=== PATIENT | male | born 1970 | race Caucasian/White ===

== ENCOUNTER → 2018-08-28 14:17 | Outpatient (CLI) | payer OTHER, SELFPAY ==
--- NOTE | 2018-08-28 14:19 | RAD_ITS ---
STUDY: X-RAY - RIGHT KNEE REASON FOR EXAM: Male, 48 years old. Knee pain. TECHNIQUE: 4 view(s) of the knee. COMPARISON: None. FINDINGS: Normal visualized distal femur. Normal visualized proximal tibia and fibula. Normal proximal tibiofibular articulation. There is mild medial compartmental arthrosis. Normal lateral femorotibial compartment. Normal patellofemoral articulation. The soft tissue structures are unremarkable. RAD/Knee 4 or More Views IMPRESSION: Mild medial compartmental arthrosis. Electronically Signed: Jefe Cotto MD at 17:21 EST , Service support ,
--- NOTE | 2018-08-28 14:19 | RAD_ITS ---
STUDY: X-RAY - LEFT KNEE REASON FOR EXAM: Male, 48 years old. Knee pain. TECHNIQUE: 4 view(s) of the knee. COMPARISON: None. FINDINGS: Normal visualized distal femur. Normal visualized proximal tibia and fibula. Normal proximal tibiofibular articulation. Normal medial femorotibial compartment. Normal lateral femorotibial compartment. Normal patellofemoral articulation. The soft tissue structures are unremarkable. RAD/Knee 4 or More Views IMPRESSION: Normal x-ray examination of the knee. Electronically Signed: Jefe Cotto MD at 17:20 EST , Service support ,
[2018-08-28 15:08] LABS: Lyme Ab Screen Interpretation REF LAB
[2018-08-28 17:56] LABS: Absolute Lymphocyte Count 1.46 X10^3/ul (0.83-4.51); Absolute Neutrophil Count 3.2 X10^3/uL (2.0-7.7); Basophil# 0.04 X10^3/uL; Basophil% 0.7 % (0-1); Eosinophil# 0.09 X10^3/uL; Eosinophils% 1.7 % (0-5); Hematocrit 44.9 % (40-54); Hemoglobin 15.7 g/dl (13.0-16.5); Lymphocyte # 1.46 X10^3/ul (4.0); Lymphocyte % 26.8 % (19-41); Mean Corpuscular Hgb 33.3 pg (27.0-32.0); Mean Corpuscular Volume 95.1 fL (80-94); Mean Platelet Vol. 9.8 fl (6.2-12.0); Monocyte# 0.61 X10^3/uL; Monocyte% 11.2 % (0-10); Neutrophil # 3.23 X10^3/uL (2.7-7.7); Neutrophil % 59.4 % (47-70); Platelet Count 167 K/mm3 (150-450); RBC Distribution Width CV 11.8 % (11.6-14.6); RBC Distribution Width SD 40.9 fl (35.1-43.9); Red Blood Count 4.72 M/mm3 (4.6-6.2); White Blood Count 5.4 K/mm3 (4.4-11.0)
[2018-08-28 18:02] LABS: CRP < 2.90 mg/L (0.0-3.0); POSITIVE COUNT NO; POSITIVE DIFFERENTIAL NO; POSITIVE MORPHOLOGY NO; Rheumatoid Factor < 10.0 IU/mL (<15)
[2018-08-28 20:35] LABS: Erythrocyte Sedimentation Rate < 1 mm/hr (0-20)
[2018-09-02 13:18] LABS: ANTINUCLEAR ANTIBODIES DIRECT Negative (Negative)
[2018-09-04 08:44] LABS: CCP IgG Antibodies 4 units (0-19); HLA B27 Negative (.); Lyme Scn Total Ab w/Rflx <0.91 ISR (0.00-0.90)
== END ==
PROVIDERS: Family Provider Family Medicine; PCP Family Medicine; Referring Provider Orthopaedic Surgery; Visit Provider Orthopaedic Surgery
DX: M17.11 Unilateral primary osteoarthritis, right knee (principal); M25.562 Pain in left knee
CPT/HCPCS: 36415; 73564; 81374; 85025; 85652; 86038; 86140; 86200; 86431; 86618

== ENCOUNTER → 2018-09-29 15:53 | Outpatient (CLI) | payer OTHER, SELFPAY ==
[2018-09-18 16:14] VITALS: BMI 25.4
--- NOTE | 2018-09-29 15:55 | ECHOD_ITS ---
Reason For Study: MVP Procedure This was a 2D Doppler, Color Flow transthoracic echocardiogram. Exam performed in department. Left Ventricle Normal LV size. Left ventricular systolic function is normal. The estimated ejection fraction is 60 %. No regional wall motion abnormalities noted. Right Ventricle Normal RV size. Normal systolic function. Atria Normal left atrium. Normal right atrium. Mitral Valve Chordal systolic anterior motion of the mitral valve. Mild mitral valve prolapse. Trivial eccentric mitral valve insufficiency. Tricuspid Valve Normal tricuspid valve. Mild tricuspid valve insufficiency. Pulmonary artery systolic pressure is 24 mmHg. Aortic Valve Normal aortic valve. Pulmonic Valve Normal pulmonic valve. Great Vessels Normal aortic root. The pulmonary artery is normal size. Normal inferior vena cava. Pericardium/Pleural No pericardial effusion. MMode/2D Measurements & Calculations LVIDd: 4.7 cm IVSd: 0.90 cm Ao root diam: 3.2 cm LVIDs: 3.2 cm LVPWd: 0.83 cm RVDd: 4.0 cm FS: 32.8 % LAV(MOD-bp): 59.2 ml LA A4 area: 17.0 cm2 LA dimension(2D): 3.5 cm LAV(MOD-bp) Indexed: 29.8 ml/m2 LAV(MOD-sp2): 82.6 ml LAV(MOD-sp4): 43.0 ml RA A4 area: 17.8 cm2 Time Measurements MV dec time: 0.22 sec Doppler Measurements & Calculations MV E max omari: 62.9 cm/sec Lat Peak E' Omari: 16.6 cm/sec Med Peak E' Omari: 11.0 cm/sec MV A max omari: 33.2 cm/sec E/E' lat: 3.8 E/E' med: 5.7 MV E/A: 1.9 Ao V2 max: 112.5 cm/sec LV V1 max: 102.9 cm/sec TR max omari: 217.4 cm/sec Ao max P.1 mmHg LV V1 max P.2 mmHg TR max P.9 mmHg Interpretation Summary Normal LV size. Left ventricular systolic function is normal. The estimated ejection fraction is 60 %. Mild mitral valve prolapse. Chordal systolic anterior motion of the mitral valve. Mild tricuspid valve insufficiency. Ordering Physician: Titus Crain Referring Physician: JOHANN BUNDY Performed By: Suzanna Cohn, SLIMECS, RVT
== END ==
PROVIDERS: Family Provider Family Medicine; PCP Family Medicine; Referring Provider Internal Medicine Cardiovascular Disease; Visit Provider Internal Medicine Cardiovascular Disease
DX: I05.9 Rheumatic mitral valve disease, unspecified (principal)
CPT/HCPCS: 93306

== ENCOUNTER → 2020-10-03 07:48 | Outpatient (CLI) | payer BC, OTHER, SELFPAY ==
[2020-09-22 08:53] VITALS: BMI 26.1
--- NOTE | 2020-10-03 07:50 | ECHOCS_ITS ---
Reason For Study: MVP Procedure This was a 2D Doppler, Color Flow transthoracic echocardiogram. The study was technically difficult. Contrast injection was performed. Exam performed in department. Left Ventricle Normal LV size. Left ventricular systolic function is normal. The estimated ejection fraction is 60 %. Normal diastology for age. No regional wall motion abnormalities noted. Right Ventricle Normal RV size. Normal systolic function. Atria Normal left atrium. Normal right atrium. Mitral Valve Normal mitral valve. Tricuspid Valve Myxomatous appearing tricuspid valve. Unable to estimate RV systolic pressure due to inadequate jet, pulmonary artery pressure probably normal. Pulmonic Valve Normal pulmonic valve. Great Vessels Normal aortic root. The pulmonary artery is normal size. Normal inferior vena cava. Pericardium/Pleural No pericardial effusion. Medication 22 gauge I.V. with prn adaptor inserted into right arm. Diluted definity 3ml given slow IV push to enhance endocardial definition. MMode/2D Measurements & Calculations LVIDd: 4.8 cm IVSd: 0.90 cm Ao root diam: 3.5 cm LVIDs: 3.0 cm LVPWd: 0.94 cm LA dimension: 3.5 cm RVDd: 3.7 cm FS: 37.5 % LAV(MOD-bp): 56.7 ml LA A4 area: 16.9 cm2 RA A4 area: 15.4 cm2 LAV(MOD-bp) Indexed: 28.9 ml/m2 LAV(MOD-sp2): 60.3 ml LAV(MOD-sp4): 45.5 ml Time Measurements MV dec time: 0.23 sec Doppler Measurements & Calculations MV E max omari: 93.2 cm/sec Lat Peak E' Omari: 17.8 cm/sec Med Peak E' Omari: 11.8 cm/sec MV A max omari: 44.2 cm/sec E/E' lat: 5.2 E/E' med: 7.9 MV E/A: 2.1 MV V2 max: 94.4 cm/sec MV P1/2t max omari: 95.1 cm/sec Ao V2 max: 132.1 cm/sec MV max P.6 mmHg MV P1/2t: 66.7 msec Ao max P.0 mmHg MV V2 mean: 39.1 cm/sec MV dec slope: 417.9 cm/sec2 MV mean P.77 mmHg MVA(P1/2t): 3.3 cm2 MV V2 VTI: 28.9 cm LV V1 max: 105.7 cm/sec PA V2 max: 93.4 cm/sec LV V1 max P.5 mmHg Interpretation Summary Normal LV size. Left ventricular systolic function is normal. The estimated ejection fraction is 60 %. Myxomatous appearing tricuspid valve. Unable to estimate RV systolic pressure due to inadequate jet, pulmonary artery pressure probably normal. Contrast injection was performed. Ordering Physician: Titus Crain Referring Physician: Tono Radford Performed By: Ventura Dickinson RCS
== END ==
PROVIDERS: PCP Family Medicine; Referring Provider Internal Medicine Cardiovascular Disease; Visit Provider Internal Medicine Cardiovascular Disease
DX: I34.1 Nonrheumatic mitral (valve) prolapse (principal)
CPT/HCPCS: 93306; Q9957; A4216; C8929

== ENCOUNTER → 2021-02-08 10:13 | Outpatient (CLI) | payer BC, OTHER, SELFPAY ==
[2021-02-08 11:38] LABS: EXAGEN MAILED SPECIMEN
[2021-02-08 12:13] LABS: Color, Urine Yellow (Yellow); Glucose, Dipstick Normal (Normal); Ketone-Dipstick Negative (Negative); Leukocyte Esterase-Dipstick Negative /ul (Negative); Nitrite-Dipstick Negative (Negative); Occult Blood-Urine Negative /ul (Negative); Protein-Dipstick Negative (Negative); Specific Gravity, Urine 1.015 (1.002-1.030); Urine Bilirubin Dipstick Negative (Negative); Urine Clarity Clear (Clear); Urine Urobilinogen Normal (Normal)
[2021-02-08 12:21] LABS: Absolute Lymphocyte Count 1.38 X10^3/uL (0.83-4.51); Absolute Neutrophil Count 5.1 X10^3/uL (2.0-7.7); Basophil# 0.06 X10^3/uL; Basophil% 0.8 % (0-1); Eosinophil# 0.08 X10^3/uL; Eosinophils% 1.1 % (0-5); Erythrocyte Sedimentation Rate 3 mm/hr (0-20); Hematocrit 43.5 % (40-54); Hemoglobin 15.1 g/dL (13.0-16.5); Lymphocyte # 1.38 X10^3/ul (0.83-4.51); Lymphocyte % 19.2 % (19-41); Mean Corp Hgb Conc 34.7 g/dL (32-36); Mean Corpuscular Hgb 32.8 pg (27.0-32.0); Mean Corpuscular Volume 94.6 fL (80-94); Mean Platelet Vol. 9.5 fl (6.2-12.0); Monocyte# 0.55 X10^3/uL; Monocyte% 7.6 % (0-10); NRBC Flagged by Analyzer 0 % (0-5); Neutrophil # 5.09 X10^3/uL (2.7-7.7); Neutrophil % 70.9 % (47-70); Platelet Count 191 K/mm3 (150-450); RBC Distribution Width CV 11.8 % (11.6-14.6); RBC Distribution Width SD 40.7 fl (35.1-43.9); White Blood Count 7.2 K/mm3 (4.4-11.0)
[2021-02-08 12:23] LABS: Prothrombin Time (Protime)PT. 12.5 SECONDS (11.7-14.9)
[2021-02-08 12:24] LABS: Partial Thromboplast Time 29.6 Seconds (24.1-36.2)
[2021-02-08 12:36] LABS: ALB/GLOB Ratio 1.3 RATIO (0.9-2.4); AST(SGOT) 32 U/L (15-37); Alanine Aminotransfer ALT/SGPT 35 U/L (16-61); Albumin, Serum 4.3 g/dL (3.2-5.0); Alkaline Phosphatase 86 U/L (45-117); Anion Gap 5 (5-15); BUN 12 mg/dL (7-18); BUN/Creat Ratio 11.9 RATIO (10-20); CRP < 2.90 mg/L (0.0-3.0); Calcium,Total 9.2 mg/dL (8.5-10.1); Chloride 105 mmol/L (98-107); Creatinine, Serum 1.01 mg/dL (0.70-1.30); EST Glomerular Filtration Rate 82 mL/min (>60); Est Glom Filt Rate - Afr Amer 100 mL/min (>60); Globulin 3.2 g/dL (2.2-4.2); Glucose 90 mg/dL (74-106); Potassium 3.9 mmol/L (3.5-5.1); Protein, Total 7.5 g/dL (6.4-8.2); Sodium Level 138 mmol/L (136-145)
[2021-02-08 12:47] LABS: Protein, Urine (Random) < 6.0 mg/dL (<11.9)
[2021-02-08 13:06] LABS: Hepatitis B Surface Antibody Non-Reactive; Hepatitis B Surface Antigen Non-Reactive (Nonreactive); Hepatitis C Antibody Non-Reactive (Nonreactive)
[2021-02-10 05:07] LABS: Dilute Prothrombin Time (dPT) 36.1 sec (0.0-55.0); Dilute Russell Viper Venom 35.4 sec (0.0-47.0); Hexagonal Phase Phospholipid 0 sec (0-11); PTT-LA 33.7 sec (0.0-51.9); Thrombin Time 20.6 sec (0.0-23.0); dPT Confirm Ratio 1.07 Ratio (0.00-1.40)
[2021-02-10 09:58] LABS: Interpretation Comment: (.)
== END ==
PROVIDERS: PCP Family Medicine; Referring Provider Internal Medicine Rheumatology; Visit Provider Internal Medicine Rheumatology
DX: M06.4 Inflammatory polyarthropathy (principal); R76.8 Other specified abnormal immunological findings in serum; R26.89 Other abnormalities of gait and mobility; I49.8 Other specified cardiac arrhythmias; I34.1 Nonrheumatic mitral (valve) prolapse; E78.5 Hyperlipidemia, unspecified; J45.909 Unspecified asthma, uncomplicated; G43.909 Migraine, unspecified, not intractable, without status migrainosus
CPT/HCPCS: 36415; 80053; 81002; 82570; 84156; 85025; 85598; 85610; 85652; 85670; 85730; 86140; 86706; 86803; 87340

== ENCOUNTER → 2021-03-07 12:25 | Outpatient (CLI) | payer BC, OTHER, SELFPAY | PROVIDERS: PCP Family Medicine; Referring Provider Internal Medicine Cardiovascular Disease; Visit Provider Internal Medicine Cardiovascular Disease | DX: R00.2 Palpitations (principal); R06.02 Shortness of breath; R94.31 Abnormal electrocardiogram [ECG] [EKG]; I49.3 Ventricular premature depolarization | CPT/HCPCS: 93225; 93226 ==

== ENCOUNTER → 2021-05-15 06:33 | Outpatient (CLI) | payer BC, OTHER, SELFPAY ==
--- NOTE | 2021-05-15 10:02 | STRESSREP ---
Stress Test Report Exercise myocardial perfusion stress test. 51-year-old man with a history of chest pain. Stress protocol: Resting EKG demonstrates normal sinus rhythm with a rate of 57 bpm normal intervals are noted resting blood pressure is 132/84 mmHg. The patient exercised according to regular Reed protocol for total duration of 12 minutes. Patient completed stage IV of the Reed protocol. The maximum heart rate attained was 153 bpm which was 91% of maximum predicted heart rate the maximum workload was 13.7 metabolic equivalents. At rest there were no ST or T wave changes noted to suggest ischemia and at peak exercise upsloping ST changes were noted with did not meet the criteria for ischemia. No clinical angina was noted suggestive of angina but mild chest discomfort was present. The peak blood pressure was 168/80 mmHg. Myocardial perfusion protocol. 11.7 mCi of technetium 99m sestamibi was injected at rest. The patient exercised according to regular Reed protocol to a high workload and at peak exercise 33.3 mCi of technetium 99m sestamibi was injected stress images were obtained stress and rest images were reconstructed and compared in the short axis vertical long and horizontal long axis. Gated images were also obtained. Perfusion SPECT analysis: Review of the stress images demonstrate normal uptake of tracer noted in all areas of the myocardium. The resting images similarly demonstrate normal uptake of tracer noted in all areas of the myocardium. No areas of reversibility are noted to suggest ischemia and no previous infarct is noted. Gated SPECT analysis: The gated ejection fraction is 59%. Conclusion: Normal exercise myocardial perfusion stress test at a high workload. Preserved ejection fraction.
== END ==
PROVIDERS: PCP Family Medicine; Referring Provider Physician Assistant Medical; Visit Provider Physician Assistant Medical
DX: R07.9 Chest pain, unspecified (principal)
CPT/HCPCS: 78452; 93017; A9500; A4216

== ENCOUNTER → 2021-06-23 07:11 | Outpatient (CLI) | payer BC, OTHER, SELFPAY ==
[2021-06-23 10:01] LABS: Absolute Neutrophil Count 2.6 X10^3/uL (2.0-7.7); Basophil# 0.07 X10^3/uL; Basophil% 1.5 % (0-1); Eosinophil# 0.12 X10^3/uL; Eosinophils% 2.7 % (0-5); Hematocrit 43.8 % (40-54); Hemoglobin 15.3 g/dL (13.0-16.5); Lymphocyte % 26.5 % (19-41); Mean Corp Hgb Conc 34.9 g/dL (32-36); Mean Corpuscular Hgb 33.4 pg (27.0-32.0); Mean Corpuscular Volume 95.6 fL (80-94); Mean Platelet Vol. 9.8 fl (6.2-12.0); Monocyte# 0.56 X10^3/uL; Monocyte% 12.4 % (0-10); NRBC Flagged by Analyzer 0 % (0-5); Neutrophil # 2.56 X10^3/uL (2.7-7.7); Neutrophil % 56.7 % (47-70); Platelet Count 195 K/mm3 (150-450); RBC Distribution Width CV 11.4 % (11.6-14.6); Red Blood Count 4.58 M/mm3 (4.6-6.2); White Blood Count 4.5 K/mm3 (4.4-11.0)
[2021-06-23 10:45] LABS: ALB/GLOB Ratio 1.2 RATIO (0.9-2.4); AST(SGOT) 24 U/L (15-37); Alanine Aminotransfer ALT/SGPT 33 U/L (16-61); Albumin, Serum 3.9 g/dL (3.2-5.0); Alkaline Phosphatase 70 U/L (45-117); Anion Gap 6 (5-15); BUN 19 mg/dL (7-18); BUN/Creat Ratio 20.1 RATIO (10-20); Calcium,Total 9.1 mg/dL (8.5-10.1); Chloride 107 mmol/L (98-107); Creatinine, Serum 0.94 mg/dL (0.70-1.30); EST Glomerular Filtration Rate 89 mL/min (>60); Est Glom Filt Rate - Afr Amer 107 mL/min (>60); Globulin 3.3 g/dL (2.2-4.2); Glucose 88 mg/dL (74-106); Protein, Total 7.2 g/dL (6.4-8.2); Sodium Level 139 mmol/L (136-145)
== END ==
PROVIDERS: PCP Family Medicine; Referring Provider Internal Medicine Rheumatology; Visit Provider Internal Medicine Rheumatology
DX: M06.4 Inflammatory polyarthropathy (principal); R76.8 Other specified abnormal immunological findings in serum; R26.89 Other abnormalities of gait and mobility; I49.8 Other specified cardiac arrhythmias; I34.1 Nonrheumatic mitral (valve) prolapse; E78.5 Hyperlipidemia, unspecified; J45.909 Unspecified asthma, uncomplicated; G43.909 Migraine, unspecified, not intractable, without status migrainosus
CPT/HCPCS: 36415; 80053; 85025

== ENCOUNTER 2021-09-08 07:09 | Outpatient (CLI) | payer BC, OTHER, SELFPAY ==
[2021-09-08 10:00] LABS: Absolute Lymphocyte Count 1.59 X10^3/uL (0.83-4.51); Absolute Neutrophil Count 2.8 X10^3/uL (2.0-7.7); Basophil# 0.06 X10^3/uL; Basophil% 1.2 % (0-1); Eosinophil# 0.11 X10^3/uL; Eosinophils% 2.1 % (0-5); Hematocrit 44.6 % (40-54); Hemoglobin 15.7 g/dL (13.0-16.5); Lymphocyte # 1.59 X10^3/ul (0.83-4.51); Lymphocyte % 30.9 % (19-41); Mean Corp Hgb Conc 35.2 g/dL (32-36); Mean Corpuscular Hgb 33.1 pg (27.0-32.0); Mean Corpuscular Volume 94.1 fL (80-94); Mean Platelet Vol. 9.3 fl (6.2-12.0); Monocyte# 0.59 X10^3/uL; Monocyte% 11.5 % (0-10); NRBC Flagged by Analyzer 0 % (0-5); Neutrophil # 2.79 X10^3/uL (2.7-7.7); Neutrophil % 54.1 % (47-70); Platelet Count 198 K/mm3 (150-450); RBC Distribution Width CV 11.3 % (11.6-14.6); RBC Distribution Width SD 39.1 fl (35.1-43.9); Red Blood Count 4.74 M/mm3 (4.6-6.2); White Blood Count 5.2 K/mm3 (4.4-11.0)
[2021-09-08 10:22] LABS: ALB/GLOB Ratio 1.2 RATIO (0.9-2.4); AST(SGOT) 27 U/L (15-37); Alanine Aminotransfer ALT/SGPT 33 U/L (16-61); Albumin, Serum 3.9 g/dL (3.2-5.0); Alkaline Phosphatase 79 U/L (45-117); Anion Gap 7 (5-15); BUN 16 mg/dL (7-18); BUN/Creat Ratio 17.4 RATIO (10-20); Calcium,Total 8.9 mg/dL (8.5-10.1); Chloride 104 mmol/L (98-107); Creatinine, Serum 0.92 mg/dL (0.70-1.30); EST Glomerular Filtration Rate 92 mL/min (>60); Est Glom Filt Rate - Afr Amer 111 mL/min (>60); Globulin 3.2 g/dL (2.2-4.2); Glucose 80 mg/dL (74-106); Potassium 4.4 mmol/L (3.5-5.1); Protein, Total 7.1 g/dL (6.4-8.2); Sodium Level 138 mmol/L (136-145)
== END 2021-09-08 23:59 | disposition short-term general hospital (02) ==
LOC: MTLAB 07:11
PROVIDERS: PCP Family Medicine; Referring Provider Internal Medicine Rheumatology; Visit Provider Internal Medicine Rheumatology
DX: M06.4 Inflammatory polyarthropathy (principal); Z79.899 Other long term (current) drug therapy; R76.8 Other specified abnormal immunological findings in serum; M77.11 Lateral epicondylitis, right elbow; R26.89 Other abnormalities of gait and mobility; I49.8 Other specified cardiac arrhythmias; I34.1 Nonrheumatic mitral (valve) prolapse; E78.5 Hyperlipidemia, unspecified; J45.909 Unspecified asthma, uncomplicated; G43.909 Migraine, unspecified, not intractable, without status migrainosus
CPT/HCPCS: 36415; 80053; 85025

== ENCOUNTER → 2022-03-03 | Outpatient (CLI) | payer BC, OTHER, SELFPAY ==
[2022-03-03 09:48] LABS: Absolute Lymphocyte Count 2.44 X10^3/uL (0.83-4.51); Absolute Neutrophil Count 3.8 X10^3/uL (2.0-7.7); Basophil# 0.09 X10^3/uL; Basophil% 1.2 % (0-1); Eosinophil# 0.19 X10^3/uL; Eosinophils% 2.5 % (0-5); Hemoglobin 16.1 g/dL (13.0-16.5); Lymphocyte # 2.44 X10^3/ul (0.83-4.51); Lymphocyte % 32.4 % (19-41); Mean Corp Hgb Conc 35.8 g/dL (32-36); Mean Corpuscular Volume 92.2 fL (80-94); Mean Platelet Vol. 8.7 fl (6.2-12.0); Monocyte# 0.85 X10^3/uL; Monocyte% 11.3 % (0-10); NRBC Flagged by Analyzer 0 % (0-5); Neutrophil # 3.84 X10^3/uL (2.7-7.7); Neutrophil % 51.1 % (47-70); Platelet Count 216 K/mm3 (150-450); RBC Distribution Width CV 11.1 % (11.6-14.6); RBC Distribution Width SD 37.8 fl (35.1-43.9); Red Blood Count 4.88 M/mm3 (4.6-6.2); White Blood Count 7.5 K/mm3 (4.4-11.0)
[2022-03-03 10:06] LABS: BUN 23 mg/dL (7-18); Creatinine, Serum 1.18 mg/dL (0.70-1.30); Glucose 97 mg/dL (74-106)
[2022-03-03 10:07] LABS: ALB/GLOB Ratio 1.2 RATIO (0.9-2.4); AST(SGOT) 24 U/L (15-37); Alanine Aminotransfer ALT/SGPT 29 U/L (16-61); Albumin, Serum 3.9 g/dL (3.2-5.0); Alkaline Phosphatase 89 U/L (45-117); Anion Gap 7 (5-15); BUN/Creat Ratio 19.5 RATIO (10-20); Chloride 108 mmol/L (98-107); EST Glomerular Filtration Rate 68 mL/min (>60); Est Glom Filt Rate - Afr Amer 83 mL/min (>60); Globulin 3.3 g/dL (2.2-4.2); Protein, Total 7.2 g/dL (6.4-8.2); Sodium Level 139 mmol/L (136-145)
== END | disposition home or self-care (01) ==
LOC: LAB 08:52
PROVIDERS: PCP Family Medicine; Referring Provider Internal Medicine Rheumatology; Visit Provider Internal Medicine Rheumatology
DX: M06.4 Inflammatory polyarthropathy (principal); R76.8 Other specified abnormal immunological findings in serum; M77.11 Lateral epicondylitis, right elbow; R26.89 Other abnormalities of gait and mobility; I49.8 Other specified cardiac arrhythmias; I34.1 Nonrheumatic mitral (valve) prolapse; E78.5 Hyperlipidemia, unspecified; J45.909 Unspecified asthma, uncomplicated; G43.909 Migraine, unspecified, not intractable, without status migrainosus; Z79.899 Other long term (current) drug therapy
CPT/HCPCS: 36415; 80053; 85025

== ENCOUNTER → 2022-08-31 | Outpatient (CLI) | payer BC, OTHER, SELFPAY ==
[2022-08-31 10:26] LABS: Absolute Neutrophil Count 3.5 X10^3/uL (2.0-7.7); Basophil# 0.07 X10^3/uL; Basophil% 1.2 % (0-1); Eosinophil# 0.16 X10^3/uL; Eosinophils% 2.7 % (0-5); Hematocrit 44.3 % (40-54); Hemoglobin 15.3 g/dL (13.0-16.5); Lymphocyte % 23.8 % (19-41); Mean Corp Hgb Conc 34.5 g/dL (32-36); Mean Corpuscular Hgb 32.5 pg (27.0-32.0); Mean Corpuscular Volume 94.1 fL (80-94); Mean Platelet Vol. 9.7 fl (6.2-12.0); Monocyte# 0.74 X10^3/uL; Monocyte% 12.6 % (0-10); NRBC Flagged by Analyzer 0 % (0-5); Neutrophil % 59.4 % (47-70); Platelet Count 197 K/mm3 (150-450); RBC Distribution Width CV 11.5 % (11.6-14.6); RBC Distribution Width SD 40.1 fl (35.1-43.9); Red Blood Count 4.71 M/mm3 (4.6-6.2); White Blood Count 5.9 K/mm3 (4.4-11.0)
[2022-08-31 11:04] LABS: ALB/GLOB Ratio 1.4 RATIO (0.9-2.4); AST(SGOT) 24 U/L (15-37); Alanine Aminotransfer ALT/SGPT 30 U/L (16-61); Albumin, Serum 4.1 g/dL (3.2-5.0); Alkaline Phosphatase 73 U/L (45-117); Anion Gap 5 (5-15); BUN 21 mg/dL (7-18); BUN/Creat Ratio 21.6 RATIO (10-20); Calcium,Total 8.9 mg/dL (8.5-10.1); Chloride 107 mmol/L (98-107); Creatinine, Serum 0.97 mg/dL (0.70-1.30); EST Glomerular Filtration Rate 85 mL/min (>60); Est Glom Filt Rate - Afr Amer 103 mL/min (>60); Glucose 81 mg/dL (74-106); Potassium 3.9 mmol/L (3.5-5.1); Protein, Total 7.1 g/dL (6.4-8.2); Sodium Level 140 mmol/L (136-145)
== END | disposition home or self-care (01) ==
LOC: MTLAB 08:48
PROVIDERS: PCP Family Medicine; Referring Provider Internal Medicine Rheumatology; Visit Provider Internal Medicine Rheumatology
DX: M06.4 Inflammatory polyarthropathy (principal); R76.8 Other specified abnormal immunological findings in serum; M77.11 Lateral epicondylitis, right elbow; R26.89 Other abnormalities of gait and mobility; I49.8 Other specified cardiac arrhythmias; I34.1 Nonrheumatic mitral (valve) prolapse; E78.5 Hyperlipidemia, unspecified; J45.909 Unspecified asthma, uncomplicated; G43.909 Migraine, unspecified, not intractable, without status migrainosus; Z79.899 Other long term (current) drug therapy
CPT/HCPCS: 36415; 80053; 85025

== ENCOUNTER → 2023-03-01 | Outpatient (CLI) | payer BC, OTHER, SELFPAY ==
[2023-03-01 07:34] LABS: Absolute Lymphocyte Count 1.61 X10^3/uL (0.83-4.51); Absolute Neutrophil Count 2.8 X10^3/uL (2.0-7.7); Basophil# 0.09 X10^3/uL; Basophil% 1.7 % (0-1); Eosinophil# 0.28 X10^3/uL; Eosinophils% 5.2 % (0-5); Hematocrit 46.1 % (40-54); Hemoglobin 16.1 g/dL (13.0-16.5); Lymphocyte # 1.61 X10^3/ul (0.83-4.51); Lymphocyte % 29.8 % (19-41); Mean Corp Hgb Conc 34.9 g/dL (32-36); Mean Corpuscular Volume 94.5 fL (80-94); Mean Platelet Vol. 9.1 fl (6.2-12.0); Monocyte# 0.62 X10^3/uL; Monocyte% 11.5 % (0-10); NRBC Flagged by Analyzer 0 % (0-5); Neutrophil % 51.6 % (47-70); Platelet Count 192 K/mm3 (150-450); RBC Distribution Width CV 11.4 % (11.6-14.6); Red Blood Count 4.88 M/mm3 (4.6-6.2); White Blood Count 5.4 K/mm3 (4.4-11.0)
[2023-03-01 08:07] LABS: ALB/GLOB Ratio 1.2 RATIO (0.9-2.4); AST(SGOT) 27 U/L (15-37); Alanine Aminotransfer ALT/SGPT 30 U/L (16-61); Albumin, Serum 4.1 g/dL (3.2-5.0); Alkaline Phosphatase 85 U/L (45-117); Anion Gap 3 (5-15); BUN 19 mg/dL (7-18); BUN/Creat Ratio 16.4 RATIO (10-20); Calcium,Total 9.6 mg/dL (8.5-10.1); Chloride 106 mmol/L (98-107); Creatinine, Serum 1.16 mg/dL (0.70-1.30); EST Glomerular Filtration Rate 70 mL/min (>60); Est Glom Filt Rate - Afr Amer 84 mL/min (>60); Globulin 3.3 g/dL (2.2-4.2); Glucose 83 mg/dL (74-106); Potassium 4.2 mmol/L (3.5-5.1); Protein, Total 7.4 g/dL (6.4-8.2); Sodium Level 139 mmol/L (136-145)
== END | disposition home or self-care (01) ==
PROVIDERS: Referring Provider Internal Medicine Rheumatology; Visit Provider Internal Medicine Rheumatology
DX: M06.4 Inflammatory polyarthropathy (principal); R76.8 Other specified abnormal immunological findings in serum; Z79.899 Other long term (current) drug therapy
CPT/HCPCS: 36415; 80053; 85025

== ENCOUNTER → 2023-08-28 | Outpatient (CLI) | payer BC, OTHER, SELFPAY ==
[2023-08-28 17:37] LABS: Absolute Lymphocyte Count 1.82 X10^3/uL (0.83-4.51); Absolute Neutrophil Count 3.1 X10^3/uL (2.0-7.7); Basophil# 0.07 X10^3/uL; Basophil% 1.2 % (0-1); Eosinophil# 0.14 X10^3/uL; Eosinophils% 2.4 % (0-5); Hematocrit 43.6 % (40-54); Hemoglobin 15.2 g/dL (13.0-16.5); Lymphocyte # 1.82 X10^3/ul (0.83-4.51); Lymphocyte % 31.8 % (19-41); Mean Corp Hgb Conc 34.9 g/dL (32-36); Mean Corpuscular Hgb 32.3 pg (27.0-32.0); Mean Corpuscular Volume 92.6 fL (80-94); Mean Platelet Vol. 9.2 fl (6.2-12.0); Monocyte# 0.61 X10^3/uL; Monocyte% 10.6 % (0-10); NRBC Flagged by Analyzer 0 % (0-5); Neutrophil # 3.08 X10^3/uL (2.7-7.7); Neutrophil % 53.8 % (47-70); Platelet Count 179 K/mm3 (150-450); RBC Distribution Width CV 11.2 % (11.6-14.6); RBC Distribution Width SD 38.2 fl (35.1-43.9); Red Blood Count 4.71 M/mm3 (4.6-6.2); White Blood Count 5.7 K/mm3 (4.4-11.0)
[2023-08-28 18:02] LABS: ALB/GLOB Ratio 1.4 RATIO (0.9-2.4); AST(SGOT) 33 U/L (15-37); Alanine Aminotransfer ALT/SGPT 33 U/L (16-61); Albumin, Serum 4.2 g/dL (3.2-5.0); Alkaline Phosphatase 76 U/L (45-117); Anion Gap 6 (5-15); BUN 19 mg/dL (7-18); BUN/Creat Ratio 19.4 RATIO (10-20); Calcium,Total 8.6 mg/dL (8.5-10.1); Chloride 105 mmol/L (98-107); Creatinine, Serum 0.98 mg/dL (0.70-1.30); EST Glomerular Filtration Rate 85 mL/min (>60); Est Glom Filt Rate - Afr Amer 102 mL/min (>60); Globulin 2.9 g/dL (2.2-4.2); Glucose 88 mg/dL (74-106); Potassium 3.9 mmol/L (3.5-5.1); Protein, Total 7.1 g/dL (6.4-8.2); Sodium Level 138 mmol/L (136-145)
== END | disposition home or self-care (01) ==
LOC: MTLAB 14:20
PROVIDERS: Referring Provider Internal Medicine Rheumatology; Visit Provider Internal Medicine Rheumatology
DX: M06.4 Inflammatory polyarthropathy (principal); R76.8 Other specified abnormal immunological findings in serum; I49.8 Other specified cardiac arrhythmias; Z79.899 Other long term (current) drug therapy
CPT/HCPCS: 36415; 80053; 85025

== ENCOUNTER → 2024-02-19 | Outpatient (CLI) | payer BC, OTHER, SELFPAY ==
[2024-02-19 10:26] LABS: Absolute Lymphocyte Count 2.29 X10^3/uL (0.83-4.51); Absolute Neutrophil Count 3.5 X10^3/uL (2.0-7.7); Basophil% 1.4 % (0-1); Eosinophil# 0.22 X10^3/uL; Eosinophils% 3.2 % (0-5); Hematocrit 44.3 % (40-54); Hemoglobin 15.4 g/dL (13.0-16.5); Lymphocyte # 2.29 X10^3/ul (0.83-4.51); Lymphocyte % 32.9 % (19-41); Mean Corp Hgb Conc 34.8 g/dL (32-36); Mean Corpuscular Hgb 32.6 pg (27.0-32.0); Mean Corpuscular Volume 93.7 fL (80-94); Mean Platelet Vol. 9.5 fl (6.2-12.0); Monocyte# 0.77 X10^3/uL; Monocyte% 11.1 % (0-10); NRBC Flagged by Analyzer 0 % (0-5); Neutrophil # 3.53 X10^3/uL (2.7-7.7); Neutrophil % 50.8 % (47-70); Platelet Count 203 K/mm3 (150-450); RBC Distribution Width CV 11.3 % (11.6-14.6); RBC Distribution Width SD 38.9 fl (35.1-43.9); Red Blood Count 4.73 M/mm3 (4.6-6.2)
[2024-02-19 11:08] LABS: ALB/GLOB Ratio 1.3 RATIO (0.9-2.4); AST(SGOT) 26 U/L (15-37); Alanine Aminotransfer ALT/SGPT 34 U/L (16-61); Albumin, Serum 4.1 g/dL (3.2-5.0); Alkaline Phosphatase 69 U/L (45-117); Anion Gap 8 (5-15); BUN 25 mg/dL (7-18); Calcium,Total 9.5 mg/dL (8.5-10.1); Chloride 105 mmol/L (98-107); Creatinine, Serum 1.04 mg/dL (0.70-1.30); EST Glomerular Filtration Rate 79 mL/min (>60); Est Glom Filt Rate - Afr Amer 95 mL/min (>60); Globulin 3.1 g/dL (2.2-4.2); Glucose 88 mg/dL (74-106); Potassium 3.8 mmol/L (3.5-5.1); Protein, Total 7.2 g/dL (6.4-8.2); Sodium Level 141 mmol/L (136-145)
== END | disposition home or self-care (01) ==
PROVIDERS: Referring Provider Internal Medicine Rheumatology; Visit Provider Internal Medicine Rheumatology
DX: M06.4 Inflammatory polyarthropathy (principal); R76.8 Other specified abnormal immunological findings in serum; Z79.899 Other long term (current) drug therapy
CPT/HCPCS: 36415; 80053; 85025

== ENCOUNTER → 2024-08-12 | Outpatient (CLI) | payer BC, OTHER, SELFPAY ==
[2024-08-12 07:56] LABS: Absolute Lymphocyte Count 1.56 X10^3/uL (0.83-4.51); Absolute Neutrophil Count 2.9 X10^3/uL (2.0-7.7); Basophil# 0.08 X10^3/uL; Basophil% 1.5 % (0-1); Eosinophils% 3.8 % (0-5); Hemoglobin 15.1 g/dL (13.0-16.5); Lymphocyte # 1.56 X10^3/ul (0.83-4.51); Lymphocyte % 29.3 % (19-41); Mean Corp Hgb Conc 35.1 g/dL (32-36); Mean Corpuscular Hgb 32.1 pg (27.0-32.0); Mean Corpuscular Volume 91.5 fL (80-94); Mean Platelet Vol. 9.2 fl (6.2-12.0); Monocyte% 11.3 % (0-10); NRBC Flagged by Analyzer 0 % (0-5); Neutrophil # 2.87 X10^3/uL (2.7-7.7); Neutrophil % 53.9 % (47-70); Platelet Count 214 K/mm3 (150-450); RBC Distribution Width CV 11.9 % (11.6-14.6); White Blood Count 5.3 K/mm3 (4.4-11.0)
[2024-08-12 09:07] LABS: ALB/GLOB Ratio 1.3 RATIO (0.9-2.4); AST(SGOT) 20 U/L (15-37); Alanine Aminotransfer ALT/SGPT 26 U/L (16-61); Albumin, Serum 3.9 g/dL (3.2-5.0); Alkaline Phosphatase 91 U/L (45-117); Anion Gap 6 (5-15); BUN 22 mg/dL (7-18); BUN/Creat Ratio 19.5 RATIO (10-20); Calcium,Total 9.6 mg/dL (8.5-10.1); Chloride 107 mmol/L (98-107); Creatinine, Serum 1.13 mg/dL (0.70-1.30); EST Glomerular Filtration Rate 71 mL/min (>60); Est Glom Filt Rate - Afr Amer 86 mL/min (>60); Glucose 99 mg/dL (74-106); Potassium 3.9 mmol/L (3.5-5.1); Protein, Total 6.9 g/dL (6.4-8.2); Sodium Level 139 mmol/L (136-145)
== END | disposition home or self-care (01) ==
PROVIDERS: Referring Provider Internal Medicine Rheumatology; Visit Provider Internal Medicine Rheumatology
DX: M06.4 Inflammatory polyarthropathy (principal); R76.8 Other specified abnormal immunological findings in serum; Z79.899 Other long term (current) drug therapy
CPT/HCPCS: 36415; 80053; 85025

== ENCOUNTER → 2024-10-02 | Outpatient (CLI) | payer BC, OTHER, SELFPAY ==
--- NOTE | 2024-10-02 12:57 | ECHOD_ITS ---
Reason For Study: ARRHTYHMIA Procedure This was a 2D Doppler, Color Flow transthoracic echocardiogram. Exam performed in department. Left Ventricle Normal LV size. Left ventricular systolic function is normal. The left ventricular ejection fraction is 60 %. No regional wall motion abnormalities noted. Right Ventricle Normal RV size. Normal systolic function. Atria Normal left atrium. Normal right atrium. Mitral Valve Bileaflet diffuse mitral valve thickening. Tricuspid Valve Myxomatous appearing tricuspid valve. Mild tricuspid valve insufficiency. Aortic Valve Trisinus/trileaflet aortic valve. Pulmonic Valve Normal pulmonic valve. Great Vessels Normal aortic root. The pulmonary artery is normal size. Normal inferior vena cava. Pericardium/Pleural No pericardial effusion. MMode/2D Measurements & Calculations LVIDd: 4.2 cm IVSd: 0.97 cm LVOT diam: 2.2 cm LVIDs: 3.0 cm LVPWd: 1.1 cm LVOT area: 3.8 cm2 RVDd: 4.0 cm FS: 28.6 % _ Ao root diam: 3.4 cm LAV(MOD-bp): 36.4 ml LVAd ap4: 30.5 cm2 LAV(MOD-bp) Indexed: 18.9 ml/m2 LVLd ap4: 9.8 cm LAV(MOD-sp2): 55.3 ml EDV(MOD- sp4): 85.0 ml LAV(MOD-sp4): 22.9 ml EDV(sp4- el): 80.5 ml LVAs ap4: 17.6 cm2 LVLs ap4: 8.5 cm ESV(MOD- sp4): 35.5 ml ESV(sp4- el): 31.0 ml EF(MOD- sp4): 58.2 % EF(sp4- el): 61.5 % _ SV(MOD-sp4): 49.5 ml SV(sp4-el): 49.6 ml LA A4 area: 11.2 cm2 SI(MOD-sp4): 25.7 ml/m2 _ LA dimension(2D): 2.9 cm RA A4 area: 14.0 cm2 Time Measurements MV dec time: 0.23 sec Doppler Measurements & Calculations MV E max omari: 60.2 cm/sec Lat Peak E' Omari: 18.5 cm/sec Med Peak E' Omari: 10.2 cm/sec MV A max omari: 40.5 cm/sec E/E' lat: 3.3 E/E' med: 5.9 MV E/A: 1.5 _ MV V2 max: 71.9 cm/sec Ao V2 max: 106.9 cm/sec MV max P.1 mmHg MV dec slope: 268.6 cm/sec2 Ao max P.6 mmHg MV V2 mean: 31.5 cm/sec Ao V2 mean: 75.8 cm/sec MV mean P.50 mmHg Ao mean P.6 mmHg MV V2 VTI: 22.3 cm Ao V2 VTI: 24.2 cm AV (velocity ratio): 0.77 MVA(VTI): 3.2 cm2 MURRAY(I,D): 3.0 cm2 MURRAY(V,D): 3.1 cm2 _ LV V1 max: 85.4 cm/sec SV(LVOT): 72.0 ml PA V2 max: 90.6 cm/sec LV V1 max P.9 mmHg PA V2 mean: 63.0 cm/sec LV V1 mean P.6 mmHg LV V1 mean: 58.7 cm/sec LV V1 VTI: 18.7 cm _ PI end-d omari: 82.4 cm/sec ECHO/Echo Complete Interpretation Summary Normal LV size. Left ventricular systolic function is normal. The left ventricular ejection fraction is 60 %. Myxomatous appearing tricuspid valve. Ordering Physician: Titus Crain Referring Physician: Titus Crain Performed By: Joseline Mustafa RCS
== END | disposition home or self-care (01) ==
LOC: CVS 12:57
PROVIDERS: Referring Provider Internal Medicine Cardiovascular Disease; Visit Provider Internal Medicine Cardiovascular Disease
DX: I34.9 Nonrheumatic mitral valve disorder, unspecified (principal)
CPT/HCPCS: 93306

== ENCOUNTER → 2025-02-05 | Outpatient (CLI) | payer BC, OTHER, SELFPAY ==
--- OUTSIDE RECORDS SUMMARY | 2025-02-05 07:12 | XMS RPT_ITS | CCD ---
Author Organization [facility] Care Team Providers Care Specialist Wound Care Name Role Phone Janay ATKINSON, Dilma Newman Unavailable Unavailable Deysi Brito Unavailable Deysi Brito Unavailable Johann Bundy Primary Care Provider 1([phone]) Christie Ugarte DO Unavailable Johann Bundy Primary Care Provider 1(11 [phone]) Christie Ugarte DO Unavailable DALE ALBERT DO Primary Care Physician Johann Bundy Primary Care Provider 1([phone] 29) Christie Ugarte DO Unavailable Dr. Johann Bundy Primary Care Provider Dr. Johann Bundy Referring Provider [phone] HUMAIRA Downs Attending Provider Johann Bundy Primary Care Provider 1([phone] 29) JOHANA FRIAS Referring Unavailable JOHANN BUNDY Primary Care Unavailab Johann Valentin Primary Care Provider 1(11 29) DALE ALBERT DO Attending Unavailable DALE ALBERT DO Primary Care Unavailable REGINA VALIENTE PA-C Attending Unavailab DALE Lynn DO Primary Care Unavailable DALE ALBERT DO Primary Care Unavailable CACHORRO LAU DO Attending Unavailable Titus Crain Attending Unavailable Spike Crainril Referring Unavailable Dale Albert Primary Care Unavailable Mariza Rios Attending Unavailable Vellanki, Mariza Referring Unavailable Dale Albert Primary Care Unavailable Gabriel, Mariza Attending Unavailable Gabriel, Mariza Referring Unavailable Dale Albert Primary Care Unavailable Dale Albert Referring Unavailable Paras, Titus Attending Unavailable Dale Albert Primary Care Unavailable Paras, Madison Attending Unavailable Dale Albert Primary Care Unavailable [facility] Primary Care Unavailab le FROIMSON, JOHANA Referring Unavailable FROIMSON, JOHANA Attending Unavailable FROIMSON, JOHANA Referring Unavailable FROIMSON, JOHANA Attending Unavailable [facility] Primary Care Unavailab le SARA LEVINE Attending Unavailable [facility], [facility] Primary Care Unavailab le FROIMSON, JOHANA Referring Unavailable FROIMSON, JOHANA Attending Unavailable [facility], [facility] Primary Care Unavailab le FROIMSON, JOHANA Referring Unavailable MELISA FLOREZ Attending Unavailable [facility] Primary Care Unavailab le Allergies Allergy Classification Reported Allergen(s) Allergy Type Date of Onset Reaction(s) Facility Tetracyclines (antibiotic) (1 source) Demeclocycline Drug Allergy 0 Other: See Comments [facility] (3 sources) demeclocycline Drug Allergy 2 [facility] Work Phone: (20 sources) Demeclocycline; Translations: [DEMECLOCYCLINE] Drug Allergy 0 Other: See Comments, Unknown [facility] (20 sources) Seasonal allergy; Translations: [SEASONAL ALLERGIES] Allergy to substance 0 Cough [facility] (1 source) Allergic rhinitis due to pollen Allergy to substance 2 Other [facility] Work Phone: (3 sources) Environmental Allergies: Uncoded; Translations: [Environmental Allergies: Uncoded] Allergy to substance 3 Other [facility] (1 source) Demeclocycline Drug Allergy 5 [facility] Repository Medications Current Medications Medication Drug Class(es) Dates Sig (Normalized) Sig (Original) [id number] 200 actuat albuterol 0.09 mg/actuat metered dose inhaler (20 sources) beta2-Adrenergic Agonist Start: 05-13-2024 take 2 puff(s) by inhalation every four hours as needed for wheezing and cough, then take 2 puff(s) by inhalation every four hours as needed for wheezing and cough ProAir HFA MDI (90 mcg/inh) inhalation aerosol 2 puff(s), Inhalation, q4h, PRN as needed for wheezing, Take 2 puffs every 4 hours as needed for cough or shortness of breath, # 8.5 gram(s), 5 Refill(s), Pharmacy: [facility]/pharmacy #[id number], 175, cm, 05/13/24 13:19:00 EDT, Height, kg, 05/13/24 13:19:00 EDT, Dosing Weight Start Date: 05/13/24 Status: Ordered Start: 05-27-2023 take 2 puff(s) by in halation every four hours as needed for wheezing and cough, then take 2 puff(s) by inhalation every four hours as needed for wheezing and cough ProAir HFA MDI (90 mcg/inh) inhalation aerosol 2 puff(s), Inhalation, q4h, PRN as needed for wheezing, Take 2 puffs every 4 hours as needed for cough or shortness of breath, # 8.5 gram(s), 5 Refill(s), Pharmacy: [facility] #[id number], 175, cm, 05/10/23 15:39:00 EDT, Height, kg, 05/10/23 15:39:00 EDT, Dosing Weight Start Date: 05/27/23 Status: Ordered Start: 07-02-2022 take 2 puff(s) by mo uth every four hours for cough albuterol HFA (PROVENTIL HFA, VENTOLIN HFA) 90 mcg/actuation inhaler inhale 2 puffs by mouth every 4 hours if needed for wheezing cough or shortness of breath 07/02/2022 Active Start: 07-02-2022 take 2 puff(s) by in halation every four hours as needed for wheezing and cough, then take 2 puff(s) by inhalation every four hours as needed for wheezing and cough ProAir HFA MDI (90 mcg/inh) inhalation aerosol 2 puff(s), Inhalation, q4h, PRN as needed for wheezing, Take 2 puffs every 4 hours as needed for cough or shortness of breath, # 8.5 gram(s), 5 Refill(s), Pharmacy: [facility] #[id number], 175, cm, 05/08/22 8:26:00 EDT, Height, kg, 05/08/22 8:26:00 EDT, Dosing Weight Start Date: 07/02/22 Status: Ordered Start: 11-08-2020 take 2 puff(s) by in halation every four hours as needed for wheezing and cough, then take 2 puff(s) by inhalation every four hours as needed for wheezing and cough ProAir HFA MDI (90 mcg/inh) inhalation aerosol 2 puff(s), Inhalation, q4h, PRN as needed for wheezing, Take 2 puffs every 4 hours as needed for cough or shortness of breath, # 8.5 gram(s), 5 Refill(s), Pharmacy: [facility] 175, cm, 11/07/20 9:58:00 EST, Height, kg, 11/07/20 9:58:00 E... Start Date: 11/08/20 Status: Ordered Comment on above: inhale 2 puffs by mo ut every 4 hours if needed for wheezing cough or shortness of breath Nancy 24 Hour Allergy (4 sources) Start: 0 take 1 mg by mouth once daily [facility] 24 Hour Allergy mg =, Oral, qDay, 0 Refill(s) Start Date: 10/22/19 Status: Ordered amoxicillin 500 mg oral capsule (4 sources) Penicillin-class Antibacterial Start: 3 End: 3 take 1 capsule by mouth twice daily amoxicillin (AMOXIL) 500 mg capsule Take 1 capsule by mouth twice daily for 10 days. 20 capsule 0 01/03/2023 01/13/2023 Active Start: 02-24-2022 End: 03-01-2022 take 1 tablet by mouth twice daily amoxicillin (AMOXIL) 875 mg tablet Indications: Acute non-recurrent sinusitis, unspecified location Take 1 tablet by mouth twice daily for 5 days. 10 tablet 0 02/24/2022 03/01/2022 Discontinued (Course of therapy completed) Comment on above: Take 1 tablet by celia twice daily for 5 days. Take 1 capsule by mo [facility] twice daily for 10 days. benzonatate 100 mg oral capsule (13 sources) Non-narcotic Antitussive Start: 05-19-2024 End: 07-01-2024 benzonatate (TESSALON PERLE) 100 mg capsule 05/19/2024 07/01/2024 Discontinued Start: 05-13-2024 End: 05-29-2024 take 1 capsule by mouth once Tessalon Perles 100 mg or al capsule Dose : 100 mg = 1 cap(s), Oral, TID, may take up to 200mg per dose if needed, X 10 day(s), # 30 cap(s), 0 Refill(s), 05/29/24 2:00:00 PM EDT, Pharmacy: [facility]/pharmacy #[id number], Pneumonia due to COVID-19 virus AVA on CPAP, 175, cm, 05/13/24 13:19:00 EDT, Height, kg, 05/13/24 13:19:00 EDT, Dosing Weight Start Date: 05/19/24 Stop Date: 05/29/24 Status: Ordered Start: 07-05-2022 End: 03-27-2023 take 200 mg by mouth three times daily Benzonatate Discontinued 200 MG PO THREE TIMES A DAY July 04, 2022 11:00pm March 27, 2023 10:24am Start: 02-21-2022 End: 03-01-2022 take 2 capsules by mouth three times daily as needed benzonatate (TESSALON PERLE) 100 mg capsule Indications: URI, acute Take 2 capsules by mouth three times daily as needed. 30 capsule 0 02/21/2022 03/01/2022 Discontinued (Course of therapy completed) Comment on above: Take 2 capsules by m [facility] three times daily as needed. take 1 capsule by mo [facility] three times a day if needed for cough Breo Ellipta 100 mcg-25 mcg/inh inhalation powder (1 source) Start: take 1 dose by inhalation once daily Breo Ellipta 100 mcg-25 mcg/inh inhalation powder Dose = 1 puff(s), Inhalation, Daily, # 1 EA, 0 Refill(s), Pharmacy: [facility]/pharmacy #[id number], COVID-19 Diet-controlled hyperlipidemia, 175, cm, 05/13/24 13:19:00 EDT, Height, kg, 05/13/24 13:19:00 EDT, Dosing Weight Start Date: 05/13/24 Status: Ordered cefdinir 300 mg oral capsule (3 sources) Cephalosporin Antibacterial Start: End: cefdinir (OMNICEF) 300 mg capsule 05/19/2024 07/01/2024 Discontinued cholecalciferol 0.025 mg oral capsule (17 sources) Vitamin D Start: take 1 capsule by mouth once daily Cholecalciferol, Vitamin D3, (VITAMIN D) 25 mcg (1,000 unit) cap Take 1 capsule by mouth once daily. 01/21/2023 Active Comment on above: Take 1 capsule by [facility] once daily. CPAP/BIPAP/OTHER (20 sources) Start: End: CPAP/BIPAP/OTHER Type .CPAPSettings into a note to see current settings/supplies/D ME information. 1 Each 07/01/2024 11/16/2051 Active Start: 06-13-2023 End: 10-28-2050 CPAP/BIPAP/OTHER Type .CPAPS ettings into a note to see current settings/supplies/DME information. 1 Each 06/13/2023 10/28/2050 Active Start: 06-13-2023 End: 10-28-2050 CPAP/BIPAP/OTHER Type .CPAPS ettings into a note to see current settings/supplies/DME information. 1 Each 0 06/13/2023 10/28/2050 Active Start: 04-29-2022 End: 09-13-2049 CPAP/BIPAP/OTHER Type .CPAPS ettings into a note to see current settings/supplies/DME information. 1 Each 04/29/2022 09/13/2049 Active Start: 04-29-2022 End: 09-13-2049 CPAP/BIPAP/OTHER Type .CPAPS ettings into a note to see current settings/supplies/DME information. 1 Each 0 04/29/2022 09/13/2049 Active Comment on above: Type .CPAPSettings i nto a note to see current settings/supplies/DME information. DME MISCellaneous (2 sources) Start: 05-20-2024 DME MISCellaneous See Instructions, dx J18.9. dispense one incentive spirometer, use every hour while awake, # 1 EA, 0 Refill(s), Pneumonia, 175, cm, 05/13/24 13:19:00 EDT, Height, 77.3, kg, 05/13/24 13:19:00 EDT, Dosing Weight Start Date: 05/20/24 Status: Ordered Start: 05-20-2024 DME MISCellane ous See Instructions, dx J18.9. dispense one flutter valve, use every hour while awake, # 1 EA, 0 Refill(s), Pneumonia, 175, cm, 05/13/24 13:19:00 EDT, Height, 77.3, kg, 05/13/24 13:19:00 EDT, Dosing Weight Start Date: 05/20/24 Status: Ordered fexofenadine hydrochloride 180 mg oral tablet (20 sources) Histamine-1 Receptor Antagonist Start: 10-16-2021 take 1 tablet by mouth once daily Fexofenadine (Allergy Relief (Fexofenadine)) 180 mg tablet Active 180 MG PO DAILY October 16, 2021 12:00am Start: 07-06-2021 End: 10-16-2021 take 1 tablet by mouth once daily Fexofenadine (Nancy Allergy) 60 mg tablet Discontinued 60 MG PO DAILY July 06, 2021 7:06am October 16, 2021 9:03am Start: 12-20-2020 End: 07-06-2021 take 1 tablet by mouth twice daily Fexofenadine (Nancy Allergy) 60 mg tablet Discontinued 60 MG PO TWICE A DAY December 19, 2020 11:00pm July 06, 2021 7:07am Start: 11-08-2011 End: 12-20-2020 take 1 tablet by mouth once daily Fexofenadine (Nancy Allergy) 180 mg tablet Discontinued 180 MG PO DAILY September 18, 2018 12:00am December 20, 2020 7:25am Comment on above: Take 180 mg by mouth once daily. 12 hr guaiFENesin 600 mg extended release oral tablet (2 sources) Start: 2023 End: 2023 take 1 tablet by mouth every twelve hours MUCUS RELIEF ER 600 mg 12 hr tablet Take 1 tablet by mouth every 12 hours. 05/13/2024 07/01/2024 Discontinued hydroxychloroquine sulfate 200 mg oral tablet (20 sources) Antimalarial, Antirheumatic Agent Start: 2022 hydroxychloroquine 200 mg oral tablet Dose : 400 mg = 2 tab(s), Oral, qDay, # 180 tab(s), 0 Refill(s) Start Date: 05/10/23 Status: Ordered Start: 07-06-2021 End: 03-27-2023 take 300 mg by mouth once daily Hydroxychloroquine Discontinued 300 MG PO DAILY July 05, 2021 11:00pm March 27, 2023 10:24am Start: 05-24-2021 take 1 dose by mouth once daily Plaquenil Dose : 300 mg =, Oral, qDay, 0 Refill(s) Start Date: 05/24/21 Status: Ordered hydroxychloroqui ne sulfate (PLAQUENIL ORAL) Take by mouth. 0 Active Comment on above: Take by mouth. Take 200 mg by mouth twice daily. ibuprofen 200 mg oral capsule (12 sources) Nonsteroidal Anti-inflammatory Drug Start: 10-22-2019 take 1 mg by mouth every six hours ibuprofen 200 mg oral capsule mg = cap(s), Oral, q6hr, 0 Refill(s) Start Date: 10/22/19 Status: Ordered Start: 09-17-2019 take 200 mg by mouth twice daily Ibuprofen Active 200 MG PO TWICE A DAY September 17, 2019 8:46am Start: 09-18-2018 End: 09-17-2019 take 400 mg by mouth twice daily Ibuprofen Discontinued 400 MG PO TWICE A DAY September 18, 2018 12:00am September 17, 2019 8:46am iv contrast (will be provided with radiology test) (1 source) Start: 11-01-2023 End: 11-02-2023 inject 1 dose intravenously once iv contrast (will be provided with radiology test) MRI Brain Inject, intravenously, once for 1 dose.No IV access, insert saline lock prior to beginning of sedation, infusion, injection of imaging exam.Discontinue saline lock post exam. If Pt. has a central line or IVAD, may access for administration according to line specific nursing protocol.Once exam is complete flush line and de-access according to line specific nursing protocol in the contrast administration guidelines link 1 Each 0 11/01/2023 11/02/2023 Active Comment on above: MRI Brain Inject, in travenously, once for 1 dose.No IV access, insert saline lock prior to beginning of sedation, infusion, injection of imaging exam.Discontinue saline lock post exam. If Pt. has a central line or IVAD, may access for administration according to line specific nursing protocol.Once exam is complete flush line and de-access according to line specific nursing protocol in the MR contrast administration guidelines link ketorolac tromethamine 10 mg oral tablet (1 source) Nonsteroidal Anti-inflammatory Drug, Cyclooxygenase Inhibitor Start: 09-04-2024 End: 09-09-2024 take 1 tablet by mouth three times daily keTORolac (TORADOL) 10 mg tablet Take 1 tablet by mouth three times a day for 5 days. 15 tablet 09/04/2024 09/09/2024 Active magnesium oxide 400 mg oral tablet (17 sources) Start: 01-21-2023 take 1 tablet by mouth once daily magnesium oxide (MAG-OX) 400 mg (241.3 mg magnesium) tablet Take 1 tablet by mouth once daily. 01/21/2023 Active Comment on above: Take 1 tablet by celia th once daily. methocarbamol 500 mg oral tablet (19 sources) Muscle Relaxant Start: 11-27-2024 take 1 tablet by mouth three times daily as needed for pain methocarbamol (ROBAXIN) 500 mg tablet Indications: Neck pain Take 1 tablet by mouth three times a day as needed (neck pain, headache, back pain). 30 tablet 2 11/27/2024 Active Start: 11-01-2021 End: 01-21-2023 take 1 tablet by mouth every eight hours as needed methocarbamol (ROBAXIN) 500 mg tablet Take 1 tablet by mouth three times daily as needed (neck pain, headache, back pain). 30 tablet 2 11/01/2021 01/21/2023 Discontinued Comment on above: Take 1 tablet by celia th three times daily as needed (neck pain, headache, back pain). montelukast 10 mg oral tablet (20 sources) Leukotriene Receptor Antagonist Start: 05-01-2024 Singulair 10 mg oral tablet Dose : 10 mg = 1 tab(s), Oral, qDay, # 90 tab(s), 3 Refill(s), Pharmacy: [facility]/pharmacy #[id number], 175, cm, 05/01/24 8:06:00 EDT, Height, kg, 05/01/24 8:06:00 EDT, Dosing Weight Start Date: 05/01/24 Status: Ordered Start: 12-20-2020 take 1 tablet by celia th once daily Montelukast (Singulair) 10 mg tablet Active 10 MG PO DAILY December 19, 2020 11:00pm montelukast sodi um (SINGULAIR ORAL) Take by mouth once daily. Active montelukast sodi um (SINGULAIR ORAL) Take by mouth once daily. 0 Active montelukast sodi um (SINGULAIR ORAL) Take by mouth. 0 Active Comment on above: Take by mouth. Take by mouth once d aily. polymyxin b [id number] unt/ml / trimethoprim 1 mg/ml ophthalmic solution (2 sources) Dihydrofolate Reductase Inhibitor Antibacterial, Polymyxin-class Antibacterial Start: 02-22-20 End: 02-29-20 take 1 drop(s) into the eye(s) four times daily trimethoprim-polymyxin (POLYTRIM) 10,000 unit- 1 mg/mL ophthalmic solution Indications: Bacterial conjunctivitis Use 1 Drop in the right eye four times daily for 7 days. 10 mL 0 02/21/2022 02/28/2022 Active Comment on above: Use 1 Drop in the ri ght eye four times daily for 7 days. predniSONE 10 mg oral tablet (13 sources) Start: 08-19-20 take 1 tablet by mouth once daily as needed predniSONE (DELTASONE) 10 mg tablet TAKE 1 TABLET BY MOUTH EVERY DAY NEEDED FOR 3-5 DAYS WITH A FLARE 08/19/2024 Active Start: 05-19-2024 End: 05-24-2024 predniSONE 20 mg oral tablet Dose : 40 mg = 2 tab(s), Oral, qDay, X 5 day(s), # 10 tab(s), 0 Refill(s), 05/24/24 2:00:00 PM EDT, Pharmacy: [facility]/pharmacy #[id number], Pneumonia due to COVID-19 virus AVA on CPAP, 175, cm, 05/13/24 13:19:00 EDT, Height, kg, 05/13/24 13:19:00 EDT, Dosing Weight Start Date: 05/19/24 Stop Date: 05/24/24 Status: Ordered Start: 02-21-2022 End: 02-26-2022 take 2 tablets by mouth once daily predniSONE (DELTASONE) 20 mg tablet Take 2 tablets by mouth once daily for 5 days. 10 tablet 0 02/21/2022 02/26/2022 Active Start: 07-06-2021 End: 03-27-2023 Prednisone Discontinued 10 M G PO .COMPLEX October 16, 2021 9:04am March 27, 2023 10:24am as directed for arthritis flare ups 10 mg PO; Comment on above: Take 2 tablets by mo [facility] once daily for 5 days. vitamin b12 1 mg oral tablet (17 sources) Vitamin B12 Start: 01-21-2023 take 1 tablet by mouth once daily cyanocobalamin (VITAMIN B-12) 1,000 mcg tab Take 1 tablet by mouth once daily. 01/21/2023 Active Comment on above: Take 1 tablet by [facility] once daily. Completed/Discontinued Medications Medication Drug Class(es) Dates Sig (Normalized) Sig (Original) acetylcholine 10% solution - [facility] (8 sources) Start: 08-01-2020 End: 04-27-2022 acetylcholine 10% solution - [facility] Start: 08-01-2020 acetylcholine 10% solution - [facility] ALPRAZolam 1 mg oral tablet (4 sources) Benzodiazepine Start: 11-20-2023 End: 11-19-2024 ALPRAZolam (XANAX) 1 mg tablet Indications: Other headache syndrome Take 1 dose 1 hour before MRI. If needed, take additional dose right before MRI. 2 tablet 0 11/20/2023 02/13/2024 Discontinued Comment on above: Take 1 dose 1 hour b efore MRI. If needed, take additional dose right before MRI. betamethasone 3 mg/ml / betamethasone acetate 3 mg/ml injectable suspension (2 sources) Corticosteroid Start: 02-14-2024 End: 02-14-2024 betamethasone acetate-betamethasone sodium phosphate 12 mg injection (CELESTONE) gabapentin 300 mg oral capsule (20 sources) Anti-epileptic Agent Start: 05-01-2024 End: 08-16-2025 gabapentin (NEURONTIN) 300 mg capsule Take 1 capsule PO midday and 2 capsules PO at bedtime 90 capsule 5 05/21/2024 12/06/2024 Discontinued Start: 11-01-2023 End: 05-21-2024 take 3 capsules by mouth once daily at bedtime gabapentin (NEURONTIN) 300 mg capsule Take 3 capsules by mouth daily at bedtime for 180 days. 90 capsule 5 11/01/2023 05/21/2024 Discontinued Start: 05-10-2023 gabapentin 300 mg oral capsule Dose : 300 mg = 1 cap(s), Oral, BID, # 60 cap(s), 0 Refill(s), 79.1 Start Date: 05/10/23 Status: Ordered Start: 03-27-2023 take 600 mg by mouth once minh y Gabapentin Active 600 MG PO DAILY March 27, 2023 10:23am Start: 01-21-2023 End: 11-01-2023 take 2 capsules by mouth once daily at bedtime gabapentin (NEURONTIN) 300 mg capsule Take 2 capsules by mouth daily at bedtime for 90 days. 60 capsule 2 09/06/2023 11/01/2023 Discontinued Start: 10-03-2022 End: 01-01-2023 take 2 capsules by mouth once daily at bedtime gabapentin (NEURONTIN) 300 mg capsule Take 2 capsules by mouth daily at bedtime for 90 days. 60 capsule 2 10/03/2022 Active Start: 07-05-2022 End: 03-27-2023 take 100 mg by mouth once daily Gabapentin Discontinue d 100 MG PO DAILY July 04, 2022 11:00pm March 27, 2023 10:24am Start: 05-15-2022 End: 11-04-2022 take 1 capsule by mouth once daily at bedtime gabapentin (NEURONTIN) 300 mg capsule Take 1 capsule by mouth daily at bedtime for 90 days. 30 capsule 2 08/06/2022 10/03/2022 Discontinued Comment on above: Take 1 capsule by mo uth daily at bedtime for 90 days. Take 2 capsules by m outh daily at bedtime for 90 days. Take 3 capsules by m outh daily at bedtime for 180 days. methylPREDNISolone (8 sources) Corticosteroid Start: 09-06-2023 End: 11-01-2023 methylPREDNISolone (MEDROL, CONSUELO,) 4 mg Dose-Pack As Instructed per package 21 tablet 0 09/06/2023 11/01/2023 Discontinued Start: 07-05-2022 End: 10-03-2022 methylPREDNISolone (MEDROL) 4 mg Take by mouth. 0 07/05/2022 10/03/2022 Discontinued Start: 07-05-2022 End: 03-27-2023 take 1 tablet by mouth once Methylprednisolone (Medrol (Consuelo)) 4 mg tablets,dose pack Discontinued 0 PO per package directions July 04, 2022 11:00pm March 27, 2023 10:23am PO PER PKG DIR Start: 11-01-2021 End: 02-06-2022 methylPREDNISolone (MEDROL, CONSUELO,) 4 mg Dose-Pack As Instructed per package 21 tablet 0 11/01/2021 02/06/2022 Discontinued (Course of therapy completed) Comment on above: As Instructed per humaira cklisandro Take by mouth. metoprolol tartrate 25 mg oral tablet (20 sources) beta-Adrenergic Malka Start: 09-17-2019 End: 07-06-2021 take 25 mg by mouth twice daily Metoprolol Tartrate Discontinued 25 MG PO TWICE A DAY September 19, 2019 1:35pm July 06, 2021 7:07am Start: 09-11-2017 End: 09-18-2018 take 25 mg by mouth once daily Metoprolol Succinate Di scontinued 25 MG PO daily September 11, 2017 12:00am September 18, 2018 4:15pm Start: 11-08-2011 take 1 tablet by celia th once daily as needed TOPROL XL 25 MG [id number] One tablet by mouth daily as needed METOPROLOL SUCCINATE [id number] Titus Crain MD naproxen sodium 220 mg oral tablet (3 sources) Nonsteroidal Anti-inflammatory Drug Start: 07-19-2016 ALEVE 220 MG TABS PRN NAPROXEN SODIUM [id number] Titus Crain MD 20 ml ropivacaine hydrochloride 5 mg/ml injection (2 sources) Amide Local Anesthetic Start: 02-14-2024 End: 02-14-2024 ROPivacaine (PF) 5 mg/mL (0.5 %) 100 mg injection (NAROPIN) Problems Active Problems Problem Classification Problem Date Documented Date Episodic/Chronic Anxiety disorders (1 source) Anxiety; Translations: [Anxiety disorder, unspecified] Chronic Cardiac dysrhythmias (20 sources) Ventricular premature beats; Translations: [Ventricular premature depolarization] Onset: 07-26-1998 11-08-2011 Chronic Conditions associated with dizziness or vertigo (15 sources) Vertigo of central origin; Translations: [Vertigo of central origin] Episodic Disorders of lipid metabolism (20 sources) Hyperlipidemia; Translations: [Hyperlipidemia, unspecified] Onset: 11-08-2011 11-08-2011 Chronic Genitourinary symptoms and ill-defined conditions (6 sources) Nocturia; Translations: [Nocturia] Episodic Headache; including migraine (3 sources) Migraine 05-10-2023 Chronic Heart valve disorders (20 sources) Mitral valve prolapse; Translations: [Aortic valve disorder] Onset: 07-26-1998 11-08-2011 Chronic Immunizations and screening for infectious disease (4 sources) Contact with and (suspected) exposure to other viral communicable diseases; Translations: [Contact with or suspected exposure to other viral communicable disease] Episodic Inflammation; infection of eye (except that caused by tuberculosis or sexually transmitteddisease) (1 source) Bacterial conjunctivitis; Translations: [Unspecified conjunctivitis] Episodic Joint disorders and dislocations; trauma-related (20 sources) Derangement of meniscus; Translations: [Other meniscus derangements, unspecified meniscus, unspecified knee] Onset: 04-10-2016 04-10-2016 Chronic Nonspecific chest pain (10 sources) Sternoclavicular joint pain; Translations: [Other chest pain] Onset: 11-08-2011 07-19-2016 Episodic Osteoarthritis (3 sources) Osteoarthritis of knee; Translations: [Osteoarthritis of knee, unspecified] Onset: 04-10-2016 04-10-2016 Chronic Other aftercare (1 source) Long-term current use of drug therapy; 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] 11-27-2024 Episodic Other circulatory disease (20 sources) Raynaud's disease; Translations: [Raynaud's syndrome without gangrene] Onset: 07-20-2022 05-20-2020 Chronic Other connective tissue disease (2 sources) Recurrent falls ; Translations: [Repeated falls] Episodic Other connective tissue disease (4 sources) Lateral epicondylitis of right humerus; Translations: [Lateral epicondylitis, right elbow] 07-31-2021 Episodic Other disorders of stomach and duodenum (4 sources) Indigestion 05-08-2022 Episodic Other ear and sense organ disorders (1 source) Hearing loss; Translations: [Unspecified hearing loss, unspecified ear] 12-05-2023 Chronic Other ear and sense organ disorders (3 sources) Bilateral tinnitus; Translations: [Tinnitus, bilateral] Episodic Other ear and sense organ disorders (1 source) Disorder of head; Translations: [Unspecified disorder of middle ear and mastoid, unspecified ear] 12-05-2023 Episodic Other hereditary and degenerative nervous system conditions (1 source) Impaired cognition; Translations: [Mild cognitive impairment, so stated] Chronic Other lower respiratory disease (7 sources) Dyspnea; Translations: [Shortness of breath] Onset: 11-08-2011 11-08-2011 Episodic Other lower respiratory disease (2 sources) Rib pain; Translations: [Pleurodynia] Episodic Other lower respiratory disease (1 source) Respiratory auscultation finding; Translations: [Unspecified abnormalities of breathing] Episodic Other lower respiratory disease (1 source) Gasping for breath; Translations: [Other abnormalities of breathing] Episodic Other lower respiratory disease (1 source) Apnea; Translations: [Apnea, not elsewhere classified] Episodic Other nervous system disorders (4 sources) Inherited autonomic nervous system disorder; Translations: [Other disorders of autonomic nervous system] 07-31-2021 Chronic Other nervous system disorders (1 source) Unable to concentrate ; Translations: [Attention and concentration deficit] Chronic Other nervous system disorders (10 sources) Impairment of balance; Translations: [Other abnormalities of gait and mobility] Episodic Other nervous system disorders (1 source) Other symptoms and signs involving cognitive functions and awareness; Translations: [Memory loss] Episodic Other nervous system disorders (3 sources) Difficulty balancing 05-10-2023 Episodic Other nervous system disorders (2 sources) Other abnormalities of gait and mobility; Translations: [Imbalance] Onset: 11-23-2023 Episodic Other upper respiratory infections (4 sources) Sore throat symptom; Translations: [Acute pharyngitis, unspecified] Episodic Peripheral and visceral atherosclerosis (4 sources) Intermittent claudication; Translations: [Peripheral vascular disease, unspecified] 09-21-2020 Chronic Residual codes; unclassified (20 sources) Sleep apnea; Translations: [Sleep apnea, unspecified] Onset: 07-20-2022 Chronic Residual codes; unclassified (11 sources) Obstructive sleep apnea syndrome; Translations: [Obstructive sleep apnea (adult) (pediatric)] Chronic Residual codes; unclassified (1 source) Confusional arousal disorder; Translations: [Confusional arousals] Chronic Residual codes; unclassified (1 source) Unrefreshed by sleep; Translations: [Other sleep disorders] Chronic Residual codes; unclassified (1 source) Daytime somnolence; Translations: [Other hypersomnia] Chronic Residual codes; unclassified (1 source) Obstructive sleep apnea (adult) (pediatric); Translations: [AVA (obstructive sleep apnea)] Onset: 07-01-2024 Chronic Residual codes; unclassified (1 source) Frequent night waking; Translations: [Insomnia, unspecified] Episodic Residual codes; unclassified (1 source) Middle insomnia; Translations: [Insomnia, unspecified] Episodic Residual codes; unclassified (1 source) Poor short-term memory ; Translations: [Other amnesia] Episodic Rheumatoid arthritis and related disease (20 sources) Inflammatory polyarthropathy; Translations: [Inflammatory polyarthropathy] Onset: 03-01-2021 07-20-2022 Chronic Unclassified (2 sources) Vertigo of central origin; Translations: [Vertigo of central origin] Onset: 11-23-2023 Unclassified (2 sources) Face pain; Translations: [Face pain] Onset: 11-23-2023 Unclassified (1 source) Long-term current use of drug therapy 11-27-2024 Past or Other Problems Problem Classification Problem Date Documented Date Episodic/Chronic Cardiac dysrhythmias (20 sources) Palpitations; Translations: [Intermittent palpitations] Onset: 11-08-2011 11-08-2011 Episodic Headache; including migraine (20 sources) Chronic daily headache; Translations: [Chronic daily headache] Onset: 07-20-2022 07-20-2022 Episodic Other circulatory disease (20 sources) Orthostatic hypotension; Translations: [Orthostatic hypotension] Onset: 07-20-2022 07-20-2022 Episodic Other lower respiratory disease (20 sources) H/O: respiratory disease; Translations: [Personal history of other diseases of the respiratory system] Onset: 07-20-2022 Episodic Other nervous system disorders (20 sources) Paresthesia; Translations: [Paresthesia of skin] Onset: 07-20-2022 07-20-2022 Episodic Other non-traumatic joint disorders (6 sources) Knee pain; Translations: [Clavicle pain] Onset: 04-10-2016 04-10-2016 Episodic Spondylosis; intervertebral disc disorders; other back problems (20 sources) Chronic thoracic back pain; Translations: [Pain in thoracic spine] Onset: 07-20-2022 Episodic Unclassified (3 sources) Abnormal result of cardiovascular function study, unspecified; Translations: [Abnormal result of cardiovascular function study, unspecified] Onset: 11-08-2011 11-08-2011 Episodic Unclassified (9 sources) Body mass index (BMI) 26.0-26.9, adult; Translations: [FH: Hypertension] Onset: 11-08-2011 08-11-2015 Episodic Unclassified (3 sources) turbuinate reduction 04-01-2022 Viral infection (4 sources) COVID-19; Translations: [Severe acute respiratory syndrome coronavirus 2 (SARS-CoV-2) detected] Onset: 08-09-2020 07-31-2021 Episodic Results Test Name Value Interpretation Reference Range Facility Echo Complete 10-02-2024 Echo [facility] [address] [place] [id number] Echo Complete 10/02/24 1311 MR#: [id number] Acct: [id number] Name: CHRISTIE CHANCE Rep #: [id number] : 1970 54 From: Titus Crain MD Attending Dr: Dr. Titus Crain MD Status: [facility] Ordering Dr: Titus Crain MD Date: 10/02/24 Location: [facility] Sex: M C Admitted: [facility] Procedure This was a 2D Doppler, Color Flow transthoracic echocardiogram. Exam performed in department. Left Ventricle Normal LV size. Left ventricular systolic function is normal. The left ventricular ejection fraction is 60 %. No regional wall motion abnormalities noted. Right Ventricle Normal RV size. Normal systolic function. Atria Normal left atrium. Normal right atrium. Mitral Valve Bileaflet diffuse mitral valve thickening. Tricuspid Valve Myxomatous appearing tricuspid valve. Mild tricuspid valve insufficiency. Aortic Valve Trisinus/trileaflet aortic valve. Pulmonic Valve Normal pulmonic valve. Great Vessels Normal aortic root. The pulmonary artery is normal size. Normal inferior vena cava. Pericardium/Pleural No pericardial effusion. MMode/2D Measurements Calculations LVIDd: 4.2 cm IVSd: 0.97 cm LVOT diam: 2.2 cm LVIDs: 3.0 cm LVPWd: 1.1 cm LVOT area: 3.8 cm2 RVDd: 4.0 cm FS: 28.6 % Ao root diam: 3.4 cm LAV(MOD-bp): 36.4 ml LVAd ap4: 30.5 cm2 LAV(MOD-bp) Indexed: 18.9 ml/m2 LVLd ap4: 9.8 cm LAV(MOD-sp2): 55.3 ml EDV(MOD-sp4): 85.0 ml LAV(MOD-sp4): 22.9 ml EDV(sp4-el): 80.5 ml LVAs ap4: 17.6 cm2 LVLs ap4: 8.5 cm ESV(MOD-sp4): 35.5 ml ESV(sp4-el): 31.0 ml EF(MOD-sp4): 58.2 % EF(sp4-el): 61.5 % SV(MOD-sp4): 49.5 ml SV(sp4-el): 49.6 ml LA A4 area: 11.2 cm2 SI(MOD-sp4): 25.7 ml/m2 LA dimension(2D): 2.9 cm RA A4 area: 14.0 cm2 Time Measurements MV dec time: 0.23 sec Doppler Measurements Calculations MV E max ivania: 60.2 cm/sec Lat Peak E' Ivania: 18.5 cm/sec Med Peak E' Ivania: 10.2 cm/sec MV A max ivania: 40.5 cm/sec E/E' lat: 3.3 E/E' med: 5.9 MV E/A: 1.5 MV V2 max: 71.9 cm/sec Ao V2 max: 106.9 cm/sec MV max P.1 mmHg MV dec slope: 268.6 cm/sec2 Ao max P.6 mmHg MV V2 mean: 31.5 cm/sec Ao V2 mean: 75.8 cm/sec MV mean P.50 mmHg Ao mean P.6 mmHg MV V2 VTI: 22.3 cm Ao V2 VTI: 24.2 cm AV (velocity ratio): 0.77 MVA(VTI): 3.2 cm2 MURRAY(I,D): 3.0 cm2 MURRAY(V,D): 3.1 cm2 LV V1 max: 85.4 cm/sec SV(LVOT): 72.0 ml PA V2 max: 90.6 cm/sec LV V1 max P.9 mmHg PA V2 mean: 63.0 cm/sec LV V1 mean P.6 mmHg LV V1 mean: 58.7 cm/sec LV V1 VTI: 18.7 cm PI end-d ivania: 82.4 cm/sec ECHO/Echo Complete Interpretation Summary Normal LV size. Left ventricular systolic function is normal. The left ventricular ejection fraction is 60 %. Myxomatous appearing tricuspid valve. __ Ordering Physician: Titus Crain Referring Physician: Titus Crain Performed By: Joseline Mustafa RCS 10/02/24 1541 Date Titus rCain MD CC: Dr. Titus Crain MD; Dr. Dale Albert DO Date Dictated: 10/02/24 1311 Date Transcribed: 10/02/24 1541 Cost And Risk Analysis Manager: Signed Normal [facility] Cardiology Visit Reporton Cardiology Visit Report [facility] [address] [place] [address] OFFICE VISIT Date of Service: 09/10/24 MR#: [id number] Acct: [id number] Name: CHRISTIE CHANCE Rep #: [id number] : 1970 Provider: Dr. Titus Crain MD Age/Sex: 54/M Location: [facility] [place] Status: Signed HPI HPI History of Present Illness Details: CHRISTIE CHANCE, is a 54 M who presents to the office today for a follow-up visit. He is a gentleman with a history of palpitations and redundant mitral valve chords who returns for follow-up visit. He was seen at the [facility] and was tested for dysautonomia disorder he had what appears to be a tilt table which was positive for postural orthostatic tachycardia syndrome. He had undergone an echocardiogram in 2019 which demonstrated evidence of redundant mitral valve chords without overt mitral valve prolapse. He denies chest, arm, jaw, or neck discomfort. He states palpitations that are unchanged from previous. This occurs daily, but once a month he notes it to be more sustained and more strong. This is associated with shortness of breath and chest discomfort. This improves with short rest. He notes this to be worse when sick and not sleeping well. He denies bilateral lower extremity edema. He denies claudication. He denies shortness of breath with activity, shortness of breath at rest, orthopnea, or PND. He denies chronic cough. He denies significant, sudden weight gain. He denies lightheadedness, dizziness, near-syncope, or syncope. He denies blood in urine, blood in stool, or epistaxis. He denies fever with chills. He denies myalgia. He denies fatigue. His exercise level has remained stable. He states his home blood pressure is typically 130s/80s. Intake Vital Signs 03/27/23 11:21 09/10/24 15:49 Height 5 ft 11 in 5 ft 11 in Weight: 172 lb BMI 24.0 BP 129/76 H Blood Pressure Location Lt brachial Position Sitting Respiration 16 Pulse 69 Pulse Source Monitor Intake Visit Reasons: 1 Y FU Child And Adolescent Psychiatrist Required: No Accompanied by: Self Is patient in pain?: No Allergies demeclocycline (From Declomycin) Allergy (Verified 09/10/24 15:51) Rash Environmental Allergies: Uncoded (hay fever) Allergy (Verified 09/10/24 15:51) Other Medications ???Medication ???Instructions ???Recorded ???Confirmed ???Type ibuprofen 100 mg tablet 200 mg PO BID PRN 09/17/19 09/10/24 History montelukast 10 mg tablet 10 mg PO DAILY 12/20/20 09/10/24 History (Singulair) fexofenadine 180 mg tablet 180 mg PO DAILY 10/16/21 09/10/24 History (Allergy Relief (fexofenadine)) hydroxychloroquine 200 mg tablet 200 mg PO BID 03/27/23 09/10/24 History gabapentin 100 mg capsule 900 mg PO DAILY 09/10/24 09/10/24 History Have you fallen in the past year?: Yes PFSH Medical History AVA (obstructive sleep apnea) Contact with and (suspected) exposure to other viral communicable diseases Lateral epicondylitis of right elbow Abnormal tilt table test (09/2020) COVID-19 virus detected (08/09/20) POTS (postural orthostatic tachycardia syndrome) Nonrheumatic mitral valve disorder Dysautonomia-like disorder turbuinate reduction Heart murmur Hives Migraine headache Hx of transfusion of whole blood Asthma Seasonal allergies Arthritis Claudication Lightheadedness Hyperlipidemia Osteoarthritis Intermittent palpitations Premature ventricular contractions Nonrheumatic mitral (valve) prolapse Surgical History History of tonsillectomy History of nasal septoplasty Family History Father CAD (coronary artery disease) CABG AVR Angina at rest Mother Heart disease MVP Arthritis Brother Hypertension Other Colon cancer Social History Smoking Status: Never smoker details: 8 drinks per year what type of physical activity do you participate in: running frequency: 5-6 times per week ROS Const Const: Positive for headache(s); Negative for fatigue, weakness, daytime sleepiness or difficulty sleeping (has CPAP) ENT ENT: Positive for headache(s) and dizziness (daily); Negative for Nosebleed/epistaxis Cardio Chest Pain: No Palpitations: Yes (daily) feels like its: fast Edema: None Resp Respiratory: Negative for SOB with activity, SOB at rest, SOB orthopnea SOB lying down or Cough GI GI: Negative nausea, vomiting or heartburn Neuro Neuro: Positive for dizziness (daily), headache(s) and vertigo; Negative for lightheadedness, near syncope or weakness Endo Endo: Negative for fatigue Cardiology Exam Const Appearance: cooperative, healthy appearing, comfortable and n (more content not included)... Normal [facility] CBC W/Diff, Automatedon 12- Absolute Lymph 1.56 X10 3/uL Normal 0.83-4.51 [facility] Comment on above: Performed By: #### L 100.0100, L500.4050 #### [facility] [address] [place], [address] Absolute Neut 2.9 X10 3/uL Normal 2.0-7.7 [facility] Comment on above: Performed By: #### L 100.0100, L500.4050 #### [facility] [address] [place], [address] Basophils/100 WBC (Bld) 1.5 % High 0-1 [facility] Comment on above: Performed By: #### L 100.0100, L500.4050 #### [facility] [address] [place], [address] Eosinophils/100 WBC (Bld) 3.8 % Normal 0-5 [facility] Comment on above: Performed By: #### L 100.0100, L500.4050 #### [facility] [address] [place], [address] Erythrocyte distribution width (RBC) [Ratio] 11.9 % Normal 11.6-14.6 [facility] Comment on above: Performed By: #### L 100.0100, L500.4050 #### [facility] [address] [place], [address] Hematocrit (Bld) [Volume fraction] 43.0 % Normal 40-54 [facility] Comment on above: Performed By: #### L 100.0100, L500.4050 #### [facility] [address] [place], [address] Hemoglobin (Bld) [Mass/Vol] 15.1 g/dL Normal 13.0-16.5 [facility] Comment on above: Performed By: #### L 100.0100, L500.4050 #### [facility] [address] [place], [address] IG% 0.200 Normal 0.0-0.9 [facility] Comment on above: Result Comment: IG% - Immature Granulocytes (promyelocytes, myelocytes and metamyelocytes) > 1% indicates that a LEFT SHIFT is Present. Performed By: #### L 100.0100, L500.4050 #### [facility] [address] [place], [address] Lymphocytes/100 WBC (Bld) 29.3 % Normal 19-41 [facility] Comment on above: Performed By: #### L 100.0100, L500.4050 #### [facility] [address] [place], [address] MCH (RBC) [Entitic mass] 32.1 pg High 27.0-32.0 [facility] Comment on above: Performed By: #### L 100.0100, L500.4050 #### [facility] [address] [place], [address] MCHC (RBC) [Mass/Vol] 35.1 g/dL Normal 32-36 [facility] Comment on above: Performed By: #### L 100.0100, L500.4050 #### [facility] [address] [place], [address] MCV (RBC) [Entitic vol] 91.5 fL Normal 80-94 [facility] Comment on above: Performed By: #### L 100.0100, L500.4050 #### [facility] [address] [place], [address] Monocytes/100 WBC (Bld) 11.3 % High 0-10 [facility] Comment on above: Performed By: #### L 100.0100, L500.4050 #### [facility] [address] [place], [address] Neutrophils/100 WBC (Bld) 53.9 % Normal 47-70 [facility] Comment on above: Performed By: #### L 100.0100, L500.4050 #### [facility] [address] [place], [address] Nucleated RBC (Bld) [#/Vol] 0 10*3/uL Normal 0-5 [facility] Comment on above: Performed By: #### L 100.0100, L500.4050 #### [facility] [address] [place], [address] Platelet mean volume (Bld) [Entitic vol] 9.2 fL Normal 6.2-12.0 [facility] Comment on above: Performed By: #### L 100.0100, L500.4050 #### [facility] [address] [place], [address] Platelets (Bld) [#/Vol] 214 10*3/uL Normal 150-450 [facility] Comment on above: Performed By: #### L 100.0100, L500.4050 #### [facility] [address] [place], [address] RBC (Bld) [#/Vol] 4.70 10*6/uL Normal 4.6-6.2 [facility] Comment on above: Performed By: #### L 100.0100, L500.4050 #### [facility] [address] [place], [address] RDW SD 40.0 fl Normal 35.1-43.9 [facility] Comment on above: Performed By: #### L 100.0100, L500.4050 #### [facility] [address] [place], [address] WBC (Bld) [#/Vol] 5.3 10*3/uL Normal 4.4-11.0 [facility] Comment on above: Performed By: #### L 100.0100, L500.4050 #### [facility] [address] [place], [address] Comprehensive Metabolic Prof ilon 08-12-2024 Albumin [Mass/Vol] 3.9 g/dL Normal 3.2-5.0 [facility] Comment on above: Performed By: #### L 100.0100, L500.4050 #### [facility] [address] [place], [address] Albumin/Globulin [Mass ratio] 1.3 {ratio} Normal 0.9-2.4 [facility] Comment on above: Performed By: #### L 100.0100, L500.4050 #### [facility] [address] [place], [address] ALK P 91 U/L Normal 45-117 [facility] Comment on above: Performed By: #### L 100.0100, L500.4050 #### [facility] [address] [place], [address] ALT [Catalytic activity/Vol] 26 U/L Normal 16-61 [facility] Comment on above: Performed By: #### L 100.0100, L500.4050 #### [facility] [address] [place], [address] AST [Catalytic activity/Vol] 20 U/L Normal 15-37 [facility] Comment on above: Performed By: #### L 100.0100, L500.4050 #### [facility] [address] [place], [address] Bilirubin [Mass/Vol] 0.80 mg/dL Normal 0.20-1.00 [facility] Comment on above: Result Comment: For patients on eltrombopag therapy, use of Dimension [place] TBIL is not recommended. Performed By: #### L 100.0100, L500.4050 #### [facility] [address] [place], [address] BUN/CRE 19.5 RATIO Normal 10-20 [facility] Comment on above: Performed By: #### L 100.0100, L500.4050 #### [facility] [address] [place], [address] CA,Total 9.6 mg/dL Normal 8.5-10.1 [facility] Comment on above: Performed By: #### L 100.0100, L500.4050 #### [facility] [address] [place], [address] Chloride [Moles/Vol] 107 mmol/L Normal 98-107 [facility] Comment on above: Performed By: #### L 100.0100, L500.4050 #### [facility] [address] [place], [address] CO2 [Moles/Vol] 26.0 mmol/L Normal 21.0-32.0 [facility] Comment on above: Performed By: #### L 100.0100, L500.4050 #### [facility] [address] [place], [address] Creatinine [Mass/Vol] 1.13 mg/dL Normal 0.70-1.30 [facility] Comment on above: Result Comment: The validity of the calculated GFR GFRAA in patients over 70 years has not been determined. Clinical correlation is essential. Performed By: #### L 100.0100, L500.4050 #### [facility] [address] [place], [address] EST GFR - AA 86 mL/min Normal >60 [facility] Comment on above: Result Comment: Afri can Serbian GFR Calc Performed By: #### L 100.0100, L500.4050 #### [facility] [address] [place], [address] GAP 6 Normal 5-15 [facility] Comment on above: Performed By: #### L 100.0100, L500.4050 #### [facility] [address] [place], [address] GFR/1.73 sq M.predicted among non-blacks MDRD (S/P/Bld) [Vol rate/Area] 71 mL/min/{1.73_m2} Normal >60 [facility] Comment on above: Result Comment: Non- GFR Calc Performed By: #### L 100.0100, L500.4050 #### [facility] [address] [place], [address] Globulin (S) [Mass/Vol] 3.0 g/dL Normal 2.2-4.2 [facility] Comment on above: Performed By: #### L 100.0100, L500.4050 #### [facility] [address] [place], [address] Glucose [Mass/Vol] 99 mg/dL Normal 74-106 [facility] Comment on above: Performed By: #### L 100.0100, L500.4050 #### [facility] [address] [place], [address] Potassium [Moles/Vol] 3.9 mmol/L Normal 3.5-5.1 [facility] Comment on above: Performed By: #### L 100.0100, L500.4050 #### [facility] [address] [place], [address] Sodium [Moles/Vol] 139 mmol/L Normal 136-145 [facility] Comment on above: Performed By: #### L 100.0100, L500.4050 #### [facility] [address] [place], [address] T PROT 6.9 g/dL Normal 6.4-8.2 [facility] Comment on above: Performed By: #### L 100.0100, L500.4050 #### [facility] [address] [place], [address] Urea nitrogen [Mass/Vol] 22 mg/dL High 7-18 [facility] Comment on above: Performed By: #### L 100.0100, L500.4050 #### [facility] [address] [place], [address] CNOVon 07-01-2024 CNOV Office Visit ([facility]) ---- CHRISTIE CHANCE ([id number]) 1970 M Date Time Provider Department 07/01/24 7:30 AM SARA LEVINE [facility] During your visit today, we recorded the following information about you: Pulse Respiration Blood pressure Weight 63/minute 21/minute 116/73 76.6 kg Height 1.753 m Sara Levine APRN.CNP 07/01/2024 7:54 AM Signed [facility] Follow Up/ Established Patient Visit PATIENT NAME: Christie Chance Date of last visit : 06/13/23 IMPRESSION/PLAN: Diagnosis: Ava (obstructive sleep apnea) (primary encounter diagnosis) Overview: Christie Chance is a 52 year old year old male with a PMH as noted who presents via Virtual Visit for AVA (continue APAP 5-15 cmH20) Sleeping really good especially with GBPN on on board. No issues. [employer] keeping him supplied with PAP equipment. - Doing very well with PAP therapy. - Denies mask or pressure intolerance. - Compliant and benefiting from treatment. - Face to face examination completed June 12, 2023 - Will get PAP download from [employer]. - Christie Chance has fulfilled his insurance requirement with an annual visit for PAP therapy, average usage is 6 hours and 10 minutes, and compliancy of >70 %. - Taking GBPN 300 mg two capsules qhs prescribed by another provider. Really likes the medication. Feels he is getting a good night sleep with this medication. However, reports he is having some movement issues, trouble with find motor coordination, and choppy speech. Would be interested in decreasing dose to see if this resolves. He will talk with provider filling this medication. Discussed size of capsules and maybe decreasing by 100 mg every 3-4 weeks. Plan: AVA: Continue Auto CPAP at current settings of 5-15 cmH2O. Remember to clean your mask and equipment regularly, as directed. Avoid use of ozone solar photovoltaic electrician, SoClean devices, or UV cleaning devices Avoid using alcohol or alcohol-containing products on your mask, as this may compromise the integrity of the mask materials and contribute to leak issues You should be eligible for new supplies approximately every 3-6 months, depending on your insurance coverage. Contact your Durable Medical Equipment (DME) company for new supplies as needed. Order will be sent to [employer] for supplies: [employer] Insurance: Send script to [facility]. Face to face examination completed June 13, 2023. Christie Chance has fulfilled his insurance requirement with an annual visit for PAP therapy, average usage is 6 hours, 10 minutes and compliancy of >70 %. Please send PAP download. Please send patient PAP supplies as covered by insurance. Follow up in 12 months in person or virtually with Sleep [facility] or Sleep Medicine Physician. Will send provider order. Supplier Specialist will reach out to you. If you have questions, feel free to send me a [employer] message. I spent a total of 29 minutes. This was a established patient to me on the date of the service which included preparing to see the patient, [id number] patient care, completing clinical documentation, counseling and educating the patient/family/caretaker and ordering medications, tests, or procedures. Sara Lveine APRN.[employer] CURRENT VISIT: 07/01/2024 Interval history: Doing good. Disabled the enabled off button. Did not use for 3 weeks when he was diagnosed with COVID in May 2024. FFM. Less claustrophobia now. Rough start. Still waking up some nights feeling smothered in the middle of the night. Waking up with bladder pain has lessened. Follow up visit for AVA (continue APAP) . Relevant study results reviewed as noted below, if applicable. SLEEP APNEA Sleep apnea type : AVA, Most Recent Apnea-Hypopnea Index (AHI): Total AHI of 9.6, Off-Supine AHI 5.4, Supine AHI 11.8 Treatment : PAP therapy DME: Kaitlynn Joy PAP History: Uses AutoPAP for 5 hours per night, 7 nights per week except when ill. Current PAP settin-15 cm H2O. No problems inhaling or exhaling. Difficulties with AutoPAP: None Reviewed objective PAP compliance data: Mask type: Full face mask Mask issues: Skin irritation or redness. Discussed CPAP strap covers and liners. Uses chin strap: No Uses ramp function: Yes, Protocol: Distilled water. Uses humidity: Yes, Protocol: Distilled water. There is a perceived benefit by the patient: Yes No longer having a tough time driving to work. Observers report abolition of snoring with AutoPAP use. ---- SLEEP HYGIENE QUESTIONS: Bedtime : [id number] Wake up Time : 0450 Time it takes to fall sleep : Quickly Taking GBPN 100 mg one capsule during the day and 300 mg two capsules one hour before bedtime. Prescribed for nerve pain, b (more content not included)... Normal [facility] .Auto Diffon 05-21-2024 Basophil, Absolute 0.1 10 3/mcL Normal 0.0-0.2 [facility] Comment on above: Performed By: #### C BC, GFR, CMP, CARLOS, ANEU #### [address] [address] Basophils/100 WBC (Bld) 0.5 % Normal 0.0-2.5 [facility] Comment on above: Performed By: #### C BC, GFR, CMP, ADIFF, ANEU #### [address] [address] Eosinophil, Absolute 0.1 10 3/mcL Normal 0.0-0.4 [facility] Comment on above: Performed By: #### C BC, GFR, CMP, ADIFF, ANEU #### [address] [address] Eosinophils/100 WBC (Bld) 1.0 % Normal 0.0-7.0 [facility] Comment on above: Performed By: #### C BC, GFR, CMP, ADIFF, ANEU #### [address] [address] Lymphocyte, Absolute 0.7 10 3/mcL Low 0.8-3.9 [facility] Comment on above: Performed By: #### C BC, GFR, CMP, ADIFF, ANEU #### [address] [address] Lymphocytes/100 WBC (Bld) 5.4 % Low 10.0-50.0 [facility] Comment on above: Performed By: #### C BC, GFR, CMP, ADIFF, ANEU #### [address] [address] Monocyte, Absolute 1.3 10 3/mcL High 0.2-1.0 [facility] Comment on above: Performed By: #### C BC, GFR, CMP, ADIFF, ANEU #### [address] [address] Monocytes/100 WBC (Bld) 9.5 % Normal 1.7-13.0 [facility] Comment on above: Performed By: #### C BC, GFR, CMP, ADIFF, ANEU #### [address] [address] Neutrophils/100 WBC (Bld) 83.6 % High 37.0-80.0 [facility] Comment on above: Performed By: #### C BC, GFR, CMP, ADIFF, ANEU #### [address] [address] .GFRon 05-21-2024 GFR 77 ml/min/1.73sqm Normal [facility] Comment on above: Result Comment: GFR Population mean for , Non- Americans Ages 20-29 = 116 mL/min/1.73 sq.m. Ages 30-39 = 107 mL/min/1.73 sq.m. Ages 40-49 = 99 mL/min/1.73 sq.m. Ages 50-59 = 93 mL/min/1.73 sq.m. Ages 60-69 = 85 mL/min/1.73 sq.m. Ages 70+ = 75 mL/min/1.73 sq.m. Chronic Kidney Disease: Less than 60 mL/min/1.73 square meters End Stage Renal Disease: Less than 15 mL/min/1.73 square meters Performed By: #### C BC, GFR, CMP, ADIFF, ANEU #### [address] [address] GFR Non- 63 ml/min/1.73sqm [facility] Comment on above: Result Comment: GFR Population mean for , Non- Americans Ages 20-29 = 116 mL/min/1.73 sq.m. Ages 30-39 = 107 mL/min/1.73 sq.m. Ages 40-49 = 99 mL/min/1.73 sq.m. Ages 50-59 = 93 mL/min/1.73 sq.m. Ages 60-69 = 85 mL/min/1.73 sq.m. Ages 70+ = 75 mL/min/1.73 sq.m. Chronic Kidney Disease: Less than 60 mL/min/1.73 square meters End Stage Renal Disease: Less than 15 mL/min/1.73 square meters Performed By: #### C BC, GFR, CMP, ADIFF, ANEU #### [address] [address] .NEUABSon 05-21-2024 Neutrophil, Absolute 11.5 10 3/mcL High 2.9-6.2 [facility] Comment on above: Performed By: #### C BC, GFR, CMP, ADIFF, ANEU #### [place] [id number] CBCon 05-21-2024 Erythrocyte distribution width (RBC) [Ratio] 12.1 % Normal 11.5-14.5 [facility] Comment on above: Performed By: #### C BC, GFR, CMP, ADIFF, ANEU #### [place] [address] Hematocrit (Bld) [Volume fraction] 44.5 % Normal 42.0-52.0 [facility] Comment on above: Performed By: #### C BC, GFR, CMP, ADIFF, ANEU #### [place] [address] Hgb 15.6 G/dL Normal 14.0-18.0 [facility] Comment on above: Performed By: #### C BC, GFR, CMP, ADIFF, ANEU #### [place] [address] MCH (RBC) [Entitic mass] 33.3 pg High 27.0-31.2 [facility] Comment on above: Performed By: #### C BC, GFR, CMP, ADIFF, ANEU #### [place] [address] MCHC 35.2 G/dL Normal 31.8-35.4 [facility] Comment on above: Performed By: #### C BC, GFR, CMP, ADIFF, ANEU #### [place] [address] MCV (RBC) [Entitic vol] 94.7 fL High 80.0-94.0 [facility] Comment on above: Performed By: #### C BC, GFR, CMP, ADIFF, ANEU #### [place] [address] Platelet 235 10 3/mcL Normal 130-400 [facility] Comment on above: Performed By: #### C BC, GFR, CMP, ADIFF, ANEU #### [address] [address] Platelet mean volume (Bld) [Entitic vol] 6.3 fL Low 7.4-10.4 [facility] Comment on above: Performed By: #### C BC, GFR, CMP, ADIFF, ANEU #### [address] [address] RBC 4.69 10 6/mcL Normal 4.04-6.13 [facility] Comment on above: Performed By: #### C BC, GFR, CMP, ADIFF, ANEU #### [address] [address] WBC 13.7 10 3/mcL High 4.6-10.8 [facility] Comment on above: Performed By: #### C BC, GFR, CMP, ADIFF, ANEU #### [address] [address] CMPon 05-21-2024 Albumin Level 3.7 G/dL Normal 3.5-5.0 [facility] Comment on above: Performed By: #### C BC, GFR, CMP, ADIFF, ANEU #### [address] [address] Albumin/Globulin [Mass ratio] 1.1 {ratio} Normal 1.1-2.5 [facility] Comment on above: Performed By: #### C BC, GFR, CMP, ADIFF, ANEU #### [address] [address] ALP [Catalytic activity/Vol] 79 U/L Normal 40-135 [facility] Comment on above: Performed By: #### C BC, GFR, CMP, ADIFF, ANEU #### [address] [address] ALT [Catalytic activity/Vol] 30 U/L Normal 16-63 [facility] Comment on above: Performed By: #### C BC, GFR, CMP, ADIFF, ANEU #### [address] [address] AST [Catalytic activity/Vol] 22 U/L Normal 10-40 [facility] Comment on above: Performed By: #### C BC, GFR, CMP, ADIFF, ANEU #### [address] [address] Bili Total 0.8 mg/dL Normal 0.2-1.0 [facility] Comment on above: Result Comment: Use of this assay is not recommended for patients undergoing treatment with eltrombopag due to the potential for falsely elevated results. Performed By: #### C BC, GFR, CMP, ADIFF, ANEU #### [address] [address] BUN/Creatinine Ratio 19 ratio Normal 7-27 [facility] Comment on above: Performed By: #### C BC, GFR, CMP, ADIFF, ANEU #### [address] [address] Calcium [Mass/Vol] 9.0 mg/dL Normal 8.4-10.2 [facility] Comment on above: Performed By: #### C BC, GFR, CMP, ADIFF, ANEU #### [address] [address] Chloride [Moles/Vol] 102 mmol/L Normal 98-107 [facility] Comment on above: Performed By: #### C BC, GFR, CMP, ADIFF, ANEU #### [address] [address] CO2 [Moles/Vol] 28 mmol/L Normal 22-29 [facility] Comment on above: Performed By: #### C BC, GFR, CMP, ADIFF, ANEU #### [address] [address] Creatinine [Mass/Vol] 1.19 mg/dL Normal 0.70-1.30 [facility] Comment on above: Result Comment: Test ing performed on [employer] Dimension EXL analyzer using a modified kinetic Lm technique. Performed By: #### C BC, GFR, CMP, ADIFF, ANEU #### [address] [address] Electrolyte Balance 9.0 mEq/L Normal 4.0-15.0 [facility] Comment on above: Performed By: #### C BC, GFR, CMP, ADIFF, ANEU #### [address] [address] Globulin 3.5 G/dL Normal [facility] Comment on above: Performed By: #### C BC, GFR, CMP, ADIFF, ANEU #### [address] [address] Glucose [Mass/Vol] 115 mg/dL High 70-105 [facility] Comment on above: Performed By: #### C BC, GFR, CMP, ADIFF, ANEU #### [address] [address] Potassium [Moles/Vol] 4.5 mmol/L Normal 3.5-5.1 [facility] Comment on above: Performed By: #### C BC, GFR, CMP, ADIFF, ANEU #### [place] [phone] Sodium [Moles/Vol] 139 mmol/L Normal 136-145 [facility] Comment on above: Performed By: #### C BC, GFR, CMP, ADIFF, ANEU #### [address] [address] Total Protein 7.2 G/dL Normal 6.4-8.2 [facility] Comment on above: Performed By: #### C BC, GFR, CMP, ADIFF, ANEU #### [address] [address] Urea nitrogen [Mass/Vol] 23 mg/dL High 7-18 [facility] Comment on above: Performed By: #### C BC, GFR, CMP, ADIFF, ANEU #### [address] [address] LABORATORYOrdered By: SYSTEM SYSTEM on 05-21-2024 Albumin BCP dye [Mass/Vol] 3.7 G/dL Normal 3.5 - 5.0 G/dL AO ADM SS Albumin/Globulin [Mass ratio] 1.1 {ratio} Normal 1.1 - 2.5 ratio AO ADM SS ALP [Catalytic activity/Vol] 79 U/L Normal 40 - 135 U/L AO ADM SS ALT With P-5'-P [Catalytic activity/Vol] 30 U/L Normal 16 - 63 U/L AO ADM SS AST With P-5'-P [Catalytic activity/Vol] 22 U/L Normal 10 - 40 U/L AO ADM SS Basophils (Bld) [#/Vol] 0.1 103/mcL Normal 0.0 - 0.2 10^3/mcL AO Workflow SS Basophils/100 WBC (Bld) 0.5 % Normal 0.0 - 2.5 % AO Workflow SS Bilirubin [Mass/Vol] 0.8 mg/dL Normal 0.2 - 1 .0 mg/dL AO ADM SS Comment on above: Interpretive Data: U se of this assay is not recommended for patients undergoing treatment with eltrombopag due to the potential for falsely elevated results. Calcium [Mass/Vol] 9.0 mg/dL Normal 8.4 - 10. 2 mg/dL AO ADM SS Chloride [Moles/Vol] 102 mmol/L Normal 98 - 10 7 mmol/L AO ADM SS CO2 [Moles/Vol] 28 mmol/L Normal 22 - 29 mmol/L AO ADM SS Creatinine [Mass/Vol] 1.19 mg/dL Normal 0.70 - 1.30 mg/dL AO ADM SS Comment on above: Interpretive Data: T esting performed on [employer] Dimension EXL analyzer using a modified kinetic Lm technique. Electrolyte Balance 9.0 mEq/L Normal 4.0 - 15 .0 mEq/L AO ADM SS Eosinophil, Absolute 0.1 103/mcL Normal 0.0 - 0 .4 10^3/mcL AO Workflow SS Eosinophils/100 WBC (Bld) 1.0 % Normal 0.0 - 7.0 % AO Workflow SS Erythrocyte distribution width (RBC) [Ratio] 12.1 % Normal 11.5 - 14.5 % AO Workflow SS GFR/1.73 sq M.predicted among blacks MDRD (S/P/Bld) [Vol rate/Area] 77 ml/min/1.73sqm Invalid Interpretation Code AO Chemistry S Comment on above: Interpretive Data: GFR Population mean for , Non- Americans Ages 20-29 = 116 mL/min/1.73 sq.m. Ages 30-39 = 107 mL/min/1.73 sq.m. Ages 40-49 = 99 mL/min/1.73 sq.m. Ages 50-59 = 93 mL/min/1.73 sq.m. Ages 60-69 = 85 mL/min/1.73 sq.m. Ages 70+ = 75 mL/min/1.73 sq.m. Chronic Kidney Disease: Less than 60 mL/min/1.73 square meters End Stage Renal Disease: Less than 15 mL/min/1.73 square meters GFR/1.73 sq M.predicted among non-blacks MDRD (S/P/Bld) [Vol rate/Area] 63 ml/min/1.73sqm Invalid Interpretation Code AO Chemistry S Comment on above: Interpretive Data: GFR Population mean for , Non- Americans Ages 20-29 = 116 mL/min/1.73 sq.m. Ages 30-39 = 107 mL/min/1.73 sq.m. Ages 40-49 = 99 mL/min/1.73 sq.m. Ages 50-59 = 93 mL/min/1.73 sq.m. Ages 60-69 = 85 mL/min/1.73 sq.m. Ages 70+ = 75 mL/min/1.73 sq.m. Chronic Kidney Disease: Less than 60 mL/min/1.73 square meters End Stage Renal Disease: Less than 15 mL/min/1.73 square meters Globulin 3.5 G/dL Invalid Interpretation Code AO ADM SS Glucose [Mass/Vol] 115 mg/dL High 70 - 105 mg/dL AO ADM SS Hematocrit (Bld) [Volume fraction] 44.5 % Normal 42.0 - 52.0 % AO Workflow SS Hemoglobin (Bld) [Mass/Vol] 15.6 G/dL Normal 14.0 - 18.0 G/dL AO Workflow SS Lymphocytes (Bld) [#/Vol] 0.7 103/mcL Low 0.8 - 3.9 10^3/mcL AO Workflow SS Lymphocytes/100 WBC (Bld) 5.4 % Low 10.0 - 50.0 % AO Workflow SS MCH (RBC) [Entitic mass] 33.3 pg High 27.0 - 31.2 pg AO Workflow SS MCHC 35.2 G/dL Normal 31.8 - 35.4 G/dL AO Workflow SS MCV (RBC) [Entitic vol] 94.7 fL High 80.0 - 94.0 fL AO Workflow SS Monocytes (Bld) [#/Vol] 1.3 103/mcL High 0.2 - 1.0 10^3/mcL AO Workflow SS Monocytes/100 WBC (Bld) 9.5 % Normal 1.7 - 13.0 % AO Workflow SS Neutrophils (Bld) [#/Vol] 11.5 103/mcL High 2.9 - 6.2 10^3/mcL AO Workflow SS Neutrophils/100 WBC (Bld) 83.6 % High 37.0 - 80.0 % AO Workflow SS Platelet mean volume (Bld) [Entitic vol] 6.3 fL Low 7.4 - 10.4 fL AO Workflow SS Platelets (Bld) [#/Vol] 235 103/mcL Normal 130 - 400 10^3/mcL AO Workflow SS Potassium [Moles/Vol] 4.5 mmol/L Normal 3.5 - 5.1 mmol/L AO ADM SS Protein [Mass/Vol] 7.2 G/dL Normal 6.4 - 8.2 G/dL AO ADM SS RBC (Bld) [#/Vol] 4.69 106/mcL Normal 4.04 - 6.1 3 10^6/mcL AO Workflow SS Sodium [Moles/Vol] 139 mmol/L Normal 136 - 145 mmol/L AO ADM SS Urea nitrogen [Mass/Vol] 23 mg/dL High 7 - 18 mg/dL AO ADM SS Urea nitrogen/Creatinine [Mass ratio] 19 ratio Normal 7 - 27 ratio AO ADM SS WBC (Bld) [#/Vol] 13.7 103/mcL High 4.6 - 10.8 10^3/mcL AO Workflow SS XR CHEST 2 VIEWSon 4 XR CHEST 2 VIEWS ORIGINAL EXAMINATION: TWO XRAY VIEWS OF THE CHEST05/21/2024 11:36 am COMPARISON: 07/11/2020. HISTORY: ORDERING SYSTEM PROVIDED HISTORY: Reason for Exam: Fever FINDINGS: Heart size and pulmonary vascularity are within the normal range. No acute infiltrates or pleural effusions are seen. Mediastinal and hilar contours are grossly unremarkable. There is no evidence of pneumothorax.Mild bandlike atelectasis is present at the left lung base. IMPRESSION: Left lung base strandy atelectasis, without definite infiltrate. Interpreted by: Robin De Los Santos Preliminary Report By: Robin De Los Santos Electronically signed By Robin De Los Santos Dictated Date: 05/21/2024 1:23:53 PM Prelim Date: 05/21/2024 1:25:02 PM Sign Date: 05/21/2024 1:25:02 PM Ordering Provider: CACHORRO LAU Normal [facility] LIPIDon 05-02-2024 Cholesterol [Mass/Vol] 180 mg/dL Normal 0-200 [facility] ([place]) Comment on above: Result Comment: Chol esterol Reference Interval: Less than 200 Desirable 200-239 Borderline high risk 240 and above High risk Performed By: #### P SA, LIPID #### [address] [address] Cholesterol in HDL [Mass/Vol] 53 mg/dL Normal 40-60 [facility] ([place]) Comment on above: Performed By: #### P SA, LIPID #### [address] [address] Cholesterol in LDL [Mass/Vol] 112 mg/dL Normal 0-130 [facility] ([place]) Comment on above: Performed By: #### P SA, LIPID #### [address] [address] Triglyceride [Mass/Vol] 75 mg/dL Normal 0-150 [facility] ([place]) Comment on above: Result Comment: Trig lyceride Reference Interval: Less than 150 Normal 150-199 Borderline high risk 200-499 High risk 500 or higher Very high risk Performed By: #### P SA, LIPID #### [address] [address] PSAon 05-02-2024 Prostate Specific Antigen 1.88 ng/mL Normal 0.00-4.00 [facility] ([place]) Comment on above: Performed By: #### P SA, LIPID #### [place] [id number] CBC W/Diff, Automatedon - Absolute Lymph 2.29 X10 3/uL Normal 0.83-4.51 [facility] Comment on above: Performed By: #### L 500.4050, L100.0100 #### [facility] [address] [place], [address] Absolute Neut 3.5 X10 3/uL Normal 2.0-7.7 [facility] Comment on above: Performed By: #### L 500.4050, L100.0100 #### [facility] [address] [place], [address] Basophils/100 WBC (Bld) 1.4 % High 0-1 [facility] Comment on above: Performed By: #### L 500.4050, L100.0100 #### [facility] [address] [place], [address] Eosinophils/100 WBC (Bld) 3.2 % Normal 0-5 [facility] Comment on above: Performed By: #### L 500.4050, L100.0100 #### [facility] [address] [place], [address] Erythrocyte distribution width (RBC) [Ratio] 11.3 % Low 11.6-14.6 [facility] Comment on above: Performed By: #### L 500.4050, L100.0100 #### [facility] [address] [place], [address] Hematocrit (Bld) [Volume fraction] 44.3 % Normal 40-54 [facility] Comment on above: Performed By: #### L 500.4050, L100.0100 #### [facility] [address] [place], [address] Hemoglobin (Bld) [Mass/Vol] 15.4 g/dL Normal 13.0-16.5 [facility] Comment on above: Performed By: #### L 500.4050, L100.0100 #### [facility] [address] [place], [address] IG% 0.600 Normal 0.0-0.9 [facility] Comment on above: Result Comment: IG% - Immature Granulocytes (promyelocytes, myelocytes and metamyelocytes) > 1% indicates that a LEFT SHIFT is Present. Performed By: #### L 500.4050, L100.0100 #### [facility] [address] [place], [address] Lymphocytes/100 WBC (Bld) 32.9 % Normal 19-41 [facility] Comment on above: Performed By: #### L 500.4050, L100.0100 #### [facility] [address] [place], [address] MCH (RBC) [Entitic mass] 32.6 pg High 27.0-32.0 [facility] Comment on above: Performed By: #### L [id number], L100.0100 #### [facility] [address] [place], [address] MCHC (RBC) [Mass/Vol] 34.8 g/dL Normal 32-36 [facility] Comment on above: Performed By: #### L 500.4050, L100.0100 #### [facility] [address] [place], [address] MCV (RBC) [Entitic vol] 93.7 fL Normal 80-94 [facility] Comment on above: Performed By: #### L 500.4050, L100.0100 #### [facility] [address] [place], [address] Monocytes/100 WBC (Bld) 11.1 % High 0-10 [facility] Comment on above: Performed By: #### L 500.4050, L100.0100 #### [facility] [address] [place], [address] Neutrophils/100 WBC (Bld) 50.8 % Normal 47-70 [facility] Comment on above: Performed By: #### L 500.4050, L100.0100 #### [facility] [address] [place], [address] Nucleated RBC (Bld) [#/Vol] 0 10*3/uL Normal 0-5 [facility] Comment on above: Performed By: #### L 500.4050, L100.0100 #### [facility] [address] [place], [address] Platelet mean volume (Bld) [Entitic vol] 9.5 fL Normal 6.2-12.0 [facility] Comment on above: Performed By: #### L 500.4050, L100.0100 #### [facility] [address] [place], [address] Platelets (Bld) [#/Vol] 203 10*3/uL Normal 150-450 [facility] Comment on above: Performed By: #### L 500.4050, L100.0100 #### [facility] [address] [place], [address] RBC (Bld) [#/Vol] 4.73 10*6/uL Normal 4.6-6.2 [facility] Comment on above: Performed By: #### L 500.4050, L100.0100 #### [facility] [address] [place], [address] RDW SD 38.9 fl Normal 35.1-43.9 [facility] Comment on above: Performed By: #### L 500.4050, L100.0100 #### [facility] [address] [place], [address] WBC (Bld) [#/Vol] 7.0 10*3/uL Normal 4.4-11.0 [facility] Comment on above: Performed By: #### L 500.4050, L100.0100 #### [facility] [address] [place], [address] Comprehensive Metabolic Prof ilon 02-19-2024 Albumin [Mass/Vol] 4.1 g/dL Normal 3.2-5.0 [facility] Comment on above: Performed By: #### L 500.4050, L100.0100 #### [facility] [address] [place], [address] Albumin/Globulin [Mass ratio] 1.3 {ratio} Normal 0.9-2.4 [facility] [place] Comment on above: Performed By: #### L 500.4050, L100.0100 #### [facility] [place] [facility] [address] [place], [address] ALK P 69 U/L Normal 45-117 [facility] [place] Comment on above: Performed By: #### L 500.4050, L100.0100 #### [facility] [place] [facility] [address] [place], [address] ALT [Catalytic activity/Vol] 34 U/L Normal 16-61 [facility] [place] Comment on above: Performed By: #### L 500.4050, L100.0100 #### [facility] [place] [facility] [address] [place], [address] AST [Catalytic activity/Vol] 26 U/L Normal 15-37 [facility] [place] Comment on above: Performed By: #### L 500.4050, L100.0100 #### [facility] [place] [facility] [address] [place], [address] Bilirubin [Mass/Vol] 0.80 mg/dL Normal 0.20-1.00 [facility] Comment on above: Result Comment: For patients on eltrombopag therapy, use of Dimension [place] TBIL is not recommended. Performed By: #### L 500.4050, L100.0100 #### [facility] [place] [facility] [address] [place], [address] BUN/CRE 24.0 RATIO High 10-20 [facility] [place] Comment on above: Performed By: #### L 500.4050, L100.0100 #### [facility] [place] [facility] [address] [place], [address] CA,Total 9.5 mg/dL Normal 8.5-10.1 [facility] [place] Comment on above: Performed By: #### L 500.4050, L100.0100 #### [facility] [place] [facility] [address] [place], [address] Chloride [Moles/Vol] 105 mmol/L Normal 98-107 [facility] Comment on above: Performed By: #### L 500.4050, L100.0100 #### [facility] [place] [facility] [address] [place], [address] CO2 [Moles/Vol] 28.0 mmol/L Normal 21.0-32.0 [facility] [place] Comment on above: Performed By: #### L 500.4050, L100.0100 #### [facility] [place] [facility] [address] [place], [address] Creatinine [Mass/Vol] 1.04 mg/dL Normal 0.70-1.30 [facility] Comment on above: Result Comment: The validity of the calculated GFR GFRAA in patients over 70 years has not been determined. Clinical correlation is essential. Performed By: #### L 500.4050, L100.0100 #### [facility] [place] [facility] [address] [place], [address] EST GFR - AA 95 mL/min Normal >60 [facility] [place] Comment on above: Result Comment: Afri can Serbian GFR Calc Performed By: #### L 500.4050, L100.0100 #### [facility] [place] [facility] [address] [place], [address] GAP 8 Normal 5-15 [facility] [place] Comment on above: Performed By: #### L 500.4050, L100.0100 #### [facility] [place] [facility] [address] [place], [address] GFR/1.73 sq M.predicted among non-blacks MDRD (S/P/Bld) [Vol rate/Area] 79 mL/min/{1.73_m2} Normal >60 [facility] [place] Comment on above: Result Comment: Non- GFR Calc Performed By: #### L 500.4050, L100.0100 #### [facility] [place] [facility] [address] [place], [address] Globulin (S) [Mass/Vol] 3.1 g/dL Normal 2.2-4.2 [facility] [place] Comment on above: Performed By: #### L 500.4050, L100.0100 #### [facility] [place] [facility] [address] [place], [address] Glucose [Mass/Vol] 88 mg/dL Normal 74-106 [facility] Comment on above: Performed By: #### L 500.4050, L100.0100 #### [facility] [place] [facility] [address] [place], [address] Potassium [Moles/Vol] 3.8 mmol/L Normal 3.5-5.1 [facility] Comment on above: Performed By: #### L 500.4050, L100.0100 #### [facility] [place] [facility] [address] [place], [address] Sodium [Moles/Vol] 141 mmol/L Normal 136-145 [facility] Comment on above: Performed By: #### L 500.4050, L100.0100 #### [facility] [place] [facility] [address] [place], [address] T PROT 7.2 g/dL Normal 6.4-8.2 [facility] [place] Comment on above: Performed By: #### L 500.4050, L100.0100 #### [facility] [place] [facility] [address] [place], [place], [address] Urea nitrogen [Mass/Vol] 25 mg/dL High 7-18 [facility] [place] Comment on above: Performed By: #### L 500.4050, L100.0100 #### [facility] [place] [facility] [address] [place], [place], [address] CNOVon 02-14-2024 CNOV Office Visit ([id number]) ---- CHRISTIE CHANCE ([id number]) 1970 M Date Time Provider Department 02/14/24 3:30 PM MELISA FLOREZ [facility] During your visit today, we recorded the following information about you: Pulse Blood pressure Weight Height 50/minute 140/84 75.8 kg 1.753 m Melisa Florez PA-C 02/14/2024 4:40 PM Signed [facility] - Procedure Note Accompanied by: Spouse Primary Problem List: ACTIVE PROBLEM LIST Cervicocranial Syndrome Chronic Daily Headache Chronic Thoracic Back Pain Derangement of Meniscus History of Respiratory System Disease Inflammatory Polyarthropathy (Hcc) Mitral Prolapse Mixed Hyperlipidemia Sleep Apnea Orthostatic Hypotension Palpitations Paresthesia Pvc's (Premature Ventricular Contractions) Raynaud's Disease Chief Complaint: Bilateral occipital neuralgia (primary encounter diagnosis) Interval Headache History: Christie Chance is a 53 year old year old male, with a history of bilateral occipital neuralgia and cervicocranial syndrome following up today for bilateral greater occipital nerve blocks. Denies steroid usage over the last 3 months. Will proceed with combination ropivacaine and betamethasone. Procedure Note: Greater Occipital Nerve Block The risks, benefits and anticipated outcomes of the procedure, the risks and benefits of the alternatives to the procedure, and the roles and tasks of the personnel to be involved, were discussed with the patient, and the patient consents to the procedure and agrees to proceed. Electronic Informed consent signed. UNIVERSAL PROTOCOL / SAFETY CHECKLIST Procedure to be Performed: Bilateral greater Occipital Nerve Block Sign In: A Moment of CARE was completed. Personnel directly involved with the procedure wore the appropriate PPE (Personal Protective Equipment). No special equipment needed. Patient/Surrogate Stated/Verified: PATIENT VERIFIED(optional for EMERGENT procedures): Patient name, Date of , Relevant allergies and The intended procedure Time Out Communication: Intended patient and procedure match the source documents. Consent documented and matches the intended procedure. No relevant labs, photos, and/or imaging studies were applicable for review. Correct side/site marked and visible. Medications required for procedure verified. No fire risk assessment and interventions applicable. No implant(s) inserted. Sign Out: SIGN OUT (optional for EMERGENT procedures): No specimen collected. All instruments, equipment, possible retained foreign bodies accounted for. Post-procedure follow-up management communicated and Plan of Care Visit completed when applicable. Melisa Florez PA-C 2 cc 0.5% Ropivacaine and 6 mg Celestone prepared in 2 3cc syringe . 3cc were injected into the right and left greater Occipital Nerve(s). 0cc were wasted. The occipital nerve(s) was injected 3cm caudal and 1.5 cm lateral to the inion where the main trunk of the occipital nerve penetrates the semispinalis muscle. The needle was placed perpendicular and the needle advanced 1.5 cm. After aspiration to ensure no obstruction or presence of blood, the area was injected. The needle was repositioned in a fan-like manner and the entire area was injected. The patient was told to use heat if there was discomfort later in the day. Pre injection pain 2/10 Post injection pain 1/10 Patient tolerated the procedure well. You received a greater occipital nerve block today. You may feel sore tomorrow at the site of the injection. You may use heat or ice for discomfort. This should resolve in 24-36 hours. Melisa Florez PA-C Follow-up: 3 months, call office ([phone]) with problems or concerns before appointment Melisa Florez PA-C Headache [facility] February 14, 2024 Melisa Florez PA-C 02/14/2024 4:39 PM Signed You received a greater occipital nerve block (GONB) today You may feel sore tomorrow at the site of the injection. You may use heat or ice for discomfort and gentle stretching. This should resolve in 24-36 hours. Greater Occipital Nerve Block (GONB) Article in [employer] Journal By: Lalito Escoto MD Many patients with chronic headache report that their pain typically arises from the neck or, more specifically, the base of the skull. Often that pain arises on one side or the other and extends forward to involve the top of the head, the congregational, the forehead, the eye or some combination thereof. These are termed cervicogenic (ie, ?born of the neck?) headaches. Residing in those areas of the skull base are the occipital nerves. Irritation/inflamma tion of those nerves may cause a specific type of ?neuralgiform? pain: occipital neuralgia. More commonly, however, those nerves serve as major ?on-ramps? to the ?superhighway? upon whic (more content not included)... Normal [facility] MRI BRAIN WO/W IVCONon 11-22 MRI BRAIN WO/W IVCON * * *Final Report* * * DATE OF EXAM: Nov 23 2023 9:45AM ANM 0295 - MRI BRAIN WO/W IVCON / PROCEDURE REASON: multiple diagnoses * * * * Physician Interpretation * * * * EXAMINATION: MRI BRAIN WO/W IVCON HISTORY: Cervicogenic headache Vertigo of central origin Imbalance Face pain TECHNIQUE: Axial Fast FLAIR and diffusion study of the entire head. High resolution axial T1, axial CISS, and gadolinium enhanced high resolution coronal and axial, fat-suppressed T1-weighted images of the IAC region. Contrast: 16 mL Dotarem IV COMPARISON: Outside hospital MRI brain on 06/22/2020. RESULT: Acute Change: There is no evidence of restricted diffusion to suggest an acute infarct. Mass Lesion/ Mass Effect: No evidence of a soft tissue mass in either IAC region. No abnormal enhancement is noted along the CN VII/VIII cranial nerve complexes or in the inner ear structures. No abnormal parenchymal or leptomeningeal enhancement is noted otherwise in the visualized parenchyma following contrast administration. No significant mass effect on the brainstem or cerebellum. Chronic Change: Scattered patchy areas of increased T2 and FLAIR signal are present in the supratentorial white matter which is a nonspecific finding but likely represents mild chronic microvascular ischemia. Skull Base: No evidence of a marrow replacement process in the skull base. The inner ear structures appear to be within normal limits on the high resolution axial CISS acquisition. Vasculature: No posterior fossa vascular malformation is seen. Major intracranial dural venous sinuses show typical flow void, suggesting patency by spin echo criteria. Other: Minimal nonspecific left mastoid fluid. IMPRESSION: No specific etiology for patient's reported symptoms identified. No evidence of acute infarct, or significant mass effect. No evidence of abnormal contrast enhancement. Mild amount of chronic small vessel ischemic white matter disease. Minimal nonspecific left mastoid fluid. Correlation with symptoms is recommended. Cost And Risk Analysis Manager: HECTOR Transcribe Date/Time: Nov 26 2023 9:20A Dictated by : VELVET DEAN MD This examination was interpreted and the report reviewed and electronically signed by: VELVET DEAN MD on Nov 26 2023 9:51AM EST [id number] [id number] Normal [facility] Absolute lymphocyte countOrd ered By: Mariza Rios on 08-28-2023 Lymphocytes Auto (Unsp spec) [#/Vol] 1.82 10*3/uL 0.83-4.51 [facility] [place] Basophil percentageOrdered B y: Mariza Rios on 08-28-2023 Basophils/100 WBC (Bld) 1.2 % 0-1 [facility] [place] Bilirubin [Mass/Vol] 0.90 mg/dL 0.20-1.00 [facility] Comment on above: For patients on eltr ombopag therapy, use of Dimension [place] TBIL is not recommended. Chloride [Moles/Vol] 105 mmol/L 98-107 [facility] Eosinophils/100 WBC (Bld) 2.4 % 0-5 [facility] [place] Glucose [Mass/Vol] 88 mg/dL 74-106 [facility] Neutrophils (Bld) [#/Vol] 3.1 10*3/uL 2.0-7.7 [facility] [place] Neutrophils/100 WBC (Bld) 53.8 % 47-70 [facility] [place] Potassium [Moles/Vol] 3.9 mmol/L 3.5-5.1 [facility] Protein [Mass/Vol] 7.1 g/dL 6.4-8.2 [facility] Sodium [Moles/Vol] 138 mmol/L 136-145 [facility] WBC (Bld) [#/Vol] 5.7 10*3/uL 4.4-11.0 [facility] Blood erythrocytes count (nu mber/volume)Ordered By: Mariza Rios on 08-28-2023 RBC (Bld) [#/Vol] 4.71 10*6/uL 4.6-6.2 [facility] Blood hemoglobin measurement (mass/volume)Ordered By: Mariza Rios on 08-28-2023 Hemoglobin (Bld) [Mass/Vol] 15.2 g/dL 13.0-16.5 [facility] [place] Blood lymphocytes/100 leukoc ytesOrdered By: Mariza Rios on 08-28-2023 Lymphocytes/100 WBC (Bld) 31.8 % 19-41 [facility] [place] Blood monocytes/100 leukocyt esOrdered By: Mariza Rios on 08-28-2023 Monocytes/100 WBC (Bld) 10.6 % 0-10 [facility] [place] Blood platelet mean volumeOr dered By: Mariza Rios on 08-28-2023 Platelet mean volume (Bld) [Entitic vol] 9.2 fL 6.2-12.0 [facility] [place] Determination of erythrocyte mean corpuscular volume (MCV)Ordered By: Mariza Rios on 08-28-2023 MCV (RBC) [Entitic vol] 92.6 fL 80-94 [facility] [place] Hematocrit Auto (Bld) [Volum e fraction]Ordered By: Mariza Rios on 08-28-2023 Hematocrit (Bld) [Volume fraction] 43.6 % 40-54 [facility] [place] Laboratory - Chemistry and C hemistry - challengeOrdered By: Mariza Rios on 08-28-2023 ALP [Catalytic activity/Vol] 76 U/L 45-117 [facility] [place] ALT [Catalytic activity/Vol] 33 U/L 16-61 [facility] [place] CO2 [Moles/Vol] 27.0 mmol/L 21.0-32.0 [facility] [place] Globulin (S) [Mass/Vol] 2.9 g/dL 2.2-4.2 [facility] [place] Urea nitrogen/Creatinine [Mass ratio] 19.4 mg/mg 10-20 [facility] [place] [facility] - Hematology and Cell countsOrdered By: Mariza Rios on 08-28-2023 Erythrocyte distribution width (RBC) [Entitic vol] 38.2 fL 35.1-43.9 [facility] [place] Erythrocyte distribution width (RBC) [Ratio] 11.2 % 11.6-14.6 [facility] [place] Immature granulocytes/100 WBC (Bld) 0.200 % 0.0-0.9 [facility] [place] Comment on above: IG% - Immature Granu locytes (promyelocytes, myelocytes and metamyelocytes) > 1% indicates that a LEFT SHIFT is Present. MCH (RBC) [Entitic mass] 32.3 pg 27.0-32.0 [facility] [place] Nucleated RBC/100 WBC (Bld) [Ratio] 0 % 0-5 [facility] [place] MCHC Auto (RBC) [Mass/Vol]Or dered By: Mariza Rios on 08-28-2023 MCHC (RBC) [Mass/Vol] 34.9 g/dL 32-36 [facility] No Panel InformationOrdered By: Mariza Rios on 08-28-2023 Estimated GFR (MDRD) Amer 102 mL/min >60 [facility] [place] Comment on above: GFR Calc Estimated GFR (MDRD) Non-Af Amer 85 mL/min >60 [facility] [place] Comment on above: Non- GFR Calc Platelets bldOrdered By: Rodolfo Rios on 08-28-2023 Platelets (Bld) [#/Vol] 179 10*3/uL 150-450 [facility] [place] Serum or plasma albumin lela urement (mass/volume)Ordered By: Mariza Rios on 08-28-2023 Albumin [Mass/Vol] 4.2 g/dL 3.2-5.0 [facility] Serum or plasma albumin/glob ulin mass ratioOrdered By: Mariza Rios on 08-28-2023 Albumin/Globulin [Mass ratio] 1.4 {ratio} 0.9-2.4 [facility] [place] Serum or plasma calcium lela urement (mass/volume)Ordered By: Mariza Rios on 08-28-2023 Calcium [Mass/Vol] 8.6 mg/dL 8.5-10.1 [facility] Serum or plasma creatinine m easurement (mass/volume)Ordered By: Mariza Rios on 08-28-2023 Creatinine [Mass/Vol] 0.98 mg/dL 0.70-1.30 [facility] Comment on above: The validity of the calculated GFR & GFRAA in patients over 70 years has not been determined. Clinical correlation is essential. Serum or plasma urea nitroge n measurement (mass/volume)Ordered By: Mariza Rios on 08-28-2023 Urea nitrogen [Mass/Vol] 19 mg/dL 7-18 [facility] [place] Thin prep Papanicolaou smear with manual screeningOrdered By: Mariza Rios on 08-28-2023 Thin prep Papanicolaou smear with manual screening 33 U/L 15-37 [facility] [place] Thin prep Papanicolaou smear with manual screening 6 5-15 [facility] [place] GLUon 05-14-2023 Glucose [Mass/Vol] 89 mg/dL Normal 70-105 [facility] ([place]) Comment on above: Performed By: #### G JOHN #### [place] [address] LABORATORYOrdered By: Denver Whatley on 05-11-2023 Cholesterol [Mass/Vol] 192 mg/dL Invalid Interpretation Code 0 - 200 mg/dL AO ADM SS Comment on above: Interpretive Data: C holesterol Reference Interval: Less than 200 Desirable 200-239 Borderline high risk 240 and above High risk Cholesterol in HDL [Mass/Vol] 49 mg/dL Invalid Interpretation Code 40 - 60 mg/dL AO ADM SS Cholesterol in LDL [Mass/Vol] 123 mg/dL Invalid Interpretation Code 0 - 130 mg/dL AO ADM SS Triglyceride [Mass/Vol] 99 mg/dL Invalid Interpretation Code 0 - 150 mg/dL AO ADM SS Comment on above: Interpretive Data: T riglyceride Reference Interval: Less than 150 Normal 150-199 Borderline high risk 200-499 High risk 500 or higher Very high risk LABORATORYOrdered By: SYSTEM SYSTEM on 05-11-2023 Prostate specific Ag [Mass/Vol] 1.96 ng/mL Invalid Interpretation Code 0.00 - 4.00 ng/mL AO ADM SS TSH Qn 1.44 m[IU]/L Invalid Interpretation Code 0.36 - 3.74 mcIU/mL AO ADM SS LIPIDon 05-11-2023 Cholesterol [Mass/Vol] 192 mg/dL Normal 0-200 [facility] ([place]) Comment on above: Result Comment: Chol esterol Reference Interval: Less than 200 Desirable 200-239 Borderline high risk 240 and above High risk Performed By: #### P SA, LIPID, TSH #### [address] [address] Cholesterol in HDL [Mass/Vol] 49 mg/dL Normal 40-60 [facility] ([place]) Comment on above: Performed By: #### P SA, LIPID, TSH #### [address] [address] Cholesterol in LDL [Mass/Vol] 123 mg/dL Normal 0-130 [facility] ([place] Comment on above: Performed By: #### P SA, LIPID, TSH #### [address] [address] Triglyceride [Mass/Vol] 99 mg/dL Normal 0-150 [facility] ([place] Comment on above: Result Comment: Trig lyceride Reference Interval: Less than 150 Normal 150-199 Borderline high risk 200-499 High risk 500 or higher Very high risk Performed By: #### P SA, LIPID, TSH #### [address] [address] PSAon 05-11-2023 Prostate Specific Antigen 1.96 ng/mL Normal 0.00-4.00 [facility] ([place] Comment on above: Performed By: #### P SA, LIPID, TSH #### [address] [address] TSHon 05-11-2023 TSH Qn 1.44 m[IU]/L Normal 0.36-3.74 [facility] ([place]) Comment on above: Order Comment: REFLE X FREE T4 IF ABNORMAL! (TSH < 0.36, or TSH > 3.64) Performed By: #### P SA, LIPID, TSH #### [address] [place] [id number] [place], [place] [address] Absolute lymphocyte countOrd ered By: Mariza Rios on 03-01-2023 Lymphocytes Auto (Unsp spec) [#/Vol] 1.61 10*3/uL 0.83-4.51 [facility] [place] Basophil percentageOrdered B y: Mariza Rios on 03-01-2023 Basophils/100 WBC (Bld) 1.7 % 0-1 [facility] [place] Bilirubin [Mass/Vol] 1.30 mg/dL 0.20-1.00 [facility] Comment on above: For patients on eltr ombopag therapy, use of Dimension [place] TBIL is not recommended. Chloride [Moles/Vol] 106 mmol/L 98-107 [facility] Eosinophils/100 WBC (Bld) 5.2 % 0-5 [facility] [place] Glucose [Mass/Vol] 83 mg/dL 74-106 [facility] Neutrophils (Bld) [#/Vol] 2.8 10*3/uL 2.0-7.7 [facility] [place] Neutrophils/100 WBC (Bld) 51.6 % 47-70 [facility] [place] Potassium [Moles/Vol] 4.2 mmol/L 3.5-5.1 [facility] Protein [Mass/Vol] 7.4 g/dL 6.4-8.2 [facility] Sodium [Moles/Vol] 139 mmol/L 136-145 [facility] WBC (Bld) [#/Vol] 5.4 10*3/uL 4.4-11.0 [facility] Blood erythrocytes count (nu mber/volume)Ordered By: Mariza Rios on 03-01-2023 RBC (Bld) [#/Vol] 4.88 10*6/uL 4.6-6.2 [facility] Blood hemoglobin measurement (mass/volume)Ordered By: Mariza Rios on 03-01-2023 Hemoglobin (Bld) [Mass/Vol] 16.1 g/dL 13.0-16.5 [facility] [place] Blood lymphocytes/100 leukoc ytesOrdered By: Mariza Rios on 03-01-2023 Lymphocytes/100 WBC (Bld) 29.8 % 19-41 [facility] [place] Blood monocytes/100 leukocyt esOrdered By: Mariza Rios on 03-01-2023 Monocytes/100 WBC (Bld) 11.5 % 0-10 [facility] Blood platelet mean volumeOr dered By: Mariza Rios on 03-01-2023 Platelet mean volume (Bld) [Entitic vol] 9.1 fL 6.2-12.0 [facility] Determination of erythrocyte mean corpuscular volume (MCV)Ordered By: Mariza Rios on 03-01-2023 MCV (RBC) [Entitic vol] 94.5 fL 80-94 [facility] [place] Hematocrit Auto (Bld) [Volum e fraction]Ordered By: [facility] Gabriel on 03-01-2023 Hematocrit (Bld) [Volume fraction] 46.1 % 40-54 [facility] [place] [facility] - Chemistry and C hemistry - challengeOrdered By: [facility] Gabriel on 03-01-2023 ALP [Catalytic activity/Vol] 85 U/L 45-117 [facility] ALT [Catalytic activity/Vol] 30 U/L 16-61 [facility] CO2 [Moles/Vol] 30.0 mmol/L 21.0-32.0 [facility] [place] Globulin (S) [Mass/Vol] 3.3 g/dL 2.2-4.2 [facility] [place] Urea nitrogen/Creatinine [Mass ratio] 16.4 mg/mg 10-20 [facility] [place] [facility] - Hematology and Cell countsOrdered By: Marizabar Rios on 03-01-2023 Erythrocyte distribution width (RBC) [Entitic vol] 39.0 fL 35.1-43.9 [facility] [place] Erythrocyte distribution width (RBC) [Ratio] 11.4 % 11.6-14.6 [facility] Immature granulocytes/100 WBC (Bld) 0.200 % 0.0-0.9 [facility] [place] Comment on above: IG% - Immature Granu locytes (promyelocytes, myelocytes and metamyelocytes) > 1% indicates that a LEFT SHIFT is Present. MCH (RBC) [Entitic mass] 33.0 pg 27.0-32.0 [facility] [place] Nucleated RBC/100 [facility] (Bld) [[facility]] 0 [facility] [Mass/Vol]Or dered By: Mariza Rios on 03-01-2023 MCHC (RBC) [Mass/Vol] 34.9 g/dL 32-36 [facility] No Panel InformationOrdered By: Mariza Rios on 03-01-2023 Estimated GFR (MDRD) Amer 84 mL/min >60 [facility] [place] Comment on above: GFR Calc Estimated GFR (MDRD) Non-Af Amer 70 mL/min >60 [facility] [place] Comment on above: Non- GFR Calc Platelets bldOrdered By: Rodolfo Rios on 03-01-2023 Platelets (Bld) [#/Vol] 192 10*3/uL 150-450 [facility] Serum or plasma albumin lela urement (mass/volume)Ordered By: Mariza Rios on 03-01-2023 Albumin [Mass/Vol] 4.1 g/dL 3.2-5.0 [facility] Serum or plasma albumin/glob ulin mass ratioOrdered By: Mariza Rios on 03-01-2023 Albumin/Globulin [Mass ratio] 1.2 {ratio} 0.9-2.4 [facility] Serum or plasma calcium lela urement (mass/volume)Ordered By: Mariza Rios on 03-01-2023 Calcium [Mass/Vol] 9.6 mg/dL 8.5-10.1 [facility] Serum or plasma creatinine m easurement (mass/volume)Ordered By: Mariza Rios on 03-01-2023 Creatinine [Mass/Vol] 1.16 mg/dL 0.70-1.30 [facility] Comment on above: The validity of the calculated GFR & GFRAA in patients over 70 years has not been determined. Clinical correlation is essential. Serum or plasma urea nitroge n measurement (mass/volume)Ordered By: Mariza Rios on 03-01-2023 Urea nitrogen [Mass/Vol] 19 mg/dL 7-18 [facility] Thin prep Papanicolaou smear with manual screeningOrdered By: Mariza Rios on 03-01-2023 Thin prep Papanicolaou smear with manual screening 27 U/L 15-37 [facility] Thin prep Papanicolaou smear with manual screening 3 5-15 [facility] STREP A MOLECULAR (POC)on Procedural Control Valid [facility] Strep A (POCT) Positive Abnormal Negative [facility] Absolute lymphocyte counton 08-31-2022 Lymphocytes Auto (Unsp spec) [#/Vol] 1.40 10*3/uL 0.83-4.51 [facility] Work Phone: Basophil percentageon 2021 Basophils/100 WBC (Bld) 1.2 % 0-1 [facility] Work Phone: Bilirubin [Mass/Vol] 1.00 mg/dL 0.20-1.00 [facility] Work Phone: Comment on above: For patients on eltr ombopag therapy, use of Dimension [place] TBIL is not recommended. Chloride [Moles/Vol] 107 mmol/L 98-107 [facility] Work Phone: Eosinophils/100 WBC (Bld) 2.7 % 0-5 [facility] Work Phone: Glucose [Mass/Vol] 81 mg/dL 74-106 [facility] Work Phone: Neutrophils (Bld) [#/Vol] 3.5 10*3/uL 2.0-7.7 [facility] Work Phone: Neutrophils/100 WBC (Bld) 59.4 % 47-70 [facility] Work Phone: Potassium [Moles/Vol] 3.9 mmol/L 3.5-5.1 [facility] Work Phone: Protein [Mass/Vol] 7.1 g/dL 6.4-8.2 [facility] Work Phone: Sodium [Moles/Vol] 140 mmol/L 136-145 [facility] Work Phone: WBC (Bld) [#/Vol] 5.9 10*3/uL 4.4-11.0 [facility] Work Phone: Blood erythrocytes count (nu mber/volume)on 08-31-2022 RBC (Bld) [#/Vol] 4.71 10*6/uL 4.6-6.2 [facility] Work Phone: Blood hemoglobin measurement (mass/volume)on 08-31-2022 Hemoglobin (Bld) [Mass/Vol] 15.3 g/dL 13.0-16.5 [facility] Work Phone: Blood lymphocytes/100 leukoc yteson 08-31-2022 Lymphocytes/100 WBC (Bld) 23.8 % 19-41 [facility] Work Phone: Blood monocytes/100 leukocyt eson 08-31-2022 Monocytes/100 WBC (Bld) 12.6 % 0-10 [facility] Work Phone: Blood platelet mean volumeon 08-31-2022 Platelet mean volume (Bld) [Entitic vol] 9.7 fL 6.2-12.0 [facility] Work Phone: Determination of erythrocyte mean corpuscular volume (MCV)on 08-31-2022 MCV (RBC) [Entitic vol] 94.1 fL 80-94 [facility] Work Phone: Hematocrit Auto (Bld) [Volum e fraction]on 08-31-2022 Hematocrit (Bld) [Volume fraction] 44.3 % 40-54 [facility] Work Phone: Laboratory - Chemistry and C hemistry - challengeon 08-31-2022 ALP [Catalytic activity/Vol] 73 U/L 45-117 [facility] Work Phone: ALT [Catalytic activity/Vol] 30 U/L 16-61 [facility] Work Phone: CO2 [Moles/Vol] 28.0 mmol/L 21.0-32.0 [facility] Work Phone: Globulin (S) [Mass/Vol] 3.0 g/dL 2.2-4.2 [facility] Work Phone: Urea nitrogen/Creatinine [Mass ratio] 21.6 mg/mg 10-20 [facility] Work Phone: Laboratory - Hematology and Cell countson 08-31-2022 Erythrocyte distribution width (RBC) [Entitic vol] 40.1 fL 35.1-43.9 [facility] Work Phone: Erythrocyte distribution width (RBC) [Ratio] 11.5 % 11.6-14.6 [facility] Work Phone: Immature granulocytes/100 WBC (Bld) 0.300 % 0.0-0.9 [facility] Work Phone: Comment on above: IG% - Immature Granu locytes (promyelocytes, myelocytes and metamyelocytes) > 1% indicates that a LEFT SHIFT is Present. MCH (RBC) [Entitic mass] 32.5 pg 27.0-32.0 [facility] Work Phone: Nucleated RBC/100 WBC (Bld) [Ratio] 0 % 0-5 [facility] Work Phone: MCHC Auto (RBC) [Mass/Vol]on 08-31-2022 MCHC (RBC) [Mass/Vol] 34.5 g/dL 32-36 [facility] Work Phone: No Panel Informationon 08-31 Estimated GFR (MDRD) Amer 103 mL/min >60 [facility] Work Phone: Comment on above: GFR Calc Estimated GFR (MDRD) Non-Af Amer 85 mL/min >60 [facility] Work Phone: Comment on above: Non- GFR Calc Platelets bldon 08-31-2022 Platelets (Bld) [#/Vol] 197 10*3/uL 150-450 [facility] Work Phone: Serum or plasma albumin lela urement (mass/volume)on 08-31-2022 Albumin [Mass/Vol] 4.1 g/dL 3.2-5.0 [facility] Work Phone: Serum or plasma albumin/glob ulin mass ratioon 08-31-2022 Albumin/Globulin [Mass ratio] 1.4 {ratio} 0.9-2.4 [facility] Work Phone: Serum or plasma calcium lela urement (mass/volume)on 08-31-2022 Calcium [Mass/Vol] 8.9 mg/dL 8.5-10.1 [facility] Work Phone: Serum or plasma creatinine m easurement (mass/volume)on 08-31-2022 Creatinine [Mass/Vol] 0.97 mg/dL 0.70-1.30 [facility] Work Phone: Comment on above: The validity of the calculated GFR & GFRAA in patients over 70 years has not been determined. Clinical correlation is essential. Serum or plasma urea nitroge n measurement (mass/volume)on 08-31-2022 Urea nitrogen [Mass/Vol] 21 mg/dL 7-18 [facility] Work Phone: Thin prep Papanicolaou smear with manual screeningon 08-31-2022 Thin prep Papanicolaou smear with manual screening 24 U/L 15-37 [facility] Work Phone: Thin prep Papanicolaou smear with manual screening 5 5-15 [facility] Work Phone: Laboratory - Microbiology an d Antimicrobial susceptibilityon 07-05-2022 SARS-CoV-2 (COVID-19) RNA MERCEDES+probe Ql (Unsp spec) Not detected [facility] Work Phone: No Panel Informationon 07-05 Influenza Types A,B Rapid (Clinic) Not detected [facility] Work Phone: LABORATORYOrdered By: Yelena Tim on 05-08-2022 Cholesterol [Mass/Vol] 198 mg/dL Invalid Interpretation Code 0 - 200 mg/dL AO ADM SS Cholesterol in HDL [Mass/Vol] 53 mg/dL Invalid Interpretation Code 40 - 60 mg/dL AO ADM SS Cholesterol in LDL [Mass/Vol] 127 mg/dL Invalid Interpretation Code 0 - 130 mg/dL AO ADM SS Prostate specific Ag [Mass/Vol] 1.96 ng/mL Invalid Interpretation Code 0.00 - 4.00 ng/mL AO ADM SS Triglyceride [Mass/Vol] 92 mg/dL Invalid Interpretation Code 0 - 150 mg/dL AO ADM SS Absolute lymphocyte counton 03-03-2022 Lymphocytes Auto (Unsp spec) [#/Vol] 2.44 10*3/uL 0.83-4.51 [facility] Work Phone: Basophil percentageon 2021 Basophils/100 WBC (Bld) 1.2 % 0-1 [facility] Work Phone: [phone] Bilirubin [Mass/Vol] 0.50 mg/dL 0.20-1.00 [facility] Work Phone: Comment on above: For patients on eltr ombopag therapy, use of [place] TBIL is not recommended. Chloride [Moles/Vol] 108 mmol/L 98-107 [facility] Work Phone: Eosinophils/100 WBC (Bld) 2.5 % 0-5 [facility] Work Phone: Glucose [Mass/Vol] 97 mg/dL 74-106 [facility] Work Phone: Neutrophils (Bld) [#/Vol] 3.8 10*3/uL 2.0-7.7 [facility] Work Phone: Neutrophils/100 WBC (Bld) 51.1 % 47-70 [facility] Work Phone: Potassium [Moles/Vol] 4.0 mmol/L 3.5-5.1 [facility] Work Phone: Protein [Mass/Vol] 7.2 g/dL 6.4-8.2 [facility] Work Phone: Sodium [Moles/Vol] 139 mmol/L 136-145 [facility] Work Phone: WBC (Bld) [#/Vol] 7.5 10*3/uL 4.4-11.0 [facility] Blood erythrocytes count (nu mber/volume)on 03-03-2022 RBC (Bld) [#/Vol] 4.88 10*6/uL 4.6-6.2 [facility]: Blood hemoglobin measurement (mass/volume)on 03-03-2022 Hemoglobin (Bld) [Mass/Vol] 16.1 g/dL 13.0-16.5 [facility] Work Phone: Blood lymphocytes/100 leukoc yteson 03-03-2022 Lymphocytes/100 WBC (Bld) 32.4 % 19-41 [facility] Work Phone: Blood monocytes/100 leukocyt eson 03-03-2022 Monocytes/100 WBC (Bld) 11.3 % 0-10 [facility] Work Phone: Blood platelet mean volumeon 03-03-2022 Platelet mean volume (Bld) [Entitic vol] 8.7 fL 6.2-12.0 [facility] Work Phone: Determination of erythrocyte mean corpuscular volume (MCV)on 03-03-2022 MCV (RBC) [Entitic vol] 92.2 fL 80-94 [facility] Work Phone: Hematocrit Auto (Bld) [Volum e fraction]on 03-03-2022 Hematocrit (Bld) [Volume fraction] 45.0 % 40-54 [facility] Work Phone: Laboratory - Chemistry and C hemistry - challengeon 03-03-2022 ALP [Catalytic activity/Vol] 89 U/L 45-117 [facility] Work Phone: ALT [Catalytic activity/Vol] 29 U/L 16-61 [facility] Work Phone: CO2 [Moles/Vol] 24.0 mmol/L 21.0-32.0 [facility] Work Phone: Globulin (S) [Mass/Vol] 3.3 g/dL 2.2-4.2 [facility] Work Phone: Urea nitrogen/Creatinine [Mass ratio] 19.5 mg/mg 10-20 [facility] Work Phone: Laboratory - Hematology and Cell countson 03-03-2022 Erythrocyte distribution width (RBC) [Entitic vol] 37.8 fL 35.1-43.9 [facility] Work Phone: Erythrocyte distribution width (RBC) [Ratio] 11.1 % 11.6-14.6 [facility] Work Phone: Immature granulocytes/100 WBC (Bld) 1.500 % 0.0-0.9 [facility] Work Phone: Comment on above: IG% - Immature Granu locytes (promyelocytes, myelocytes and metamyelocytes) > 1% indicates that a LEFT SHIFT is Present. MCH (RBC) [Entitic mass] 33.0 pg 27.0-32.0 [facility] Work Phone: Nucleated RBC/100 WBC (Bld) [Ratio] 0 % 0-5 [facility] Work Phone: MCHC Auto (RBC) [Mass/Vol]on 03-03-2022 MCHC (RBC) [Mass/Vol] 35.8 g/dL 32-36 [facility] Work Phone: No Panel Informationon 03-03 Estimated GFR (MDRD) Amer 83 mL/min >60 [facility] Work Phone: Comment on above: GFR Calc Estimated GFR (MDRD) Non-Af Amer 68 mL/min >60 [facility] Work Phone: Comment on above: Non- GFR Calc Platelets bldon 03-03-2022 Platelets (Bld) [#/Vol] 216 10*3/uL 150-450 [facility] Work Phone: Serum or plasma albumin lela urement (mass/volume)on 03-03-2022 Albumin [Mass/Vol] 3.9 g/dL 3.2-5.0 [facility] Work Phone: Serum or plasma albumin/glob ulin mass ratioon 03-03-2022 Albumin/Globulin [Mass ratio] 1.2 {ratio} 0.9-2.4 [facility] Work Phone: Serum or plasma calcium lela urement (mass/volume)on 03-03-2022 Calcium [Mass/Vol] 9.0 mg/dL 8.5-10.1 [facility] Work Phone: Serum or plasma creatinine m easurement (mass/volume)on 03-03-2022 Creatinine [Mass/Vol] 1.18 mg/dL 0.70-1.30 [facility] Work Phone: Comment on above: The validity of the calculated GFR & GFRAA in patients over 70 years has not been determined. Clinical correlation is essential. Serum or plasma urea nitroge n measurement (mass/volume)on 03-03-2022 Urea nitrogen [Mass/Vol] 23 mg/dL 7-18 [facility] Work Phone: Thin prep Papanicolaou smear with manual screeningon 03-03-2022 Thin prep Papanicolaou smear with manual screening 24 U/L 15-37 [facility] Work Phone: Thin prep Papanicolaou smear with manual screening 7 5-15 [facility] Work Phone: No Panel Informationon 03-01 IMPRESSION: Mild wedging deformity of mid thoracic spine vertebral bodies. Degenerative changes. Cost And Risk Analysis Manager: PSCB Transcribe Date/Time: Mar 01 2022 9:30A Dictated by : NIA MORRELL MD This examination was interpreted and the report reviewed and electronically signed by: NIA MORRELL MD on Mar 01 2022 9:35AM EST ZZZ_DO_NOT_US E_DIVISION OF RADIOLOGY Radiology Study observation (narrative) [facility] No Panel InformationOrdered By: Ccf Provider on 03-01-2022 [facility] XR Cervical spine AP and Lat eralon 03-01-2022 * * *Final Report* * * DATE OF EXAM: Mar 01 2022 9:16AM [facility] [id number] - XR CERVICAL 2V AP/LAT / PROCEDURE REASON: multiple diagnoses * * * * Physician Interpretation * * * * HISTORY: Chronic bilateral thoracic back pain Chronic bilateral thoracic back pain Rib pain on right side . TECHNIQUE: XR THORACIC 2V AP/LAT, XR CERVICAL 2V AP/LAT Laterality: NOT APPLICABLE Number of different views (projections): 2 COMPARISON: None available. RESULT: There is mild wedging deformity of mid thoracic spine vertebral bodies. Otherwise, there is no evidence of acute spinal fracture or dislocation. There is normal alignment of the cervical and thoracic spine. There are multilevel degenerative changes with disc space narrowing, marginal endplate osteophytes and facet joint hypertrophy. There is no evidence of acute process in the visualized chest. No other significant abnormality. ------- MAHESH_DO_NOT_US E_DIVISION OF RADIOLOGY Provider, [facility] [place] - 03/01/2022 * * *Final Report* * * DATE OF EXAM: Mar 01 2022 9:16AM [id number] - XR CERVICAL 2V AP/LAT / PROCEDURE REASON: multiple diagnoses * * * * Physician Interpretation * * * * HISTORY: Chronic bilateral thoracic back pain Chronic bilateral thoracic back pain Rib pain on right side . TECHNIQUE: XR THORACIC 2V AP/LAT, XR CERVICAL 2V AP/LAT Laterality: NOT APPLICABLE Number of different views (projections): 2 COMPARISON: None available. RESULT: There is mild wedging deformity of mid thoracic spine vertebral bodies. Otherwise, there is no evidence of acute spinal fracture or dislocation. There is normal alignment of the cervical and thoracic spine. There are multilevel degenerative changes with disc space narrowing, marginal endplate osteophytes and facet joint hypertrophy. There is no evidence of acute process in the visualized chest. No other significant abnormality. ------- IMPRESSION IMPRESSION: Mild wedging deformity of mid thoracic spine vertebral bodies. Degenerative changes. Cost And Risk Analysis Manager: [facility] Transcribe Date/Time: Mar 01 2022 9:30A Dictated by : NIA MORRELL MD This examination was interpreted and the report reviewed and electronically signed by: NIA MORRELL MD on Mar 01 2022 9:35AM EST [facility] XR Ribs - right 2 Viewson IMPRESSION: No rib fracture. Cost And Risk Analysis Manager: [facility] Transcribe Date/Time: Mar 01 2022 9:33A Dictated by : NIA MORRELL MD This examination was interpreted and the report reviewed and electronically signed by: NIA MORRELL MD on Mar 01 2022 9:34AM EST ZZZ_DO_NOT_US E_DIVISION OF RADIOLOGY * * *Final Report* * * DATE OF EXAM: Mar 01 2022 9:16AM [id number] - XR RIBS 2V AP/OBL RT / PROCEDURE REASON: multiple diagnoses * * * * Physician Interpretation * * * * HISTORY: Chronic bilateral thoracic back pain Chronic bilateral thoracic back pain Rib pain on right side Frequent falls. TECHNIQUE: XR RIBS 2V AP/OBL RT Laterality: RIGHT Number of different views (projections): 2 COMPARISON: None available. RESULT: There is no displaced rib fracture. There are degenerative changes at the spine and right shoulder. There is no evidence of acute process in the visualized chest. No other significant abnormality. ------- ZZZ_DO_NOT_US E_DIVISION OF RADIOLOGY Provider, [facility] [place] - 03/01/2022 * * *Final Report* * * DATE OF EXAM: Mar 01 2022 9:16AM [id number] - XR RIBS 2V AP/OBL RT / PROCEDURE REASON: multiple diagnoses * * * * Physician Interpretation * * * * HISTORY: Chronic bilateral thoracic back pain Chronic bilateral thoracic back pain Rib pain on right side Frequent falls. TECHNIQUE: XR RIBS 2V AP/OBL RT Laterality: RIGHT Number of different views (projections): 2 COMPARISON: None available. RESULT: There is no displaced rib fracture. There are degenerative changes at the spine and right shoulder. There is no evidence of acute process in the visualized chest. No other significant abnormality. ------- IMPRESSION IMPRESSION: No rib fracture. Cost And Risk Analysis Manager: PSCHeide Transcribe Date/Time: Mar 01 2022 9:33A Dictated by : NIA MORRELL MD This examination was interpreted and the report reviewed and electronically signed by: NIA MORRELL MD on Mar 01 2022 9:34AM [facility] XR Thoracic spine AP and Lat [facility] 03-01-2022 * * *Final Report* * * DATE OF EXAM: Mar 01 2022 9:16AM [id number] - XR THORACIC 2V AP/LAT / PROCEDURE REASON: multiple diagnoses * * * * Physician Interpretation * * * * HISTORY: Chronic bilateral thoracic back pain Chronic bilateral thoracic back pain Rib pain on right side . TECHNIQUE: XR THORACIC 2V AP/LAT, XR CERVICAL 2V AP/LAT Laterality: NOT APPLICABLE Number of different views (projections): 2 COMPARISON: None available. RESULT: There is mild wedging deformity of mid thoracic spine vertebral bodies. Otherwise, there is no evidence of acute spinal fracture or dislocation. There is normal alignment of the cervical and thoracic spine. There are multilevel degenerative changes with disc space narrowing, marginal endplate osteophytes and facet joint hypertrophy. There is no evidence of acute process in the visualized chest. No other significant abnormality. ------- MAHESH_DO_NOT_US E_DIVISION OF RADIOLOGY Provider, [facility] [place] - 03/01/2022 * * *Final Report* * * DATE OF EXAM: Mar 01 2022 9:16AM [facility]262 - XR THORACIC 2V AP/LAT / PROCEDURE REASON: multiple diagnoses * * * * Physician Interpretation * * * * HISTORY: Chronic bilateral thoracic back pain Chronic bilateral thoracic back pain Rib pain on right side . TECHNIQUE: XR THORACIC 2V AP/LAT, XR CERVICAL 2V AP/LAT Laterality: NOT APPLICABLE Number of different views (projections): 2 COMPARISON: None available. RESULT: There is mild wedging deformity of mid thoracic spine vertebral bodies. Otherwise, there is no evidence of acute spinal fracture or dislocation. There is normal alignment of the cervical and thoracic spine. There are multilevel degenerative changes with disc space narrowing, marginal endplate osteophytes and facet joint hypertrophy. There is no evidence of acute process in the visualized chest. No other significant abnormality. ------- IMPRESSION IMPRESSION: Mild wedging deformity of mid thoracic spine vertebral bodies. Degenerative changes. Cost And Risk Analysis Manager: [employer] Transcribe Date/Time: Mar 01 2022 9:30A Dictated by : NIA MORRELL MD This examination was interpreted and the report reviewed and electronically signed by: NIA MORRELL MD on Mar 01 2022 9:35AM EST [facility] STREP A MOLECULAR (POC)on Procedural Control Valid [facility] Strep A (POCT) Negative Negative [facility] Office Visiton 07-19-2017 Documentation of current medications (procedure) Done Invalid Interpretation Code [facility] Work Phone: Fall risk assessment No Invalid Interpretation Code [facility] Work Phone: Office Visiton 10-18-2016 Tobacco use CP Never smoker Invalid Interpretation Code [facility] Work Phone: Clinical Lists Update: 07-16-2016 Left ventricular Ejection fraction 65 % Invalid Interpretation Code [facility] Work Phone: Clinical Lists Update: 07-05-2016 Cholesterol 218 mg/dL High [facility] Work Phone: [phone] Glucose mass conc 96 mg/dL Invalid Interpretation Code [facility] Work Phone: HDL Cholesterol 45 mg/dL Invalid Interpretation Code [facility] Work Phone: LDL Cholesterol 139 mg/dL High [facility] Work Phone: [phone] Triglyceride 172 mg/dL High [facility] Work Phone: [phone] Replaced Document: Gricelda Cunha CG Observationson 08-11-2015 EKG QRS axis 50 deg Invalid Interpretation Code [facility] Work Phone: [phone] Interpretation Sinus Bradycardia -RSR(V1) -nondiagnostic. PROBABLY NORMAL Invalid Interpretation Code [facility] Work Phone: [phone] P [place] 30 deg Invalid Interpretation Code [facility] Work Phone: [phone] VA Interval 124 ms Invalid Interpretation Code [facility] Work Phone: [phone] Pulse (Heart Rate) 54 /min Invalid Interpretation Code [facility] Work Phone: [phone] QRS Duration 108 ms Invalid Interpretation Code [facility] Work Phone: [phone] QT Interval new path ms Invalid Interpretation Code [facility] Work Phone: [phone] QTc [place] 396 ms Invalid Interpretation Code [facility] Work Phone: [phone] T [place] 37 deg Invalid Interpretation Code [facility] Work Phone: [phone] Office Visiton 02-11-2015 cardiac risk group B Invalid Interpretation Code [facility] Work Phone: [phone] General cardiovascular disease 10Y risk [#] Annmarie'Malvin Not enough information Invalid Interpretation Code [facility] Work Phone: [phone] Vital Signs Date Time Vital Sign Value Performing Clinician Facility 07-01-2024 07:24-0400 Body height 175.3 cm Sara Levine APRN.[employer] Work Phone: [facility] 07-01-2024 07:24-0400 Body mass index (BMI) [Ratio] 24.94 kg/m2 Sara Levine APRN.CNP Work Phone: [facility] 07-01-2024 07:24-0400 Body weight 76.6 kg Sara Levine APRN.CNP Work Phone: [facility] 07-01-2024 07:24-0400 Diastolic blood pressure 73 mm[Hg] Sara Levine APRN.[employer] Work Phone: [facility] 07-01-2024 07:24-0400 Heart rate 63 /min Sara Levine MOTOR BLOCK MECHANIC.[employer] Work Phone: [facility] 07-01-2024 07:24-0400 Respiratory rate 21 /min Sara Levine MOTOR BLOCK MECHANIC.[employer] Work Phone: [facility] 07-01-2024 07:24-0400 SaO2% (BldA) [Mass fraction] 98 % Sara Levine [employer]OR BLOCK MECHANIC.[employer] Work Phone: [facility] 07-01-2024 07:24-0400 Systolic blood pressure 116 mm[Hg] Sara Levine MOTOR BLOCK MECHANIC.[employer] Work Phone: [facility] 02-14-2024 15:12-0400 Body height 175.3 cm Melisa GERARDO-C Work Phone: [facility] 02-14-2024 15:12-0400 Body mass index (BMI) [Ratio] 24.66 kg/m2 Melisa Florez PA-C Work Phone: [facility] 02-14-2024 15:12-0400 Body weight 75.75 kg Melisa Florez PA-C Work Phone: [facility] 02-14-2024 15:12-0400 Diastolic blood pressure 84 mm[Hg] Melisa Florez PA-C Work Phone: [facility] 02-14-2024 15:12-0400 Heart rate 50 /min Melisa Florez PA-C Work Phone: [facility] 02-14-2024 15:12-0400 Systolic blood pressure 140 mm[Hg] Melisa Florez PA-C Work Phone: [facility] 11-01-2023 13:30-0500 Diastolic blood pressure 82 mm[Hg] Johana Frias MOTOR BLOCK MECHANIC.[employer] MECH[employer] Work Phone: [facility] 11-01-2023 13:30-0500 Heart rate 65 /min Johana Froimson [employer]OR BLOCK MECHANIC.[employer]IAN BLIND MECHANIC Work Phone: [facility] 11-01-2023 13:30-0500 Systolic blood pressure 146 mm[Hg] Johana Froimson MOTOR BLOCK MECHANIC.VEN[employer]IAN BLIND MECHANIC Work Phone: [facility] 01-03-2023 18:25-0400 Body temperature 98.1 [degF] Natividad Reeder MOTOR BLOCK MECHANIC.VEN[employer]IAN BLIND MECHANIC Work Phone: [facility] 01-03-2023 18:25-0400 Body weight 77.11 kg Natividad Reeder [employer]OR BLOCK MECHANIC.[employer]IAN BLIND MECH[employer]IC Work Phone: [facility] 01-03-2023 18:25-0400 Diastolic blood pressure 80 mm[Hg] Natividad Reeder MOTOR BLOCK MECHANIC.VEN[employer]IAN BLIND MECHANIC Work Phone: [facility] 01-03-2023 18:25-0400 Heart rate 69 /min Natividad Reeder [employer]OR BLOCK MECHANIC.[employer] BLIND MECHANIC Work Phone: [facility] 01-03-2023 18:25-0400 Respiratory rate 21 /min Natividad Reeder [employer]OR BLOCK MECHANIC.[employer]IAN BLIND MECHANIC Work Phone: [facility] 01-03-2023 18:25-0400 SaO2% (BldA) [Mass fraction] 98 % Natividad Reeder [employer]OR BLOCK MECHANIC.VEN[employer]IAN BLIND MECHANIC Work Phone: [facility] 01-03-2023 18:25-0400 Systolic blood pressure 150 mm[Hg] Natividad Reeder MOTOR BLOCK MECHANIC.VEN[employer]IAN BLIND MECHANIC Work Phone: [facility] 07-20-2022 16:24-0500 Body height 175.3 cm Sara Levine MOTOR BLOCK MECHANIC.[employer]IAN BLIND MECHANIC Work Phone: [facility] 07-20-2022 16:24-0500 Body weight 78.93 kg Sara Levine [employer]OR BLOCK MECHANIC.[employer]IAN BLIND MECHANIC Work Phone: [facility] 07-20-2022 16:24-0500 Diastolic blood pressure 76 mm[Hg] Sara Levine MOTOR BLOCK MECHANIC.[employer]IAN BLIND MECHANIC Work Phone: [facility] 07-20-2022 16:24-0500 Heart rate 63 /min Sara Levine MOTOR BLOCK MECHANIC.VEN[employer]IAN BLIND MECHANIC Work Phone: [facility] 07-20-2022 16:24-0500 SaO2% (BldA) [Mass fraction] 99 % Sara Levine MOTOR BLOCK MECHANIC.VEN[employer]IAN BLIND MECHANIC Work Phone: [facility] 07-20-2022 16:24-0500 Systolic blood pressure 126 mm[Hg] Sara Levine MOTOR BLOCK MECHANIC.VEN[employer]IAN BLIND MECHANIC Work Phone: [facility] 07-05-2022 17:25-0400 Body height 180.[address] Johann Bundy Work Phone: [facility] Work Phone: 07-05-2022 17:25-0400 Body mass index (BMI) [Ratio] 25 kg/m2 Dr. Johann Bundy Work Phone: [facility] Work Phone: 07-05-2022 17:25-0400 Body temperature 99.9 [degF] Dr. Johann Bundy Work Phone: [facility] Work Phone: 07-05-2022 17:25-0400 Body weight 81.[address] Johann Bundy Work Phone: [facility] Work Phone: 07-05-2022 17:25-0400 Diastolic blood pressure 88 mm[Hg] Dr. Johann Bundy Work Phone: [facility] Work Phone: 07-05-2022 17:25-0400 Heart rate 85 /min Dr. Johann Bundy Work Phone: [facility] Work Phone: 07-05-2022 17:25-0400 Respiratory rate 18 /min Dr. Johann Bundy Work Phone: [facility] Work Phone: 07-05-2022 17:25-0400 SaO2% (BldA) [Mass fraction] 99 % Dr. Johann Bundy Work Phone: [facility] Work Phone: 07-05-2022 17:25-0400 Systolic blood pressure 160 mm[Hg] Dr. Johann Bundy Work Phone: [facility] Work Phone: 05-15-2022 15:43-0400 Body height 175.3 cm Johana Froimson MOTOR BLOCK MECHANIC.[employer]IAN BLIND MECHANIC Work Phone: [facility] 05-15-2022 15:43-0400 Body weight 78.47 kg Johana Froimson MOTOR BLOCK MECHANIC.[employer] BLIND MECHANIC Work Phone: [facility] 05-15-2022 15:43-0400 Diastolic blood pressure 80 mm[Hg] Johana Froimson MOTOR BLOCK MECHANIC.[employer] BLIND MECHANIC Work Phone: [facility] 05-15-2022 15:43-0400 Heart rate 77 /min Johana Froimson [employer]OR BLOCK MECHANIC.[employer] BLIND MECHANIC Work Phone: [facility] 05-15-2022 15:43-0400 Respiratory rate 22 /min Johana Froimson MOTOR BLOCK MECHANIC.[employer] BLIND MECHANIC Work Phone: [facility] 05-15-2022 15:43-0400 Systolic blood pressure 159 mm[Hg] Johana Froimson MOTOR BLOCK MECHANIC.VEN[employer]IAN BLIND MECHANIC Work Phone: [facility] 04-27-2022 16:04-0400 Body height 175.3 cm Sara Levine MOTOR BLOCK MECHANIC.[employer] BLIND MECHANIC Work Phone: [facility] 04-27-2022 16:04-0400 Body weight 78.7 kg Sara Levine [employer]OR BLOCK MECHANIC.[employer]IAN BLIND MECHANIC Work Phone: [facility] 04-27-2022 16:04-0400 Diastolic blood pressure 80 mm[Hg] Sara Levine MOTOR BLOCK MECHANIC.[employer]IAN BLIND MECHANIC Work Phone: [facility] 04-27-2022 16:04-0400 Heart rate 63 /min Sara Levine MOTOR BLOCK MECHANIC.VEN[employer]IAN BLIND MECHANIC Work Phone: [facility] 04-27-2022 16:04-0400 SaO2% (BldA) [Mass fraction] 98 % Sara Levine [employer]OR BLOCK MECHANIC.VEN[employer]IAN BLIND MECHANIC Work Phone: [facility] 04-27-2022 16:04-0400 Systolic blood pressure 136 mm[Hg] Sara Levine MOTOR BLOCK MECHANIC.VEN[employer]IAN BLIND MECHANIC Work Phone: [facility] 03-01-2022 08:02-0400 Body temperature 97.9 [degF] Angi Inman MD Work Phone: [facility] 03-01-2022 08:02-0400 Body weight 78.93 kg Angi Inman MD Work Phone: [facility] 03-01-2022 08:02-0400 Diastolic blood pressure 88 mm[Hg] Angi Inman MD Work Phone: [facility] 03-01-2022 08:02-0400 Heart rate 72 /min Angi Inman MD Work Phone: [facility] 03-01-2022 08:02-0400 Respiratory rate 16 /min Angi Inman MD Work Phone: [facility] 03-01-2022 08:02-0400 SaO2% (BldA) [Mass fraction] 99 % Angi Inman MD Work Phone: [facility] 03-01-2022 08:02-0400 Systolic blood pressure 135 mm[Hg] Angi Inman MD Work Phone: [facility] 02-24-2022 12:05-0400 Body temperature 97.11 [degF] Keon Briggs MD Work Phone: [facility] 02-24-2022 12:05-0400 Body weight 79.2 kg Keon Briggs MD Work Phone: [facility] 02-24-2022 12:05-0400 Diastolic blood pressure 86 mm[Hg] Keon Briggs MD Work Phone: [facility] 02-24-2022 12:05-0400 Heart rate 70 /min Keon Briggs MD Work Phone: [facility] 02-24-2022 12:05-0400 Respiratory rate 16 /min Keon Briggs MD Work Phone: [facility] 02-24-2022 12:05-0400 SaO2% (BldA) [Mass fraction] 98 % Keon Briggs MD Work Phone: [facility] 02-24-2022 12:05-0400 Systolic blood pressure 144 mm[Hg] Keon Briggs MD Work Phone: [facility] 02-21-2022 19:08-0400 Body temperature 97.81 [degF] Cam Evans MOTOR BLOCK MECHANIC.[employer]IAN BLIND MECHANIC Work Phone: [facility] 02-21-2022 19:08-0400 Body weight 79.83 kg Cam Evans [employer]OR BLOCK MECHANIC.[employer]IAN BLIND MECHANIC Work Phone: [facility] 02-21-2022 19:08-0400 Diastolic blood pressure 76 mm[Hg] Cam Evans [employer]OR BLOCK MECHANIC.VEN[employer]IAN BLIND MECHANIC Work Phone: [facility] 02-21-2022 19:08-0400 Heart rate 70 /min Cam Evans MOTOR BLOCK MECHANIC.[employer]IAN BLIND MECHANIC Work Phone: [facility] 02-21-2022 19:08-0400 Respiratory rate 16 /min Cam Evans [employer]OR BLOCK MECHANIC.VEN[employer]IAN BLIND MECHANIC Work Phone: [facility] 02-21-2022 19:08-0400 SaO2% (BldA) [Mass fraction] 97 % Cam Evans [employer]OR BLOCK MECHANIC.VENETIAN BLIND MECHANIC Work Phone: [facility] 02-21-2022 19:08-0400 Systolic blood pressure 122 mm[Hg] Cam Evans MOTOR BLOCK MECHANIC.VEN[employer]IAN BLIND MECHANIC Work Phone: [facility] 07-19-2017 14:46-0500 BMI (Body Mass Index) 25.11 kg/m2 [facility] Work Phone: 07-19-2017 14:46-0500 BP Diastolic 62 mm[Hg] [facility] Work Phone: 07-19-2017 14:46-0500 BP Diastolic 70 mm[Hg] [facility] Work Phone: 07-19-2017 14:46-0500 BP Systolic 132 mm[Hg] [facility] Work Phone: 07-19-2017 14:46-0500 BP Systolic 126 mm[Hg] [facility] Work Phone: 07-19-2017 14:46-0500 Height 177.8 cm [facility] Work Phone: 07-19-2017 14:46-0500 Pulse (Heart Rate) 54 /min [facility] Work Phone: 07-19-2017 14:46-0500 Pulse (Heart Rate) 66 /min [facility] Work Phone: 07-19-2017 14:46-0500 Respiratory Rate 16 /min [facility] Work Phone: 07-19-2017 14:46-0500 Weight 79.38 kg [facility] Work Phone: 07-19-2016 16:07-0500 BP Diastolic 70 mm[Hg] [facility] Work Phone: 07-19-2016 16:07-0500 BP Systolic 120 mm[Hg] [facility] Work Phone: 07-19-2016 16:07-0500 BSA (Body Surface Area) 1.95 m2 [facility] Work Phone: Encounters Encounter Date Encounter Type Care Provider Facility Start: 12-06-2024 End: 12-08-2024 Megan Frias MOTOR BLOCK MECHANIC.[employer]IAN BLIND MECHANIC Work Phone: Neurology Comment on above: Refill Request Start: 11-27-2024 End: 11-27-2024 ambulatory Johana Frias APRN.[employer] BL[employer] MECHANIC Work Phone: Neurology Comment on above: Cervicogenic headach e (Primary Dx); Imbalance; Vertigo of central origin; Neck pain; Bilateral occipital neuralgia; Encounter for long-term (current) use of medications Start: 11-27-2024 End: 11-27-2024 Telemedicine consultation with patient Johana Frias APRN.[employer]IAN BLIND MECHANIC Work Phone: Neurology Start: 10-02-2024 ambulatory [facility] Facility:[facility] Start: 10-02-2024 End: 10-02-2024 ambulatory [facility] Facility:[facility] Start: 09-10-2024 End: 09-10-2024 ambulatory Dale Albert Facility:[facility] Start: 09-03-2024 End: 09-04-2024 ambulatory Johana Cesarsarahdima MOSHE.VENETIAN BLIND MECHANIC Work Phone: Neurology Comment on above: Pain in the back of the head leading to hedache. Start: 08-12-2024 End: 08-12-2024 ambulatory Mariza Gabriel Facility:[facility] Start: 07-01-2024 End: 07-01-2024 ambulatory SARA LEVINE Facility:[facility] Start: 07-01-2024 End: 07-01-2024 Patient encounter procedure Sara Levine APRN.VEN[employer]IAN BLIND MECHANIC Work Phone: NEUROLOGY Comment on above: AAV (obstructive sle ep apnea) (Primary Dx) Start: 05-21-2024 End: 05-21-2024 ambulatory DALE ALBERT DO Facility:[facility] Start: 05-21-2024 End: 05-21-2024 Patient encounter procedure CACHORRO LAU DO [facility] Start: 05-21-2024 End: 05-21-2024 ambulatory Johana Frias MOSHE.[employer] BLIND MECHANIC Work Phone: Neurology Comment on above: Cervicogenic headach e; Imbalance; Vertigo of central origin; Neck pain; Bilateral occipital neuralgia Start: 05-21-2024 End: 05-21-2024 Telemedicine consultation with patient Johanaher Frias [employer]OR BLOCK MECHANIC.[employer] BLIND MECHANIC Work Phone: Neurology Start: 05-01-2024 End: 05-01-2024 ambulatory REGINA VALIENTE PA-C Facility:[facility] Start: 05-01-2024 End: 05-01-2024 Patient encounter procedure REGINA VALIENTE PA-C [facility] Start: 02-29-2024 ambulatory Johana Froims on MOTOR BLOCK MECHANIC.VEN[employer]IAN BLIND MECHANIC Work Phone: Neurology Comment on above: Med timing change. O ccipital nerve block. Start: 02-19-2024 End: 02-19-2024 ambulatory [facility] Facility:[facility] Start: 02-14-2024 End: 02-17-2024 [facility] Start: 02-14-2024 End: 02-14-2024 Patient encounter procedure Melisa Florez PA-C Work Phone: Neurology Comment on above: Bilateral occipital neuralgia (Primary Dx) Start: 02-13-2024 End: 02-13-2024 ambulatory Johana Froimson [employer]OR BLOCK MECHANIC.VEN[employer]IAN BLIND MECHANIC Work Phone: Neurology Comment on above: Cervicogenic headach e (Primary Dx); Face pain; Imbalance; Vertigo of central origin; Neck pain; Bilateral occipital neuralgia Start: 02-13-2024 End: 02-13-2024 Telemedicine consultation with patient Johana Froimson [employer]OR BLOCK MECHANIC.[employer]IAN BLIND MECHANIC Work Phone: Neurology Start: 12-03-2023 ambulatory Johana Froims on [employer] BLOCK MECHANIC.[employer]IAN BLIND MECHANIC Work Phone: Neurology Comment on above: MRI Result. Response from Lupe Beckford. Start: 11-23-2023 [facility] Start: 11-23-2023 End: 11-23-2023 Subsequent hospital visit by physician Mri Turner (1.5t) RADIO MRI [facility] Comment on above: Cervicogenic headach e [G44.86] Start: 11-14-2023 ambulatory Johana Froims on [employer]OR BLOCK MECHANIC.VEN[employer]IAN BLIND MECHANIC Work Phone: Neurology Comment on above: Medication for upcom ing brain MRI. Start: 11-01-2023 End: 11-01-2023 Patient encounter procedure Johana Froimson MOTOR BLOCK MECHANIC.VENETIAN BLIND MECHANIC Work Phone: Neurology Comment on above: Cervicogenic headach e (Primary Dx); Cervicocranial syndrome; Vertigo of central origin; Imbalance; Face pain; Other headache syndrome; Neck pain Start: 08-28-2023 End: 08-28-2023 ambulatory [facility] Work Phone: Start: 08-28-2023 End: 08-28-2023 Patient encounter procedure [facility] Work Phone: Start: 08-07-2023 ambulatory Johana Froims on [employer] BLOCK MECHANIC.[employer]IAN BLIND MECHANIC Work Phone: Neurology Comment on above: Headaches from neck movement. Start: 06-23-2023 Refill Johana Froims on [employer] BLOCK MECHANIC.VENETIAN BLIND MECHANIC Work Phone: Otolaryngology Comment on above: Refill Request Start: 06-13-2023 End: 06-13-2023 ambulatory Sara Levine [employer]OR BLOCK MECHANIC.VEN[employer]IAN BLIND MECHANIC Work Phone: Neurology Comment on above: AVA (obstructive sle ep apnea) (Primary Dx) Start: 06-13-2023 End: 06-13-2023 Telemedicine consultation with patient Sara Levine MOTOR BLOCK MECHANIC.VENETIAN BLIND MECHANIC Work Phone: [facility] Start: 05-11-2023 End: 05-11-2023 ambulatory DALE ALBERT DO Facility:[facility] Start: 05-11-2023 End: 05-11-2023 Patient encounter procedure DALE ALBERT DO [facility] Start: 04-23-2023 End: 04-23-2023 ambulatory Johana Frias APRN.[employer]IAN BLIND MECHANIC Work Phone: Neurology Comment on above: Imbalance (Primary D x); Cervicocranial syndrome; Cervicogenic headache Start: 04-23-2023 End: 04-23-2023 Telemedicine consultation with patient Johana Frias APRN.VEN[employer]IAN BLIND MECHANIC Work Phone: [facility] Start: 03-01-2023 End: 03-01-2023 ambulatory [facility] Work Phone: Start: 03-01-2023 End: 03-01-2023 Patient encounter procedure [facility] Work Phone: Start: 01-29-2023 ambulatory Jerel Cottrell MD Work Phone: [facility] Start: 01-29-2023 Patient encounter procedure Jerel Cottrell MD Work Phone: Neurology Comment on above: Referral for Cogniti ve Therapy from a Speech-Pathologist Start: 01-08-2023 End: 01-08-2023 Patient encounter procedure Martín Tamez PhD Work Phone: Neuropyschology Comment on above: Subjective memory co mplaints (Primary Dx); Obstructive sleep apnea; Anxiety Start: 01-03-2023 End: 01-03-2023 Patient encounter procedure Natividad Reeder APRN.VENETIAN BLIND MECHANIC Work Phone: [facility] Comment on above: Pharyngitis due to S treptococcus species (Primary Dx) Start: 10-03-2022 End: 10-03-2022 ambulatory Johana Frias APRN.VEN[employer]IAN BLIND MECHANIC Work Phone: Neurology Comment on above: Imbalance (Primary D x); Vertigo of central origin; Short-term memory loss; Cervicocranial syndrome; Cervicogenic headache; Tinnitus, bilateral Start: 10-03-2022 End: 10-03-2022 Telemedicine consultation with patient Johana Frias APRN.VEN[employer]IAN BLIND MECHANIC Work Phone: [facility] Start: 08-31-2022 End: 08-31-[address] Johann Bundy Work Phone: [facility] Work Phone: Start: 08-31-2022 End: 08-31-[address] Johann Bundy Work Phone: [facility] Start: 08-04-2022 Refill Johana ch APRN.[employer]IAN BLIND MECHANIC Work Phone: Neurology Comment on above: Refill Request Start: 07-20-2022 End: 07-20-2022 Patient encounter procedure Sara Levine APRN.VEN[employer]IAN BLIND MECHANIC Work Phone: NEUROLOGY Comment on above: AVA (obstructive sle ep apnea) (Primary Dx) Start: 07-05-2022 End: 07-05-[address] Johann Bundy Work Phone: [facility] Start: 05-15-2022 End: 05-15-2022 Patient encounter procedure Johana Frias APRN.VEN[employer]IAN BLIND MECHANIC Work Phone: Neurology Comment on above: Vertigo of central o rigin (Primary Dx); Imbalance; Tinnitus, bilateral; Cervicocranial syndrome Start: 05-08-2022 End: 05-08-2022 Patient encounter procedure DALE ALBERT DO [facility] Start: 04-30-2022 Telephone encounter Sara Levine APRN.VENETIAN BLIND MECHANIC Work Phone: Neurology Comment on above: PAP Therapy Fax Forms ([facility] ) Start: 04-27-2022 End: 04-27-2022 Patient encounter procedure Sara Levine APRN.VENETIAN BLIND MECHANIC Work Phone: NEUROLOGY Comment on above: AVA (obstructive sle ep apnea) (Primary Dx); Abnormal breathing sounds; Gasping for breath; Witnessed episode of apnea; Frequent nocturnal awakening; Middle insomnia; Nocturia; Bladder pain; Confusional arousals; Unrefreshed by sleep; Excessive daytime sleepiness; Lack of concentration Start: 03-26-2022 Telephone encounter Johana suárez APRN.[employer]IAN BLIND MECHANIC Work Phone: Neurology Comment on above: Results (HSAT ) Start: 03-07-2022 ambulatory Angi dupont MD Work Phone: [facility] Comment on above: Questions about thor acic spine x-rays. Start: 03-03-2022 End: 03-03-2022 Patient encounter procedure [facility] Start: 03-01-2022 End: 03-01-2022 Subsequent hospital visit by physician Xr Count Includes [facility] Work Phone: Radiology Comment on above: Chronic bilateral th oracic back pain [M54.6, G89.29] Start: 03-01-2022 End: 03-01-2022 Patient encounter procedure Angi Inman MD Work Phone: [facility] Comment on above: Chronic bilateral th oracic back pain (Primary Dx); Rib pain on right side; Frequent falls; Dizziness and giddiness Start: 02-24-2022 End: 02-24-2022 Patient encounter procedure Keon Briggs MD Work Phone: [facility] Comment on above: Acute non-recurrent sinusitis, unspecified location (Primary Dx) Start: 02-21-2022 End: 02-21-2022 Patient encounter procedure Cam Krueger APRN.VENETIAN BLIND MECHANIC Work Phone: [facility] Comment on above: URI, acute (Primary Dx); Sore throat; History of reactive airway disease; Bacterial conjunctivitis Start: 02-06-2022 End: 02-06-2022 ambulatory Johana Frias VENETIAN BLIND MECHANIC Work Phone: Neurology Comment on above: Vertigo of central o rigin (Primary Dx); Imbalance; Tinnitus, bilateral; Chronic bilateral thoracic back pain; Observed sleep apnea Start: 02-06-2022 End: 02-06-2022 Telemedicine consultation with patient Johana Frias MOSHE.VENETIAN BLIND MECHANIC Work Phone: [facility] Procedures Date Procedure Procedure Detail Performing Clinician Start: 01-03-2023 STREP A MOLECULAR (POC) Natividad Reeder [employer]OR BLOCK MECHANIC.[employer]IAN BLIND MECHANIC Work Phone: Start: 05-12-2022 Adult depression scr eening assessment Johana Frias MOTOR BLOCK MECHANIC.[employer] BLIND MECHANIC Work Phone: Start: 04-22-2022 Adult depression scr eening assessment Sara Levine MOTOR BLOCK MECHANIC.VEN[employer]IAN BLIND MECHANIC Work Phone: Start: 03-01-2022 Radex spine cervical 2 or 3 views Angi Inman MD Work Phone: Start: 02-21-2022 STREP Trent MOLECULAR (POC) [facility] Provider Start: 02-03-2022 Adult depression scr eening assessment Johana Frias MOTOR BLOCK MECHANIC.[employer]IAN BLIND MECHANIC Work Phone: Start: 07-19-2017 End: 07-31-2017 24 hour holter monitor Titus Crain MD Start: 07-19-2016 End: 07-19-2016 Follow Up Appt 1 year Titus Crain MD Start: 07-19-2016 End: 07-19-2016 MMM Titus Crain MD Start: 04-10-2016 End: 04-10-2016 Arthrocentesis aspir&/inj major jt/bursa w/o Tonia Tavares Work Phone: Start: 08-11-2015 End: 08-11-2015 F[employer]T 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 Shayna Alejandra PA-C Work Phone: Start: 08-11-2015 End: 08-11-2015 Ecg routine ecg w/least 12 lds w/i&r Shayna Alejandra PA-C Work Phone: Start: 08-11-2015 End: 08-11-2015 Follow Up Appt 1 year Shayna arevalo PA-C Work Phone: Start: 02-11-2015 End: 02-12-2015 Documentation of current medications Titus Crain MD Start: 02-11-2015 End: 02-24-2015 Echocardiography Titus Crain MD Start: 02-11-2015 End: 02-11-2015 Follow Up Appt 6 months Leo Nguyen Start: 02-11-2015 End: 02-11-2015 MMM Titus Crain MD Start: 01-22-2014 End: 01-22-2014 HOLLIS Crain MD Start: 01-22-2014 End: 01-22-2014 Ecg routine ecg w/least 12 lds w/i&r Titus Crain MD Start: 01-22-2014 End: 01-22-2014 Follow Up Appt 1 year Titus Crain MD Start: 11-19-2012 End: 11-19-2012 HOLLIS Crain MD Start: 11-19-2012 End: 11-19-2012 Follow Up Appt 1 year Titus Crain MD Start: 11-14-2011 End: 11-14-2011 Follow Up Appt 1 year Titus Crain MD Start: 08-18-2010 Submucous resection of nasal septum DALE ALBERT DO Comment on above: bilateral, Dr. Wendy cortes Start: 09-02-2001 Deviated nasal septu m (disorder) DALE ALBERT DO Comment on above: Dr. Antonio Start: 09-02-1972 Tonsillectomy DALE DUMAS DO Plan of Treatment Date Care Activity Detail Author Start: 05-20-2030 Urine microalbumin profile [facility] Start: 01-03-2026 DIABETES SCREEN DIABETES SCREEN [facility] Start: 01-03-2026 Diabetes Screening Diabetes Screenin g [facility] Start: 07-01-2025 End: 07-01-2025 Patient encounter procedure NEUROLOGY Comment on above: 1 year follow up Start: 06-24-2025 End: 06-24-2025 Patient encounter procedure 06/24/2025 4:00 PM EDT Office Visit NEUROLOGY [address] [facility] [address] [place] [address] Sara Levine, MOTOR BLOCK MECHANIC.[employer]IAN BLIND MECHANIC [address] [facility] [address] [place] [address] 1 year follow up NEUROLOGY Comment on above: 1 year follow up Start: 05-23-2025 Screening for malign ant neoplasm of colon [facility] Start: 03-15-2025 End: 03-15-2025 Follow-up encounter 03/15/2025 8:30 AM EDT [facility] [address] [place] [address] Johana Frias, MOTOR BLOCK MECHANIC.VENETIAN BLIND MECHANIC [address] [place] [address] Follow up visit for neck and head pain. Neurology Comment on above: Follow up visit for neck and head pain. Start: 11-24-2024 End: 11-24-2024 Patient encounter procedure 11/24/2024 8:30 AM EDT Office Visit Neurology [id number] [facility] [address] [place] [address] Johana Frias, MOTOR BLOCK MECHANIC.[employer]IAN BLIND MECHANIC [address] [place] [address] Pain in lower back of head. Neurology Comment on above: Pain in lower back o f head. Start: 07-01-2024 End: 07-01-2024 Patient encounter procedure 07/01/2024 7:30 AM EDT Office Visit NEUROLOGY [address] [facility] [address] [place] [address] Sara Levine, MOTOR BLOCK MECHANIC.VENETIAN BLIND MECHANIC [address] [facility] [address] [place] [address] [facility] Comment on above: [facility] Start: 05-21-2024 End: 05-21-2024 ambulatory 05/21/2024 9:45 AM EDT [facility] [address] [place] [address] Johana Frias APRN.[employer] BL[employer] MECHANIC [address] [place] [address] Pain in lower back of head and headaches from it. Neurology Comment on above: Pain in lower back o f head and headaches from it. Start: 05-03-2024 Covid-19 Vaccine () Covid-19 Vaccine () [facility] Start: 05-03-2024 Influenza vaccination [facility] Start: 02-14-2024 End: 02-14-2024 Patient encounter procedure 02/14/2024 3:30 PM EDT Office Visit Neurology [address] [place] [address] Melisa Florez PA-C [address] [place] [address] [facility] Comment on above: [facility] Start: 09-09-2023 DIABETES SCREEN DIABETES SCREEN [facility] Start: 09-02-2023 Depression Assessment Depression Ass neurodiagnostic institutement [facility] Start: 2023 Prostate Cancer Scre ening Discussion Prostate Cancer Screening Discussion [facility] Start: 2023 Prostate specific an tigen measurement Prostate Cancer Screening Discussion [facility] Start: 05-12-2023 Adult depression scr eening assessment DEPRESSION SCREENING [facility] Start: 05-03-2023 Covid-19 Vaccine () Covid-19 Vaccine () [facility] Start: 05-03-2023 Influenza vaccination C [facility] Start: 04-22-2023 Adult depression scr eening assessment DEPRESSION SCREENING [facility] Start: 02-03-2023 Adult depression scr eening assessment DEPRESSION SCREENING [facility] Start: 09-02-2022 DEPRESSION ASSESSMENT DEPRESSION ASS ESSMENT [facility] Start: 07-24-2022 COVID-19 VACCINE (5 - Booster for Pfizer series) COVID-19 VACCINE (5 - Booster for Pfizer series) [facility] Start: 05-18-2022 COVID-19 VACCINE (5 - Booster for Pfizer series) COVID-19 VACCINE (5 - Booster for Pfizer series) [facility] Start: 05-03-2022 Influenza vaccination C [facility] Start: 11-02-2021 COVID-19 VACCINE (4 - Booster for Pfizer series) COVID-19 VACCINE (4 - Booster for Pfizer series) [facility] Start: 09-02-2021 DEPRESSION ASSESSMENT DEPRESSION ASS ESSMENT [facility] Start: 07-17-2018 End: 07-17-2018 Appointment Appointment [facility] Work Phone: Start: 2018 Pneumococcal Vaccine : 50+ (1 of 1 - PCV) Pneumococcal Vaccine: 50+ (1 of 1 - PCV) [facility] Start: 07-19-2017 End: 07-19-2017 Appointment Appointment [facility] Work Phone: Start: 07-19-2017 End: 07-19-2017 24 hour holter monitor 24 hour holter monitor [facility] Work Phone: Start: 07-19-2017 End: 07-19-2017 FELT 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 TENDER FELT 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 TENDER [facility] Work Phone: Start: 07-19-2017 End: 07-19-2017 Follow Up Appt 1 year Follow Up Appt 1 year [facility] Work Phone: Start: 07-25-2016 End: 07-25-2016 Physical Therapy General Physical Therapy [facility], [address] [place] [address], [id number] [facility] Work Phone: Start: 07-19-2016 End: 07-19-2016 Follow Up Appt 1 year Follow Up Appt 1 year [facility] Work Phone: Start: 07-19-2016 End: 07-19-2016 MMM MMM [facility] Work Phone: Start: 07-19-2016 End: 07-19-2016 Radex clavicle complete X-Ray, Clavicle [facility] Work Phone: Start: 08-11-2015 End: 08-11-2015 FELT 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 TENDER FELT 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 TENDER [facility] Work Phone: Start: 08-11-2015 End: 08-11-2015 Ecg routine ecg w/least 12 lds w/i&r EKG (In office) [facility] Work Phone: Start: 08-11-2015 End: 08-11-2015 Follow Up Appt 1 year Follow Up Appt 1 year [facility] Work Phone: Start: 02-11-2015 End: 02-11-2015 Echocardiography Echocardiogram (complete) [facility] Work Phone: Start: 02-11-2015 End: 02-11-2015 Follow Up Appt 6 months Follow Up Appt 6 months [facility] Work Phone: Start: 02-11-2015 End: 02-11-2015 MMM MMM [facility] Work Phone: Start: 01-22-2014 End: 01-22-2014 FELT 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 TENDER FELT 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 TENDER [facility] Work Phone: Start: 01-22-2014 End: 01-22-2014 Ecg routine ecg w/least 12 lds w/i&r EKG (In office) [facility] Work Phone: Start: 01-22-2014 End: 01-22-2014 Follow Up Appt 1 year Follow Up Appt 1 year [facility] Work Phone: Start: 2013 COLOGUARD (FIT-DNA) COLOGUARD (FIT-D NA) [facility] Start: 2013 Colonoscopy COLONOSCOPY [facility] Start: 2013 COLORECTAL CANCER SCREENING COLORECTAL CANCER SCREENING [facility] Start: [address] COLONOGRAPHY [facility] Start: 2013 FECAL OCCULT BLOOD FECAL OCCULT BLOO D [facility] Start: 2013 Screening for malign ant neoplasm of colon [facility] Start: 2013 SIGMOIDOSCOPY SIGMOIDOSCOPY [facility] Start: 11-19-2012 End: 11-19-2012 FELT 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 TENDER FELT 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 TENDER [facility] Work Phone: Start: 11-19-2012 End: 11-19-2012 Follow Up Appt 1 year Follow Up Appt 1 year [facility] Work Phone: Start: 11-14-2011 End: 11-14-2011 Follow Up Appt 1 year Follow Up Appt 1 year [facility] Work Phone: Start: 2003 Lipid 1996 panel - S eloy or Plasma Lipid Screening [facility] Start: 2003 Lipid panel Lipid Screening [facility] Start: 2003 LIPID SCREEN LIPID SCREEN [facility] Start: 1987 Hepatitis B Vaccine (1 of 3 - 19+ 3-dose series) Hepatitis B Vaccine (1 of 3 - 19+ 3-dose series) [facility] Start: 1987 SHINGRIX VACCINE (1 of 2) KOROMA GRIX VACCINE (1 of 2) [facility] Start: 1987 Urine microalbumin profile DTAP,TDAP ,TD (1 - Tdap) [facility] Start: 1986 Anxiety Screening Anxiety Screening [facility] Start: 1986 Depression Screening Depression Scre ening [facility] Start: 1986 HEPATITIS C SCREENING HEPATITIS C [facility] Start: 1986 Hepatitis C screening Hepatitis C [facility] Start: 1986 HIV SCREENING HIV SCREENING [facility] Start: 1974 PNEUMOCOCCAL (1 - PCV) PNEUMOCOCCAL (1 - PCV) [facility] Start: 1968 HEPATITIS B (1 of 3 - 3-dose series) HEPATITIS B (1 of 3 - 3-dose series) [facility] Start: 1968 Hepatitis B Vaccine (1 of 3 - 3-dose series) Hepatitis B Vaccine (1 of 3 - 3-dose series) [facility] ALERE STREP A TEST (AG) ALERE ST REP A TEST (AG) Lab Routine Sore throat Ordered: 02/21/2022 [facility] Work Phone: Comment on above: Ordered: 02/21/2022 End: 02-06-2023 HOME SLEEP APNEA TEST (HSAT) HOME SLEEP APNEA TEST (HSAT) Procedures Routine Observed sleep apnea 1 Occurrences starting 02/06/2022 until 02/06/2023 [facility] Work Phone: Comment on above: 1 Occurrences starti ng 02/06/2022 until 02/06/2023 End: 11-30-2024 MR Brain WO and W contrast IV MRI BRAIN WO/W IVCON Radiology Routine Cervicogenic headache Vertigo of central origin Imbalance Face pain Other headache syndrome 1 Occurrences starting 11/01/2023 until 11/30/2024 [facility] Work Phone: Comment on above: 1 Occurrences starti ng 11/01/2023 until 11/30/2024 MR Brain WO and W co ntrast IV MRI BRAIN WO/W IVCON Radiology Routine Cervicogenic headache Vertigo of central origin Imbalance Face pain Other headache syndrome 11/23/2023 9:46 AM EDT [facility] Work Phone: SARS-CoV-2 (COVID-19 ) RNA [Presence] in Respiratory specimen by MERCEDES with probe detection 2019 CORONAVIRUS Microbiology Routine URI, acute Ordered: 02/21/2022 [facility] Work Phone: Comment on above: Ordered: 02/21/2022 [facility] Immunizations Immunization Date Immunization Notes Care Provider Fa [facility] 08-29-2023 SARS-CoV-2 (COVID-19 ) [id number] REGINA VALIENTE PA-C [facility] 03-23-2022 SARS-CoV-2 mRNA (dofhkuipcxf-fqmo-khiu ose) vaccine DALE ALBERT DO [facility] 10-06-2021 zoster vaccine recombinant Angi Inman MD Work Phone: [facility] 08-04-2021 SARS-CoV-2 mRNA (tozinameran) vaccine DALE ALBERT DO [facility] 05-27-2021 zoster vaccine recombinant Angi Inman MD Work Phone: [facility] 01-07-2021 COVID-19 vaccine, ag e 12+ yr (PFIZER-BIONTECH - [facility]) Johana Frias MOTOR BLOCK MECHANIC.VENETIAN BLIND MECHANIC Work Phone: [facility] Comment on above: Result Comment: 2021: [id number] 12-17-2020 COVID-19 vaccine, ag e 12+ yr (PFIZER-BIONTECH - [place] [employer]) Johana Frias MOTOR BLOCK MECHANIC.VENETIAN BLIND MECHANIC Work Phone: [facility] Comment on above: Result Comment: 2021: [id number] 07-21-2020 influenza nasal, unspecified formulation Sara Levine APRN.VENETIAN BLIND MECHANIC Work Phone: [facility] 07-21-2020 influenza virus vaccine, unspecified formulation Angi Inman MD Work Phone: [facility] 05-20-2020 tetanus toxoid, reduced diphtheria toxoid, and acellular pertussis vaccine, adsorbed; Translations: [Boostrix (Tdap)] Angi Inman MD Work Phone: [facility] 07-11-2018 influenza nasal, unspecified formulation Sara Levine APRN.VENETIAN BLIND MECHANIC Work Phone: [facility] 07-11-2018 influenza virus vaccine, unspecified formulation DALE ALBERT DO [facility] 07-11-2018 influenza, injectabl e, quadrivalent, preservative free Angi Inman MD Work Phone: [facility] 09-02-2016 influenza nasal, unspecified formulation Sara Levine APRN.VENETIAN BLIND MECHANIC Work Phone: [facility] 09-02-2016 influenza virus vaccine, unspecified formulation DALE ALBERT DO [facility] 09-02-2016 influenza, seasonal, injectable, preservative free Angi Inman MD Work Phone: [facility] 05-03-2016 influenza nasal, unspecified formulation Sara Levine MOTOR BLOCK MECHANIC.VENETIAN BLIND MECHANIC Work Phone: [facility] 05-03-2016 influenza virus vaccine, unspecified formulation DALE ALBERT DO [facility] 05-03-2016 influenza, injectabl e, quadrivalent, preservative free Angi Inman MD Work Phone: [facility] 07-03-2015 influenza nasal, unspecified formulation Sara Levine MOTOR BLOCK MECHANIC.VENETIAN BLIND MECHANIC Work Phone: [facility] 07-03-2015 influenza virus vaccine, unspecified formulation DALE ALBERT DO [facility] 07-03-2015 influenza, injectabl e, quadrivalent, preservative free Angi Inman MD Work Phone: [facility] Payers Date Payer Category Payer Self-pay [id number] 2021 Private Health Insurance MMO SUP ERMED PPO [id number] 2021 Unknown MMO MMO SUPERMED PLUS [id number] 2021-Present [phone] [address] [place] [address] PPO [id number] 2020 Blue Cross Blue Shield BLUE CARD PPO OOS [id number] 2020 Unknown [employer]M BLUE CARD PPO OOS [id number] 2020- [phone] [address] [place] [address] PPO [id number] 2020 Unknown [id number] 2020 Unknown [id number] 2015 Unknown [id number] 1968 Unknown [id number] 1968 Unknown [id number] 1968 Unknown [id number] Unknown [id number] Unknown [id number] Unknown [id number] Unknown [id number] Unknown [id number] Social History Date Type Detail Facility Start: 08-01-2020 End: 04-27-2022 Tobacco smoking status NHIS Never smoked tobacco [facility] Start: 08-01-2020 End: 04-27-2022 Tobacco use and exposure Smokeless tobacco non-user [facility] Start: 02-06-2022 End: 11-27-2024 Alcohol intake Current drinker of alcohol (finding) [facility] Start: 08-01-2020 History SDOH Alcohol Comment Rarely [facility] Start: 1970 Sex Assigned At Male C [facility] Start: 02-11-2022 End: 07-20-2022 Exposure to SARS-CoV-2 (event) Not sure [facility] Start: 10-16-2021 End: 03-27-2023 Tobacco smoking status NHIS Unknown if ever smoked [facility] Start: 01-03-2023 End: 04-23-2023 History of Social function [facility] Start: 01-03-2023 End: 04-23-2023 Tobacco use panel [facility] Adult Depression Screening Assessment 0 [facility] Start: 07-26-2020 Gender identity Identifies as male gender (finding) [facility] Start: 07-26-2020 Sexual orientation Heterosexual (john jean) [facility] Clinical Notes 02-06-2022 to 12-08-2024 Telephone Encounter - Johana Frias APRN.CNP - 12/08/2024 11:08 AM EDTTelephone Encounter - Johana Frias APRN.CNP - 12/08/2024 11:08 AM EDTPatient InstructionsPatient InstructionsLaboratory Note Date & Type Note Facility 12-08-2024 Telephone encounter Note PDMP website checked and validated. All prescriptions have been APPROPRIATELY filled. No suspicious activity was identified. 12/08/2024 by Johana Frias APRN.CNP The following approved medication requests have been transmitted electronically. Requested Prescriptions Signed Prescriptions Disp Refills gabapentin (NEURONTIN) 300 mg capsule 90 capsule 5 Sig: Take 1 capsule PO midday and 2 capsules PO at bedtime Authorizing Provider: JOHANA FRIAS APRN.CNP [facility] 12-08-2024 [facility]isc[facility] All prescriptions have been APPROPRIATELY filled. No suspicious activity was identified. 12/08/2024 by Johana Frias APRN.CNP The following approved medication requests have been transmitted electronically. Requested Prescriptions Signed Prescriptions Disp Refills gabapentin (NEURONTIN) 300 mg capsule 90 capsule 5 Sig: Take 1 capsule PO midday and 2 capsules PO at bedtime Authorizing Provider: JOHANA FRIAS APRN.CNP Physician: Kristian Call from patient requesting refill. Please E-Scribe Last OV: 11/27/2024 with Kristian Future OV: 03/15/2025 with Kristian Requested Prescriptions Pending Prescriptions Disp Refills gabapentin (NEURONTIN) 300 mg capsule 90 capsule 5 Sig: Take 1 capsule PO midday and 2 capsules PO at bedtime [facility] documented in this encounter [facility] 12-08-2024 Telephone encounter Note Physician: Kristian Call from patient requesting refill. Please E-Scribe Last OV: 11/27/2024 with Kristian Future OV: 03/15/2025 with Kristian Requested Prescriptions Pending Prescriptions Disp Refills gabapentin (NEURONTIN) 300 mg capsule 90 capsule 5 Sig: Take 1 capsule PO midday and 2 capsules PO at bedtime [facility] 11-27-2024 History of Present illness Narrative Images from the original note were not included. [facility] - Virtual Visit Last Visit: 05/21/2024, Johana Frias APRN.VENETIAN BLIND MECHANIC Accompanied by: Self This visit was conducted as a virtual visit, with patient's permission, via zoom. It required patient-provider interaction for the medical decision making as documented below. Patient stated name and Patient location: [place] I have communicated my name and active licensure. The patient's identity and physical location were verified at the time of this visit. Either the patient or their legal billing representative has been informed of the risks and benefits of -- and alternatives to -- treatment through a remote evaluation and consents to proceed with the evaluation remotely. Primary Problem List: ACTIVE PROBLEM LIST Cervicocranial Syndrome Chronic Daily Headache Chronic Thoracic Back Pain Derangement of Meniscus History of Respiratory System Disease Inflammatory Polyarthropathy (Hcc) Mitral Prolapse Mixed Hyperlipidemia Sleep Apnea Orthostatic Hypotension Palpitations Paresthesia Pvc's (Premature Ventricular Contractions) Raynaud's Disease Chief Complaint: Headache and Neck Pain Impression and Plan from last visit: Christie Chance is a 53 year old year old male, with a history significant of POTS, inflammatory arthritis, vertigo, imbalance, thoracic spine pain, cervicogenic headache, and migraine presenting today with symptoms of headache that has improved, but neck pain that is slightly worse. His stumbling/imbalance remains stable. Side effects from gabapentin have significantly improved since changing his dosing time. We did discuss other options to address his neck pain, but he is starting a new position at work and prefers to keep things as is for now. Diagnosis: Cervicogenic headache Imbalance Vertigo of central origin Neck pain Bilateral occipital neuralgia PLAN: HEADACHE MANAGEMENT: (You are the primary guardian of your health and headache. Keep track of all medications: This includes the reason for use, side effects and benefits.) Prevention: -continue gabapentin 300/600 Abortive: - continue ibuprofen Future Considerations: - amitriptyline or cymbalta Interval Hx: Presents today to discuss headaches and neck pain. Saw rheumatology for positive MARIA T - was given prednisone to take PRN for flares, but has not required this treatment. Reports symptoms have been up and down. Had two months that symptoms were well managed in the fall. Towards the middle of July and into August pain worsened in the base of the head and neck. Imbalance was also worse. Last couple of months symptoms have returned to somewhat his previous baseline. He made it a full year without falling, and now has fallen due to imbalance 1 time per month for the last 4 months. He did fall up the stairs when he was walking up the stairs when he grandson closed the door - has a challenging time with things moving towards him. Currently finds gabapentin helpful, hesitant to try to stop it. No longer having pain in the ribs of face pain. He misses the midday dose about 40% of the time and feels better when he remembers this dose. Neck Pain: - daily - posterior, close to the occiput - constant with fluctuation - if he does not rotate his head will no bother him as much - has a weird feeling with turning his head back - average: 11/09 - has been using ibuprofen as needed, felt like he was taking near daily towards the end of the year, toradol seemed to break the pattern but caused GI upset Headache/face pain: - he has not had any face pain - had about 3 times he had a focused pain in the parietal region on the left side that lasted about 5 minutes, has not occurred in a while Stumbling/Imbalance - slightly worse - constant with fluctuation - if the neck pain is worse feels like his balance will be worse - does not know whey symptoms are worse - typically balance is worse if he is barefoot and at home, finds shoes helpful - wears prism glasses which he finds helpful - he is able to run through the imbalance most of the times Preventative: gabapentin 300/600 Abortive: ibuprofen Issues and questions to be addressed: - patient update Medications tried: Prior Therapies Duration of Use Dose Reason for Discontinuation Other Therapies Physical therapy Anti-Convulsant Gabapentin (Neurontin) Supplements Magnesium ALLERGIES Allergen Reactions Declomycin [Demeclo* Other: See Comments Childhood Seasonal Allergies Cough Runny nose, sneezing, itchy, and watery eyes HEADACHE SCORES: 02/13/2024 05/17/2024 11/22/2024 Headache Questions ER visits since last office visit: 0 0 Hospital stays since last office visit 0 0 Limited ADLs in the last month: 0 0 Days missed from work or school in the last month: 0 0 Days headache pain free in the last month: 0 0 Days per month with ALL of the following symptoms - decreased productivity, light sensitivity and nausea: 0 0 Initial improvement of headache after botox injection at last visit: Not applicable, I did not have a botox injection at my last visit Not applicable, I did not have a botox injection at my last visit Not applicable, I did not have a botox injection at my last visit PRN medication usage in the last month: 6 8 Patient impression of improvement since last visit: No change Minimally improved No change 02/09/2024 05/17/2024 11/22/2024 HIT-6 HIT-6 60 (Severe impact) 54 (Moderate impact) 48 (Little or no impact) 02/09/2024 05/17/2024 11/22/2024 JOSE - 2/7 SCORES JOSE-2 Score 3 0 0 JOSE-7 Score 8 02/09/2024 05/17/2024 11/22/2024 Migraine Specific QOL - Higher scores indicate better HRQL Role Function-Restrictive Transformed Score (range: 0-100) 68.57 80 91.43 Role Function-Preventive Transformed Score (range: 0-100) 95 95 95 Emotional Function Transformed Score (range: 0-100) 86.67 86.67 93.33 11/22/2024 05/17/2024 02/09/2024 PHQ-9 Score 2 3 6 MRI Head/Brain - Last 2 Impressions MRI BRAIN WO/W IVCON Exam End: 11/23/2023 9:46 AM (Final result) Impression: IMPRESSION: No specific etiology for patient's reported symptoms identified. No evidence of acute infarct, or significant mass effect. No evidence of ... MRI BRAIN WO/W IVCON Collected: 06/07/2020 (Final result) Impression: No acute intracranial process or suspicious enhancement after contrast administration. Unremarkable appearance of the brain for age. Nonspecific small mastoid effusions bilaterally, left greater than right. ... REVIEW OF SYSTEMS: Review of system : unchanged from the previous visit (sleep patterns, mood, energy, appetite, stress, exercising). Examination: Vital Signs: There were no vitals taken for this visit. General: well appearing, in no acute distress, alert Pain Behaviors: no pain behaviors observed Neurological: Mental Status: Alert and oriented to person, place and time. Affect is normal. Speech is clear, coherent, and relevant. 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 Attention span and concentration are excellent. HEENT: Head is normocephalic and features were symmetric. IMPRESSION: Christie Chance is a 54 year old year old male, with a history significant of POTS, inflammatory arthritis, vertigo, imbalance, thoracic spine pain, cervicogenic headache, and migraine presenting today with symptoms of headache, imbalance, and neck pain that were worse in the fall and then have been minimally worse since his last visit. We discussed options for treatment and will add a PRN muscle relaxant as he feels many of his symptoms will be worse if neck pain is worse. He was encouraged to take his afternoon gabapentin since he feels better with this dose. We briefly discussed cymbalta or a TCA, but will defer for now and try something as needed since his symptoms can be well managed for months, then worse for 2 months. PLAN: ASSESSMENT/PLAN: 1. Cervicogenic headache - ICD9: 784.0, ICD10: G44.86 (primary diagnosis) Continue gabapentin 300/600 - PROVIDER ORDERED FOLLOW UP 2. Imbalance - ICD9: 781.2, ICD10: R26.89 Continue gabapentin 300/600 - PROVIDER ORDERED FOLLOW UP 3. Vertigo of central origin - ICD9: 386.2, ICD10: H81.4 Continue gabapentin 300/600 - PROVIDER ORDERED FOLLOW UP 4. Neck pain - ICD9: 723.1, ICD10: M54.2 Continue gabapentin 300/600 - METHOCARBAMOL 500 MG TABLET try three times a day for 5 days, then just as needed - PROVIDER ORDERED FOLLOW UP 5. Bilateral occipital neuralgia - ICD9: 723.8, ICD10: M54.81 Continue gabapentin 300/600 - PROVIDER ORDERED FOLLOW UP 6. Encounter for long-term (current) use of medications - ICD9: V58.69, ICD10: Z79.899 PDMP website checked and validated. All prescriptions have been APPROPRIATELY filled. No suspicious activity was identified. 11/27/2024 by Johana Frias APRN.TAURUS - PROVIDER ORDERED FOLLOW UP Johana Frias APRN.CNP Follow-up: 3 months, PRN The patient has my contact information and my chart sign up information. Johana Frias APRN.TAURUS documented in this encounter [facility] 11-27-2024 Note HNO ID: [id number] Author: JOHANA FRIAS APRN.TAURUS Service: ? Author Type: Nurse Practitioner Type: Progress Notes Filed: 11/27/2024 10:54 Note Text: [facility] - Virtual Visit Last Visit: 05/21/2024, Johana Frias APRN.TAURUS Accompanied by: Self This visit was conducted as a virtual visit, with patient's permission, via zoom. It required patient-provider interaction for the medical decision making as documented below. Patient stated name and Patient location: [place] I have communicated my name and active licensure. The patient's identity and physical location were verified at the time of this visit. Either the patient or their legal billing representative has been informed of the risks and benefits of -- and alternatives to -- treatment through a remote evaluation and consents to proceed with the evaluation remotely. Primary Problem List: ACTIVE PROBLEM LIST Cervicocranial Syndrome Chronic Daily Headache Chronic Thoracic Back Pain Derangement of Meniscus History of Respiratory System Disease Inflammatory Polyarthropathy (Hcc) Mitral Prolapse Mixed Hyperlipidemia Sleep Apnea Orthostatic Hypotension Palpitations Paresthesia Pvc's (Premature Ventricular Contractions) Raynaud's Disease Chief Complaint: Headache and Neck Pain Impression and Plan from last visit: Christie Chance is a 53 year old year old male, with a history significant of POTS, inflammatory arthritis, vertigo, imbalance, thoracic spine pain, cervicogenic headache, and migraine presenting today with symptoms of headache that has improved, but neck pain that is slightly worse. His stumbling/imbalance remains stable. Side effects from gabapentin have significantly improved since changing his dosing time. We did discuss other options to address his neck pain, but he is starting a new position at work and prefers to keep things as is for now. Diagnosis: Cervicogenic headache Imbalance Vertigo of central origin Neck pain Bilateral occipital neuralgia PLAN: HEADACHE MANAGEMENT: (You are the primary guardian of your health and headache. Keep track of all medications: This includes the reason for use, side effects and benefits.) Prevention: -continue gabapentin 300/600 Abortive: - continue ibuprofen Future Considerations: - amitriptyline or cymbalta Interval Hx: Presents today to discuss headaches and neck pain. Saw rheumatology for positive MARIA T - was given prednisone to take PRN for flares, but has not required this treatment. Reports symptoms have been up and down. Had two months that symptoms were well managed in the fall. Towards the middle of July and into August pain worsened in the base of the head and neck. Imbalance was also worse. Last couple of months symptoms have returned to somewhat his previous baseline. He made it a full year without falling, and now has fallen due to imbalance 1 time per month for the last 4 months. He did fall up the stairs when he was walking up the stairs when he grandson closed the door - has a challenging time with things moving towards him. Currently finds gabapentin helpful, hesitant to try to stop it. No longer having pain in the ribs of face pain. He misses the midday dose about 40% of the time and feels better when he remembers this dose. Neck Pain: - daily - posterior, close to the occiput - constant with fluctuation - if he does not rotate his head will no bother him as much - has a weird feeling with turning his head back - average: 11/09 - has been using ibuprofen as needed, felt like he was taking near daily towards the end of the year, toradol seemed to break the pattern but caused GI upset Headache/face pain: - he has not had any face pain - had about 3 times he had a focused pain in the parietal region on the left side that lasted about 5 minutes, has not occurred in a while Stumbling/Imbalance - slightly worse - constant with fluctuation - if the neck pain is worse feels like his balance will be worse - does not know whey symptoms are worse - typically balance is worse if he is barefoot and at home, finds shoes helpful - wears prism glasses which he finds helpful - he is able to run through the imbalance most of the times Preventative: gabapentin 300/600 Abortive: ibuprofen Issues and questions to be addressed: - patient update Medications tried: Prior Therapies Duration of Use Dose Reason for Discontinuation Other Therapies Physical therapy Anti-Convulsant Gabapentin (Neurontin) Supplements Magnesium ALLERGIES Allergen Reactions Declomycin [Demeclo* Other: See Comments Childhood Seasonal Allergies Cough Runny nose, sneezing, itchy, and watery eyes HEADACHE SCORES: 02/13/2024 05/17/2024 11/22/2024 Headache Questions ER visits since last office visit: 0 0 Hospital stays since last office visit 0 0 Limited ADLs in the last month: 0 0 Days missed from wor (more content not included)... [facility] 09-04-2024 Telephone encounter Note Patient last seen on 05/21/24. [facility] 09-04-2024 Miscellaneous Notes Patient last seen on 05/21/24. documented in this encounter [facility] 07-01-2024 Instructions Sara Levine APRN.[employer] - 07/01/2024 7:54 AM EDT Images from the original note were not included. Patient Instructions: Diagnosis: Ava (obstructive sleep apnea) (primary encounter diagnosis) Overview/Plan: Christie Chance is a 54 year old year old male with a PMH as noted who presents via in-person visit for AVA (continue APAP). Doing well with PAP therapy. Denies mask or pressure intolerance. Discussed PAP download with patient He is usually compliant and benefiting from treatment, but was ill (COVID) and not able to use PAP in May X 3-4 weeks. Face to face examination completed July 01, 2024 Christie Chance has fulfilled his insurance requirement with an annual visit for PAP therapy, average usage is 5 hours, and compliancy of >70 %. Continue PAP therapy at current settings Order will be sent to DME for supplies: [employer] Insurance: Face to face examination completed 07/01/2024. Patient has fulfilled the insurance requirement with an annual visit for PAP therapy. Patient will work on meeting standard compliance measures. He is usually compliant and benefiting from treatment, but was ill (COVID) and not able to use PAP in [place] X 3-4 weeks. Please send patient PAP supplies as covered by insurance. He is also prescribed GBPN 300 mg one capsule qam and two capsules qhs for nerve pain by another provider. Really likes the medication. Feels he is getting a good night sleep with this medication. Follow up as discussed. Sara Levine APRN.TAURUS PAP Supply Guidelines Below are the guidelines for reordering your supplies. You will be responsible for your deductible, co-payments, and out of pocket expenses. Item Medicare & Commercial Insurance Medicaid & HCAP Nasal Mask (no headgear) 1 every 3 months 1 per year Nasal Mask Cushion 1 every month 2 per year Full Face Mask (no headgear) 1 every 3 months 1 per year Full Face Mask Cushion 1 every month *Self-Pay Nasal Pillows 2 every month 2 per year Headgear 1 every 6 months 1 per year Chin Strap 1 every 6 months 2 per year Tubing 1 every 3 months 1 per year Filters: Reusable 1 every 6 months 4 per year Filters: Disposable 2 every month 1 per month Humidifier Chamber(disposable) 1 every 6 months *Self-Pay documented in this encounter [facility] 07-01-2024 History of Present illness Narrative Images from the original note were not included. [facility] Follow Up/ Established Patient Visit PATIENT NAME: Christie Chance <Assessment/Plan from LAST VISIT> Date of last visit : 06/13/23 IMPRESSION/PLAN: Diagnosis: Ava (obstructive sleep apnea) (primary encounter diagnosis) Overview: Christie Chance is a 52 year old year old male with a PMH as noted who presents via Virtual Visit for AVA (continue APAP 5-15 cmH20) Sleeping really good especially with GBPN on on board. No issues. [facility] keeping him supplied with PAP equipment. - Doing very well with PAP therapy. - Denies mask or pressure intolerance. - Compliant and benefiting from treatment. - Face to face examination completed June 12, 2023 - Will get PAP download from [facility]. - Christie Chance has fulfilled his insurance requirement with an annual visit for PAP therapy, average usage is 6 hours and 10 minutes, and compliancy of >70 %. - Taking GBPN 300 mg two capsules qhs prescribed by another provider. Really likes the medication. Feels he is getting a good night sleep with this medication. However, reports he is having some movement issues, trouble with find motor coordination, and choppy speech. Would be interested in decreasing dose to see if this resolves. He will talk with provider filling this medication. Discussed size of capsules and maybe decreasing by 100 mg every 3-4 weeks. Plan: AVA: Continue Auto CPAP at current settings of 5-15 cmH2O. Remember to clean your mask and equipment regularly, as directed. Avoid use of ozone solar photovoltaic electrician, SoClean devices, or UV cleaning devices Avoid using alcohol or alcohol-containing products on your mask, as this may compromise the integrity of the mask materials and contribute to leak issues You should be eligible for new supplies approximately every 3-6 months, depending on your insurance coverage. Contact your Durable Medical Equipment (DME) company for new supplies as needed. Order will be sent to [employer] for supplies: [facility] Insurance: Send script to [facility]. Face to face examination completed June 13, 2023. Christie Chance has fulfilled his insurance requirement with an annual visit for PAP therapy, average usage is 6 hours, 10 minutes and compliancy of >70 %. Please send PAP download. Please send patient PAP supplies as covered by insurance. Follow up in 12 months in person or virtually with [facility] or Sleep Medicine Physician. Will send provider order. Supplier Specialist will reach out to you. If you have questions, feel free to send me a Mychart message. I spent a total of 29 minutes. This was a established patient to me on the date of the service which included preparing to see the patient, [id number] patient care, completing clinical documentation, counseling and educating the patient/family/caregiver and ordering medications, tests, or procedures. Sara Levine APRN.[employer] <End Assessment/Plan from last visit> CURRENT VISIT: 07/01/2024 Interval history: Doing good. Disabled the enabled off button. Did not use for 3 weeks when he was diagnosed with COVID in May 2024. FFM. Less claustrophobia now. Rough start. Still waking up some nights feeling smothered in the middle of the night. Waking up with bladder pain has lessened. Follow up visit for AVA (continue APAP) . Relevant study results reviewed as noted below, if applicable. SLEEP APNEA Sleep apnea type : AVA, Most Recent Apnea-Hypopnea Index (AHI): Total AHI of 9.6, Off-Supine AHI 5.4, Supine AHI 11.8 Treatment : PAP therapy DME: [facility] PAP History: Uses AutoPAP for 5 hours per night, 7 nights per week except when ill. Current PAP settin-15 cm H2O. No problems inhaling or exhaling. Difficulties with AutoPAP: None Reviewed objective PAP compliance data: Mask type: Full face mask Mask issues: Skin irritation or redness. Discussed CPAP strap covers and liners. Uses chin strap: No Uses ramp function: Yes, Protocol: Distilled water. Uses humidity: Yes, Protocol: Distilled water. There is a perceived benefit by the patient: Yes No longer having a tough time driving to work. Observers report abolition of snoring with AutoPAP use. SLEEP HYGIENE QUESTIONS: Bedtime : 1283-7367 Wake up Time : 0450 Time it takes to fall sleep : Quickly Taking GBPN 100 mg one capsule during the day and 300 mg two capsules one hour before bedtime. Prescribed for nerve pain, but reports it really helps him to sleep too. Activities in bed before falling asleep : None Number of times patient wakes up per night : 1+ Reason (s) why patient wakes up during the night : Dogs Estimated total sleep time ( in a 24 hour period of time) : 5 Naps : No OTHER RELEVANT LABS AND STUDIES: Hemoglobin Date Value Ref Range Status 01/03/2023 16.7 13.0 - 17.0 g/dL Final 09/09/2020 14.8 13.0 - 17.0 g/dL Final No results found for: FE, TIBC No results found. PATIENT-ENTERED QUESTIONNAIRE SLEEP SCORES 06/09/2023 Sleep Questions Reason for visit: Sleep apnea Difficulty falling or staying asleep or poor sleep quality Excessive daytime sleepiness On average, hours of sleep in 24 hours: 6 Average hours of CPAP per night: 6.1 Percent of nights CPAP used at least 4 hours: 90 Accidents or near accidents due to drowsy drivin Multiple values from one day are sorted in reverse-chronological order 04/22/2022 06/09/2023 [place] Sleepiness Scale Score 14 (Excessive daytime sleepiness present) 9 (No clinically significant daytime sleepiness) 02/23/2022 04/22/2022 06/09/2023 PROMIS CAT Sleep Disturbance PROMIS Sleep Disturbance T-Score 62 (moderate) 56 (mild) 34 (within normal limits) PROMIS Sleep Disturbance Percentile 12 27 95 05/07/2021 04/22/2022 12/29/2022 Insomnia Severity Index Score 9 9 11 1 Multiple values from one day are sorted in reverse-chronological order 10/26/2023 02/09/2024 05/17/2024 PHQ-9 Score 3 6 3 09/03/2023 02/09/2024 05/17/2024 PROMIS Global Health - (T-Scores - the mean of general population = 50. Five points is a clinically meaningful difference.) Physical T-Score 50.8 50.8 47.7 Mental T-Score 45.8 36.3 45.8 CURRENT MEDICATIONS: gabapentin (NEURONTIN) 300 mg capsule Take 1 capsule PO midday and 2 capsules PO at bedtime CPAP/BIPAP/OTHER Type .CPAPSettings into a note to see current settings/supplies/DME information. magnesium oxide (MAG-OX) 400 mg (241.3 mg magnesium) tablet Take 1 tablet by mouth once daily. Cholecalciferol, Vitamin D3, (VITAMIN D) 25 mcg (1,000 unit) cap Take 1 capsule by mouth once daily. cyanocobalamin (VITAMIN B-12) 1,000 mcg tab Take 1 tablet by mouth once daily. albuterol HFA (PROVENTIL HFA, VENTOLIN HFA) 90 mcg/actuation inhaler inhale 2 puffs by mouth every 4 hours if needed for wheezing cough or shortness of breath CPAP/BIPAP/OTHER Type .CPAPSettings into a note to see current settings/supplies/DME information. montelukast sodium (SINGULAIR ORAL) Take by mouth once daily. hydroxychloroquine sulfate (PLAQUENIL ORAL) Take 200 mg by mouth twice daily. fexofenadine (NANCY) 180 mg tablet Take 180 mg by mouth once daily. CPAP/BIPAP/OTHER Type .CPAPSettings into a note to see current settings/supplies/DME information. benzonatate (TESSALON PERLE) 100 mg capsule MUCUS RELIEF ER 600 mg 12 hr tablet Take 1 tablet by mouth every 12 hours. cefdinir (OMNICEF) 300 mg capsule Review of Systems Constitutional: Negative. Respiratory: Negative. Cardiovascular: Positive for palpitations. Genitourinary: Negative. Psychiatric: Negative. VITAL SIGNS: BP 116/73 Pulse 63 Resp 21 Ht 175.3 cm (5' 9) Wt 76.6 kg (168 lb 14 oz) SpO2 98% BMI 24.94 kg/m PHYSICAL EXAMINATION: Constitutional: Appearance: Well groomed. Well nourished male. Very pleasant. Skin: General: Skin is warm, dry, intact. Extremities: General: No dependent edema. Neurological: General: No focal deficit present. Mental Status: A&OX3 (person, place, and time). Speech: Clear, projects well. Memory: Intact, responses appropriate. Psychiatric: Mood and Affect: Mood normal. Behavior: Behavior normal Assessment & Plan Diagnosis: Ava (obstructive sleep apnea) (primary encounter diagnosis) Overview/Plan: Christie Chance is a 54 year old year old male with a PMH as noted who presents via in-person visit for AVA (continue APAP). Doing well with PAP therapy. Denies mask or pressure intolerance. Discussed PAP download with patient He is usually compliant and benefiting from treatment, but was ill (COVID) and not able to use PAP in May 3-4 weeks. Face to face examination completed July 01, 2024 Christie Chance has fulfilled his insurance requirement with an annual visit for PAP therapy, average usage is 5 hours, and compliancy of >70 %. Continue PAP therapy at current settings Order will be sent to DME for supplies: [employer]: Face to face examination completed 07/01/2024. Patient has fulfilled the insurance requirement with an annual visit for PAP therapy. Patient will work on meeting standard compliance measures. He is usually compliant and benefiting from treatment, but was ill (COVID) and not able to use PAP in May X 3-4 weeks. Please send patient PAP supplies as covered by insurance. He is also prescribed GBPN 300 mg one capsule qam and two capsules qhs for nerve pain by another provider. Really likes the medication. Feels he is getting a good night sleep with this medication. Follow up as discussed. I spent a total of 23 minutes. This was a follow up patient to me on the date of the service which included preparing to see the patient, [id number] patient care, completing clinical documentation, counseling and educating the patient/family/caregiver and ordering medications, tests, or procedures. Sara Levine APRN.[employer] Activity Duration Current session 23 minutes Total time: 23 minutes documented in this encounter [facility] 07-01-2024 Note HNO ID: [id number] Author: SARA LEVINE APRN.TAURUS Service: ? Author Type: Nurse Practitioner Type: Progress Notes Filed: 07/01/2024 07:54 Note Text: [facility] Follow Up/ Established Patient Visit PATIENT NAME: Christie Chance Date of last visit : 06/13/23 IMPRESSION/PLAN: Diagnosis: Ava (obstructive sleep apnea) (primary encounter diagnosis) Overview: Christie Chance is a 52 year old year old male with a PMH as noted who presents via Virtual Visit for AVA (continue APAP 5-15 cmH20) Sleeping really good especially with GBPN on on board. No issues. [employer] keeping him supplied with PAP equipment. - Doing very well with PAP therapy. - Denies mask or pressure intolerance. - Compliant and benefiting from treatment. - Face to face examination completed June 12, 2023 - Will get PAP download from [employer]. - Christie Chance has fulfilled his insurance requirement with an annual visit for PAP therapy, average usage is 6 hours and 10 minutes, and compliancy of >70 %. - Taking GBPN 300 mg two capsules qhs prescribed by another provider. Really likes the medication. Feels he is getting a good night sleep with this medication. However, reports he is having some movement issues, trouble with find motor coordination, and choppy speech. Would be interested in decreasing dose to see if this resolves. He will talk with provider filling this medication. Discussed size of capsules and maybe decreasing by 100 mg every 3-4 weeks. Plan: AVA: Continue Auto CPAP at current settings of 5-15 cmH2O. Remember to clean your mask and equipment regularly, as directed. Avoid use of ozone solar photovoltaic electrician, SoClean devices, or UV cleaning devices Avoid using alcohol or alcohol-containing products on your mask, as this may compromise the integrity of the mask materials and contribute to leak issues You should be eligible for new supplies approximately every 3-6 months, depending on your insurance coverage. Contact your Durable Medical Equipment (DME) company for new supplies as needed. Order will be sent to [employer] for supplies: [employer] Insurance: Send script to [employer]. Face to face examination completed June 13, 2023. Christie Chance has fulfilled his insurance requirement with an annual visit for PAP therapy, average usage is 6 hours, 10 minutes and compliancy of >70 %. Please send PAP download. Please send patient PAP supplies as covered by insurance. Follow up in 12 months in person or virtually with [facility] or Sleep Medicine Physician. Will send provider order. Supplier Specialist will reach out to you. If you have questions, feel free to send me a [employer] message. I spent a total of 29 minutes. This was a established patient to me on the date of the service which included preparing to see the patient, [id number] patient care, completing clinical documentation, counseling and educating the patient/family/caregiver and ordering medications, tests, or procedures. Sara Levine APRN.[employer] MECH[employer]IC CURRENT VISIT: 07/01/2024 Interval history: Doing good. Disabled the enabled off button. Did not use for 3 weeks when he was diagnosed with COVID in May 2024. FFM. Less claustrophobia now. Rough start. Still waking up some nights feeling smothered in the middle of the night. Waking up with bladder pain has lessened. Follow up visit for AVA (continue APAP) . Relevant study results reviewed as noted below, if applicable. SLEEP APNEA Sleep apnea type : AVA, Most Recent Apnea-Hypopnea Index (AHI): Total AHI of 9.6, Off-Supine AHI 5.4, Supine AHI 11.8 Treatment : PAP therapy DME: [facility] PAP History: Uses AutoPAP for 5 hours per night, 7 nights per week except when ill. Current PAP settin-15 cm H2O. No problems inhaling or exhaling. Difficulties with AutoPAP: None Reviewed objective PAP compliance data: Mask type: Full face mask Mask issues: Skin irritation or redness. Discussed CPAP strap covers and liners. Uses chin strap: No Uses ramp function: Yes, Protocol: Distilled water. Uses humidity: Yes, Protocol: Distilled water. There is a perceived benefit by the patient: Yes No longer having a tough time driving to work. Observers report abolition of snoring with AutoPAP use. SLEEP HYGIENE QUESTIONS: Bedtime : [id number] Wake up Time : 0450 Time it takes to fall sleep : Quickly Taking GBPN 100 mg one capsule during the day and 300 mg two capsules one hour before bedtime. Prescribed for nerve pain, but reports it really helps him to sleep too. Activities in bed before falling asleep : None Number of times patient wakes up per night : 1+ Reason (s) why patient wakes up during the night : Dogs Estimated total sleep time ( in a 24 hour period of time) : 5 Naps : No OTHER RELEV (more content not included)... [facility] 05-21-2024 Note ORIGINAL EXAMINATION: TWO XRAY VIEWS OF THE CHEST05/21/2024 11:36 am COMPARISON: 07/11/2020. HISTORY: ORDERING SYSTEM PROVIDED HISTORY: Reason for Exam: Fever FINDINGS: Heart size and pulmonary vascularity are within the normal range. No acute infiltrates or pleural effusions are seen. Mediastinal and hilar contours are grossly unremarkable. There is no evidence of pneumothorax.Mild bandlike atelectasis is present at the left lung base. IMPRESSION: Left lung base strandy atelectasis, without definite infiltrate. Interpreted by: Robin De Los Santos Preliminary Report By: Robin De Los Santos Electronically signed By Robin De Los Santos Dictated Date: 05/21/2024 1:23:53 PM Prelim Date: 05/21/2024 1:25:02 PM Sign Date: 05/21/2024 1:25:02 PM Ordering Provider: [facility] 05-21-2024 Instructions Johana Frias APRN.[employer] BLIND MECHANIC - 05/21/2024 10:06 AM EDT AMITRIPTYLINE (ELAVIL) - NORTRIPTYLINE (PAMELOR) Amitriptyline/Nortriptyline are tricyclic antidepressant medications which are useful for pain management because they: - Increase the production of endogenous endorphin, your own natural pain relieving hormone - Block the re-uptake of serotonin, the neurotransmitter (chemical) necessary for descending Or - Inhibitory pain pathways (the stop hurting pathways), thereby allowing enhanced pain relief - Have opiate effects - Are sedating and make it possible to get a restful night's sleep - Aid in management of the depression which often accompanies chronic pain Major side effects include excessive sleepiness, dry mouth, and constipation. Cymbalta (generic: Duloxetine) Cymbalta is a serotonin and norepinephrine reuptake inhibitor. It is an antidepressant but also has FDA indications for chronic musculoskeletal pain and has benefit in headache. Cymbalta works by increasing levels of serotonin and norepinephrine, which have been shown to be low in patients with migraine. Cymbalta can also help with symptoms of anxiety. Side Effects: - nausea/GI upset; this tends to improve as you continue taking the medicine Please keep in mind that it can take 4-6 weeks for a preventive therapy to begin working so be patient if you are tolerating it well! documented in this encounter [facility] 05-21-2024 History of Present illness Narrative Images from the original note were not included. [facility] - Virtual Visit Last Visit: 02/13/2024, Johana Frias APRN.[employer] BL[employer] MECHANIC Accompanied by: Self This visit was conducted as a virtual visit, with patient's permission, via zoom. It required patient-provider interaction for the medical decision making as documented below. Patient stated name and Patient location: [place] I have communicated my name and active licensure. The patient's identity and physical location were verified at the time of this visit. Either the patient or their legal billing representative has been informed of the risks and benefits of -- and alternatives to -- treatment through a remote evaluation and consents to proceed with the evaluation remotely. Primary Problem List: ACTIVE PROBLEM LIST Cervicocranial Syndrome Chronic Daily Headache Chronic Thoracic Back Pain Derangement of Meniscus History of Respiratory System Disease Inflammatory Polyarthropathy (Hcc) Mitral Prolapse Mixed Hyperlipidemia Sleep Apnea Orthostatic Hypotension Palpitations Paresthesia Pvc's (Premature Ventricular Contractions) Raynaud's Disease Chief Complaint: Headache and Neck Pain Impression and Plan from last visit: Christie Chance is a 53 year old year old male, with a history significant of POTS, inflammatory arthritis, vertigo, imbalance, thoracic spine pain, cervicogenic headache, and migraine presenting today with symptoms of headache and neck pain that remain unchanged from his last visit. His facial pain/sharp random pains have significantly improved with the higher dose of gabapentin. He does have about 2 days per week where he feels somewhat groggy in the morning which lasts hours. Unsure if related to increase in gabapentin dosing or others. We discussed options for treatment for headache and neck pain and will proceed with greater occipital nerve blocks. We will space out his gabapentin dosing to ideally help with side effects as this has been effective overall. MRI showed small vessel disease - discussed modifying risk factors and mastoid fluid. Will have Dr. Garza review as well. Diagnosis: Cervicogenic headache (primary encounter diagnosis) Face pain Imbalance Vertigo of central origin Neck pain Bilateral occipital neuralgia PLAN: Prevention: - change gabapentin to 300 mg at lunch time and 600 mg at bedtime Abortive: - continue ibuprofen Bridge Therapy: - our office to schedule greater occipital nerve blocks Future Considerations: - consider decreasing gabapentin due to side effects - consider cymbalta (not discussed) Interval Hx: Presents today to discuss ongoing headaches and neck pain. He switched gabapentin to 300 mg midday and 600 mg in PM. He is no longer having trouble with fatigue or confusion in the morning. He is no longer visual symptoms. He is not tired during the day when he takes the medication. Had a nerve block on 02/12. Did not seem to help with his occipital pain. He had improvements in neck rotation and pain not radiating forward. No longer having pain that will occur behind his eye. Improvement in that headache pattern. Thinks this might have helped minimally. Has had more zig zag lines in his vision - had a few in March at night. Typically will only occur with driving or running. Has not had any since mid March. Saw ENT due to fluid seen on MRI - no issues. Has not gone to PT in the last few months. Occipital pain is about 10% worse. Neck Pain: - daily - posterior, close to the occiput - feels like a deep pain - better in AM will get worse as the day goes on - has been somewhat better due to ibuprofen use to help with fever pneumonia, prior was taking 1 - 2 times/week - on worse days will be about a 3-4/10 - on good days the pain is there but tolerable - constant pain Headache: -Left sided stabbing pain has not occurred in multiple months Stumbling/Imbalance - stable - last 2 days have been worse (likely s/s to illness) - constant with fluctuation - does well if he knows where things are - has trouble if people are walking towards him or needs to navigate around other items - has a hard time walking heal to toe or standing on one foot - feels better since he wears prism glasses - has learned to deal with this - has been able to work - also able to run Preventative: gabapentin 300 mg midday, gabapentin 600 mg at bedtime Abortive: ibuprofen Issues and questions to be addressed: - patient update Medications tried: Prior Therapies Duration of Use Dose Reason for Discontinuation Other Therapies Physical therapy Anti-Convulsant Gabapentin (Neurontin) Supplements Magnesium ALLERGIES Allergen Reactions Declomycin [Demeclo* Other: See Comments Childhood Seasonal Allergies Cough Runny nose, sneezing, itchy, and watery eyes HEADACHE SCORES: 02/09/2024 02/13/2024 05/17/2024 Headache Questions ER visits since last office visit: 0 0 Hospital stays since last office visit 0 0 Limited ADLs in the last month: 0 0 Days missed from work or school in the last month: 0 0 Days headache pain free in the last month: 0 0 Days per month with ALL of the following symptoms - decreased productivity, light sensitivity and nausea: 0 0 Initial improvement of headache after botox injection at last visit: Not applicable, I did not have a botox injection at my last visit Not applicable, I did not have a botox injection at my last visit PRN medication usage in the last month: 10 6 Patient impression of improvement since last visit: No change No change Minimally improved 10/26/2023 02/09/2024 05/17/2024 HIT-6 HIT-6 57 (Substantial impact) 60 (Severe impact) 54 (Moderate impact) 10/26/2023 02/09/2024 05/17/2024 JOSE - 2/7 SCORES JOSE-2 Score 0 3 0 JOSE-7 Score 8 10/26/2023 02/09/2024 05/17/2024 Migraine Specific QOL - Higher scores indicate better HRQL Role Function-Restrictive Transformed Score (range: 0-100) 80 68.57 80 Role Function-Preventive Transformed Score (range: 0-100) 95 95 95 Emotional Function Transformed Score (range: 0-100) 86.67 86.67 86.67 05/17/2024 02/09/2024 10/26/2023 PHQ-9 Score 3 6 3 MRI Head/Brain - Last 2 Impressions MRI BRAIN WO/W IVCON Exam End: 11/23/2023 9:46 AM (Final result) Impression: IMPRESSION: No specific etiology for patient's reported symptoms identified. No evidence of acute infarct, or significant mass effect. No evidence of ... MRI BRAIN WO/W IVCON Collected: 06/07/2020 (Final result) Impression: No acute intracranial process or suspicious enhancement after contrast administration. Unremarkable appearance of the brain for age. Nonspecific small mastoid effusions bilaterally, left greater than right. ... REVIEW OF SYSTEMS: Review of system : unchanged from the previous visit (sleep patterns, mood, energy, appetite, stress, exercising). Examination: Vital Signs: There were no vitals taken for this visit. General: well appearing, in no acute distress, alert Pain Behaviors: no pain behaviors observed Neurological: Mental Status: Alert and oriented to person, place and time. Affect is normal. Speech is clear, coherent, and relevant. Short and [facility] memory, cognition and general fund of knowledge are good. Attention span and concentration are excellent. HEENT: Head is normocephalic and features were symmetric. IMPRESSION: Christie Chance is a 53 year old year old male, with a history significant of POTS, inflammatory arthritis, vertigo, imbalance, thoracic spine pain, cervicogenic headache, and migraine presenting today with symptoms of headache that has improved, but neck pain that is slightly worse. His stumbling/imbalance remains stable. Side effects from gabapentin have significantly improved since changing his dosing time. We did discuss other options to address his neck pain, but he is starting a new position at work and prefers to keep things as is for now. Diagnosis: Cervicogenic headache Imbalance Vertigo of central origin Neck pain Bilateral occipital neuralgia PLAN: HEADACHE MANAGEMENT: (You are the primary guardian of your health and headache. Keep track of all medications: This includes the reason for use, side effects and benefits.) Prevention: -continue gabapentin 300/600 Abortive: - continue ibuprofen Future Considerations: - amitriptyline or cymbalta Headache education was done. Discussed lifestyle modification including increased oral hydration, decreased caffeine, exercise and stress management. Discussed treatment options including preventive and acute medications, natural supplements, and infusion therapy. Discussed medication overuse headache and to limit use of acute treatments to no more than 2 days/week or 10 days/month. Discussed medication side effects, adverse reactions and drug interactions. Written educational materials and patient instructions outlining all of the above were given. RESEARCH: None at this time Follow-up: 6 months, PRN Level of service: Est level 4 (30-39 min). Time spent 30 min on the day of service, which included preparing to see the patient, [id number] patient care, completing clinical documentation, obtaining and/or reviewing separately obtained history, performing a medically appropriate examination, counseling and educating the patient/family/caregiver, and ordering medications, tests, or procedures. The patient has my contact information and my chart sign up information. Johana Frias APRN.[employer] documented in this encounter [facility] 05-21-2024 Note HNO ID: [id number] Author: JOHANA FRIAS APRN.TAURUS Service: ? Author Type: Nurse Practitioner Type: Progress Notes Filed: 05/21/2024 10:29 Note Text: [facility] - Virtual Visit Last Visit: 02/13/2024, Johana Frias APRN.[employer] Accompanied by: Self This visit was conducted as a virtual visit, with patient's permission, via zoom. It required patient-provider interaction for the medical decision making as documented below. Patient stated name and Patient location: [place] I have communicated my name and active licensure. The patient's identity and physical location were verified at the time of this visit. Either the patient or their legal billing representative has been informed of the risks and benefits of -- and alternatives to -- treatment through a remote evaluation and consents to proceed with the evaluation remotely. Primary Problem List: ACTIVE PROBLEM LIST Cervicocranial Syndrome Chronic Daily Headache Chronic Thoracic Back Pain Derangement of Meniscus History of Respiratory System Disease Inflammatory Polyarthropathy (Hcc) Mitral Prolapse Mixed Hyperlipidemia Sleep Apnea Orthostatic Hypotension Palpitations Paresthesia Pvc's (Premature Ventricular Contractions) Raynaud's Disease Chief Complaint: Headache and Neck Pain Impression and Plan from last visit: Christie Chance is a 53 year old year old male, with a history significant of POTS, inflammatory arthritis, vertigo, imbalance, thoracic spine pain, cervicogenic headache, and migraine presenting today with symptoms of headache and neck pain that remain unchanged from his last visit. His facial pain/sharp random pains have significantly improved with the higher dose of gabapentin. He does have about 2 days per week where he feels somewhat groggy in the morning which lasts hours. Unsure if related to increase in gabapentin dosing or others. We discussed options for treatment for headache and neck pain and will proceed with greater occipital nerve blocks. We will space out his gabapentin dosing to ideally help with side effects as this has been effective overall. MRI showed small vessel disease - discussed modifying risk factors and mastoid fluid. Will have Dr. Garza review as well. Diagnosis: Cervicogenic headache (primary encounter diagnosis) Face pain Imbalance Vertigo of central origin Neck pain Bilateral occipital neuralgia PLAN: Prevention: - change gabapentin to 300 mg at lunch time and 600 mg at bedtime Abortive: - continue ibuprofen Bridge Therapy: - our office to schedule greater occipital nerve blocks Future Considerations: - consider decreasing gabapentin due to side effects - consider cymbalta (not discussed) Interval Hx: Presents today to discuss ongoing headaches and neck pain. He switched gabapentin to 300 mg midday and 600 mg in PM. He is no longer having trouble with fatigue or confusion in the morning. He is no longer visual symptoms. He is not tired during the day when he takes the medication. Had a nerve block on 02/12. Did not seem to help with his occipital pain. He had improvements in neck rotation and pain not radiating forward. No longer having pain that will occur behind his eye. Improvement in that headache pattern. Thinks this might have helped minimally. Has had more zig zag lines in his vision - had a few in March at night. Typically will only occur with driving or running. Has not had any since march. Saw ENT due to fluid seen on MRI - no issues. Has not gone to PT in the last few months. Occipital pain is about 10% worse. Neck Pain: - daily - posterior, close to the occiput - feels like a deep pain - better in AM will get worse as the day goes on - has been somewhat better due to ibuprofen use to help with fever pneumonia, prior was taking 1 - 2 times/week - on worse days will be about a 3-4/10 - on good days the pain is there but tolerable - constant pain Headache: -Left sided stabbing pain has not occurred in multiple months Stumbling/Imbalance - stable - last 2 days have been worse (likely s/s to illness) - constant with fluctuation - does well if he knows where things are - has trouble if people are walking towards him or needs to navigate around other items - has a hard time walking heal to toe or standing on one foot - feels better since he wears prism glasses - has learned to deal with this - has been able to work - also able to run Preventative: gabapentin 300 mg midday, gabapentin 600 mg at bedtime Abortive: ibuprofen Issues and questions to be addressed: - patient update Medications tried: Prior Therapies Duration of Use Dose Reason for Discontinuation Other Therapies Physical therapy Anti-Convulsant Gabapentin (Neurontin) Supplements Magnesium ALLERGIES Allergen Reactions Declomycin [Demeclo* Other: See Comments Childhood Seasonal Allergies Cough Runny nose, s (more content not included)... [facility] 02-14-2024 Instructions Melisa Florez PA-C - 02/14/2024 4:39 PM EDT You received a greater occipital nerve block (GONB) today You may feel sore tomorrow at the site of the injection. You may use heat or ice for discomfort and gentle stretching. This should resolve in 24-36 hours. Greater Occipital Nerve Block (GONB) Article in [employer] Journal By: Lalito Escoto MD Many patients with chronic headache report that their pain typically arises from the neck or, more specifically, the base of the skull. Often that pain arises on one side or the other and extends forward to involve the top of the head, the congregational, the forehead, the eye or some combination thereof. These are termed cervicogenic (ie, born of the neck ) headaches. Residing in those areas of the skull base are the occipital nerves. Irritation/inflammation of those nerves may cause a specific type of neuralgiform pain: occipital neuralgia. More commonly, however, those nerves serve as major on-ramps to the superhighway upon which travel the pain signals that produce migraine and other types of headache. If one can block traffic on these busy on-ramps, then it may be possible to halt the flow of pain signal on the superhighway and thus--at least temporarily--halt head pain. Such is the logic of occipital nerve blocks (ONBs) for suppression of chronic headache. The blocks themselves are relatively simple to perform. Your physician will use a small needle to inject a solution into the area around the nerves; the composition of that solution differs according to physician experience and preference but most often contains a long-acting local anesthetic and a steroid anti-inflammatory drug. Insertion of the needle is not especially painful, but infusion of the solution may cause temporary discomfort. Pain relief can occur with startling rapidity, frequently within 15 minutes of the block(s). For those who experience relief, the duration of the therapeutic response varies widely: a day or so up to weeks... even months. When the procedure is performed by an experienced healthcare provider, complications of ONBs are quite rare. Because these are sensory nerves, you may experience some temporary numbness over the regions supplied by the nerves. Because the local anesthetic may diffuse into areas close to the lower brain stem and upper spinal cord, transient (hours at most) difficulty speaking or swallowing have been reported. And, as with all steroid therapy, caution should be taken to minimize the amount of steroid injected over any given period of time. Occipital nerve blocks are not for everyone, but for selected patients they can prove a more effective means of suppressing chronic headache than any oral medication. Frequently asked questions: 1. How long will it take? Typically no more than a minute or two; the procedure usually is performed in a regular examination room and does not require any preparation on the patient s part. 2. Can I resume my activities afterwards? Absolutely; you should have no problem driving afterwards and may carry on with your day as you would otherwise. 3. If I gain significant but only very brief relief, should I have the procedure repeated? Unfortunately, your HCP cannot predict with confidence whether a given ONB will be effective or--if effective--how long the benefit will last. If your treatment response is dramatically positive but short-lived, it probably makes sense to give it at least one more try. https://americanheadachesociety.o rg/wp-content/uploads//Occ ssejlg-Hhfjz-Mpgpji_Qfp-2010.pdf documented in this encounter [facility] 02-14-2024 History of Present illness Narrative Images from the original note were not included. Outpatient [facility] - Procedure Note Accompanied by: Spouse Primary Problem List: ACTIVE PROBLEM LIST Cervicocranial Syndrome Chronic Daily Headache Chronic Thoracic Back Pain Derangement of Meniscus History of Respiratory System Disease Inflammatory Polyarthropathy (Hcc) Mitral Prolapse Mixed Hyperlipidemia Sleep Apnea Orthostatic Hypotension Palpitations Paresthesia Pvc's (Premature Ventricular Contractions) Raynaud's Disease Chief Complaint: Bilateral occipital neuralgia (primary encounter diagnosis) Interval Headache History: Christie Chance is a 53 year old year old male, with a history of bilateral occipital neuralgia and cervicocranial syndrome following up today for bilateral greater occipital nerve blocks. Denies steroid usage over the last 3 months. Will proceed with combination ropivacaine and betamethasone. Procedure Note: Greater Occipital Nerve Block The risks, benefits and anticipated outcomes of the procedure, the risks and benefits of the alternatives to the procedure, and the roles and tasks of the personnel to be involved, were discussed with the patient, and the patient consents to the procedure and agrees to proceed. Electronic Informed consent signed. UNIVERSAL PROTOCOL / SAFETY CHECKLIST Procedure to be Performed: Bilateral greater Occipital Nerve Block Sign In: A Moment of CARE was completed. Personnel directly involved with the procedure wore the appropriate PPE (Personal Protective Equipment). No special equipment needed. Patient/Surrogate Stated/Verified: PATIENT VERIFIED(optional for EMERGENT procedures): Patient name, Date of , Relevant allergies and The intended procedure Time Out Communication: Intended patient and procedure match the source documents. Consent documented and matches the intended procedure. No relevant labs, photos, and/or imaging studies were applicable for review. Correct side/site marked and visible. Medications required for procedure verified. No fire risk assessment and interventions applicable. No implant(s) inserted. Sign Out: SIGN OUT (optional for EMERGENT procedures): No specimen collected. All instruments, equipment, possible retained foreign bodies accounted for. Post-procedure follow-up management communicated and Plan of Care Visit completed when applicable. Melisa Florez PA-C 2 cc 0.5% Ropivacaine and 6 mg Celestone prepared in 2 3cc syringe . 3cc were injected into the right and left greater Occipital Nerve(s). 0cc were wasted. The occipital nerve(s) was injected 3cm caudal and 1.5 cm lateral to the inion where the main trunk of the occipital nerve penetrates the semispinalis muscle. The needle was placed perpendicular and the needle advanced 1.5 cm. After aspiration to ensure no obstruction or presence of blood, the area was injected. The needle was repositioned in a fan-like manner and the entire area was injected. The patient was told to use heat if there was discomfort later in the day. Pre injection pain 2/10 Post injection pain 1/10 Patient tolerated the procedure well. You received a greater occipital nerve block today. You may feel sore tomorrow at the site of the injection. You may use heat or ice for discomfort. This should resolve in 24-36 hours. Melisa Florez PA-C Follow-up: 3 months, call office ([phone]) with problems or concerns before appointment Melisa Florez PA-C Headache Section [facility] February 14, 2024 documented in this encounter [facility] 02-14-2024 Note HNO ID: [id number] Author: MELISA FLOREZ PA-C Service: ? Author Type: Physician Order [place] Type: Progress Notes Filed: 02/14/2024 16:40 Note Text: Outpatient Headache Clinic - Procedure Note Accompanied by: Spouse Primary Problem List: ACTIVE PROBLEM LIST Cervicocranial Syndrome Chronic Daily Headache Chronic Thoracic Back Pain Derangement of Meniscus History of Respiratory System Disease Inflammatory Polyarthropathy (Hcc) Mitral Prolapse Mixed Hyperlipidemia Sleep Apnea Orthostatic Hypotension Palpitations Paresthesia Pvc's (Premature Ventricular Contractions) Raynaud's Disease Chief Complaint: Bilateral occipital neuralgia (primary encounter diagnosis) Interval Headache History: Christie Chance is a 53 year old year old male, with a history of bilateral occipital neuralgia and cervicocranial syndrome following up today for bilateral greater occipital nerve blocks. Denies steroid usage over the last 3 months. Will proceed with combination ropivacaine and betamethasone. Procedure Note: Greater Occipital Nerve Block The risks, benefits and anticipated outcomes of the procedure, the risks and benefits of the alternatives to the procedure, and the roles and tasks of the personnel to be involved, were discussed with the patient, and the patient consents to the procedure and agrees to proceed. Electronic Informed consent signed. UNIVERSAL PROTOCOL / SAFETY CHECKLIST Procedure to be Performed: Bilateral greater Occipital Nerve Block Sign In: A Moment of CARE was completed. Personnel directly involved with the procedure wore the appropriate PPE (Personal Protective Equipment). No special equipment needed. Patient/Surrogate Stated/Verified: PATIENT VERIFIED(optional for EMERGENT procedures): Patient name, Date of , Relevant allergies and The intended procedure Time Out Communication: Intended patient and procedure match the source documents. Consent documented and matches the intended procedure. No relevant labs, photos, and/or imaging studies were applicable for review. Correct side/site marked and visible. Medications required for procedure verified. No fire risk assessment and interventions applicable. No implant(s) inserted. Sign Out: SIGN OUT (optional for EMERGENT procedures): No specimen collected. All instruments, equipment, possible retained foreign bodies accounted for. Post-procedure follow-up management communicated and Plan of Care Visit completed when applicable. Melisa Florez PA-C 2 cc 0.5% Ropivacaine and 6 mg Celestone prepared in 2 3cc syringe . 3cc were injected into the right and left greater Occipital Nerve(s). 0cc were wasted. The occipital nerve(s) was injected 3cm caudal and 1.5 cm lateral to the inion where the main trunk of the occipital nerve penetrates the semispinalis muscle. The needle was placed perpendicular and the needle advanced 1.5 cm. After aspiration to ensure no obstruction or presence of blood, the area was injected. The needle was repositioned in a fan-like manner and the entire area was injected. The patient was told to use heat if there was discomfort later in the day. Pre injection pain 2/10 Post injection pain 1/10 Patient tolerated the procedure well. You received a greater occipital nerve block today. You may feel sore tomorrow at the site of the injection. You may use heat or ice for discomfort. This should resolve in 24-36 hours. Melisa Florez PA-C Follow-up: 3 months, call office ([phone]) with problems or concerns before appointment Melisa Florez PA-C Headache Section [facility] February 14, 2024 [facility] 02-13-2024 Instructions Johana Frias APRN.[employer]IAN BLIND MECHANIC - 02/13/2024 9:11 AM EDT Greater Occipital Nerve Block (GONB) Article in [employer] Journal By: Lalito Escoto MD Many patients with chronic headache report that their pain typically arises from the neck or, more specifically, the base of the skull. Often that pain arises on one side or the other and extends forward to involve the top of the head, the congregational, the forehead, the eye or some combination thereof. These are termed cervicogenic (ie, born of the neck ) headaches. Residing in those areas of the skull base are the occipital nerves. Irritation/inflammation of those nerves may cause a specific type of neuralgiform pain: occipital neuralgia. More commonly, however, those nerves serve as major on-ramps to the superhighway upon which travel the pain signals that produce migraine and other types of headache. If one can block traffic on these busy on-ramps, then it may be possible to halt the flow of pain signal on the superhighway and thus--at least temporarily--halt head pain. Such is the logic of occipital nerve blocks (ONBs) for suppression of chronic headache. The blocks themselves are relatively simple to perform. Your physician will use a small needle to inject a solution into the area around the nerves; the composition of that solution differs according to physician experience and preference but most often contains a long-acting local anesthetic and a steroid anti-inflammatory drug. Insertion of the needle is not especially painful, but infusion of the solution may cause temporary discomfort. Pain relief can occur with startling rapidity, frequently within 15 minutes of the block(s). For those who experience relief, the duration of the therapeutic response varies widely: a day or so up to weeks... even months. When the procedure is performed by an experienced healthcare provider, complications of ONBs are quite rare. Because these are sensory nerves, you may experience some temporary numbness over the regions supplied by the nerves. Because the local anesthetic may diffuse into areas close to the lower brain stem and upper spinal cord, transient (hours at most) difficulty speaking or swallowing have been reported. And, as with all steroid therapy, caution should be taken to minimize the amount of steroid injected over any given period of time. Occipital nerve blocks are not for everyone, but for selected patients they can prove a more effective means of suppressing chronic headache than any oral medication. Frequently asked questions: 1. How long will it take? Typically no more than a minute or two; the procedure usually is performed in a regular examination room and does not require any preparation on the patient s part. 2. Can I resume my activities afterwards? Absolutely; you should have no problem driving afterwards and may carry on with your day as you would otherwise. 3. If I gain significant but only very brief relief, should I have the procedure repeated? Unfortunately, your HCP cannot predict with confidence whether a given ONB will be effective or--if effective--how long the benefit will last. If your treatment response is dramatically positive but short-lived, it probably makes sense to give it at least one more try. https://americanheadachesociety.o rg/wp-content/uploads//Occ fssbzq-Jybfx-Kforll_Gew-2010.pdf documented in this encounter [facility] 02-13-2024 History of Present illness Narrative Images from the original note were not included. Headache Center - Virtual Visit Last Visit: 11/01/2023, Johana Frias APRN.[employer] MECH[employer]IC Accompanied by: Spouse This visit was conducted as a virtual visit, with patient's permission, via zoom. It required patient-provider interaction for the medical decision making as documented below. Patient stated name and Patient location: [place] I have communicated my name and active licensure. The patient's identity and physical location were verified at the time of this visit. Either the patient or their legal billing representative has been informed of the risks and benefits of -- and alternatives to -- treatment through a remote evaluation and consents to proceed with the evaluation remotely. Primary Problem List: ACTIVE PROBLEM LIST Cervicocranial Syndrome Chronic Daily Headache Chronic Thoracic Back Pain Derangement of Meniscus History of Respiratory System Disease Inflammatory Polyarthropathy (Hcc) Mitral Prolapse Mixed Hyperlipidemia Sleep Apnea Orthostatic Hypotension Palpitations Paresthesia Pvc's (Premature Ventricular Contractions) Raynaud's Disease Chief Complaint: Headache and Neck Pain Impression and Plan from last visit: Christie Chance is a 53 year old year old male, with a history significant of POTS, inflammatory arthritis, vertigo, imbalance, thoracic spine pain, cervicogenic headache, and migraine presenting today with symptoms of headache and neck pain which remain the same since his last visit. Imbalance remains stable. He had a new onset of facial pain bilaterally. Will rule out secondary cause of symptoms with MRI Brain with CISS sequence. I do suspect the facial pain was likely an overlap with occipital nerve irritation and trigeminal nerve activation, but based on the the bilateral aspect secondary causes should be ruled out. We discussed options for treatment and he is agreeable to maximize gabapentin prior to starting a new medication. Diagnosis: Cervicogenic headache (primary encounter diagnosis) Cervicocranial syndrome Vertigo of central origin Imbalance Face pain Other headache syndrome Neck pain PLAN: The following imaging studies should be performed to evaluate for secondary causes: Imaging: MRI BRAIN WO/W IVCON (MRI BRAIN WO/W IVCON ) Comments: CISS sequence, please do full brain - patient will reach out if he needs anxiolytic prior to MRI via mychart HEADACHE MANAGEMENT: (You are the primary guardian of your health and headache. Keep track of all medications: This includes the reason for use, side effects and benefits.) Prevention: - increase gabapentin to 900 mg daily at bedtime Abortive: - ok to continue motrin Future Considerations: - consider cymbalta or CLAI as a next step Interval Hx: Presents today to discuss ongoing symptoms of headache, imbalance, and neck pain. Continues to have neck pain that has not changed since the beginning of June. Gabapentin increase has helped decrease his severe sharp pains in different areas on his head and random sharp facial pains. Potentially is having side effects in the morning after taking his medication. In the last 6 months he has had migraine aura 6 times (increase in frequency). Will see a spot in his vision which will grow into a zig zag shape/scotoma. Lasts 20 - 30 minutes. Sometimes will have a severe headache and other times will just feel funny. Has not been doing PT - was making symptoms worse. Did have MRI brain completed - scheduled to see ENT at an outside facility. Neck Pain: - daily - posterior - better in AM will get worse as the day goes on - the more he moves his head will worsen - can radiate forward and will settle behind L eye - uses ibuprofen 2 - 3x per week which helps - average severity: 2-3/10 - constant pain Headache: - L sided, rarely on the R (if it occurs on the right side will be sharper pain) - occurs 2 - 3 times per week - 3-4/10 (has adjusted pain scale) - ibuprofen helps - denies photophobia/phonophobia - has some nausea but unclear relationship to head pain Stumbling/Imbalance - constant, level he is used to - most people would not notice - he is currently comfortable with the level he is at - has not fallen since July - has been able to run Preventative: gabapentin 900 mg - tolerates overall, will have 1 - 2 days/week that he feels off balance and more groggy. This will last hours, has more blurred vision. Unsure if related to medication or something else. He has noticed this more since he started taking gabapentin. Abortive: ibuprofen Issues and questions to be addressed: - patient update Medications tried: Prior Therapies Duration of Use Dose Reason for Discontinuation Other Therapies Physical therapy Anti-Convulsant Gabapentin (Neurontin) Supplements Magnesium ALLERGIES Allergen Reactions Declomycin [Demeclo* Other: See Comments Childhood Seasonal Allergies Cough Runny nose, sneezing, itchy, and watery eyes HEADACHE SCORES: 09/03/2023 10/26/2023 02/09/2024 Headache Questions ER visits since last office visit: 0 0 0 Hospital stays since last office visit 0 0 0 Limited ADLs in the last month: 4 4 0 Days missed from work or school in the last month: 0 0 0 Days headache pain free in the last month: 0 0 0 Days per month with ALL of the following symptoms - decreased productivity, light sensitivity and nausea: 0 0 0 Initial improvement of headache after botox injection at last visit: Not applicable, I did not have a botox injection at my last visit PRN medication usage in the last month: 6 11 10 Patient impression of improvement since last visit: Much worse No change No change 09/03/2023 10/26/2023 02/09/2024 HIT-6 HIT-6 57 (Substantial impact) 57 (Substantial impact) 60 (Severe impact) 09/03/2023 10/26/2023 02/09/2024 JOSE - 2/7 SCORES JOSE-2 Score 0 0 3 JOSE-7 Score 8 09/03/2023 10/26/2023 02/09/2024 Migraine Specific QOL - Higher scores indicate better HRQL Role Function-Restrictive Transformed Score (range: 0-100) 74.29 80 68.57 Role Function-Preventive Transformed Score (range: 0-100) 100 95 95 Emotional Function Transformed Score (range: 0-100) 100 86.67 86.67 02/09/2024 10/26/2023 09/03/2023 PHQ-9 Score 6 3 3 MRI Head/Brain - Last 2 Impressions MRI BRAIN WO/W IVCON Exam End: 11/23/2023 9:46 AM (Final result) Impression: IMPRESSION: No specific etiology for patient's reported symptoms identified. No evidence of acute infarct, or significant mass effect. No evidence of ... MRI BRAIN WO/W IVCON Collected: 06/07/2020 (Final result) Impression: No acute intracranial process or suspicious enhancement after contrast administration. Unremarkable appearance of the brain for age. Nonspecific small mastoid effusions bilaterally, left greater than right. ... REVIEW OF SYSTEMS: Review of system : unchanged from the previous visit (sleep patterns, mood, energy, appetite, stress, exercising). Examination: Vital Signs: There were no vitals taken for this visit. General: well appearing, in no acute distress, alert Pain Behaviors: no pain behaviors observed Neurological: Mental Status: Alert and oriented to person, place and time. Affect is normal. Speech is clear, coherent, and relevant. Short and [facility] memory, cognition and general fund of knowledge are good. Attention span and concentration are excellent. HEENT: Head is normocephalic and features were symmetric. IMPRESSION: Christie Chance is a 53 year old year old male, with a history significant of POTS, inflammatory arthritis, vertigo, imbalance, thoracic spine pain, cervicogenic headache, and migraine presenting today with symptoms of headache and neck pain that remain unchanged from his last visit. His facial pain/sharp random pains have significantly improved with the higher dose of gabapentin. He does have about 2 days per week where he feels somewhat groggy in the morning which lasts hours. Unsure if related to increase in gabapentin dosing or others. We discussed options for treatment for headache and neck pain and will proceed with greater occipital nerve blocks. We will space out his gabapentin dosing to ideally help with side effects as this has been effective overall. MRI showed small vessel disease - discussed modifying risk factors and mastoid fluid. Will have Dr. Garza review as well. Diagnosis: Cervicogenic headache (primary encounter diagnosis) Face pain Imbalance Vertigo of central origin Neck pain Bilateral occipital neuralgia PLAN: Prevention: - change gabapentin to 300 mg at lunch time and 600 mg at bedtime Abortive: - continue ibuprofen Bridge Therapy: - our office to schedule greater occipital nerve blocks Future Considerations: - consider decreasing gabapentin due to side effects - consider cymbalta (not discussed) Headache education was done. Discussed lifestyle modification including increased oral hydration, decreased caffeine, exercise and stress management. Discussed treatment options including preventive and acute medications, natural supplements, and infusion therapy. Discussed medication overuse headache and to limit use of acute treatments to no more than 2 days/week or 10 days/month. Discussed medication side effects, adverse reactions and drug interactions. Written educational materials and patient instructions outlining all of the above were given. RESEARCH: None at this time Follow-up: 3 months, PRN, for nerve block Level of service: Est level 4 (30-39 min). Time spent 35 min on the day of service, which included preparing to see the patient, [id number] patient care, completing clinical documentation, obtaining and/or reviewing separately obtained history, performing a medically appropriate examination, counseling and educating the patient/family/caregiver, and ordering medications, tests, or procedures. The patient has my contact information and my chart sign up information. Johana Frias APRN.CNP documented in this encounter [facility] 02-13-2024 Note HNO ID: [id number] Author: JOHANA FRIAS APRN.CNP Service: ? Author Type: Nurse Practitioner Type: Progress Notes Filed: 02/13/2024 09:11 Note Text: Headache Center - Virtual Visit Last Visit: 11/01/2023, Johana Frias APRN.CNP Accompanied by: Spouse This visit was conducted as a virtual visit, with patient's permission, via zoom. It required patient-provider interaction for the medical decision making as documented below. Patient stated name and Patient location: [place] I have communicated my name and active licensure. The patient's identity and physical location were verified at the time of this visit. Either the patient or their legal billing representative has been informed of the risks and benefits of -- and alternatives to -- treatment through a remote evaluation and consents to proceed with the evaluation remotely. Primary Problem List: ACTIVE PROBLEM LIST Cervicocranial Syndrome Chronic Daily Headache Chronic Thoracic Back Pain Derangement of Meniscus History of Respiratory System Disease Inflammatory Polyarthropathy (Hcc) Mitral Prolapse Mixed Hyperlipidemia Sleep Apnea Orthostatic Hypotension Palpitations Paresthesia Pvc's (Premature Ventricular Contractions) Raynaud's Disease Chief Complaint: Headache and Neck Pain Impression and Plan from last visit: Christie Chance is a 53 year old year old male, with a history significant of POTS, inflammatory arthritis, vertigo, imbalance, thoracic spine pain, cervicogenic headache, and migraine presenting today with symptoms of headache and neck pain which remain the same since his last visit. Imbalance remains stable. He had a new onset of facial pain bilaterally. Will rule out secondary cause of symptoms with MRI Brain with CISS sequence. I do suspect the facial pain was likely an overlap with occipital nerve irritation and trigeminal nerve activation, but based on the the bilateral aspect secondary causes should be ruled out. We discussed options for treatment and he is agreeable to maximize gabapentin prior to starting a new medication. Diagnosis: Cervicogenic headache (primary encounter diagnosis) Cervicocranial syndrome Vertigo of central origin Imbalance Face pain Other headache syndrome Neck pain PLAN: The following imaging studies should be performed to evaluate for secondary causes: Imaging: MRI BRAIN WO/W IVCON (MRI BRAIN WO/W IVCON ) Comments: CISS sequence, please do full brain - patient will reach out if he needs anxiolytic prior to MRI via [employer] HEADACHE MANAGEMENT: (You are the primary guardian of your health and headache. Keep track of all medications: This includes the reason for use, side effects and benefits.) Prevention: - increase gabapentin to 900 mg daily at bedtime Abortive: - ok to continue motrin Future Considerations: - consider cymbalta or CALI as a next step Interval Hx: Presents today to discuss ongoing symptoms of headache, imbalance, and neck pain. Continues to have neck pain that has not changed since the beginning of June. Gabapentin increase has helped decrease his severe sharp pains in different areas on his head and random sharp facial pains. Potentially is having side effects in the morning after taking his medication. In the last 6 months he has had migraine aura 6 times (increase in frequency). Will see a spot in his vision which will grow into a zig zag shape/scotoma. Lasts 20 - 30 minutes. Sometimes will have a severe headache and other times will just feel funny. Has not been doing PT - was making symptoms worse. Did have MRI brain completed - scheduled to see ENT at an outside facility. Neck Pain: - daily - posterior - better in AM will get worse as the day goes on - the more he moves his head will worsen - can radiate forward and will settle behind L eye - uses ibuprofen 2 - 3x per week which helps - average severity: 2-3/10 - constant pain Headache: - L sided, rarely on the R (if it occurs on the right side will be sharper pain) - occurs 2 - 3 times per week - 3-4/10 (has adjusted pain scale) - ibuprofen helps - denies photophobia/phonophobia - has some nausea but unclear relationship to head pain Stumbling/Imbalance - constant, level he is used to - most people would not notice - he is currently comfortable with the level he is at - has not fallen since July - has been able to run Preventative: gabapentin 900 mg - tolerates overall, will have 1 - 2 days/week that he feels off balance and more groggy. This will last hours, has more blurred vision. Unsure if related to medication or something else. He has noticed this more since he started taking gabapentin. Abortive: ibuprofen Issues and questions to be addressed: - patient update Medications tried: Prior Therapies Duration of Use Dose Reason for Discontinuation Other Therapies Physical therapy Anti-Convulsant John (more content not included)... [facility] 12-05-2023 Miscellaneous Notes Patient last seen 11/01/2023. documented in this encounter [facility] 11-23-2023 Note HNO ID: [id number] Author: RICHA CHRISTINA RT(R) Service: Radiology Author Type: Technologist Type: Progress Notes Filed: 11/23/2023 09:28 Note Text: Radiology Service Progress Note DATE OF SERVICE: November 23, 2023 TIME: 9:26 AM PATIENT IDENTITY VERIFICATION COMPLETED USING TWO (2) STANDARD IDENTIFIERS: Name and Date of confirmed by patient verbally. FALL SCREENING: Has the patient had 2 falls in the last year or 1 fall with injury or currently using an Ambulatory Assistive Device (Walker, Cane, Wheelchair, Crutches, etc.)? No PATIENT GENDER DATA: Male PATIENT RELEVANT IMPLANT DATA REVIEWED: Yes PATIENT PRESENTS WITH AN IMPLANTABLE OR ATTACHED PROPAGATOR LABORER: No ALLERGIES: Reviewed and unchanged CONTRAST ALLERGY: NO. EXAM: MRI - CONTRAST TYPE: GROUP II PERIPHERAL IV DATA: Ambulatory: A peripheral IV was started in the Right antecubital site with a Angio cath/Butterfly: 24 gauge. RADIOLOGY DEPARTMENT: MR; Exam(s) Completed: Head: Cranial Nerve, Upper SIGNATURE: RT Tolu(Dwaine) PATIENT NAME: Christie Chance DATE: November 23, 2023 TIME: 9:26 AM [facility] 11-23-2023 History of Present illness Narrative Radiology Service Progress Note DATE OF SERVICE: November 23, 2023 TIME: 9:26 AM PATIENT IDENTITY VERIFICATION COMPLETED USING TWO (2) STANDARD IDENTIFIERS: Name and Date of confirmed by patient verbally. FALL SCREENING: Has the patient had 2 falls in the last year or 1 fall with injury or currently using an Ambulatory Assistive Device (Walker, Cane, Wheelchair, Crutches, etc.)? No PATIENT GENDER DATA: Male PATIENT RELEVANT IMPLANT DATA REVIEWED: Yes PATIENT PRESENTS WITH AN IMPLANTABLE OR ATTACHED PROPAGATOR LABORER: No ALLERGIES: Reviewed and unchanged CONTRAST ALLERGY: NO. EXAM: MRI - CONTRAST TYPE: GROUP II PERIPHERAL IV DATA: Ambulatory: A peripheral IV was started in the Right antecubital site with a Angio cath/Butterfly: 24 gauge. RADIOLOGY DEPARTMENT: MR; Exam(s) Completed: Head: Cranial Nerve, Upper SIGNATURE: RT Tolu(R) PATIENT NAME: Christie Chance DATE: November 23, 2023 TIME: 9:26 AM documented in this encounter [facility] 11-20-2023 Miscellaneous Notes The following approved medication requests have been transmitted electronically. Requested Prescriptions Signed Prescriptions Disp Refills ALPRAZolam (XANAX) 1 mg tablet 2 tablet 0 Sig: Take 1 dose 1 hour before MRI. If needed, take additional dose right before MRI. Pedro Nelson APRN.CNP PDMP website checked and validated. All prescriptions have been APPROPRIATELY filled. No suspicious activity was identified. 11/20/2023 by Pedro Nelson APRN.CNP Patient last seen on 11/01/23. documented in this encounter [facility] 11-01-2023 Instructions Johnaa Frias APRN.CNP - 11/01/2023 2:22 PM EST - MRI Brain with and without contrast - increase gabapentin to 900 mg daily - consider Cymbalta or occipital nerve blocks as a next step - let us know via [employer] if you need any anti-anxiety medication prior to MRI documented in this encounter [facility] 11-01-2023 History of Present illness Narrative Headache Center - Follow up Visit Last Visit: 09/06/2023, Johana Frias APRN.[employer] BL[employer] MECHANIC Accompanied by: Self Primary Problem List: ACTIVE PROBLEM LIST Cervicocranial Syndrome Chronic Daily Headache Chronic Thoracic Back Pain Derangement of Meniscus History of Respiratory System Disease Inflammatory Polyarthropathy (Hcc) Mitral Prolapse Mixed Hyperlipidemia Sleep Apnea Orthostatic Hypotension Palpitations Paresthesia Pvc's (Premature Ventricular Contractions) Raynaud's Disease Chief Complaint: Dizziness, Neck Pain Impression and Plan from last visit: Christie Chance is a 53 year old year old male, with a history significant of POTS, inflammatory arthritis, vertigo, imbalance, thoracic spine pain, cervicogenic headache, and migraine presenting today with worsening issues of headache and neck pain. Imbalance remains stable. I suspect his symptoms are likely worse s/s to a mild head injury which occurred in close proximity to symptoms worsening. We will attempt to break the current symptom cycle as his symptoms were previously stable with his current dose of gabapentin. His current dose of gabapentin can cause some irritability immediately after taking the medication, so we will not increase the dose. He previously responded well to steroid bursts in the past. I do not see a need for further neuro-imaging at this time given his nonfocal exam. Diagnosis: Cervicogenic headache (primary encounter diagnosis) Cervicocranial syndrome Vertigo of central origin Imbalance PLAN: Prevention: - continue gabapentin 600 mg at bedtime Abortive: - continue ibuprofen PRN Bridge Therapy: - medrol dose pack Future Considerations: - consider parafon forte as a next step for the current symptom cycle Interval Headache Hx: Presents today to discuss ongoing symptoms of imbalance, headache and neck pain. His neck pain has been worse since his last visit. He tried a medrol dose pack at his last visit which did not provide any relief. Parafon forte did not help with his symptoms after he finished the medrol pack. He started noticing sharp pain bilaterally on his face. The right side he felt more pain sensations but the left side noted more aching. Located bilateral V2. Has since resolved. One night had multiple seconds of bursts of stabbing pain in his face and the back of his head. This was twice as painful as he had ever felt. Pain was daily to some degree but had different sensations. Did not have any relationship with ongoing neck pain. He does not have hand shaking. He will have some difficulty with fine motor grasp. Has some issues with speech when he is very busy or at PT. Has continued to go to PT, thinking about stopping due to lack of efficacy. Recent exercises have caused worsening symptoms. Headache: - daily - will occur if he moves his neck too much - right or left occiput and will radiate forward (L > R) - lasts 1 - 5 hours - takes ibuprofen 2 - 3 times/ week which does help - denies photophobia/phonophobia - has minimal nausea but does not find this related to headache Neck Pain: - daily - notices this if he turns to the right/left - severity: 1-11/09 - if he is stationary his neck pain can resolve within 10 minutes - triggers the headache Stumbling/Imbalance: - has been doing well up until the last week - got worse Saturday - Saturday this past week, but the last few days he has been feeling better - has had more trouble at the bottom of the stairs in the last week and stairs coming - he denies falls - he has been able to run, had 1 day where he had to stop due to dizziness in the last month Preventative: gabapentin 600 mg - reports he has been doing well with the medication overall Abortive: ibuprofen Issues and questions to be addressed: - patient update Medications tried: Prior Therapies Duration of Use Dose Reason for Discontinuation Other Therapies Physical therapy Anti-Convulsant Gabapentin (Neurontin) Supplements Magnesium ALLERGIES Allergen Reactions Declomycin [Demeclo* Other: See Comments Childhood Seasonal Allergies Cough Runny nose, sneezing, itchy, and watery eyes HEADACHE SCORES: Headache Questions 04/21/2023 09/03/2023 10/26/2023 ER visits since last office visit: 0 0 0 Hospital stays since last office visit 0 0 0 Limited ADLs in the last month: 3 4 4 Days missed from work or school in the last month: 0 0 0 Days headache pain free in the last month: 0 0 0 Days per month with ALL of the following symptoms - decreased productivity, light sensitivity and nausea: 0 0 0 Initial improvement of headache after botox injection at last visit: Not applicable, I did not have a botox injection at my last visit Not applicable, I did not have a botox injection at my last visit - PRN medication usage in the last month: 7 02 10 Patient impression of improvement since last visit: Minimally worse Much worse No change HIT-6 04/21/2023 09/03/2023 10/26/2023 HIT-6 50 (Moderate impact) 57 (Substantial impact) 57 (Substantial impact) JOSE - 2/7 SCORES 04/21/2023 09/03/2023 10/26/2023 JOSE-2 Score 0 0 0 JOSE-7 Score - - - Migraine Specific QOL - Higher scores indicate better HRQL 04/21/2023 09/03/2023 10/26/2023 Role Function-Restrictive Transformed Score (range: 0-100) 80 74.29 80 Role Function-Preventive Transformed Score (range: 0-100) 95 100 95 Emotional Function Transformed Score (range: 0-100) 86.67 100 86.67 PHQ-9 06/09/2023 09/03/2023 10/26/2023 Score 4 3 3 MRI Head/Brain - Last 2 Impressions MRI BRAIN WO/W IVCON Collected: 06/07/2020 (Final result) Impression: No acute intracranial process or suspicious enhancement after contrast administration. Unremarkable appearance of the brain for age. Nonspecific small mastoid effusions bilaterally, left greater than right. ... REVIEW OF SYSTEMS: Review of system : unchanged from the previous visit (sleep patterns, mood, energy, appetite, stress, exercising). PHYSICAL EXAMINATION: Vital Signs: BP 146/82 (BP Site: Left Arm, BP Position: Sitting, BP Cuff Size: Regular Adult) Pulse 65 OBJECTIVE: General:awake/easily arousable and no acute distress. CV: RRR, normal S1, S2 auscultated, and no murmurs. Lungs: clear to auscultation. Musculoskeletal: No gross joint deformities. , Suboccipital tenderness: Yes left. , Trigger Points: cervical paraspinous muscles L>R and trapezius muscles L>R , Cervical ROM: Normal. Neurological: Mental Status: Alert, oriented to person, place and time, Follows commands, and Speech fluent and appropriate. Cranial Nerves: PERRL, visual collins intact to confrontation, extraocular movements intact, face symmetric, no facial droop or ptosis, no dysarthria, palate elevate symmetrically, tongue protrudes midline, shoulder shrug intact and symmetric, and decreased facial sensation right face . Motor: muscle strength 5/5 both upper and lower extremities, no drift, normal tone. Reflexes: UE and LE reflexes are equal and reactive. Gait: wide-based. IMPRESSION: Christie Chance is a 53 year old year old male, with a history significant of POTS, inflammatory arthritis, vertigo, imbalance, thoracic spine pain, cervicogenic headache, and migraine presenting today with symptoms of headache and neck pain which remain the same since his last visit. Imbalance remains stable. He had a new onset of facial pain bilaterally. Will rule out secondary cause of symptoms with MRI Brain with CISS sequence. I do suspect the facial pain was likely an overlap with occipital nerve irritation and trigeminal nerve activation, but based on the the bilateral aspect secondary causes should be ruled out. We discussed options for treatment and he is agreeable to maximize gabapentin prior to starting a new medication. Diagnosis: Cervicogenic headache (primary encounter diagnosis) Cervicocranial syndrome Vertigo of central origin Imbalance Face pain Other headache syndrome Neck pain PLAN: The following imaging studies should be performed to evaluate for secondary causes: Imaging: MRI BRAIN WO/W IVCON (MRI BRAIN WO/W IVCON ) Comments: CISS sequence, please do full brain - patient will reach out if he needs anxiolytic prior to MRI via mychart HEADACHE MANAGEMENT: (You are the primary guardian of your health and headache. Keep track of all medications: This includes the reason for use, side effects and benefits.) Prevention: - increase gabapentin to 900 mg daily at bedtime Abortive: - ok to continue motrin Future Considerations: - consider cymbalta or CALI as a next step Headache education was done. Discussed lifestyle modification including increased oral hydration, decreased caffeine, exercise and stress management. Discussed treatment options including preventive and acute medications, natural supplements, and infusion therapy. Discussed medication overuse headache and to limit use of acute treatments to no more than 2 days/week or 10 days/month. Discussed medication side effects, adverse reactions and drug interactions. Written educational materials and patient instructions outlining all of the above were given. RESEARCH: None at this time Follow-up: 3 months, PRN Level of service: Est level 5 (40-54 min). Time spent 45 min on the day of service, which included preparing to see the patient, [id number] patient care, completing clinical documentation, obtaining and/or reviewing separately obtained history, performing a medically appropriate examination, counseling and educating the patient/family/caregiver, and ordering medications, tests, or procedures. All questions answered. The patient has my contact information and my chart sign up information. Johana Frias APRN.CNP documented in this encounter [facility] 06-24-2023 Miscellaneous Notes PDMP website checked and validated. All prescriptions have been APPROPRIATELY filled. No suspicious activity was identified. 06/24/2023 by Johana Frias APRN.CNP The following approved medication requests have been transmitted electronically. Requested Prescriptions Signed Prescriptions Disp Refills gabapentin (NEURONTIN) 300 mg capsule 60 capsule 2 Sig: Take 2 capsules by mouth daily at bedtime for 90 days. Authorizing Provider: JOHANA FRIAS APRN.CNP Physician: Kristian Call from patient requesting refill. Please E-Scribe Last office visit 04/23/2023with Kristian virtual Next office visit 10/24/2023 with Kristian virtual Requested Prescriptions Pending Prescriptions Disp Refills gabapentin (NEURONTIN) 300 mg capsule 60 capsule 2 Sig: Take 2 capsules by mouth daily at bedtime for 90 days. Pharmacy Name: [facility] documented in this encounter [facility] 06-13-2023 Instructions Sara Levine APRN.CNP - 06/13/2023 6:29 PM EDT Patient Instructions: AVA: Continue Auto CPAP at current settings of 5-15 cmH2O. Remember to clean your mask and equipment regularly, as directed. Avoid use of ozone solar photovoltaic electrician, SoClean devices, or UV cleaning devices Avoid using alcohol or alcohol-containing products on your mask, as this may compromise the integrity of the mask materials and contribute to leak issues You should be eligible for new supplies approximately every 3-6 months, depending on your insurance coverage. Contact your Durable Medical Equipment (DME) company for new supplies as needed. Order will be sent to [employer] for supplies: [employer] Insurance: We will send script to [employer]. Face to face examination completed June 13, 2023. Christie Chance has fulfilled his insurance requirement with an annual visit for PAP therapy, average usage is 6 hours, 10 minutes and compliancy of >70 %. Please send PAP download. Please send patient PAP supplies as covered by insurance. Follow up in 12 months in person or virtually with [facility] or Sleep Medicine Physician. Will send provider order. Supplier Specialist will reach out to you. If you have questions, feel free to send me a [employer] message. Sara Levine, MOTOR BLOCK MECHANIC.[employer] PAP Supply Guidelines Below are the guidelines for reordering your supplies. You will be responsible for your deductible, co-payments, and out of pocket expenses. Item Medicare & Commercial Insurance Medicaid & HCAP Nasal Mask (no headgear) 1 every 3 months 1 per year Nasal Mask Cushion 1 every month 2 per year Full Face Mask (no headgear) 1 every 3 months 1 per year Full Face Mask Cushion 1 every month *Self-Pay Nasal Pillows 2 every month 2 per year Headgear 1 every 6 months 1 per year Chin Strap 1 every 6 months 2 per year Tubing 1 every 3 months 1 per year Filters: Reusable 1 every 6 months 4 per year Filters: Disposable 2 every month 1 per month Humidifier Chamber(disposable) 1 every 6 months *Self-Pay documented in this encounter [facility] 06-13-2023 History of Present illness Narrative [facility] Virtual Visit Follow Up/ Established Patient Visit [facility] This visit was conducted as a Virtual Visit, with patient's permission, via Zoom. It required patient-provider interaction for the medical decision making as documented below. Patient stated first & last name: Christie Chance Patient stated : 1970 Patient stated current location: [place] [address] I have communicated my name, Sara Levine APRN.CNP, and active licensure Adult Certified Nurse Practitioner in the [facility] Center at [facility]. The patient's identity and physical location were verified at the time of this visit. Either the patient or their legal billing representative has been informed of the risks and benefits of -- and alternatives to -- treatment through a remote evaluation and consents to proceed with the evaluation remotely. Virtual visits are a convenient way for us to meet, but there are some situations in which an in-person evaluation may be required at a later time. I want to check in to confirm your consent to be seen virtually today. Consent given: Yes Assessment/Plan from LAST VISIT: Date of last visit : Visit date not found IMPRESSION: Diagnosis Ava (obstructive sleep apnea) (primary encounter diagnosis) Sleep Studies (Reviewed Prior and Current): Home Sleep Test (HST) 03/16/22 revealed least mild obstructive sleep apnea. Total AHI of 9.6, Off-Supine AHI 5.4, Supine AHI 11.8 and a minimum oxygen saturation of 89%. Overview: Mr. Christie Chance is a 51 year old male with a PMH of Chronic Back Pain, POTS, Vertigo, Inflammatory Arthritis, Thoracic Spine Pain, Cervicogenic Headache, Migraines, and Excessive Daytime Sleepiness who presents in person for follow up visit for AVA (start PAP 5-15 cmH20). - Doing well with PAP therapy. - Denies mask or pressure intolerance. - Try adjusting the ramp (can turn it off) to see if this helps the smothering. - Compliant and benefiting from treatment. - Face to face examination completed 07/20/22. - Mr. Christie Chance has fulfilled his insurance requirement by following up with a visit 31-90 days after beginning PAP therapy with average usage of 5 hours 36 minutes, and compliancy of 90 %. Reviewed objective PAP compliance data: 06/20/22-07/19/22 ResMed AirView AirSense 11 AutoSet [employer] AutoSet 5-15 cmH20. Usage 28/ days (93%) >= 4 hours - 27 days (90%) Average # hours nights used - 5 hours 36 minutes Pressure 95th % - 7.4 Average time in large leak per day - 5.7 Residual AHI - 0.5 Plan: - Continue Auto CPAP at 5-15 cmH2O. - Remember to clean your mask and equipment regularly, as directed. - You should be eligible for new supplies approximately every 3-6 months, depending on your insurance coverage. Contact your Durable Medical Equipment (DME) company for new supplies as needed. - Follow up in 6-12 months with [facility]. If you have questions, feel free to send me a [employer] message . I spent a total of 28 minutes as this was an established patient to me on the date of the service which included preparing to see the patient, [id number] patient care, completing clinical documentation, counseling and educating the patient/family/caregiver and ordering medications, tests, or procedures. Sara Levine APRN.[employer] <End Assessment/Plan from last visit> CURRENT VISIT: 06/13/2023 Interval history: Sleeping really good especially with GBPN on on board. No issues. [facility] keeping him supplied with PAP equipment. Follow up visit for AVA (continue APAP 5-15 cmH20). Relevant study results reviewed as noted below, if applicable. SLEEP APNEA Sleep apnea type : AVA, Most Recent Apnea-Hypopnea Index (AHI): Total AHI of 9.6, Off-Supine AHI 5.4, Supine AHI 11.8 Treatment : PAP therapy DME: [facility] PAP History: Uses AutoPAP for 6 hours 10 minutes hours per night, 7 nights per week. Current PAP settin-15 cm H2O. No problems in haling or exhaling. Difficulties with AutoPAP: None Reviewed objective PAP compliance data: [facility] Mask type: Full face mask Mask issues: No issues. Uses chin strap: No Uses ramp function: Yes, Protocol, Auto Uses humidity: Yes, Protocol: Distilled water. There is a perceived benefit by the patient: No longer having a tough time driving. No longer waking up gasping. Observers report abolition of snoring with AutoPAP use. SLEEP HYGIENE QUESTIONS: Bedtime : 1520-7080 Wake up Time : 0450 Time it takes to fall sleep : 10 minutes or less Taking GBPN 300 mg two capsules qhs. Really likes the medication. Feels he is getting a good night sleep with this medication. However, reports he is having some movement issues, trouble with find motor coordination, and choppy speech. Would be interested in decreasing dose to see if this resolves. Activities in bed before falling asleep : None Number of times patient wakes up per night : 0-1 Reason (s) why patient wakes up during the night : Dogs Estimated total sleep time ( in a 24 hour period of time) : 6 Naps : No OTHER RELEVANT LABS AND STUDIES: Hemoglobin Date Value Ref Range Status 01/03/2023 16.7 13.0 - 17.0 g/dL Final 09/09/2020 14.8 13.0 - 17.0 g/dL Final No results found for: FE, TIBC PATIENT-ENTERED QUESTIONNAIRE SLEEP SCORES Sleep Questions 06/09/2023 Reason for visit: Sleep apnea, Difficulty falling or staying asleep or poor sleep quality, Excessive daytime sleepiness Average hours slept in 24 hours: 6 Average hours of CPAP per night: 6.1 Percent of nights CPAP used at least 4 hours: 90 Accidents or near accidents due to drowsy drivin [place] Sleepiness Scale 04/22/2022 06/09/2023 Score 14 (present daytime sleepiness) 9 (No daytime sleepiness) PROMIS CAT Sleep Disturbance 02/23/2022 04/22/2022 06/09/2023 PROMIS Sleep Disturbance T-Score 62 (moderate) 56 (mild) 34 (within normal limits) PROMIS Sleep Disturbance Percentile 12 % 27 % 95 % Insomnia Severity Index 05/07/2021 04/22/2022 12/29/2022 Score 9 11 1 PHQ-9 01/19/2023 04/21/2023 06/09/2023 Score 2 3 4 PROMIS Global Health - (T-Scores - the mean of general population = 50. Five points is a clinically meaningful difference.) 09/29/2022 12/29/2022 04/21/2023 Physical T-Score 50.8 50.8 50.8 Mental T-Score 38.8 41.1 41.1 CURRENT MEDICATIONS: albuterol HFA (PROVENTIL HFA, VENTOLIN HFA) 90 mcg/actuation inhaler inhale 2 puffs by mouth every 4 hours if needed for wheezing cough or shortness of breath Cholecalciferol, Vitamin D3, (VITAMIN D) 25 mcg (1,000 unit) cap Take 1 capsule by mouth once daily. CPAP/BIPAP/OTHER Type .CPAPSettings into a note to see current settings/supplies/DME information. CPAP/BIPAP/OTHER Type .CPAPSettings into a note to see current settings/supplies/DME information. cyanocobalamin (VITAMIN B-12) 1,000 mcg tab Take 1 tablet by mouth once daily. fexofenadine (NANCY) 180 mg tablet Take 180 mg by mouth once daily. gabapentin (NEURONTIN) 300 mg capsule Take 2 capsules by mouth daily at bedtime for 90 days. hydroxychloroquine sulfate (PLAQUENIL ORAL) Take 200 mg by mouth twice daily. magnesium oxide (MAG-OX) 400 mg (241.3 mg magnesium) tablet Take 1 tablet by mouth once daily. montelukast sodium (SINGULAIR ORAL) Take by mouth once daily. Prior Hypersomnia/Narcolepsy Medications (20 years) Some values may be hidden. Unless noted otherwise, only the newest values recorded on each date are displayed. Hypersomnia/Narcolepsy Medications No data to display. Prior RLS Medications (last 20 years) Some values may be hidden. Unless noted otherwise, only the newest values recorded on each date are displayed. RLS Medications No data to display. Prior Insomnia Medications (last 20 years) Some values may be hidden. Unless noted otherwise, only the newest values recorded on each date are displayed. Insomnia Medications No data to display. Review of Systems Constitutional: Positive for fatigue. Respiratory: Negative. Cardiovascular: Positive for palpitations. Psychiatric: Negative. VITAL SIGNS: Deferred due to virtual visit. PHYSICAL EXAMINATION: Constitutional: Appearance: Well groomed. Well nourished MALE. Very pleasant. Neurological: General: No focal deficit present. Mental Status: A&OX3 (person, place, and time). Speech: Clear, projects well. Memory: Intact, responses appropriate. Mood and Affect: Mood normal. Behavior: Behavior normal Assessment & Plan IMPRESSION/PLAN: Diagnosis: Ava (obstructive sleep apnea) (primary encounter diagnosis) Overview: Christie Chance is a 52 year old year old male with a PMH as noted who presents via Virtual Visit for AVA (continue APAP 5-15 cmH20) Sleeping really good especially with GBPN on on board. No issues. [facility] keeping him supplied with PAP equipment. - Doing very well with PAP therapy. - Denies mask or pressure intolerance. - Compliant and benefiting from treatment. - Face to face examination completed June 12, 2023 - Will get PAP download from [employer]. - Christie Chance has fulfilled his insurance requirement with an annual visit for PAP therapy, average usage is 6 hours and 10 minutes, and compliancy of >70 %. - Taking GBPN 300 mg two capsules qhs prescribed by another provider. Really likes the medication. Feels he is getting a good night sleep with this medication. However, reports he is having some movement issues, trouble with find motor coordination, and choppy speech. Would be interested in decreasing dose to see if this resolves. He will talk with provider filling this medication. Discussed size of capsules and maybe decreasing by 100 mg every 3-4 weeks. Plan: AVA: Continue Auto CPAP at current settings of 5-15 cmH2O. Remember to clean your mask and equipment regularly, as directed. Avoid use of ozone solar photovoltaic electrician, SoClean devices, or UV cleaning devices Avoid using alcohol or alcohol-containing products on your mask, as this may compromise the integrity of the mask materials and contribute to leak issues You should be eligible for new supplies approximately every 3-6 months, depending on your insurance coverage. Contact your Durable Medical Equipment (DME) company for new supplies as needed. Order will be sent to [employer] for supplies: [employer] Insurance: Send script to [employer]. Face to face examination completed June 13, 2023. Christie Chanec has fulfilled his insurance requirement with an annual visit for PAP therapy, average usage is 6 hours, 10 minutes and compliancy of >70 %. Please send PAP download. Please send patient PAP supplies as covered by insurance. Follow up in 12 months in person or virtually with [facility] or Sleep Medicine Physician. Will send provider order. Supplier Specialist will reach out to you. If you have questions, feel free to send me a [employer] message. I spent a total of 29 minutes. This was a established patient to me on the date of the service which included preparing to see the patient, [id number] patient care, completing clinical documentation, counseling and educating the patient/family/caregiver and ordering medications, tests, or procedures. Sara Levine APRN.TAURUS Activity Duration Current session 29 minutes Total time: 29 minutes* *Based only on time spent in the patient's chart documented in this encounter [facility] 04-23-2023 Instructions Johana Frias APRN.CNP - 04/23/2023 8:58 AM EDT - continue gabapentin 600 mg daily at bedtime (can consider increasing vs. Decreasing in the future) - restart HEP from PT documented in this encounter [facility] 04-23-2023 History of Present illness Narrative [facility] - Virtual Visit Last Visit: 01/21/2023, Johana Frias APRN.CNP Accompanied by: Self This visit was conducted as a virtual visit, with patient's permission, via zoom. It required patient-provider interaction for the medical decision making as documented below. Patient stated name and Patient location: [place], [place] I have communicated my name and active licensure. The patient's identity and physical location were verified at the time of this visit. Either the patient or their legal billing representative has been informed of the risks and benefits of -- and alternatives to -- treatment through a remote evaluation and consents to proceed with the evaluation remotely. Primary Problem List: ACTIVE PROBLEM LIST Cervicocranial Syndrome Chronic Daily Headache Chronic Thoracic Back Pain Derangement of Meniscus History of Respiratory System Disease Inflammatory Polyarthropathy (Hcc) Mitral Prolapse Mixed Hyperlipidemia Sleep Apnea Orthostatic Hypotension Palpitations Paresthesia Pvc's (Premature Ventricular Contractions) Raynaud's Disease Chief Complaint: Dizziness Impression and Plan from last visit: Christie Chance is a 52 year old year old male, with a history significant of POTS, inflammatory arthritis, vertigo, imbalance, thoracic spine pain, cervicogenic headache, and migraine presenting today with improving symptoms of dizziness, imbalance, and headache. He is tolerating gabapentin - but has noticed some hand trembling if his brain is challenged. His speech is also sometimes soft/mumbled when challenged. Word finding difficulty remains a concern and [facility] to discuss next steps. I would like to see his symptoms well managed for another 3 months prior to weaning down on gabapentin. I do not think intermittent hand trembling and word finding difficulty is s/s to gabapentin at this time. His neurological examination is minimal and nonfocal. Diagnosis: Imbalance (primary encounter diagnosis) Vertigo of central origin Cervicocranial syndrome Cervicogenic headache PLAN: - continue gabapentin 600 mg daily at bedtime, can consider increasing vs. Decreasing the dose in 3 months. - follow up with [employer] [facility] Saturday in regards to word finding difficulty. - if recommended to start an anti-anxiety medication would favor SNRI (Did not discuss with patient) Interval Hx: Presents today to discuss ongoing symptoms of imbalance and headaches. He was previously concerned about gabapentin causing trouble with fine motor movements. His hand movement has improved and he is able to use his hands well again in the last 6 - 8 weeks. He has had trouble with his speech - felt it was more broken and is typically related to when he being pushed at PT or in a high stimulation environment. The last time this happened as at his daughter's college orientation. It does not happen at work. He does find that his speech is slightly improved. He is no longer having trouble coming up with names of people he knows well. Continues to find that overall he has improved since establishing with our clinic. He did see speech therapy as recommended by brain health - they did repeat testing. He did not find much benefit from the therapy session. Stumbling/Imbalance - overall improved - during the day can happen 5 - 10 times depending on activities - he did have trouble on vacation trying to cross busy streets (has a hard time keeping his feet moving) - had trouble in an aquarium with darkness and reflection of water on the ground (hard to get moving) - he no longer feels like he is from his feet - will take 3 - 4 times to start walking then he will be able to walk without trouble - he has been able to run! - continues to use prism glasses which helps minimally - he did have 1 fall going down stairs about 1 month ago (misjudged steps, he had no injuries) Headache - daily headaches have improved, has had a few worse headaches in the last month - last month he had 3 headaches he would classify as a migraine (schedule has been off with PT stretches) - he is getting back on track with his exercises - last PT was about 1.5 months ago (he may stop going and see how he does) - in the last month he has required more ibuprofen than usual (takes 2 - 3 tablets/headache) Preventative: gabapentin 600 mg - finds that this is helping at least with sleep (if he does not sleep well his symptoms will be worse). Helps with bladder pain at bedtime. He does have less symptoms of his head feeling uncomfortable on a day to day basis. Hand shaking is slight. Abortive: ibuprofen Issues and questions to be addressed: - discuss stopping gabapentin? - 3 month follow up Medications tried: Prior Therapies Duration of Use Dose Reason for Discontinuation Anti-Convulsant Gabapentin (Neurontin) ALLERGIES Allergen Reactions Declomycin [Demeclo* Other: See Comments, Unknown Childhood Seasonal Allergies Cough Runny nose, sneezing, itchy, and watery eyes HEADACHE SCORES: Headache Questions 09/29/2022 01/19/2023 04/21/2023 ER visits since last office visit: 0 0 0 Hospital stays since last office visit 0 0 0 Limited ADLs in the last month: 0 0 3 Days missed from work or school in the last month: 0 0 0 Days headache pain free in the last month: 0 0 0 Days per month with ALL of the following symptoms - decreased productivity, light sensitivity and nausea: 0 0 0 Initial improvement of headache after botox injection at last visit: Not applicable, I did not have a botox injection at my last visit Not applicable, I did not have a botox injection at my last visit Not applicable, I did not have a botox injection at my last visit PRN medication usage in the last month: 7 2 7 Patient impression of improvement since last visit: Minimally improved Minimally improved Minimally worse HIT-6 09/29/2022 01/19/2023 04/21/2023 HIT-6 52 (Moderate impact) 50 (Moderate impact) 50 (Moderate impact) JOSE - 2/7 SCORES 05/12/2022 09/29/2022 04/21/2023 JOSE-2 Score 0 6 0 JOSE-7 Score - 14 - Migraine Specific QOL - Higher scores indicate better HRQL 09/29/2022 01/19/2023 04/21/2023 Role Function-Restrictive Transformed Score (range: 0-100) 82.86 82.86 80 Role Function-Preventive Transformed Score (range: 0-100) 100 100 95 Emotional Function Transformed Score (range: 0-100) 93.33 86.67 86.67 PHQ-9 12/29/2022 01/19/2023 04/21/2023 Score 8 2 3 REVIEW OF SYSTEMS: Review of system : unchanged from the previous visit (sleep patterns, mood, energy, appetite, stress, exercising). Examination: Vital Signs: There were no vitals taken for this visit. General: well appearing, in no acute distress, alert Pain Behaviors: no pain behaviors observed Neurological: Mental Status: Alert and oriented to person, place and time. Affect is normal. Speech is clear, coherent, and relevant. 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 Attention span and concentration are excellent. HEENT: Head is normocephalic and features were symmetric. IMPRESSION: Christie Chance is a 52 year old year old male, with a historysignificant of POTS, inflammatory arthritis, vertigo, imbalance, thoracic spine pain, cervicogenic headache, and migraine presenting today with stable issues of dizziness, imbalance, and headaches. He finds that had trembling/shaking and difficulties with speech have improved overall. He is able to tolerate side effects from gabapentin and does find it helpful. He was encouraged to restart his HEP from PT as this is likely why headaches are slightly worse. At this time, I do not see a need for further neuro-imaging given his improvements overall and negative imaging since symptom onset. His neurological examination is essentially normal at this visit. Diagnosis: Imbalance (primary encounter diagnosis) Cervicocranial syndrome Cervicogenic headache PLAN: - continue gabapentin 600 mg daily at bedtime (can consider increasing vs. Decreasing in the future) - restart HEP from PT PDMP website checked and validated. All prescriptions have been APPROPRIATELY filled. No suspicious activity was identified. 04/23/2023 by Johana Frias APRN.TAURUS Headache education was done. Discussed lifestyle modification including increased oral hydration, decreased caffeine, exercise and stress management. Discussed treatment options including preventive and acute medications, natural supplements, and infusion therapy. Discussed medication overuse headache and to limit use of acute treatments to no more than 2 days/week or 10 days/month. Discussed medication side effects, adverse reactions and drug interactions. Written educational materials and patient instructions outlining all of the above were given. RESEARCH: None at this time Follow-up: 6 months, PRN Level of service: Est level 3 (20-29 min). Time spent 25 min on the day of service, which included preparing to see the patient, [id number] patient care, completing clinical documentation, obtaining and/or reviewing separately obtained history, performing a medically appropriate examination, counseling and educating the patient/family/caregiver, and ordering medications, tests, or procedures. The patient has my contact information and my chart sign up information. Johana Frias APRN.TAURUS documented in this encounter [facility] 01-30-2023 Miscellaneous Notes ordered speech therapy, asked Admin to fax order Message routed to Sharlene. Ivon Alan RN documented in this encounter [facility] 01-08-2023 History of Present illness Narrative PATIENT NAME: Christie Chance 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 The current evaluation was performed in the context of medical care and a clinical referral question and not for purposes of a forensic, disability, or workers' compensation evaluation. This assessment is part of a multidisciplinary evaluation conducted in the [facility]. The assessment consisted of a brief interview with the patient and collateral (when available), neurobehavioral examination, and standardized neuropsychological assessment. Given the targeted nature of the referral, details of the patient's history, which are already known to the referral source, are only briefly summarized. Please see patient medical records for more detailed information. RELEVANT BACKGROUND: Mr. Christie Chance is a 52 year old, right-handed, , White male referred for a neuropsychological evaluation in the context of cognitive concerns. MoCA score in Dr. Cottrell's evaluation (01/03/23) was 23/30. The patient was unaccompanied to the evaluation. He reported cognitive changes that began approximately 6-12 months ago and have worsened over time, although he reported more recent improvement. REVIEW OF COGNITIVE FUNCTIONS: Memory: forgetful and needs to write things down, results in mistakes at work, forgets names of familiar people, not repetitious Attention/Working Memory: problems with focus and distractibility, hard to follow a conversation if there are others happening simultaneously Executive Functions: misplaces items Language: word finding problems but no paraphasias or comprehension problems Visuospatial: diplopia for close vision Processing Speed: slowed Motor: drops items FUNCTIONAL STATUS: Driving: independent Medications: independent, uses weekly organizer Finances: independent Cooking: does some cooking, may leave the stove on Appointments: uses phone to manage The patient described his mood as more optimistic recently. However, he reported work-related stress and stated that he no longer looks forward to things as much as in the past. Current suicidal ideation was denied, although he stated that work stress was severe enough a few months ago that he would have pressed a button to end his life if he could. RECENT WORK-UP: MRI Brain: 06/2020 (outside facility). Findings were reportedly normal. Polysomnogram: 03/16/2022, confirmed diagnosis of at least mild obstructive sleep apnea syndrome SOCIAL/ACADEMIC/OCCUPATIONAL BACKGROUND: Development: No complications or developmental delays Medical History: AVA, POTS, headaches, seasonal allergies, mitral valve prolapse, arrhythmia Surgical History: nasal surgeries Neurological History: The patient reported possible undiagnosed concussions (including some with brief loss of consciousness) while playing high school football. He also described previous episodes in which his body may briefly lock up that occur about once per month but have not occurred recently. Current Medications (in Epic): amoxicillin, gabapentin, albuterol, methocarbamol, Plaquenil, Singulair, Nancy. Psychiatric History: no history of mental health issues or treatment Substance Use: Current substance use is unremarkable. Past substance use is unremarkable. Family Medical History: stroke (grandfather) Educational History: 16 years, Denied early attention problems or learning difficulties. 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 Social History: The patient is and has 3 children. The patient lives with , two children, and grandchild. PHYSICAL FUNCTIONING: Motor Problems: reduced balance (may briefly lose control of his feet/legs and stumble); he has tremor in his hands when performing an action; he does PT for his neck and back Sensory Problems: none Pain: endorsed chronic pain (lower back) Sleep: Average of 6 hours per night, reported AVA and sleeps better now that he uses CPAP, feels more rested upon awakening. No reported dream enactment behaviors. Autonomic Dysfunction: orthostatic hypotension (POTS) BEHAVIORAL OBSERVATIONS: Mood: anxious Affect: restricted Rapport: amicable, pleasant and cooperative Speech: occasional word-finding difficulty during clinical interview Comprehension: required elaboration/repetition of instructions at times Historian: good Thought Processes: logical Motor: tremor evident in his right hand when he reported dizziness Sensory Problems: wore glasses Participation: active Attention: appeared alert Behavior: test-taking style was slow; reported dizziness at times, including during a block assembly task Effort/Validity: appropriate; results are considered valid ? COGNITIVE RESULTS: Estimated premorbid abilities: Based on a combination of his single word reading performance and demographic variables, Mr. Nevess premorbid intellectual abilities are estimated to be in the high average range. Attention/Processing Speed: Basic auditory attentional span was average. Auditory working memory was average. Performance on a measure of visuomotor processing speed and sequencing was average. Processing speed on a digit-symbol editorial cartoonist task was average. Performance on a measure of timed visual scanning and motor speed was average. Speeded color naming was low average, and speeded word reading was average. Executive functioning: Verbal abstract reasoning ability was average. Visual planning/problem solving was average. Mental flexibility and visuomotor set shifting was high average. Verbal response inhibition was low average, and the same task with a set switching component was average. Language: Confrontation naming was intact. Lexical verbal fluency was low average. Semantic verbal fluency was moderately low. Sentence repetition was low average. Learning and Memory: Story learning was average. Following a delay, story recall was average, and recognition of story elements was within normal limits. Word list learning was average. Following a delay, word recall was low average, and recognition of the words was average (with 3 false positive errors). Learning of geometric shapes was average. Following a delay, recall of the shapes was average, and recognition was average. Visuospatial: Visuoconstruction (block assembly) ability was average. Copy of individual geometric shapes was within expectations. Visuoperception on an angle estimation task was average. Mood: Mr. Chance endorsed minimal symptoms of depression and mild symptoms of anxiety on self-report measures. SUMMARY/IMPRESSIONS: Neuropsychological evaluation revealed moderately low range performance on a measure of semantic verbal fluency. The patient's performance in other domains was within the normal range in all respects, with scores ranging from low average to high average relative to age-based norms. On brief mood screening measures, he indicated minimal symptoms of depression and mild symptoms of anxiety. Overall, results of this exam indicate largely intact neuropsychological performance. Within this context, the patient's isolated semantic verbal fluency impairment is of questionable clinical significance and may represent normal cognitive variability. Findings do not suggest the presence of a neurodegenerative process at this point, and the patient's report of recent improvement in cognitive function also argues against a progressive neurological disorder. Contributory factors to recent cognitive problems may include emotional distress and poor sleep. Normal age-related changes also may contribute to his subjective difficulties. RECOMMENDATIONS 1. This exam establishes a baseline of cognitive function at this time, and results may be used for comparison purposes should the patient undergo repeat neuropsychological evaluation in the future. 2. The patient may be a good candidate for cognitive training (typically administered through speech-language pathology) to help implement compensatory strategies. 3. More generally, he may benefit from the use of organizational strategies and memory techniques. Creating lists and using a journal, notebook, or erasable whiteboard to record events or appointments may be useful. Use of mnemonic strategies (e.g., visualization, creating associations, mental imagery) has been shown to improve recall. Establishing routines may also be helpful in remembering activities or tasks to accomplish. Lastly, identifying a memory place in which to keep frequently used items (e.g., glasses, keys) may be useful. 4. Mr. Chance is encouraged to maintain a healthy lifestyle to optimize brain health and limit risk factors for stroke and cognitive decline. Continued engagement in regular activity and exercise is recommended and may be beneficial. Continued involvement in cognitively stimulating activities is also recommended (i.e., reading, puzzles, gardening). Lastly, attention to nutritional factors and proper diet is encouraged. 5. He may consider establishing care with a psychotherapist or counselor to help manage stressors. He also may wish to consult with his treatment team regarding trial of medication to address mood symptoms. OVERVIEW The graph below shows performance in different areas of cognitive function. The table is intended to serve as a summary of the data and may not include each individual test score derived. See 'Test Results' and 'Impressions/Summary' section for a comprehensive discussion of all test scores. Very Superior Superior High Average X Average X X X X X X X n/a Low Average W X Moderately Low Extremely Low Estimated IQ Learning Memory Recog- nition Attention Processing Speed Executive Language Visuo- spatial Motor W=Word List This table should not be presented separate from the Neuropsychological Evaluation Report dated 01/08/2023. This report is meant to be considered as only one part of the comprehensive examination. The results will be communicated to the referring physician via shared electronic medical record. Martín Tamez, Ph.D., ABPP-CN Board Certified in Clinical Neuropsychology Neurobehavioral status exam/clinical interview by neuropsychologist = 1 hour Neuropsychological evaluation services by neuropsychologist = 2 hours Neuropsychological test administration/scoring by hydrochloric area supervisor = 3 hours, 57 minutes documented in this encounter [facility] 01-03-2023 History of Present illness Narrative This note was created using ilustrumriter. Subjective Christie Chance is a 52 year old male. 52 year old male with PMH hyperlipidemia and Raynauds presents for complaints of illness. Acute onset yesterday +sore throat +headache Denies fever or chills Denies cough +exposure to strep, citing and daughter are currently being treated. Denies inability to handle secretions. Denies muffled voice. Denies tobacco usage. The history is provided by the patient. No conference interpreter was used. Sore Throat This is a new problem. The current episode started yesterday. The problem has been unchanged. Neither side of throat is experiencing more pain than the other. There has been no fever. The pain is at a severity of 3/10. Associated symptoms include headaches. Pertinent negatives include no abdominal pain, congestion, coughing, diarrhea, drooling, ear discharge, ear pain, hoarse voice, plugged ear sensation, neck pain, shortness of breath, stridor, swollen glands, trouble swallowing or vomiting. He has had exposure to strep. He has had no exposure to mono. He has tried NSAIDs for the symptoms. The treatment provided mild relief. PAST MEDICAL HISTORY Diagnosis Date Arrhythmia Inflammatory polyarthritis (HCC) recent diagnosis. about to start plaquenil (03/2021) PAST SURGICAL HISTORY Procedure Laterality Date PAST SURGICAL HISTORY OF turbinate reduction PAST SURGICAL HISTORY OF 2000 DEVIATED SEPTUM ALLERGIES Declomycin [Demeclocycline] and Seasonal Allergies MEDICATIONS gabapentin (NEURONTIN) 300 mg capsule Take 2 capsules by mouth daily at bedtime for 90 days. albuterol HFA (PROVENTIL HFA, VENTOLIN HFA) 90 mcg/actuation inhaler inhale 2 puffs by mouth every 4 hours if needed for wheezing cough or shortness of breath CPAP/BIPAP/OTHER Type .CPAPSettings into a note to see current settings/supplies/DME information. montelukast sodium (SINGULAIR ORAL) Take by mouth once daily. hydroxychloroquine sulfate (PLAQUENIL ORAL) Take 200 mg by mouth twice daily. fexofenadine (NANCY) 180 mg tablet Take 180 mg by mouth once daily. amoxicillin (AMOXIL) 500 mg capsule Take 1 capsule by mouth twice daily for 10 days. methocarbamol (ROBAXIN) 500 mg tablet Take 1 tablet by mouth three times daily as needed (neck pain, headache, back pain). (Patient not taking: No sig reported) No family history on file. Social History Tobacco Use Smoking status: Never Smokeless tobacco: Never Substance Use Topics Alcohol use: Yes Comment: Rarely Drug use: Never Review of Systems Constitutional: Positive for activity change, chills and fatigue. Negative for fever. HENT: Positive for sore throat. Negative for congestion, drooling, ear discharge, ear pain, hoarse voice and trouble swallowing. Eyes: Negative for pain, discharge, redness and itching. Respiratory: Negative for cough, shortness of breath and stridor. Cardiovascular: Negative for chest pain, palpitations and leg swelling. Gastrointestinal: Negative for abdominal pain, diarrhea and vomiting. Musculoskeletal: Negative for arthralgias, back pain and neck pain. Skin: Negative for color change, pallor, rash and wound. Allergic/Immunologic: Positive for environmental allergies. Negative for food allergies and immunocompromised state. Neurological: Positive for headaches. Negative for dizziness and facial asymmetry. Hematological: Negative for adenopathy. Does not bruise/bleed easily. Psychiatric/Behavioral: Negative for agitation and behavioral problems. Objective BP 150/80 Pulse 69 Temp 36.7 C (98.1 F) Resp 21 Wt 77.1 kg (170 lb) SpO2 98% BMI 25.10 kg/m Physical Exam Vitals and nursing note reviewed. Constitutional: General: He is not in acute distress. Appearance: Normal appearance. He is not ill-appearing, toxic-appearing or diaphoretic. HENT: Head: Normocephalic and atraumatic. Right Ear: External ear normal. Left Ear: External ear normal. Nose: Nose normal. No congestion or rhinorrhea. Mouth/Throat: Mouth: Mucous membranes are moist. Pharynx: Oropharynx is clear. Posterior oropharyngeal erythema (2 + enlarged bilateral tonsils. Uvula midline. Handling secretions) present. No oropharyngeal exudate. Eyes: General: Right eye: No discharge. Left eye: No discharge. Extraocular Movements: Extraocular movements intact. Conjunctiva/sclera: Conjunctivae normal. Pupils: Pupils are equal, round, and reactive to light. Cardiovascular: Rate and Rhythm: Normal rate and regular rhythm. Pulses: Normal pulses. Heart sounds: Normal heart sounds. No murmur heard. No friction rub. No gallop. Pulmonary: Effort: Pulmonary effort is normal. No respiratory distress. Breath sounds: Normal breath sounds. No stridor. No wheezing, rhonchi or rales. Chest: Chest wall: No tenderness. Abdominal: General: Abdomen is flat. There is no distension. Palpations: Abdomen is soft. There is no mass. Tenderness: There is no abdominal tenderness. There is no guarding or rebound. Hernia: No hernia is present. Musculoskeletal: General: No swelling, tenderness, deformity or signs of injury. Normal range of motion. Cervical back: Normal range of motion and neck supple. No rigidity or tenderness. Right lower leg: No edema. Left lower leg: No edema. Lymphadenopathy: Cervical: No cervical adenopathy. Skin: General: Skin is warm and dry. Capillary Refill: Capillary refill takes less than 2 seconds. Coloration: Skin is not jaundiced or pale. Findings: No bruising, lesion or rash. Neurological: General: No focal deficit present. Mental Status: He is alert and oriented to person, place, and time. Cranial Nerves: No cranial nerve deficit. Sensory: No sensory deficit. Motor: No weakness. Coordination: Coordination normal. Gait: Gait normal. Deep Tendon Reflexes: Reflexes normal. Psychiatric: Mood and Affect: Mood normal. Behavior: Behavior normal. Thought Content: Thought content normal. Assessment and Plan ASSESSMENT/PLAN: 1. Pharyngitis due to Streptococcus species - ICD9: 034.0, ICD10: J02.0 + exposure - suspect strep - Alere Strep Test POSITIVE, no culture pending - antibiotic as written - Discussed supportive care treatment with fluids, rest and analgesia. - The patient may also use OTC cough and cold meds as needed, warm salt water gargles, throat lozenges and/or OTC throat spray as needed, and nasal saline gtts and suction prn. - Contagious dz precautions discussed- including considered contagious until on antibiotics for 24 hours - The patient should follow up in 3-5 days if symptoms persist or worsen - Call back if drooling, increased temperature, symptoms of dehydration and/or still sick in one week - STREP A MOLECULAR (POC) Natividad Reeder APRN.TAURUS documented in this encounter [facility] 10-03-2022 Yuliana Frias APRN.CNP - 10/03/2022 9:33 AM EST - ok to hold on further PT - increase gabapentin to 600 mg at bedtime when ready - consult to brain health for cognition/concentration documented in this encounter [facility] 10-03-2022 History of Present illness Narrative Headache Center - Virtual Visit Last Visit: 05/15/2022, Johana Frias APRN.VENETIAN BLIND MECHANIC Accompanied by: Self During this COVID-19 pandemic, patient's headache clinic evaluation was scheduled as a virtual visit using the following platform Zoom - Patient located in [place] Christie Chance was identified by name and and consented to the video evaluation and its limitations. Based on this evaluation it may be necessary for them to schedule a follow up evaluation with me or other neurologists for formal physical examination and if necessary,other studies. Primary Problem List: ACTIVE PROBLEM LIST Cervicocranial Syndrome Chronic Daily Headache Chronic Thoracic Back Pain Derangement of Meniscus History of Respiratory System Disease Inflammatory Polyarthropathy (Hcc) Mitral Prolapse Mixed Hyperlipidemia Sleep Apnea Orthostatic Hypotension Palpitations Paresthesia Pvc's (Premature Ventricular Contractions) Raynaud's Disease Chief Complaint: Dizziness Impression and Plan from last visit: Christie Chance is a 51 year old year old male, with a history significant of POTS, inflammatory arthritis, vertigo, imbalance, thoracic spine pain, cervicogenic headache, and migraine presenting today with ongoing symptoms of dizziness, imbalance, and headache which have overall improved with PT but his dizziness and imbalance are still easily triggered by eye movements and motion along with pressing on pressure points. We discussed etiology of treatment and decided together to trial gabapentin geared to reducing nerve irritation. He is willing to try. Robaxin was helpful for severe muscular chest wall pain and has not recurred. He can discuss with PT at his next visit if he should continue with treatment or pause. He will also do vision therapy in the interim. If his symptoms do not improve we can do updated neuroimaging His neurological examination is nonfocal. Diagnosis: Vertigo of central origin (primary encounter diagnosis) Imbalance Tinnitus, bilateral Cervicocranial syndrome PLAN: HEADACHE MANAGEMENT: (You are the primary guardian of your health and headache. Keep track of all medications: This includes the reason for use, side effects and benefits.) MEDICATION TREATMENT: Medications to Start Taking gabapentin (NEURONTIN) 300 mg capsule Take 1 capsule by mouth daily at bedtime for 90 days. - consider increasing the dose of gabapentin - continue PT for now (ok to hold if needed) - vision therapy per provider - continue robaxin PRN for muscular pain Interval Hx: Presents today to discuss ongoing issues of stumbling and vertigo. Now on gabapentin 300 mg. The first 2 weeks was hard to focus. Then side effects improved. Hands started to shake for a couple of weeks when reaching for things which has also resolved. Now he has no reported side effects. He does think this has helped. Chest pain has improved and feeling of being messed up has also improved. The feeling of messed up in his head has improved about 80%! This is no longer ruining activities for him. He is focusing more on visual orientation with physical therapy, does think this helps and also thinks he has plateaued. Is reporting that he is having trouble with memory and focusing. He is missing things at work and forgetting to return to tasks to complete. He is working on the same project he has worked on for years. He does not find that the cognitive complaints line up with when he started gabapentin. He is more anxious and is not sleeping well. Stumbling/Imbalance - improved - about 20% - present to some degree daily (intermittent) - will resolve when he is removed from external things - he has been able to run, but after the run he will sometimes stumble after running - worse if cars drive by when he is stopped at an intersection, or a tunnel, crowds, doorways, people passing (visual triggers are he worst) - able to handle work without issues - alleviated by holding onto something (shopping cart, stroller) - he does feel like he is able to control his feet! - had some falls but they were not related to dizziness/imbalance - can have a head heaviness sensation with stumbling - dizziness can be triggered by palpation of trigger points -- far improved Headaches: - doing well - continues to have a daily headache that is an ache in the front - denies photophobia/phonophobia or nausea - daily headache 1-3/10 on average - has been using ibuprofen more than usual (4/ week) Tinnitus: - not as severe - faced more so Preventative: gabapentin 300 mg Abortive: ibuprofen Issues and questions to be addressed: - patient update on gabapentin - cognitive issues? Medications tried: Prior Therapies Duration of Use Dose Reason for Discontinuation Anti-Convulsant Gabapentin (Neurontin) ALLERGIES Allergen Reactions Declomycin [Demeclo* Other: See Comments, Unknown Childhood Seasonal Allergies Cough Runny nose, sneezing, itchy, and watery eyes HEADACHE SCORES: Headache Questions 02/03/2022 05/12/2022 09/29/2022 ER visits since last office visit: 0 0 0 Hospital stays since last office visit 0 0 0 Limited ADLs in the last month: 0 0 0 Days missed from work or school in the last month: 0 0 0 Days headache pain free in the last month: 0 0 0 Days per month with ALL of the following symptoms - decreased productivity, light sensitivity and nausea: 0 0 0 Initial improvement of headache after botox injection at last visit: Not applicable, I did not have a botox injection at my last visit - Not applicable, I did not have a botox injection at my last visit PRN medication usage in the last month: 10 6 7 Patient impression of improvement since last visit: Much improved Minimally improved Minimally improved HIT-6 02/03/2022 05/12/2022 09/29/2022 HIT-6 52 (Moderate impact) 50 (Moderate impact) 52 (Moderate impact) JOSE - 2/7 SCORES 02/03/2022 05/12/2022 09/29/2022 JOSE-2 Score 0 0 6 JOSE-7 Score - - 14 Migraine Specific QOL - Higher scores indicate better HRQL 02/03/2022 05/12/2022 09/29/2022 Role Function-Restrictive Transformed Score (range: 0-100) 85.71 77.14 82.86 Role Function-Preventive Transformed Score (range: 0-100) 100 100 100 Emotional Function Transformed Score (range: 0-100) 93.33 93.33 93.33 PHQ-9 04/22/2022 05/12/2022 09/29/2022 Score 6 6 11 REVIEW OF SYSTEMS: Sleep: Insomnia, Mood: anxious, Energy: unchaged, Appetite: normal , Weight 9- 10 pound loss, Stress: High Examination: Vital Signs: There were no vitals taken for this visit. General: well appearing, in no acute distress, alert Pain Behaviors: no pain behaviors observed Neurological: Mental Status: Alert and oriented to person, place and time. Affect is normal. Speech is clear, coherent, and relevant. Short and [facility] memory, cognition and general fund of knowledge are good. Attention span and concentration are excellent. HEENT: Head is normocephalic and features were symmetric. IMPRESSION: Christie Chance is a 52 year old year old male, with a history significant of POTS, inflammatory arthritis, vertigo, imbalance, thoracic spine pain, cervicogenic headache, and migraine presenting today with ongoing and improving symptoms of dizziness, imbalance, and headache. He notes gabapentin has been helpful to some degree but is hesitant to increase the medication until things quiet down at work. He has stabilized with PT and I am in agreement he can pause PT and continue HEP. He is mainly concerned today with cognitive deficits impacting his work performance. We discussed many times this is related to anxiety and lack of sleep - but will refer him to brain [facility] for a formal evaluation. His prescription of gabapentin was increased when he is ready to double his dose which will likely help to further improve his symptoms. His neurological examination is essentially normal at this visit. Diagnosis: Imbalance (primary encounter diagnosis) Vertigo of central origin Short-term memory loss Cervicocranial syndrome Cervicogenic headache Tinnitus, bilateral PLAN: - ok to hold on further PT - increase gabapentin to 600 mg at bedtime when ready - consult to brain [facility] for cognition/concentration Headache education was done. Discussed lifestyle modification including increased oral hydration, decreased caffeine, exercise and stress management. Discussed treatment options including preventive and acute medications, natural supplements, and infusion therapy. Discussed medication overuse headache and to limit use of acute treatments to no more than 2 days/week or 10 days/month. Discussed medication side effects, adverse reactions and drug interactions. Written educational materials and patient instructions outlining all of the above were given. RESEARCH: None at this time Follow-up: 3 months, PRN Level of service: Est level 4 (30-39 min). Time spent 30 min on the day of service, which included preparing to see the patient, [id number] patient care, completing clinical documentation, obtaining and/or reviewing separately obtained history, performing a medically appropriate examination, counseling and educating the patient/family/caregiver, and ordering medications, tests, or procedures. The patient has my contact information and my chart sign up information. I performed this clinical encounter by utilizing a real time telehealth video connection between my location and the patient's location. The patient's location was confirmed during the visit. I obtained verbal consent from the patient to perform this clinical encounter utilizing video and prepared the patient by answering any questions they had about the telehealth. I addressed patient's questions and concerns in detail in regards to the chief complaint today in addition to all other comorbidities. Johana Frias APRN.CNP documented in this encounter [facility] 08-06-2022 Miscellaneous Notes The following approved medication requests have been transmitted electronically. Requested Prescriptions Signed Prescriptions Disp Refills gabapentin (NEURONTIN) 300 mg capsule 30 capsule 2 Sig: Take 1 capsule by mouth daily at bedtime for 90 days. Authorizing Provider: JOHANA FRIAS APRN.CNP Physician: Kristian Call from patient requesting refill. Please E-Scribe Per patient message I took these for 90 days and seemed to help with symptoms Last office visit 05/15/2022with Kristian in person Next office visit Kristian with 10/03/2022 virtual Requested Prescriptions Pending Prescriptions Disp Refills gabapentin (NEURONTIN) 300 mg capsule 30 capsule 2 Sig: Take 1 capsule by mouth daily at bedtime for 90 days. [facility]: [facility] documented in this encounter [facility] 07-20-2022 Instructions Sara Levine APRN.CNP - 07/20/2022 3:39 PM EST PAP Supply Guidelines Below are the guidelines for reordering your supplies. You will be responsible for your deductible, co-payments, and out of pocket expenses. Item Medicare & Commercial Insurance Medicaid & HCAP Nasal Mask (no headgear) 1 every 3 months 1 per year Nasal Mask Cushion 1 every month 2 per year Full Face Mask (no headgear) 1 every 3 months 1 per year Full Face Mask Cushion 1 every month *Self-Pay Nasal Pillows 2 every month 2 per year Headgear 1 every 6 months 1 per year Chin Strap 1 every 6 months 2 per year Tubing 1 every 3 months 1 per year Filters: Reusable 1 every 6 months 4 per year Filters: Disposable 2 every month 1 per month Humidifier Chamber(disposable) 1 every 6 months *Self-Pay PAP Problems and Solutions CPAP Hatch on Skin 1: Could be an allergic reaction - use Remzzz's 2: Over tightening the mask because the mask is too big, cushions are worn out, you have not washed your face, the mask is dirty, and the headgear is too small and tight 3: You have sensitive skin 4: Takes time for your skin to toughen up and get used to it. 5: Use an ointment such as A&D during the day, but not while the mask is on as it can cause the mask to breakdown and make it slippery while on your face, therefore compromising the seal. 6: Use a softer mask Bloated and Gassy 1: No clear cut solution 2: Use a chinstrap no matter what type of mask you are using to reduce the likelihood of swallowing air through your mouth. 3: Use Simethicone prior to going to bed. 4. Try not to eat 2-3 hours before bedtime. 5: Lower CPAP pressure setting temporarily. Example was 12 - lower to 10 for 1 month, 11 for one month, then back up to 12 6: Use Auto CPAP or BiPAP 7: Lengthen ramp time 8: Elevate the head of the bed 9: Try sleeping on your side. 10: Try a different mask 11: Out of options? Switch to BiPAP Dry Mouth 1: Nasal Pillows or Mask? Wear the chin strap 2: Raise the level of the heated humidifier 3: Have head cold or allergies 4: Using wrong mask for pressure setting 5: Medications such as psychiatric meds 6: Preheat your distilled water - especially in the winter months 7: Use a tubing wrap to keep in the moisture Allergies 1: Take a bath before bedtime 2: Keep your windows closed at night to prevent allergens from coming in 3: Wash your sheets and blankets often 4: Use the fine particulate filter for your PAP 5: Use a HEPA filter in your home 6: Saline flush your nose 7: See an B[employer]er Operators Supervisor 8: Use a full face mask during allergy flare-ups Stomach Sleeper 1: Requires a lot of patience and persistence 2: Are no good or perfect solutions 3: Do not sleep with your face buried in the pillow, you could cover the exhalation port and trap CO2 which you will breathe in. 4: Situate tubing to go over your head or to the side. 5: Find a comfortable mask that is less bulky 6: After time, you will likely train yourself to sleep on your side 7: Choose a softer pillow or use a CPAP pillow and sleep with your face on the edge of the pillow Have a Cold? 1: Do not use nasal pillows or nasal mask when you have a cold. This is because your nasal passages swell and become inflamed with a cold. 2: Use a full face mask 3: Breathe through your mouth with the full face mask 4: Use the heated humidifier documented in this encounter [facility] 07-20-2022 History of Present illness Narrative Images from the original note were not included. [facility] Follow up/ Established patient visit Date of last visit : 04/27/2022 Per last visit: IMPRESSION/PLAN: Diagnosis: R06.9 Abnormal breathing sounds (primary encounter diagnosis) G47.33 AVA (obstructive sleep apnea) R06.89 Gasping for breath R06.81 Witnessed episode of apnea G47.00 Frequent nocturnal awakening G47.00 Middle insomnia R35.1 Nocturia R39.89 Bladder pain G47.51 Confusional arousals G47.8 Unrefreshed by sleep G47.19 Excessive daytime sleepiness R41.840 Lack of concentration Sleep Studies (Reviewed Prior and Current): Home Sleep Test (HST) 03/16/22 revealed least mild obstructive sleep apnea. Total AHI of 9.6, Off-Supine AHI 5.4, Supine AHI 11.8 and a minimum oxygen saturation of 89%. Overview: Mr. Christie Chance is a 51 year old male with a PMH of Chronic Back Pain, POTS, Vertigo, Inflammatory Arthritis, Thoracic Spine Pain, Cervicogenic Headache, Migraines, and Excessive Daytime Sleepiness who presents in person for new patient evaluation for Dx: AVA (obstructive sleep apnea) [G47.33 (ICD-10-CM)]. My says that I stop breathing and make funny noises. I don't sleep good. Wakes up feeling tired. Every seven to ten days I wake up feeling horrible. Confused, can't breath, panic state. Struggling with driving back and forth to work. Commute [address] I sleep okay if I stay on my side. I wake up if I am on my back. I usually fall right to sleep. I wake up between [id number] and may have difficulty falling back to sleep. Needs to void. Tries to lay down but bladder is really hurting. Discussed Home Sleep Test (HST) 03/16/22 results which revealed least mild obstructive sleep apnea. Total AHI of 9.6, Off-Supine AHI 5.4, Supine AHI 11.8 and a minimum oxygen saturation of 89%. The results of this study may represent an underestimation of the degree of obstructive sleep apnea, especially hypopneas, because of the known limitations of HSAT, such as inability to record arousals because EEG is not recorded. Discussed the diagnosis and physiology of obstructive sleep apnea. Discussed the importance of treating AVA, with particular attention given to the comorbidities associated with untreated AVA, which include but are not limited to hypertension, heart disease, stroke, obesity and daytime sleepiness that can affect normal daytime functioning. Treatment options for sleep apnea, including positive airway pressure (PAP) therapy, surgery, oral appliance (CONTRAINDICATED - POSITIVE TMJ) and conservative measures (avoidance of alcohol, sedative medications and sleeping in the back position, management of nasal obstruction and weight loss), should be individualized. PAP therapy may be considered in patients with documented symptoms of daytime sleepiness, impaired cognition, mood disorder, insomnia, or documented hypertension, ischemic heart disease, or history of stroke. Plan: (1) Start AutoCPAP 5-15 cmH2O with formal mask fitting and patient mask preference. New to PAP therapy. - I will have a prescription sent to a DME ([employer]) company - [employer] who will be calling you in the next 1-2 weeks. Please call them directly or us if you do not hear from them in this time frame. DME Contact Information: [address] [place] [address] Toll Free: Hours Mon - Fri 9:00 a.m.5:00 p.m. Sat & Sun - Please consider side sleeping or sleeping upright in a recliner until starting AutoPAP therapy. - You should be eligible for new supplies approximately every 3-6 months, depending on your insurance coverage. - If your mask doesn't fit well, call the DME company before 30 days are up to get a new mask without an additional charge. - We encourage a healthy lifestyle with adequate sleep (7-8 hours), diet and exercise. - Avoid driving when drowsy. Would recommend that if you are dozing off while driving, that you do not drive until your sleep apnea and sleepiness are appropriately treated. - Avoid the use of alcohol, sedatives, and narcotic pain medication at bedtime Insurance requirements: - Your insurance requires a [id number] follow up visit within a 31-90 day period after starting PAP machine (aim for ~ 60 days). At that visit, we will get a data download to ensure tolerance, compliance, and efficacy. - Your insurance requires compliance with PAP, which is at least 4 hours per night for 70% of the time. This must be done over a 30 day period and must occur within the initial 31-90 day period after starting CPAP. - Your insurance also requires at least yearly follow ups to continue to pay for CPAP supplies. Follow up: - Follow up in 60 days after your PAP machine arrives. Remember to contact office as soon as you get your machine to set up 60 days follow up appointment or virtual visit to ensure the best time for you. Please bring machine with you if following up in office. If you have questions, feel free to send me a [employer] message. I spent a total of 60 minutes as this was an new patient to me on the date of the service which included preparing to see the patient, [id number] patient care, completing clinical documentation, counseling and educating the patient/family/caregiver and ordering medications, tests, or procedures. Sara Levine, MOTOR BLOCK MECHANIC.[employer] BLIND MECHANIC Interval history : Rough start. Still waking up some nights feeling smothered in the middle of the night. Waking up with bladder pain has lessened. Here for follow up for AVA (start PAP 5-15 cmH20). SLEEP APNEA Sleep apnea type : AVA Most Recent Apnea-Hypopnea Index (AHI): Total AHI of 9.6, Off-Supine AHI 5.4, Supine AHI 11.8 Treatment : PAP therapy DME: [facility] PAP History: Uses AutoPAP for 5.5 hours per night, 7 nights per week. Current PAP settin-15 cm H2O. Difficulties with AutoPAP: Yes: smothering effect in the middle of the night. Reviewed objective PAP compliance data: 06/20/22-07/19/22 ResMed AirView AirSense 11 AutoSet [place] AutoSet 5-15 cmH20. Usage 28/30 days (93%) >= 4 hours - 27 days (90%) Average # hours nights used - 5 hours 36 minutes Pressure 95th % - 7.4 Average time in large leak per day - 5.7 Residual AHI - 0.5 Mask type: Full face mask Mask issues: None Uses chin strap: No Uses ramp function: No Uses humidity: Yes, Protocol: Distilled water. There is a perceived benefit by the patient: No longer having difficulty driving to work. Less daytime sleepiness. Observers report abolition of snoring and respiratory events with AutoPAP use. PATIENT-ENTERED QUESTIONNAIRE SLEEP SCORES Sleep Questions 04/22/2022 Reason for visit: Sleep apnea, Difficulty falling or staying asleep or poor sleep quality, Excessive daytime sleepiness Average hours slept in 24 hours: 5 Accidents or near accidents due to drowsy drivin [place] Sleepiness Scale 04/22/2022 Score 14 (present daytime sleepiness) PROMIS CAT Sleep Disturbance 07/26/2020 02/23/2022 04/22/2022 PROMIS Sleep Disturbance T-Score 46 (within normal limits) 62 (moderate) 56 (mild) Insomnia Severity Index 05/07/2021 05/07/2021 04/22/2022 Score 9 9 11 PHQ-9 02/03/2022 04/22/2022 05/12/2022 Score 4 6 6 PROMIS Global Health - (T-Scores - the mean of general population = 50. Five points is a clinically meaningful difference.) 10/30/2021 02/03/2022 05/12/2022 Physical T-Score 47.7 44.9 47.7 Mental T-Score 53.3 48.3 43.5 PMH, PSH, SH: Reviewed SLEEP RELATED ROS Review of Systems Constitutional: Positive for fatigue. Respiratory: Negative. Cardiovascular: Positive for palpitations. Genitourinary: Bladder pain Psychiatric: Positive for depressed mood. ALLERGIES Allergen Reactions Declomycin [Demeclo* Other: See Comments, Unknown Childhood Seasonal Allergies Cough Runny nose, sneezing, itchy, and watery eyes CURRENT MEDICATIONS: albuterol HFA (PROVENTIL HFA, VENTOLIN HFA) 90 mcg/actuation inhaler inhale 2 puffs by mouth every 4 hours if needed for wheezing cough or shortness of breath gabapentin (NEURONTIN) 300 mg capsule Take 1 capsule by mouth daily at bedtime for 90 days. CPAP/BIPAP/OTHER Type .CPAPSettings into a note to see current settings/supplies/DME information. montelukast sodium (SINGULAIR ORAL) Take by mouth. hydroxychloroquine sulfate (PLAQUENIL ORAL) Take by mouth. fexofenadine (NANCY) 180 mg tablet Take 180 mg by mouth once daily. Benzonatate 200 mg capsule take 1 capsule by mouth three times a day if needed for cough (Patient not taking: Reported on 07/20/2022) methylPREDNISolone (MEDROL) 4 mg Take by mouth. (Patient not taking: Reported on 07/20/2022) methocarbamol (ROBAXIN) 500 mg tablet Take 1 tablet by mouth three times daily as needed (neck pain, headache, back pain). (Patient not taking: Reported on 07/20/2022) Prior Hypersomnia/Narcolepsy Medications (20 years) Some values may be hidden. Unless noted otherwise, only the newest values recorded on each date are displayed. Hypersomnia/Narcolepsy Medications No data to display. Prior RLS Medications (last 20 years) Some values may be hidden. Unless noted otherwise, only the newest values recorded on each date are displayed. RLS Medications No data to display. Prior Insomnia Medications (last 20 years) Some values may be hidden. Unless noted otherwise, only the newest values recorded on each date are displayed. Insomnia Medications No data to display. PHYSICAL EXAMINATION: Vital Signs: BP 126/76 (BP Site: Left Arm, BP Position: Sitting, BP Cuff Size: Large Adult) Pulse 63 Ht 175.3 cm (5' 9) Wt 78.9 kg (174 lb) SpO2 99% BMI 25.70 kg/m PHYSICAL EXAM: Constitutional: Appearance: Well groomed. Well nourished male. Very pleasant. Skin: General: Skin is warm, dry, intact. Neurological: General: No focal deficit present. Mental Status: A&OX3 (person, place, and time). Speech: Clear, projects well. Memory: Intact, responses appropriate. Psychiatric: Mood and Affect: Mood normal. Behavior: Behavior normal IMPRESSION: Diagnosis Ava (obstructive sleep apnea) (primary encounter diagnosis) Sleep Studies (Reviewed Prior and Current): Home Sleep Test (HST) 03/16/22 revealed least mild obstructive sleep apnea. Total AHI of 9.6, Off-Supine AHI 5.4, Supine AHI 11.8 and a minimum oxygen saturation of 89%. Overview: Mr. Christie Chance is a 51 year old male with a PMH of Chronic Back Pain, POTS, Vertigo, Inflammatory Arthritis, Thoracic Spine Pain, Cervicogenic Headache, Migraines, and Excessive Daytime Sleepiness who presents in person for follow up visit for AVA (start PAP 5-15 cmH20). - Doing well with PAP therapy. - Denies mask or pressure intolerance. - Try adjusting the ramp (can turn it off) to see if this helps the smothering. - Compliant and benefiting from treatment. - Face to face examination completed 07/20/22. - Mr. Christie Chance has fulfilled his insurance requirement by following up with a visit 31-90 days after beginning PAP therapy with average usage of 5 hours 36 minutes, and compliancy of 90 %. Reviewed objective PAP compliance data: 06/20/22-07/19/22 ResMed AirView AirSense 11 AutoSet [employer] AutoSet 5-15 cmH20. Usage 28/30 days (93%) >= 4 hours - 27 days (90%) Average # hours nights used - 5 hours 36 minutes Pressure 95th % - 7.4 Average time in large leak per day - 5.7 Residual AHI - 0.5 Plan: - Continue Auto CPAP at 5-15 cmH2O. - Remember to clean your mask and equipment regularly, as directed. - You should be eligible for new supplies approximately every 3-6 months, depending on your insurance coverage. Contact your [employer] (DME) company for new supplies as needed. - Follow up in 6-12 months with [facility]. If you have questions, feel free to send me a [employer] message . I spent a total of 28 minutes as this was an established patient to me on the date of the service which included preparing to see the patient, [id number] patient care, completing clinical documentation, counseling and educating the patient/family/caregiver and ordering medications, tests, or procedures. Sara Levine APRN.CNP documented in this encounter [facility] 05-15-2022 Instructions Johana Frias APRN.CNP - 05/15/2022 4:43 PM EDT Gabapentin is an antiseizure medication that can also with pain, nerve irritation, headache / migraine, certain types of dizziness, restless legs syndrome... It does not interact with other medications. It can make you tired; that is why I recommend it at bedtime.Sometimes it can cause / enhance the dizziness. This is why we start the medication at a low dose (range 100mg to 4800mg / day). I suggest starting at 300mg / day. It may take 3 to 6 weeks to show a benefit. documented in this encounter [facility] 05-15-2022 History of Present illness Narrative [facility] - Follow up Visit Last Visit: 02/06/2022, Johana Frias APRN.[employer] Accompanied by: Self Primary Problem List: There is no problem list on file for this patient. Chief Complaint: Dizziness Impression and Plan from last visit: Vertigo of central origin (primary encounter diagnosis) Imbalance Tinnitus, bilateral Christie Chance is a 51 year old year old male, with a history significant of POTS, inflammatory arthritis, vertigo, imbalance, thoracic spine pain, cervicogenic headache, and migraine presenting today with ongoing symptoms related to vertigo. Patient's symptoms related to walking and dizziness greatly improved after therapy but patient felt like he has reached a plateau. Patient continues to stumble while walking and is concerned it may be related to his spine. Consult to Spine medicine was placed. Patient encouraged to try his previously ordered robaxin to help alleviate some musculoskeletal pain around his rib cage and at his sternum, and to resume physical therapy as this helped him in the past. Can consider gabapentin in the future but patient hesitant to try it at this time due to potential side effects. Patient no longer has headache related to cervicogenic pain after steroid trial. Spouse voiced a concern for sleep apnea so a home sleep study was ordered to rule out sleep apnea. PLAN: 1. Consult to spine for back pain, imbalance 2. Continue physical therapy for vertigo 3. Home sleep study 4. Robaxin PRN (can trial at bedtime if he is concerned for drowsiness) 5. Future consideration: gabapentin trial 6. Defer further spine imaging to spine provider Interval Hx: Presents today with dizziness that has improved over the last year - but worse in the last 3 - 5 months without known precipitating cause. He saw sleep medicine and will be using a CPAP. Chest Pain: - tried robaxin (took 2 days in a row 8 hours apart) - woke up the next day and pain resolved - has not had this pain in 6 - 7 weeks - his back has become more flexible - tolerated robaxin withotu side effects Stumbling/Imbalance - improved in some ways: no longer constant and does not have to focus continuously to walk (was able to walk on trails this summer) - felt like PT initially was beneficial but feels he may be platueaing-- continues to do HEP and continues to go to PT - reports issues with eyes? - got prism glasses which have helped him with walking down trails - he is starting vision therapy - has some stumbling to some degree everyday - worse if cars drive by, or a tunnel, around large crowds - able to handle work without issues - alleviated by holding onto something (shopping cart, stroller) - no longer feeling a disconnect with feet that caused him to feel like he would fall. - no falls in about 6 months - can have a head heaviness sensation with imbalance - dizziness can be triggered by palpation of trigger points Confusion burst? - multiple times a day - lasts seconds - occurs on it's own - thinks it has to do with small movements of the back - with pressure on different areas during PT can reproduce these symptoms. Headaches: - no longer having severe cervicogenic headaches - VOR exercises initially made it worse but now improved - has not been bothering him for 6 - 8 weeks - flexibility of neck improved - continues to have a daily headache that is an ache in the front - denies photophobia/phonophobia or nausea - daily headache 1-3/10 on average - occasionally will use ibuprofen when this is severe Tinnitus: - present most of the time - present in both ears - not normally bothersome and worse in quiet environments Issues and questions to be addressed: - patient update ALLERGIES Allergen Reactions Declomycin [Demeclo* Other: See Comments, Unknown Childhood Seasonal Allergies Cough Runny nose, sneezing, itchy, and watery eyes HEADACHE SCORES: Headache Questions 10/30/2021 02/03/2022 05/12/2022 ER visits since last office visit: 0 0 0 Hospital stays since last office visit 0 0 0 Limited ADLs in the last month: 0 0 0 Days missed from work or school in the last month: 0 0 0 Days headache pain free in the last month: 3 0 0 Days per month with ALL of the following symptoms - decreased productivity, light sensitivity and nausea: 0 0 0 Initial improvement of headache after botox injection at last visit: Not applicable, I did not have a botox injection at my last visit Not applicable, I did not have a botox injection at my last visit - PRN medication usage in the last month: 10 10 6 Patient impression of improvement since last visit: Much improved Much improved Minimally improved HIT-6 10/30/2021 02/03/2022 05/12/2022 HIT-6 51 (Moderate impact) 52 (Moderate impact) 50 (Moderate impact) JOSE - 2/7 SCORES 10/30/2021 02/03/2022 05/12/2022 JOSE-2 Score 0 0 0 JOSE-7 Score - - - Migraine Specific QOL - Higher scores indicate better HRQL 02/03/2022 05/12/2022 Role Function-Restrictive Transformed Score (range: 0-100) 85.71 77.14 Role Function-Preventive Transformed Score (range: 0-100) 100 100 Emotional Function Transformed Score (range: 0-100) 93.33 93.33 PHQ-9 02/03/2022 04/22/2022 05/12/2022 Score 4 6 6 REVIEW OF SYSTEMS: Review of system : unchanged from the previous visit (sleep patterns, mood, energy, appetite, stress, exercising). PHYSICAL EXAMINATION: Vital Signs: BP 159/80 Pulse 77 Resp 22 Ht 175.3 cm (5' 9) Wt 78.5 kg (173 lb) BMI 25.55 kg/m OBJECTIVE: General:awake/easily arousable and no acute distress. CV: RRR, normal S1, S2 auscultated, and no murmurs. Lungs: clear to auscultation. Musculoskeletal: No gross joint deformities. , Suboccipital tenderness: Yes L > R . , Muscle spasms: Yes bilateral . , Trigger Points: cervical paraspinous muscles L>R and trapezius muscles L>R , Cervical ROM: Decreased rotation, L>R. Neurological: Mental Status: Speech fluent and appropriate, alert, oriented to person, place and time, and follows commands. Cranial Nerves: PERRL, visual collins intact to confrontation, extraocular movements intact, facial sensation intact, face symmetric, no facial droop or ptosis, hearing intact to finger rub bilaterally, no dysarthria, palate elevate symmetrically, tongue protrudes midline, shoulder shrug intact and symmetric, and dizziness worse with EOMs . Motor: muscle strength 5/5 both upper and lower extremities, no drift, normal tone. Reflexes: UE and LE reflexes are equal and reactive. Coordination: finger-to- nose-finger intact bilaterally. Gait: normal-based. IMPRESSION: Christie Chance is a 51 year old year old male, with a history significant of POTS, inflammatory arthritis, vertigo, imbalance, thoracic spine pain, cervicogenic headache, and migraine presenting today with ongoing symptoms of dizziness, imbalance, and headache which have overall improved with PT but his dizziness and imbalance are still easily triggered by eye movements and motion along with pressing on pressure points. We discussed etiology of treatment and decided together to trial gabapentin geared to reducing nerve irritation. He is willing to try. Robaxin was helpful for severe muscular chest wall pain and has not recurred. He can discuss with PT at his next visit if he should continue with treatment or pause. He will also do vision therapy in the interim. If his symptoms do not improve we can do updated neuroimaging His neurological examination is nonfocal. Diagnosis: Vertigo of central origin (primary encounter diagnosis) Imbalance Tinnitus, bilateral Cervicocranial syndrome PLAN: HEADACHE MANAGEMENT: (You are the primary guardian of your health and headache. Keep track of all medications: This includes the reason for use, side effects and benefits.) MEDICATION TREATMENT: Medications to Start Taking gabapentin (NEURONTIN) 300 mg capsule Take 1 capsule by mouth daily at bedtime for 90 days. - consider increasing the dose of gabapentin - continue PT for now (ok to hold if needed) - vision therapy per provider - continue robaxin PRN for muscular pain Headache education was done. Discussed lifestyle modification including increased oral hydration, decreased caffeine, exercise and stress management. Discussed treatment options including preventive and acute medications, natural supplements, and infusion therapy. Discussed medication overuse headache and to limit use of acute treatments to no more than 2 days/week or 10 days/month. Discussed medication side effects, adverse reactions and drug interactions. Written educational materials and patient instructions outlining all of the above were given. RESEARCH: None at this time Follow-up: 3 months, PRN Level of service: Est level 5 (40-54 min). Time spent 45 min on the day of service, which included preparing to see the patient, [id number] patient care, completing clinical documentation, obtaining and/or reviewing separately obtained history, performing a medically appropriate examination, counseling and educating the patient/family/caregiver, and ordering medications, tests, or procedures. All questions answered. The patient has my contact information and my chart sign up information. Johana Frias APRN.TAURUS documented in this encounter [facility] 04-30-2022 Miscellaneous Notes Kaitlynn confirmation for cpap/bipap order on desk for review documented in this encounter [facility] 04-30-2022 Miscellaneous Notes Faxed order, office notes, demographics and sleep study to: DME name: Kaitlynn PETTY fax # [phone] DME Faxed info in patient's chart. documented in this encounter [facility] 04-29-2022 Instructions Sara Levine APRN.[facility] - 04/29/2022 12:04 PM EDT Images from the original note were not included. Sleep Apnea What are the symptoms of sleep apnea? Often the first signs of AVA are recognized not by the patient, but by the bed partner. Many of those affected have no sleep complaints. The most common signs and symptoms of AVA include: Snoring. Daytime sleepiness or fatigue. Restlessness during sleep, frequent nighttime awakenings. Sudden awakenings with a sensation of gasping or choking. Dry mouth or sore throat upon awakening. Cognitive impairment, such as trouble concentrating, forgetfulness or irritability. Mood disturbances (depression or anxiety). Night sweats. Frequent nighttime urination (nocturia). Sexual dysfunction. Headaches. What is sleep apnea? Sleep apnea is a serious sleep disorder that happens when a person's breathing is interrupted during sleep. People with untreated sleep apnea stop breathing repeatedly during their sleep, sometimes hundreds of times during the night. If it s not treated, sleep apnea can cause a number of health problems, including hypertension (high blood pressure), stroke, cardiomyopathy (enlargement of the muscle tissue of the heart), heart failure, diabetes and heart attacks. Untreated sleep apnea can also be responsible for job impairment, work-related accidents and motor vehicle crashes, as well as underachievement in school in children and adolescents. There are two types of sleep apnea, obstructive and central: Obstructive sleep apnea is the more common of the two. Obstructive sleep apnea occurs as repetitive episodes of complete or partial upper airway blockage during sleep. During an apneic episode, the diaphragm and chest muscles work harder as the pressure increases to open the airway. Breathing usually resumes with a loud gasp or body jerk. These episodes can interfere with sound sleep, reduce the flow of oxygen to vital organs, and cause heart rhythm irregularities. In central sleep apnea, the airway is not blocked but the brain fails to signal the muscles to breathe due to instability in the respiratory control center. Central apnea is related to the function of the central nervous system. Who gets sleep apnea? Sleep apnea occurs in about 25% of men and nearly 10% of women. Sleep apnea can affect people of all ages, including babies and children and particularly people over the age of 50 and those who are overweight. Certain physical traits and clinical features are common in patients with obstructive sleep apnea. These include excessive weight, large neck and structural abnormalities reducing the diameter of the upper airway, such as nasal obstruction, a low-hanging soft palate, enlarged tonsils or a small jaw with an overbite. What causes sleep apnea? Obstructive sleep apnea is caused by a blockage of the airway, usually when the soft tissue in the rear of the throat collapses during sleep. Central sleep apnea is usually observed in patients with central nervous system dysfunction, such as following a stroke or in patients with neuromuscular diseases like amyotrophic lateral sclerosis (ALS, Марина Gehrig s disease). It is also common in patients with heart failure and other forms of heart, kidney or lung disease. People with central sleep apnea more often report recurrent awakenings or insomnia, although they may also experience a choking or gasping sensation upon awakening. What is PAP therapy? About Your PAP Therapy: Continuous Positive Airway Pressure (CPAP)/ Bi-level Therapy What is obstructive sleep apnea? The most common type of sleep apnea is obstructive sleep apnea (AVA), a condition in which the upper airway collapses during sleep. This obstruction keeps air from getting into your lungs. Treatment The most common form of treatment today for AVA is the use of a Positive Airways Pressure (PAP) device. The PAP device holds the airway open by using air pressure that is introduced through the nose with a nose mask or similar device. The air travels down the back of the throat, and into your upper airway. The amount of air pressure set on your pap machine is determined during the sleep study. There are two types of devices: CPAP (Continuous Positive Airways Pressure)- is the most widely used of the PAP devices. Bi-Level - uses one pressure during inspiration, and a lower pressure during expiration. There is a criterion that must be met before insurance will cover the Bi-Level. This usually means that the CPAP machine must be tried first with no success and these results documented before insurance will pay for a Bi-Level. The machine delivered to you is preset with the pressure as ordered by your physician. Do not attempt to adjust this pressure at any time. The pressure can only be changed by the sleep lab, or our staff members who are trained in doing this procedure. The machine will use a mask to deliver the air through your nose and/or mouth. These devices are available in various sizes and styles as illustrated below. Your [facility] sleep specialist or technologist will fit you with the most effective and comfortable mask possible. Please contact us if you ever feel you would need to be refitted or need a replacement mask. Is the PAP machine difficult to use? It will take some time for you to get used to the new equipment and it may take a while for you to begin to feel the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 1 to 5 years Pain over last 6 months: Less than half the days in the past 6 months Symptoms from neck/cervical spine: Yes Employment Status: Working now Involved in law suit/legal claim: No Spine Red Flags 02/23/2022 Any type of cancer: No Unexplained fever: No Bowel or bladder disfunction: No Unintentional weight loss: No Osteoporosis: No Neck Questionnaires 02/23/2022 Benzel Modified BRANDON Score 15 (A lower score indicates increased pain and issues.) PROMIS Score Percentiles Physical Health 02/23/2022 Physical Function Percentile 24* Sleep Percentile 12 Fatigue Percentile 58 Pain Interference Percentile 31 PROMIS SOCIAL ROLE SCORE 02/23/2022 Social Role Satisfaction Percentile 38 PROMIS Global Health Scale 03/19/2021 10/30/2021 02/03/2022 Physical Health Percentile 31 41 31 Mental Health Percentile 34 63 43 Percentiles provide an indication of how the patient's score ranks in relation to the general population. Higher percentile rankings indicate better function/quality of life. 50th percentile is the average of the general population and indicates half of respondents had a worse score. Depression Screening: PHQ-9 05/07/2021 10/30/2021 02/03/2022 Score 3 5 4 PHQ-9 Self Harm 05/07/2021 10/30/2021 02/03/2022 Question 9 Not at all Not at all Not at all PHQ-9 Self-Harm (Item 9) response options: 0 Not at all 1 Several days 2 More than half the days 3 Nearly every day PHQ-9 Levels: 0-4 No - mild depression 5-9 Mild depression 10-14 Moderate depression 15-19 Moderately severe depression 20-27 Severe depression There is no problem list on file for this patient. PAST MEDICAL HISTORY Diagnosis Date Arrhythmia Inflammatory polyarthritis (HCC) recent diagnosis. about to start plaquenil (03/2021) PAST SURGICAL HISTORY Procedure Laterality Date PAST SURGICAL HISTORY OF turbinate reduction PAST SURGICAL HISTORY OF 2001 DEVIATED SEPTUM Social History Tobacco Use Smoking status: Never Smoker Smokeless tobacco: Never Used Substance Use Topics Alcohol use: Yes Comment: Rarely Drug use: Never No family history on file. ALLERGIES Allergen Reactions Declomycin [Demeclo* Other: See Comments, Unknown Childhood Seasonal Allergies Cough Runny nose, sneezing, itchy, and watery eyes CURRENT MEDICATIONS: montelukast sodium (SINGULAIR ORAL) Take by mouth. hydroxychloroquine sulfate (PLAQUENIL ORAL) Take by mouth. fexofenadine ER (NANCY ALLERGY) 180 mg tablet Take 180 mg by mouth once daily. methocarbamol (ROBAXIN) 500 mg tablet Take 1 tablet by mouth three times daily as needed (neck pain, headache, back pain). REVIEW OF SYSTEMS: Other than listed in HPI or PMHX below the patient denies any complaint of the following: night pain, joint swelling, myalgias, diagnosis of cancer, significant spinal trauma, cough, fever, weight loss, dizziness, fainting, orthostasis, vision or language changes. No shortness of breath, chest pain, nausea, vomiting or diarrhea. Reviewed and verified medical historian/nurse's progress notes. No revisions. OBJECTIVE: PHYSICAL EXAM BP 135/88 Pulse 72 Temp 36.6 C (97.9 F) Resp 16 Wt 78.9 kg (174 lb) SpO2 99% BMI 25.25 kg/m GENERAL APPEARANCE: alert and in no apparent distress SKIN: no rash on neck, arms or legs HEART: Peripheral pulses: normal, 2+ bilaterally and symmetric LUNGS: even and non-labored breathing, normal chest excursion NEURO/PSYCH: speech normal, Mood: Calm GAIT: normal, toe walking normal, heel walking normal, able to tandem gait POSTURE: Posture and spinal curves are abnormal; forward head PALPATION: paraspinal tenderness; cervical and thoracic paraspinals Less pain with gentle manual cervical traction; but more symptoms after I released MUSCULOSKELETAL: RIGHT LEFT Leg Raise Straight Leg Raise Negative Negative Contralateral Straight Leg Raise Negative Negative DTRs Knee Hypo-reflexive Hypo-reflexive Ankle Absent Absent Medial Hamstring Absent Absent Babinski normal normal Strength of Lower Extremities Extensor Hallux Longus 5/5 5/5 Ankle Dorsiflexion 5/5 5/5 Ankle Plantarflexion 5/5 5/5 Knee Extension 5/5 5/5 Nikita's Exam: Superficial non-anatomic tenderness: No Overreaction: No Pain on simulated maneuvers: No Straight Leg Raise test discrepancy: No Give-way weakness: No Non-dermatomal sensory loss: No Hip Range of Motion RIGHT LEFT Flexion Normal Normal Internal Rotation Normal Normal External Rotation Normal Normal Hip Exam RIGHT LEFT DEJON Exam Normal Normal Trochanteric Bursa Tenderness Normal Normal Passive ROM of neck caused dizziness Cervical Range of Motion Flexion Normal Extension Restricted RIGHT LEFT Rotation limited limited Lateral Bend limited limited Upper Body Reflex Exam RIGHT LEFT Reflex Status Reflex Status Biceps Trace Trace Triceps 0 - absent 0 - absent Brachioradialis Trace Trace Mason's Sign absent absent Upper Extremity Strength RIGHT LEFT Strength (MMT) Strength (MMT) Shoulder Abduction 5/5 5/5 Biceps 5/5 5/5 Triceps 5/5 5/5 Wrist flexion 5/5 5/5 Wrist Extension 5/5 5/5 Interossei & APB 5/5 5/5 Shoulder Range of Motion RIGHT LEFT Flexion Normal Normal Extension Normal Normal Abduction Normal Normal NEUROSENSORY: Soft touch; decreased left little finger Tinel: negative at b/l wrists and elbows Normal rapid alternate movement Data Review: [facility] records independently reviewed Reviewed outside PT summary EMG 2020, reviewed Study Interpretation Based on extensive study of the right leg the EMG findings follow: 1. No EMG evidence of right lumbosacral radiculopathy, including examination of L3/4-S1 muscles. There is chronic and active motor axon loss in the extensor digitorum brevis muscle of the foot, but no other peroneal or L5 innervated muscles show similar changes. These findings are too limited for diagnosis and may reflect local nerve branch trauma to that muscle. 2. Screening studies for peripheral polyneuropathy are normal. Rosalia Espinosa MD ASSESSMENT/PLAN Encounter Diagnosis ICD-10-CM 1. Chronic bilateral thoracic back pain M54.6 XR CERV GENERAL 2V AP/LAT G89.29 XR THORACIC LIMITED 2V AP/LAT XR RIBS 2V AP/OBL RIGHT 2. Rib pain on right side R07.81 XR THORACIC LIMITED 2V AP/LAT XR RIBS 2V AP/OBL RIGHT 3. Frequent falls R29.6 XR RIBS 2V AP/OBL RIGHT 4. Dizziness and giddiness R42 XR CERV GENERAL 2V AP/LAT Imaging Ordered: Due to frequent falls, imaging of cervical and thoracic spine and ribs, looking for fracture, expect to find normal wear nad tear changes. See patient instructions. Discussed spine health management--what he is doing with PT and HEP and running. More rib pain/ant chest---other things can cause thoracic/rib pain such as GI/gallbladder. Suggested reeval with neurologist re falls associated with dizziness/stumbling No spine injection/interventional procedures nor spine surgery is recommended at this time. Patient was given reassurance. Education provided. Patient expressed understanding and is amenable to treatment plan as discussed. Deshaun was advised of the difference between hurt and harm and advised to continue with all normal activities and exercises. Deshaun expresses interest in moving forward with imaging. Medical Decision Making: Problems: Moderate: 1+ chronic illnesses with change Data: Unique source(s) for external note(s) reviewed: 1 Unique test result(s) reviewed: 1 Unique test(s) ordered: 3+ Independent interpretation of test from other physician/QHCP Risk: Low: Low risk from testing/treatment Medical Decision Making Level: 4 - Moderate SIGNATURE: Angi Inman MD PATIENT NAME: Christie Chance DATE: March 01, 2022 TIME: 8:58 AM 10 documented in this encounter [facility] 02-24-2022 History of Present illness Narrative Patient presents with: Cough: cough, ST and eye irritation x 1 week HPI: Feeling sick for 8 days. Multiple family members have been sick this week also. He and his daughter were both negative for strep and COVID here 3 days ago. He had bad sinus pain last night. Positive symptoms: Cough, chest soreness, sinus pressure, post-nasal drainage, slight Sore throat, eye irritaiton and discharge, Negative symptoms: Shortness of breath, Wheezing, Fever, Chills, Body Aches, Nausea, Vomiting, Diarrhea, OTC: neti pot. Prescribed prednisone, tessalon, and polytrim here 3 days ago. PAST MEDICAL HISTORY Diagnosis Date Arrhythmia Auto immune neutropenia (HCC) Inflammatory polyarthritis (HCC) recent diagnosis. about to start plaquenil (03/2021) MEDICATIONS: Current Outpatient Medications Medication Sig predniSONE (DELTASONE) 20 mg tablet Take 2 tablets by mouth once daily for 5 days. benzonatate (TESSALON PERLE) 100 mg capsule Take 2 capsules by mouth three times daily as needed. trimethoprim-polymyxin (POLYTRIM) 10,000 unit- 1 mg/mL ophthalmic solution Use 1 Drop in the right eye four times daily for 7 days. montelukast sodium (SINGULAIR ORAL) Take by mouth. hydroxychloroquine sulfate (PLAQUENIL ORAL) Take by mouth. fexofenadine ER (NANCY ALLERGY) 180 mg tablet Take 180 mg by mouth once daily. methocarbamol (ROBAXIN) 500 mg tablet Take 1 tablet by mouth three times daily as needed (neck pain, headache, back pain). (Patient taking differently: Take 500 mg by mouth as needed (neck pain, headache, back pain). ) Current Facility-Administered Medications Medication Dose Route Frequency acetylcholine 10% solution - cchs compounding 20 mL IRRIGATION ONE TIME ALLERGIES: ALLERGIES Allergen Reactions Declomycin [Demeclo* Other: See Comments, Unknown Childhood Seasonal Allergies Cough Runny nose, sneezing, itchy, and watery eyes VITALS: BP 144/86 Pulse 70 Temp 36.2 C (97.1 F) (Tympanic) Resp 16 Wt 79.2 kg (174 lb 9.6 oz) SpO2 98% BMI 25.34 kg/m PHYSICAL EXAM: GEN: mildly ill appearing HEENT: PERRL, EOMI, conjunctiva clear Ears: canals clear. TMs without erythema, bulge, or effusion Sinuses: pressure over sinuses Throat: moist mucous membranes, mild erythema, no exudate Neck: supple, no thyromegaly, no lymphadenopathy HEART: regular rate and rhythm, no murmurs LUNGS: clear to auscultation, no wheezes or crackles, no increased WOB; non-productive cough ASSESSMENT/PLAN: 1. Acute non-recurrent sinusitis, unspecified location - ICD9: 461.9, ICD10: J01.90 Discussed viral illness and supportive care treatment. His sinus pain has progressed and could represent a secondary bacterial infection. - AMOXICILLIN 875 MG TABLET Keon Briggs MD documented in this encounter [facility] 02-21-2022 History of Present illness Narrative Subjective HPI HPI Christie Chance is a 51 year old male who presents today for CC of cough, h/a, st, right eye redness, drainage, cp with cough. This started 4 days ago. Has tried nothing for relief. Symptoms are worsened by nothing. Risk factors sick exposures at home currently. Denies ear pain, sob, n/v/d. Nonsmoker. Hx of reactive airway disease. .Patient presents with: Sore Throat: headache, cough, eye drainage x 4 days, strep exposure PAST MEDICAL HISTORY Diagnosis Date Arrhythmia Auto immune neutropenia (HCC) Inflammatory polyarthritis (HCC) recent diagnosis. about to start plaquenil (03/2021) PAST SURGICAL HISTORY Procedure Laterality Date PAST SURGICAL HISTORY OF turbinate reduction PAST SURGICAL HISTORY OF 2000 DEVIATED SEPTUM ALLERGIES Declomycin [Demeclocycline] and Seasonal Allergies MEDICATIONS methocarbamol (ROBAXIN) 500 mg tablet Take 1 tablet by mouth three times daily as needed (neck pain, headache, back pain). montelukast sodium (SINGULAIR ORAL) Take by mouth. hydroxychloroquine sulfate (PLAQUENIL ORAL) Take by mouth. fexofenadine ER (NANCY ALLERGY) 180 mg tablet Take 180 mg by mouth once daily. predniSONE (DELTASONE) 20 mg tablet Take 2 tablets by mouth once daily for 5 days. benzonatate (TESSALON PERLE) 100 mg capsule Take 2 capsules by mouth three times daily as needed. No family history on file. Social History Tobacco Use Smoking status: Never Smoker Smokeless tobacco: Never Used Substance Use Topics Alcohol use: Yes Comment: Rarely Drug use: Never Review of Systems Constitutional: Negative for chills and fever. HENT: Negative for ear discharge, ear pain and sore throat. Eyes: Positive for discharge and redness. Negative for blurred vision, double vision, photophobia and pain. Neurological: Negative for headaches. Objective Blood pressure 122/76, pulse 70, temperature 36.6 C (97.8 F), resp. rate 16, weight 79.8 kg (176 lb), SpO2 97 %. Physical Exam Constitutional: General: He is not in acute distress. Appearance: He is not toxic-appearing or diaphoretic. HENT: Head: Normocephalic and atraumatic. Eyes: General: Lids are normal. Right eye: Discharge present. Left eye: No foreign body. Conjunctiva/sclera: Right eye: Right conjunctiva is injected. Left eye: Left conjunctiva is not injected. Cardiovascular: Rate and Rhythm: Normal rate and regular rhythm. Heart sounds: Normal heart sounds, S1 normal and S2 normal. Pulmonary: Effort: Pulmonary effort is normal. Breath sounds: Normal breath sounds. Lymphadenopathy: Cervical: No cervical adenopathy. Right cervical: No superficial cervical adenopathy. Left cervical: No superficial cervical adenopathy. Neurological: Mental Status: He is alert and oriented to person, place, and time. Gait: Gait is intact. ASSESSMENT/PLAN: 1. URI, acute - ICD9: 465.9, ICD10: J06.9 (primary diagnosis) - Discussed viral etiology and rationale for treatment. - Rapid strep negative in office today - Symptomatic treatment with prn analgesia - Supportive care with fluids and rest - Follow up in 3-5 days if symptoms persist or sooner if worsening of symptoms Discussed quarantine, social distancing otc medications discussed Push fluids -If you experience chest pain/shortness of breath go to ER - 2019 CORONAVIRUS - BENZONATATE 100 MG CAPSULE 2. Sore throat - ICD9: 462, ICD10: J02.9 - suspect viral - Alere Strep Test neg, no culture pending - Discussed supportive care treatment with fluids, rest and analgesia. - The patient should follow up in 3-5 days if symptoms persist or worsen - ALERE STREP A TEST (AG) 3. History of reactive airway disease - ICD9: V12.69, ICD10: Z87.09 Will order steroid Continued inhaler 4. Bacterial conjunctivitis - ICD9: 372.39, 041.9, ICD10: H10.9 Bacterial - see medication orders - course and contagiousness issues discussed, including hand washing. - Instructed to call if high fever, development of periorbital redness or swelling, eye pain, visual changes, concerns or if symptoms persist. - POLYMYXIN B SULFATE 10,000 UNIT-TRIMETHOPRIM 1 MG/ML EYE DROPS Agrees to plan Declines avs Cam Krueger APRN.CNP documented in this encounter [facility] 02-06-2022 Instructions Johana Frias APRN.CNP - 02/06/2022 5:07 PM EDT Consult to Spine (call [phone] to schedule) Home sleep study (you will be contacted) Continue physical therapy Try Robaxin at bedtime documented in this encounter [facility] 02-06-2022 History of Present illness Narrative Headache Center - Virtual Visit Last Visit: 11/01/2021, Johana Frias APRN.CNP Accompanied by: Spouse During this COVID-19 pandemic, patient's headache clinic evaluation was scheduled as a virtual visit using the following platform Zoom Christie Chance was identified by name and and consented to the video evaluation and its limitations. Based on this evaluation it may be necessary for them to schedule a follow up evaluation with me or other neurologists for formal physical examination and if necessary,other studies. Primary Problem List: There is no problem list on file for this patient. Chief Complaint: Dizziness Impression and Plan from last visit: Christie Chance is a 51 year old year old male, with a history significant of POTS, inflammatory arthritis, vertigo, imbalance, thoracic spine pain, cervicogenic headache, and migraine presenting today with ongoing and improving symptoms of headache, vertigo, thoracic spine pain, and dizziness until a recent fall on the ice at which point his headache returned to daily. I suspect his chest pain is radicular from his thoracic region and if it were to happen again we will trial a muscle relaxant that is non-sedating. We will also break his current headache symptom with oral steroids and was recommended as well by rheumatology should symptoms return. He has had a negative cardiac workup. He has done very well with PT and will have him continue. His neurological examination is nonfocal today with the exception of documented muscular component to reported symptoms. Diagnosis: Vertigo of central origin (primary encounter diagnosis) Cervicocranial syndrome Cervicogenic headache Imbalance Sprain of ligaments of thoracic spine, sequela Tinnitus, bilateral PLAN: - continue PT HEADACHE MANAGEMENT: (You are the primary guardian of your health and headache. Keep track of all medications: This includes the reason for use, side effects and benefits.) MEDICATION TREATMENT: Medications to Start Taking methylPREDNISolone (MEDROL, CONSUELO,) 4 mg Dose-Pack As Instructed per package methocarbamol (ROBAXIN) 500 mg tablet Take 1 tablet by mouth three times daily as needed (neck pain, headache, back pain). - consider gabapentin as a next option (not discussed) Interval Headache Hx: Issues and questions to be addressed: Back pain: -Pain wraps around the bottom of his ribs, radiates around right side of rib cage and is worse when he is seated. -Pushing on thoracic region and upper back can cause intense dizziness.he has specific pressure points. Has not used previously prescribed robaxin yet. Concerned for drowsiness and there is a baby that lives in their home -Showed some improvement after working with physical therapy. Chest pain: Sternum pain, sore to the touch, comes on slow and increases, worse with coughing spells. Evaluated in ED without any secondary cause of chest pain identified Falls: -Related to sudden strong disorientation, can not catch balance, seems to always fall backwards -Always happens when moving -Feels like he stumbles more when walking alongside someone, and is forced to keep a certain pace -Disorientation can be triggered while at a stop light while Headaches: -were cervicogenic in nature, back of the head, prednisone helped, Patient states his headaches are more tension-type headaches now. Tinnitus: tinnitus still there, intermittent, usually louder when in a quite area. Sleep Apnea: -spouse voiced concern he may have sleep apnea -high pitched snore -has brief periods of apnea while asleep -tends to breath through his mouth while asleep -wakes up tired ALLERGIES Allergen Reactions Declomycin [Demeclo* Other: See Comments, Unknown Childhood Seasonal Allergies Cough Runny nose, sneezing, itchy, and watery eyes HEADACHE SCORES: Headache Questions 10/30/2021 02/03/2022 ER visits since last office visit: 0 0 Hospital stays since last office visit 0 0 Limited ADLs in the last month: 0 0 Days missed from work or school in the last month: 0 0 Days headache pain free in the last month: 3 0 Days per month with ALL of the following symptoms - decreased productivity, light sensitivity and nausea: 0 0 Initial improvement of headache after botox injection at last visit: Not applicable, I did not have a botox injection at my last visit Not applicable, I did not have a botox injection at my last visit PRN medication usage in the last month: 10 10 Patient impression of improvement since last visit: Much improved Much improved HIT-6 10/30/2021 02/03/2022 HIT-6 51 (Moderate impact) 52 (Moderate impact) JOSE - 2/7 SCORES 05/07/2021 10/30/2021 02/03/2022 JOSE-2 Score 0 0 0 JOSE-7 Score 0 - - Migraine Specific QOL - Higher scores indicate better HRQL 02/03/2022 Role Function-Restrictive Transformed Score (range: 0-100) 85.71 Role Function-Preventive Transformed Score (range: 0-100) 100 Emotional Function Transformed Score (range: 0-100) 93.33 PHQ-9 05/07/2021 10/30/2021 02/03/2022 Score 3 5 4 REVIEW OF SYSTEMS: Review of system: unchanged from the previous visit (sleep patterns, mood, energy, appetite, stress, exercising). Examination: Vital Signs: There were no vitals taken for this visit. General: well appearing, in no acute distress, alert Pain Behaviors: no pain behaviors observed Neurological: Mental Status: Alert and oriented to person, place and time. Affect is normal. Speech is normal in rate, volume and articulation and clear, coherent, and relevant. 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 Attention span and concentration are excellent. HEENT: Head is normocephalic and features were symmetric. Musculoskeletal: No gross joint deformities. Cranial Nerves: III, IV, -EOMI: full. VII-face is symmetric without evidence of weakness. VIII-hearing intact. XII-tongue protrudes midline with normal movements. IMPRESSION: Vertigo of central origin (primary encounter diagnosis) Imbalance Tinnitus, bilateral Christie Chance is a 51 year old year old male, with a history significant of POTS, inflammatory arthritis, vertigo, imbalance, thoracic spine pain, cervicogenic headache, and migraine presenting today with ongoing symptoms related to vertigo. Patient's symptoms related to walking and dizziness greatly improved after therapy but patient felt like he has reached a plateau. Patient continues to stumble while walking and is concerned it may be related to his spine. Consult to Spine medicine was placed. Patient encouraged to try his previously ordered robaxin to help alleviate some musculoskeletal pain around his rib cage and at his sternum, and to resume physical therapy as this helped him in the past. Can consider gabapentin in the future but patient hesitant to try it at this time due to potential side effects. Patient no longer has headache related to cervicogenic pain after steroid trial. Spouse voiced a concern for sleep apnea so a home sleep study was ordered to rule out sleep apnea. PLAN: 1. Consult to spine for back pain, imbalance 2. Continue physical therapy for vertigo 3. Home sleep study 4. Robaxin PRN (can trial at bedtime if he is concerned for drowsiness) 5. Future consideration: gabapentin trial 6. Defer further spine imaging to spine provider Headache education was done. Discussed lifestyle modification including increased oral hydration, decreased caffeine, exercise and stress management. Discussed treatment options including preventive and acute medications, natural supplements, and infusion therapy. Discussed medication overuse headache and to limit use of acute treatments to no more than 2 days/week or 10 days/month. Discussed medication side effects, adverse reactions and drug interactions. Written educational materials and patient instructions outlining all of the above were given. RESEARCH: None at this time Follow-up: 3 months Level of service: Est level 4 (30-39 min). Time spent 35 min on the day of service, which included preparing to see the patient, [id number] patient care, completing clinical documentation, obtaining and/or reviewing separately obtained history, performing a medically appropriate examination, counseling and educating the patient/family/caregiver and ordering medications, tests, or procedures. The patient has my contact information and my chart sign up information. I performed this clinical encounter by utilizing a real time telehealth video connection between my location and the patient's location. The patient's location was confirmed during the visit. I obtained verbal consent from the patient to perform this clinical encounter utilizing video and prepared the patient by answering any questions they had about the telehealth. I addressed patient's questions and concerns in detail in regards to the chief complaint today in addition to all other comorbidities. Emelina Andrews APRN.TAURUS TEACHING NOTE OF PERSONAL INVOLVEMENT IN CARE: I have interviewed the patient and updated the MOTOR BLOCK MECHANIC's history and ROS as necessary. I have re-performed and re-documented and/or edited the HPI, EXAM, and ASSESSMENT and PLAN based on my personal assessment of the patient. My changes are noted in black in italics. Johana Frias APRN.CNP February 06, 2022 5:05 PM documented in this encounter [facility] Evaluation + Plan note No data available for this section [facility] Evaluation + Plan note Future Scheduled TestsProstate Specific Antigen 05/10/24Lipid Profile 05/10/24 [facility] Evaluation + Plan note Future Appointments Appointment Date:06/15/2024 02:30:00 PM Scheduled Provider:DALE ALBERT DO Location:[facility] Appointment Type:PC OV Diagnostic Tests PendingLipid Profile 05/01/24Prostate Specific Antigen 05/01/24 Future Scheduled TestsProstate Specific Antigen 05/10/24Lipid Profile 05/10/24 [facility] Evaluation + Plan note Future Appointments Appointment Date:06/15/2024 02:30:00 PM Scheduled Provider:DALE ALBERT DO Location:[facility] Appointment Type:PC OV Future Scheduled TestsProstate Specific Antigen 05/10/24Lipid Profile 05/10/24 [facility] Evaluation note Diagnosis Vertigo of central origin- Primary Imbalance Abnormality of gait Tinnitus, bilateral Unspecified tinnitus Chronic bilateral thoracic back pain Observed sleep apnea Unspecified sleep apnea [facility]* Diagnosis URI, acute- Primary Acute upper respiratory infections of unspecified site Sore throat Acute pharyngitis History of reactive airway disease Personal history of other diseases of respiratory system Bacterial conjunctivitis Other conjunctivitis Observed sleep apnea Unspecified sleep apnea [facility]* Diagnosis Acute non-recurrent sinusitis, unspecified location- Primary documented in this encounter [facility] note* Diagnosis Chronic bilateral thoracic back pain- Primary Rib pain on right side Chest pain, unspecified Frequent falls Personal history of fall Dizziness and giddiness documented in this encounter [facility] noteNo assessment information availableWDayton [facility] Work Phone: Evaluation note* Diagnosis AVA (obstructive sleep apnea)- Primary Obstructive sleep apnea (adult) (pediatric) [facility]* Diagnosis AVA (obstructive sleep apnea)- Primary Obstructive sleep apnea (adult) (pediatric) Abnormal breathing sounds Other dyspnea and respiratory abnormality Gasping for breath Other dyspnea and respiratory abnormality Witnessed episode of apnea Frequent nocturnal awakening Other sleep disturbances Middle insomnia Insomnia, unspecified Nocturia Bladder pain Other symptoms involving urinary system Confusional arousals Unrefreshed by sleep Other sleep disturbances Excessive daytime sleepiness Lack of concentration Attention or concentration deficit [facility]* Diagnosis Vertigo of central origin- Primary Imbalance Abnormality of gait Tinnitus, bilateral Unspecified tinnitus Cervicocranial syndrome [facility]* Diagnosis AVA (obstructive sleep apnea)- Primary Obstructive sleep apnea (adult) (pediatric) documented in this encounter [facility] note* Diagnosis Onset Date Resolution Status Contact with and (suspected) exposure to other viral communicable diseases [facility] Work Phone: Evaluation note* Diagnosis Imbalance- Primary Abnormality of gait Vertigo of central origin Short-term memory loss Memory loss Cervicocranial syndrome Cervicogenic headache Headache Tinnitus, bilateral Unspecified tinnitus documented in this encounter [facility] note* Diagnosis Pharyngitis due to Streptococcus species- Primary [facility]* Diagnosis Subjective memory complaints- Primary Memory loss Obstructive sleep apnea Obstructive sleep apnea (adult) (pediatric) Anxiety Anxiety state, unspecified [facility]* Diagnosis MCI (mild cognitive impairment)- Primary Mild cognitive impairment, so stated [facility]* Diagnosis Imbalance- Primary Abnormality of gait Cervicocranial syndrome Cervicogenic headache Headache [facility]* Diagnosis AVA (obstructive sleep apnea)- Primary Obstructive sleep apnea (adult) (pediatric) [facility]* Diagnosis Cervicogenic headache- Primary Headache Cervicocranial syndrome Vertigo of central origin Imbalance Abnormality of gait Face pain Headache Other headache syndrome Neck pain Cervicalgia [facility]* Diagnosis Other headache syndrome- Primary [facility]* Diagnosis Cervicogenic headache Headache Vertigo of central origin Imbalance Abnormality of gait Face pain Headache Other headache syndrome [facility]* Diagnosis Disorder of middle ear or mastoid, unspecified laterality- Primary Hearing loss, unspecified hearing loss type, unspecified laterality [facility]* Diagnosis Cervicogenic headache- Primary Headache Face pain Headache Imbalance Abnormality of gait Vertigo of central origin Neck pain Cervicalgia Bilateral occipital neuralgia Other syndromes affecting cervical region [facility]* Diagnosis Bilateral occipital neuralgia- Primary Other syndromes affecting cervical region [facility]* Diagnosis Cervicogenic headache Headache Imbalance Abnormality of gait Vertigo of central origin Neck pain Cervicalgia Bilateral occipital neuralgia Other syndromes affecting cervical region [facility] Diagnosis Chronic bilateral thoracic back pain Dizziness and giddiness Rib pain on right side Chest pain, unspecified Frequent falls Personal history of fall [facility]* Diagnosis AVA (obstructive sleep apnea)- Primary Obstructive sleep apnea (adult) (pediatric) documented [facility]* Diagnosis Cervicogenic headache- Primary Headache Imbalance Abnormality of gait Vertigo of central origin Neck pain Cervicalgia Bilateral occipital neuralgia Other syndromes affecting cervical region Encounter for long-term (current) use of medications Encounter for long-term (current) use of other medications documented in this encounter [facility] Discharge instructions No data available for this section [facility] Progress note No data available for this section [facility] Jaky Reason for referral (narrative)* Diagnostic Procedure Only (Routine) - Pending Review Specialty Diagnoses / Procedures Referred By Contac t Referred To Contact [facility] Diagnoses Observed sleep apnea Procedures HOME SLEEP APNEA TEST (HSAT) SLEEP STD AIRFLOW HRT RATE&O2 SAT EFFORT UNATT Emelina Andrews APRN.CNP [address] [place] [address] Neurological [place] [address] [place] [address] Referral ID Status Reason Start Date Expiration Date Visits Requested Visits Authorized [id number] Pending Review Auto-Generat ed Referral 02/06/2022 02/06/2023 1 1 * Consult, Test, Treat (Routine) - Authorized Specialty Diagnoses / Procedures Referred By Contac t Referred To Contact Neurology Diagnoses Chronic bilateral thoracic back pain Procedures CONSULT TO NEUROLOGY OFFICE/OUTPATIENT [facility] 60-74 MINUTES Emelina Andrews APRN.CNP [address] [place] [address] Referral ID Status Reason Start Date Expiration Date Visits Requested Visits Authorized [id number] Authorized PCP Requested Referral 02/06/2022 02/06/2023 1 1 [facility] for referral (narrative)* Diagnostic Procedure Only (Routine) - Closed Specialty Diagnoses / Procedures [facility] To Contact XR [facility]AG[facility] Diagnoses Chronic bilateral thoracic back pain Rib pain on right side Frequent falls Procedures XR RIBS 2V AP/OBL RIGHT RADEX RIBS UNILATERAL 2 VIEWS Angi Inman MD [address] [place] [address] Xr Imaging Referral ID Status Reason Start Date Expiration Date V isits Requested Visits Authorized [id number] Closed Auto-Generate d Referral 03/01/2022 03/31/2023 1 1 * Diagnostic Procedure Only (Routine) - Closed Specialty Diagnoses / Procedures Referred By Contac t Referred To Contact XR IMAGING Diagnoses Chronic bilateral thoracic back pain Rib pain on right side Procedures XR THORACIC LIMITED 2V AP/LAT RADEX SPINE THORACIC 2 VIEWS Angi Inman MD [address] [place] [address] Xr Imaging Referral ID Status Reason Start Date Expiration Date V isits Requested Visits Authorized [id number] Closed Auto-Generate d Referral 03/01/2022 03/31/2023 1 1 * Diagnostic Procedure Only (Routine) - Closed Specialty Diagnoses / Procedures Referred By Contac t Referred To Contact XR IMAGING Diagnoses Chronic bilateral thoracic back pain Dizziness and giddiness Procedures XR CERV GENERAL 2V AP/LAT RADEX SPINE CERVICAL 2 OR 3 VIEWS Angi Inman MD [address] [place] [address] Xr Imaging Referral ID Status Reason Start Date Expiration Date V isits Requested Visits Authorized [id number] Closed Auto-Generate d Referral 03/01/2022 03/31/2023 1 1 [facility] for referral (narrative)* Diagnostic Procedure Only (Routine) - Closed Specialty Diagnoses / Procedures Referred By Contac t Referred To Contact XR IMAGING Diagnoses Chronic bilateral thoracic back pain Rib pain on right side Frequent falls Procedures XR RIBS 2V AP/OBL RIGHT RADEX RIBS UNILATERAL 2 VIEWS Angi Inman MD [address] [facility] [place] [id number] Xr Imaging [place] [address] Referral ID Status Reason Start Date Expiration Date V isits Requested Visits Authorized [id number] Closed Auto-Generate d Referral 03/01/2022 03/31/2023 1 1 * Diagnostic Procedure Only (Routine) - Closed Specialty Diagnoses / Procedures Referred By Contac t Referred To Contact XR IMAGING Diagnoses Chronic bilateral thoracic back pain Rib pain on right side Procedures XR THORACIC LIMITED 2V AP/LAT RADEX SPINE THORACIC 2 VIEWS Angi Inman MD [address] [facility] [place] [place] [address] Xr Imaging [place] [facility] Referral ID Status Reason Start Date Expiration Date V isits Requested Visits Authorized [id number] Closed Auto-Generate d Referral 03/01/2022 03/31/2023 1 1 * Diagnostic Procedure Only (Routine) - Closed Specialty Diagnoses / Procedures Referred By Contac t Referred To Contact XR IMAGING Diagnoses Chronic bilateral thoracic back pain Dizziness and giddiness Procedures XR CERV GENERAL 2V AP/LAT RADEX SPINE CERVICAL 2 OR 3 VIEWS Angi Inman MD [address] [place] [address] Xr Imaging [place] [address] Referral ID Status Reason Start Date Expiration Date V isits Requested Visits Authorized [id number] Closed Auto-Generate d Referral 03/01/2022 03/31/2023 1 1 [facility] for visit Narrative* Diagnostic Procedure Only (Routine) - Closed Specialty Diagnoses / Procedures Referred By Contac t Referred To Contact XR IMAGING Diagnoses Chronic bilateral thoracic back pain Rib pain on right side Frequent falls Procedures XR RIBS 2V AP/OBL RIGHT RADEX RIBS UNILATERAL 2 VIEWS Angi Inman MD [address] [facility] [place] [place] [address] [place] [address] Referral ID Status Reason Start Date Expiration Date V isits Requested Visits Authorized [id number] Closed Auto-Generate d Referral 03/01/2022 03/31/2023 1 1 [facility] Family History Relationship Condition Age at Onset Recorded Date/T reggie father Coronary artery disease Unknown Angina at rest Unknown mother Cardiac disease Unknown Arthritis Unknown brother Hypertension Unknown Relationship Condition Age at Onset Recorded Date/T reggie Not Specified Malignant neoplasm of colon Unknown father Coronary artery disease Unknown Angina at rest Unknown mother Cardiac disease Unknown Arthritis Unknown brother Hypertension Unknown Reason for Referral Specialty Diagnoses / Procedures Referred By Contangelito t Referred To Contact Neurology Diagnoses AVA (obstructive sleep apnea) Procedures CONSULT TO NEUROLOGY OFFICE/OUTPATIENT [facility] 60-74 MINUTES Johana Frias APRN.[employer] [address] [place] [phone] Referral ID Status Reason Start Date Expiration Date Visits Requested Visits Authorized [id number] Authorized PCP Requested Referral 03/26/2022 03/26/2023 1 1 Specialty Diagnoses / Procedures Referred By Contac t Referred To Contact Diagnoses Vertigo of central origin Imbalance Cervicocranial syndrome Cervicogenic headache Tinnitus, bilateral Procedures PROVIDER ORDERED FOLLOW UP OFFICE/OUTPATIENT [facility] 60-74 MINUTES oJhana Frias, MOSHE.[employer]CH[employer] [address] [place] [id number] Referral ID Status Reason Start Date Expiration Date Visits Requested Visits Authorized [id number] Authorized PCP Requested Referral 12/31/2022 10/03/2023 1 1 Specialty Diagnoses / Procedures Referred By Contac t Referred To Contact Neurology Diagnoses Short-term memory loss Procedures CONSULT TO NEUROLOGY OFFICE/OUTPATIENT [facility] 60-74 MINUTES Johana Frias, [employer] MECH[employer]IC.[employer] [address] [place] [phone] Referral ID Status Reason Start Date Expiration Date Visits Requested Visits Authorized [id number] Authorized PCP Requested Referral 10/03/2022 10/03/2023 1 1 Specialty Diagnoses / Procedures Referred By Contac t Referred To Contact [facility] Diagnoses MCI (mild cognitive impairment) Procedures CONSULT TO SPEECH THERAPY OFFICE/OUTPATIENT [facility] 60-74 MINUTES Jerel Cottrell MD [address] [place] [address] [facility] [place] [address] [place] [address] Referral ID Status Reason Start Date Expiration Date Visits Requested Visits Authorized [id number] Pending Review Auto-Generat ed Referral 01/30/2023 01/30/2024 1 1 Specialty Diagnoses / Procedures Referred By Contac t Referred To Contact Diagnoses Imbalance Cervicocranial syndrome Cervicogenic headache Procedures PROVIDER ORDERED FOLLOW UP OFFICE/OUTPATIENT NEW HIGH MDM 60-74 MINUTES Johana Frias APRN.[employer] [address] [place] [id number] Referral ID Status Reason Start Date Expiration Date Visits Requested Visits Authorized [id number] Authorized PCP Requested Referral 10/24/2023 04/22/2024 1 1 Specialty Diagnoses / Procedures Referred By Contac t Referred To Contact Diagnoses AVA (obstructive sleep apnea) Procedures PROVIDER ORDERED FOLLOW UP OFFICE/OUTPATIENT NEW HIGH MDM 60-74 MINUTES Sara Levine APRN.[employer] [address] [place] [id number] Referral ID Status Reason Start Date Expiration Date Visits Requested Visits Authorized [id number] Authorized PCP Requested Referral 06/12/2024 1 1 Specialty Diagnoses / Procedures Referred By Contac t Referred To Contact Diagnoses Cervicogenic headache Cervicocranial syndrome Vertigo of central origin Imbalance Face pain Other headache syndrome Neck pain Procedures PROVIDER ORDERED FOLLOW UP OFFICE/OUTPATIENT NEW [facility]IGH MDM 60 MINUTES Johana Frias, MOSHE.[employer]CH[employer]IC [address] [place] [phone] Referral ID Status Reason Start Date Expiration Date Visits Requested Visits Authorized [id number] Authorized PCP Requested Referral 02/01/2024 10/31/2024 1 1 Specialty Diagnoses / Procedures Referred By Contac t Referred To Contact MR IMAGING Diagnoses Cervicogenic headache Vertigo of central origin Imbalance Face pain Other headache syndrome Procedures MRI BRAIN WO/W IVCON MRI BRAIN BRAIN STEM W/O W/CONTRAST MATERIAL Johana Frias, MOSHE.[employer] [address] [place] [address] Mr Imaging [id number] Referral ID Status Reason Start Date Expiration Date Visits Requested Visits Authorized [id number] Pending Review Auto-Generat ed Referral 11/01/2023 11/30/2024 1 1 Specialty Diagnoses / Procedures Referred By Contac t Referred To Contact Ent - Otolaryngology Diagnoses Disorder of middle ear or mastoid, unspecified laterality Hearing loss, unspecified hearing loss type, unspecified laterality Procedures CONSULT TO ENT OFFICE/OUTPATIENT NEW [facility] MDM 60 MINUTES Lupe Beckford PA-C [address] [place] [address] Referral ID Status Reason Start Date Expiration Date Visits Requested Visits Authorized [id number] Authorized PCP Requested Referral 12/05/2023 12/04/2024 1 1 Specialty Diagnoses / Procedures Referred By Contac t Referred To Contact Diagnoses Cervicogenic headache Face pain Imbalance Vertigo of central origin Neck pain Bilateral occipital neuralgia Procedures PROVIDER ORDERED FOLLOW UP OFFICE/OUTPATIENT [facility] 60 MINUTES Johana Frias, MOSHE.[place] [address] [place] [address] Referral ID Status Reason Start Date Expiration Date Visits Requested Visits Authorized [id number] Authorized PCP Requested Referral 05/15/2024 02/12/2025 1 1 Specialty Diagnoses / Procedures Referred By Contac t Referred To Contact Diagnoses Cervicogenic headache Imbalance Vertigo of central origin Neck pain Bilateral occipital neuralgia Procedures PROVIDER ORDERED FOLLOW UP OFFICE/OUTPATIENT [facility] 60 MINUTES Johana Frias, [employer] MECH[employer]IC.[employer]CH[employer] [address] [place] [address] Referral ID Status Reason Start Date Expiration Date Visits Requested Visits Authorized [id number] Authorized PCP Requested Referral 11/18/2024 05/21/2025 1 1 Chief Complaint and Reason for Visit Chief Complaint FEVER/REYES/SINUS PRESS URE PAIN- COPY PCP Reason for Visit Contact with and (diaz spected) exposure to other viral communicable diseases Summary Purpose Advance Directives No Advanced Directives Records FoundNo Advanced Directives Records FoundNo Advanced Directives Records FoundNo Advanced Directives Records FoundNo Advanced Directives Records Found Additional Source Comments Source Comments (unrecognize d section and content) In the event this informatio n is protected by the Federal Confidentiality of Alcohol and Drug Abuse Patient Records regulations: The Federal rules restrict any use of the information to criminally investigate or prosecute any alcohol or drug abuse patient.[facility] the event this information is protected by the Federal Confidentiality of Alcohol and Drug Abuse Patient Records regulations: The Federal rules restrict any use of the information to criminally investigate or prosecute any alcohol or drug abuse patient.[facility] the event this information is protected by the Federal Confidentiality of Alcohol and Drug Abuse Patient Records regulations: The Federal rules restrict any use of the information to criminally investigate or prosecute any alcohol or drug abuse patient.[facility] the event this information is protected by the Federal Confidentiality of Alcohol and Drug Abuse Patient Records regulations: The Federal rules restrict any use of the information to criminally investigate or prosecute any alcohol or drug abuse patient.[facility] the event this information is protected by the Federal Confidentiality of Alcohol and Drug Abuse Patient Records regulations: The Federal rules restrict any use of the information to criminally investigate or prosecute any alcohol or drug abuse patient.[facility] the event this information is protected by the Federal Confidentiality of Alcohol and Drug Abuse Patient Records regulations: The Federal rules restrict any use of the information to criminally investigate or prosecute any alcohol or drug abuse patient.[facility] System[facility] the event this information is protected by the Federal Confidentiality of Alcohol and Drug Abuse Patient Records regulations: The Federal rules restrict any use of the information to criminally investigate or prosecute any alcohol or drug abuse patient.[facility] System[facility] the event this information is protected by the Federal Confidentiality of Alcohol and Drug Abuse Patient Records regulations: The Federal rules restrict any use of the information to criminally investigate or prosecute any alcohol or drug abuse patient.[facility] System[facility] the event this information is protected by the Federal Confidentiality of Alcohol and Drug Abuse Patient Records regulations: The Federal rules restrict any use of the information to criminally investigate or prosecute any alcohol or drug abuse patient.[facility] the event this information is protected by the Federal Confidentiality of Alcohol and Drug Abuse Patient Records regulations: The Federal rules restrict any use of the information to criminally investigate or prosecute any alcohol or drug abuse patient.[facility] System[facility] the event this information is protected by the Federal Confidentiality of Alcohol and Drug Abuse Patient Records regulations: The Federal rules restrict any use of the information to criminally investigate or prosecute any alcohol or drug abuse patient.[facility] System[facility] the event this information is protected by the Federal Confidentiality of Alcohol and Drug Abuse Patient Records regulations: The Federal rules restrict any use of the information to criminally investigate or prosecute any alcohol or drug abuse patient.[facility] System[facility] the event this information is protected by the Federal Confidentiality of Alcohol and Drug Abuse Patient Records regulations: The Federal rules restrict any use of the information to criminally investigate or prosecute any alcohol or drug abuse patient.[facility] System[facility] the event this information is protected by the Federal Confidentiality of Alcohol and Drug Abuse Patient Records regulations: The Federal rules restrict any use of the information to criminally investigate or prosecute any alcohol or drug abuse patient.[facility] System[facility] the event this information is protected by the Federal Confidentiality of Alcohol and Drug Abuse Patient Records regulations: The Federal rules restrict any use of the information to criminally investigate or prosecute any alcohol or drug abuse patient.[facility] System[facility] the event this information is protected by the Federal Confidentiality of Alcohol and Drug Abuse Patient Records regulations: The Federal rules restrict any use of the information to criminally investigate or prosecute any alcohol or drug abuse patient.[facility] System[facility] the event this information is protected by the Federal Confidentiality of Alcohol and Drug Abuse Patient Records regulations: The Federal rules restrict any use of the information to criminally investigate or prosecute any alcohol or drug abuse patient.[facility] System[facility] the event this information is protected by the Federal Confidentiality of Alcohol and Drug Abuse Patient Records regulations: The Federal rules restrict any use of the information to criminally investigate or prosecute any alcohol or drug abuse patient.[facility] System[facility] the event this information is protected by the Federal Confidentiality of Alcohol and Drug Abuse Patient Records regulations: The Federal rules restrict any use of the information to criminally investigate or prosecute any alcohol or drug abuse patient.[facility] System[facility] the event this information is protected by the Federal Confidentiality of Alcohol and Drug Abuse Patient Records regulations: The Federal rules restrict any use of the information to criminally investigate or prosecute any alcohol or drug abuse patient.[facility] System[facility] the event this information is protected by the Federal Confidentiality of Alcohol and Drug Abuse Patient Records regulations: The Federal rules restrict any use of the information to criminally investigate or prosecute any alcohol or drug abuse patient.[facility] System[facility] the event this information is protected by the Federal Confidentiality of Alcohol and Drug Abuse Patient Records regulations: The Federal rules restrict any use of the information to criminally investigate or prosecute any alcohol or drug abuse patient.[facility] System[facility] the event this information is protected by the Federal Confidentiality of Alcohol and Drug Abuse Patient Records regulations: The Federal rules restrict any use of the information to criminally investigate or prosecute any alcohol or drug abuse patient.[facility] System[facility] the event this information is protected by the Federal Confidentiality of Alcohol and Drug Abuse Patient Records regulations: The Federal rules restrict any use of the information to criminally investigate or prosecute any alcohol or drug abuse patient.[facility] System[facility] the event this information is protected by the Federal Confidentiality of Alcohol and Drug Abuse Patient Records regulations: The Federal rules restrict any use of the information to criminally investigate or prosecute any alcohol or drug abuse patient.[facility] System[facility] the event this information is protected by the Federal Confidentiality of Alcohol and Drug Abuse Patient Records regulations: The Federal rules restrict any use of the information to criminally investigate or prosecute any alcohol or drug abuse patient.[facility] System[facility] the event this information is protected by the Federal Confidentiality of Alcohol and Drug Abuse Patient Records regulations: The Federal rules restrict any use of the information to criminally investigate or prosecute any alcohol or drug abuse patient.[facility] System[facility] the event this information is protected by the Federal Confidentiality of Alcohol and Drug Abuse Patient Records regulations: The Federal rules restrict any use of the information to criminally investigate or prosecute any alcohol or drug abuse patient.[facility] SystemIn the event this information is protected by the Federal Confidentiality of Alcohol and Drug Abuse Patient Records regulations: The Federal rules restrict any use of the information to criminally investigate or prosecute any alcohol or drug abuse patient.[facility] System[facility] the event this information is protected by the Federal Confidentiality of Alcohol and Drug Abuse Patient Records regulations: The Federal rules restrict any use of the information to criminally investigate or prosecute any alcohol or drug abuse patient.[facility] SystemIn the event this information is protected by the Federal Confidentiality of Alcohol and Drug Abuse Patient Records regulations: The Federal rules restrict any use of the information to criminally investigate or prosecute any alcohol or drug abuse patient.[facility] System[facility] the event this information is protected by the Federal Confidentiality of Alcohol and Drug Abuse Patient Records regulations: The Federal rules restrict any use of the information to criminally investigate or prosecute any alcohol or drug abuse patient.[facility] System[facility] the event this information is protected by the Federal Confidentiality of Alcohol and Drug Abuse Patient Records regulations: The Federal rules restrict any use of the information to criminally investigate or prosecute any alcohol or drug abuse patient.[facility] Reason for Visit (unrecogniz ed section and content) Reason Comments Follow Up Specialty Diagnoses / Procedures Referred By Vitaly baires Referred To Contact Diagnoses Cervicogenic headache Cervicocranial syndrome Vertigo of central origin Imbalance Procedures PROVIDER ORDERED FOLLOW UP OFFICE/OUTPATIENT [facility] MDM 60 MINUTES Johana Frias, MOSHE.[employer]CH[employer] [address] [place] [phone] Referral ID Status Reason Start Date Expiration Date V isits Requested Visits Authorized [id number] Closed PCP Requested Referral 02/05/2024 09/05/2024 1 1 Reason Comments Follow Up Reason Comments Sore Throat headache, cough, eye drainage x 4 days, strep exposure Reason Comments Cough cough, ST and eye ir ritation x 1 week Reason Comments Pain, Back patient states that he has been stumbling for 2 years Consult Specialty Diagnoses / Procedures Referred By Vitaly baires Referred To Contact Neurology Diagnoses Chronic bilateral thoracic back pain Procedures CONSULT TO NEUROLOGY OFFICE/OUTPATIENT NEW HIGH MDM 60-74 MINUTES Emelina Andrews, [employer] MECH[employer]IC.[employer] [address] [place] [address] Referral ID Status Reason Start Date Expiration Date V isits Requested Visits Authorized [id number] Closed PCP Requested Referral 02/06/2022 02/06/2023 1 1 Reason Comments Results HSAT Reason Comments New Patient Evaluation Sleep Apnea Results - Sleep Study Home test complete d Specialty Diagnoses / Procedures Referred By Contac t Referred To Contact Neurology Diagnoses AVA (obstructive sleep apnea) Procedures CONSULT TO NEUROLOGY OFFICE/OUTPATIENT NEW HIGH MDM 60-74 MINUTES Johana Frias, [employer] MECH[employer]IC.[employer]CH[employer] [address] [place] [address] Referral ID Status Reason Start Date Expiration Date V isits Requested Visits Authorized [id number] Closed PCP Requested Referral 03/26/2022 03/26/2023 1 1 Reason Comments PAP Therapy Fax Reason Comments Forms [facility] Reason Comments Vertigo Reason Comments Follow Up Sleep Apnea Patient states impro gretta and is compliant, patient states a little clautrophobia Reason Onset Date Comments Refill Request 08/04/2022 Reason Comments Sore Throat X 1 day Specialty Diagnoses / Procedures Referred By Contac t Referred To Contact Diagnoses Imbalance Vertigo of central origin Cervicocranial syndrome Cervicogenic headache Procedures PROVIDER ORDERED FOLLOW UP OFFICE/OUTPATIENT NEW HIGH MDM 60-74 MINUTES Johana Frias, [employer] [address] [place] [address] Referral ID Status Reason Start Date Expiration Date V isits Requested Visits Authorized [id number] Closed PCP Requested Referral 04/23/2023 01/21/2024 1 1 Reason Comments Sleep Apnea Reason Onset Date Comments Refill Request 06/23/2023 Reason Comments Headache Specialty Diagnoses / Procedures Referred By Contac t Referred To Contact MR IMAGING Diagnoses Cervicogenic headache Vertigo of central origin Imbalance Face pain Other headache syndrome Procedures MRI BRAIN WO/W IVCON MRI BRAIN BRAIN STEM W/O W/CONTRAST MATERIAL Johana Frias, [employer] [address] [place] [address] [place] [address] Referral ID Status Reason Start Date Expiration Date V isits Requested Visits Authorized [id number] Closed Auto-Generate d Referral 11/23/2023 11/23/2023 1 1 Reason Comments Established Patient Follow-Up Specialty Diagnoses / Procedures Referred By Contac t Referred To Contact Diagnoses Cervicogenic headache Face pain Imbalance Vertigo of central origin Neck pain Bilateral occipital neuralgia Procedures PROVIDER ORDERED FOLLOW UP OFFICE/OUTPATIENT NEW HIGH MDM 60 MINUTES [facility] [employer] [address] [place] [address] Referral ID Status Reason Start Date Expiration Date V isits Requested Visits Authorized [id number] Closed PCP Requested Referral 05/15/2024 02/12/2025 1 1 Reason Comments Sleep Apnea Follow up Specialty Diagnoses / Procedures Referred By Contac t Referred To Contact Diagnoses Cervicogenic headache Imbalance Vertigo of central origin Neck pain Bilateral occipital neuralgia Procedures PROVIDER ORDERED FOLLOW UP OFFICE/OUTPATIENT NEW HIGH MDM 60 MINUTES [facility] [employer]CH[employer]CH[employer] [address] [facility] [place] [address] Phone: tel: fax: Referral ID Status Reason Start Date Expiration Date V isits Requested Visits Authorized [id number] Closed PCP Requested Referral 11/18/2024 05/21/2025 1 1 Reason Onset Date Comments Refill Request 12/06/2024 Care Teams (unrecognized sec tion and content) Specialist Wound Care Relationship Specialty Start Date End Date Johann Bundy [address] [place] [address] PCP - General Family Practice 08/01/20 Christie Ugarte DO [address] [place] [address] Neurology 03/31/21 Specialist Wound Care Relationship Specialty Start Date End Date Johann Bundy [address] [place] [address] PCP - General Family Practice 08/01/20 Christie Ugarte DO [address] [place] [address] Neurology 03/31/21 Specialist Wound Care Relationship Specialty Start Date End Date NaumoffJohann [address] [place] [address] PCP - General Family Practice 08/01/20 Christie Ugarte DO [address] [place] [address] Neurology 03/31/21 Specialist Wound Care Relationship Specialty Start Date End Date NaumoffJohann [address] [place] [address] PCP - General Family Practice 08/01/20 Christie Ugarte DO [address] [place] [address] Neurology 03/31/21 Specialist Wound Care Relationship Specialty Start Date End Date NaumoffJohann [address] [place] [address] PCP - General Family Practice 08/01/20 Christie Ugarte DO [address] [place] [address] Neurology 03/31/21 Specialist Wound Care Relationship Specialty Start Date End Date NaumoffJohann [address] [place] [address] PCP - General Family Practice 08/01/20 Christie Ugarte DO [address] [place] [address] Neurology 03/31/21 Specialist Wound Care Relationship Specialty Start Date End Date NaumoffJohann [address] [place] [address] PCP - General Family Practice 08/01/20 Christie Ugarte DO [address] [place] [address] Neurology 03/31/21 Specialist Wound Care Relationship Specialty Start Date End Date NaumoffJohann [address] [place] [address] PCP - General Family Medicine 08/01/20 Christie Ugarte DO [address] [place] [address] Neurology 03/31/21 Specialist Wound Care Relationship Specialty Start Date End Date NaumoffJohann [address] [place] [address] PCP - General Family Medicine 08/01/20 Christie Ugarte DO [address] [place] [address] Neurology 03/31/21 Specialist Wound Care Relationship Specialty Start Date End Date Naumoff, Johann Banda [address] [place] [address] PCP - General Family Medicine 08/01/20 Christie Ugarte DO [address] [place] [address] Neurology 03/31/21 Specialist Wound Care Relationship Specialty Start Date End Date NaumoffJohann [address] [place] [address] PCP - General Family Medicine 08/01/20 Christie Ugarte DO [address] [place] [address] Neurology 03/31/21 Specialist Wound Care Relationship Specialty Start Date End Date NaumoffJohann [address] [place] [address] PCP - General Family Medicine 08/01/20 Christie Ugarte DO [address] [place] [address] Neurology 03/31/21 Specialist Wound Care Relationship Specialty Start Date End Date Johann Bundy [address] [place] [address] PCP - General Family Medicine 08/01/20 Christie Ugarte DO [address] [place] [address] Neurology 03/31/21 Team Status: Active Member Role Status Dates Dr. Johann Bundy MD Family Provider Active Dr. Dale Albert DO Primary Care Provider Active Team Status: Inactive Member Role Status Dates Dr. Dale Albert DO Primary Care Provider Active Dr. Mariza Rios MD Attending Provider, Referring Provider Active Specialist Wound Care Relationship Specialty Start Date End Date Johann Bundy [address] [place] [address] PCP - General Family Medicine 08/01/20 [place] [address] [place] [address] Neurology 03/31/21 Specialist Wound Care Relationship Specialty Start Date End Date Johann Bundy [address] [place] [address] PCP - General Family Medicine 08/01/20 Christie Ugarte DO [address] [place] [address] Neurology 03/31/21 Specialist Wound Care Relationship Specialty Start Date End Date Johann Bundy [address] [place] [address] PCP - General Family Medicine 08/01/20 Christie Ugarte DO [address] [place] [address] Neurology 03/31/21 Specialist Wound Care Relationship Specialty Start Date End Date Johann Bundy [address] [place] [address] PCP - General Family Medicine 08/01/20 Christie Ugarte DO [address] [place] [address] Neurology 03/31/21 Specialist Wound Care Relationship Specialty Start Date End Date Johann Bundy [address] [place] [address] PCP - General Family Medicine 08/01/20 Christie Ugarte DO [address] [place] [address] Neurology 03/31/21 Specialist Wound Care Relationship Specialty Start Date End Date Johann Bundy [address] [place] [address] PCP - General Family Medicine 08/01/20 Christie Ugarte DO [address] [place] [address] Neurology 03/31/21 Specialist Wound Care Relationship Specialty Start Date End Date Johann Bundy [address] [place] [address] PCP - General Family Medicine 08/01/20 Christie Ugarte DO [address] [facility] [place] [address] Neurology 03/31/21 Specialist Wound Care Relationship Specialty Start Date End Date Johann Bundy [address] [place] [address] PCP - General Family Medicine 08/01/20 Christie Ugarte DO [address] [facility] [place] [address] Neurology 03/31/21 Specialist Wound Care Relationship Specialty Start Date End Date Johann Bundy [address] [place] [address] PCP - General Family Medicine 08/01/20 Christie Ugarte DO [address] [place] [address] Neurology 03/31/21 Specialist Wound Care Relationship Specialty Start Date End Date Johann Bundy [address] [place] [address] PCP - General Family Medicine 08/01/20 Christie Ugarte DO [address] [place] [address] Neurology 03/31/21 Specialist Wound Care Relationship Specialty Start Date End Date Johann Bundy [address] [place] [address] PCP - General Family Medicine 08/01/20 Christie Ugarte DO [address] [place] [address] Neurology 03/31/21 Specialist Wound Care Relationship Specialty Start Date End Date Prabhakar Johann Solo [address] [place] [address] PCP - General Family Medicine 08/01/20 Christie Ugarte DO [address] [place] [address] Neurology 03/31/21 Specialist Wound Care Relationship Specialty Start Date End Date Prabhakar Johann Solo [address] [place] [address] PCP - General Family Medicine 08/01/20 Christie Ugarte DO [address] [place] [address] Neurology 03/31/21 Specialist Wound Care Relationship Specialty Start Date End Date Prabhakar Johann Solo [address] [place] [address] PCP - General Family Medicine 08/01/20 Christie Ugarte DO [address] [place] [address] Neurology 03/31/21 Specialist Wound Care Relationship Specialty Start Date End Date Johann Bundy [address] [place] [address] PCP - General Family Medicine 08/01/20 Christie Ugarte DO [address] [place] [address] Neurology 03/31/21 Specialist Wound Care Relationship Specialty Start Date End Date Johann Bundy [address] [place] [address] PCP - General Family Medicine 08/01/20 Christie Ugarte DO [address] [place] [address] Neurology 03/31/21 Goals (unrecognized section and content) Goals may be documented in a n alternate section No data available for this sectionGoals may be documented in an alternate sectionGoals may be documented in an alternate section No data available for this sectionGoals may be documented in an alternate section No data available for this section No data available for this section Care Team (unrecognized sect ion and content) Care Team Personnel Name: DALE ALBERT DO Position: P4 Physician - Primary Care Member Role: Primary Care Physician Address: Address: [address] [place] [address] [place], [place] [address] Care Team Related Persons Name: LUH CHANCE Address: [id number] [place] [phone] (unrecognized sect ion and content) No Status Records FoundNo Status Records FoundNo Status Records FoundNo Status Records FoundNo Status Records Found INFORMATION SOURCE (unrecogn ized section and content) DATE CREATED AUTHOR 11/27/2023 [facility] DATE CREATED AUTHOR AUTHOR'S ORGANIZ ATION 05/02/2024 [facility] DATE CREATED AUTHOR AUTHOR'S ORGANIZ ATION 05/23/2024 [facility] DATE CREATED AUTHOR AUTHOR'S ORGANIZ ATION 10/20/2024 [facility] DATE CREATED AUTHOR AUTHOR'S ORGANIZ ATION 11/28/2024 [facility] FOR RECORDS PERTAINING TO PATIENTS WHO ARE OR HAVE BEEN ENROLLED IN A CHEMICAL DEPENDENCY/SUBSTANCEABUSE PROGRAM, SOME INFORMATION MAY BE OMITTED. This clinical summary was aggregated from multiple sources. Caution should be exercised in using it in the provision of clinical care. This summary normalizes information from multiple sources, and as a consequence, information in this document may materially change the coding, format and clinical context of patient data. In addition, data may be omitted in some cases. CLINICAL DECISIONS SHOULD BE BASED ON THE PRIMARY CLINICAL RECORDS. [facility] [employer] [facility]. provides no warranty or guarantee of the accuracy or completeness of information in this document.
[2025-02-05 08:25] LABS: Absolute Lymphocyte Count 1.64 X10^3/uL (0.83-4.51); Basophil# 0.08 X10^3/uL; Basophil% 1.5 % (0-1); Eosinophil# 0.17 X10^3/uL; Eosinophils% 3.1 % (0-5); Hematocrit 43.7 % (40-54); Hemoglobin 15.6 g/dL (13.0-16.5); Lymphocyte # 1.64 X10^3/ul (0.83-4.51); Lymphocyte % 30.2 % (19-41); Mean Corp Hgb Conc 35.7 g/dL (32-36); Mean Corpuscular Hgb 32.8 pg (27.0-32.0); Mean Platelet Vol. 9.6 fl (6.2-12.0); Monocyte# 0.56 X10^3/uL; Monocyte% 10.3 % (0-10); NRBC Flagged by Analyzer 0 % (0-5); Neutrophil # 2.97 X10^3/uL (2.7-7.7); Neutrophil % 54.7 % (47-70); Platelet Count 197 K/mm3 (150-450); RBC Distribution Width CV 11.4 % (11.6-14.6); RBC Distribution Width SD 39.1 fl (35.1-43.9); Red Blood Count 4.75 M/mm3 (4.6-6.2); White Blood Count 5.4 K/mm3 (4.4-11.0)
[2025-02-05 09:25] LABS: ALB/GLOB Ratio 1.9 RATIO (0.9-2.4); AST(SGOT) 36 U/L (<=37); Alanine Aminotransfer ALT/SGPT 29 U/L (<=46); Albumin, Serum 4.7 g/dL (3.5-5.0); Alkaline Phosphatase 78 U/L (40-129); Anion Gap 12 (5-15); BUN 23 mg/dL (4-19); BUN/Creat Ratio 20.4 RATIO (10-20); Calcium,Total 9.5 mg/dL (7.6-11.0); Chloride 102 mmol/L (98-108); Creatinine, Serum 1.12 mg/dL (0.70-1.20); EST Glomerular Filtration Rate 77 (>60); Globulin 2.5 g/dL (2.2-4.2); Glucose 85 mg/dL (70-99); Potassium 4.1 mmol/L (3.3-5.1); Protein, Total 7.1 g/dL (5.9-8.4); Sodium Level 138 mmol/L (133-145); Total Bilirubin 1.23 mg/dL (0.00-1.30)
== END | disposition home or self-care (01) ==
LOC: LAB 07:08
PROVIDERS: Referring Provider Internal Medicine Rheumatology; Visit Provider Internal Medicine Rheumatology
DX: M06.4 Inflammatory polyarthropathy (principal); R76.8 Other specified abnormal immunological findings in serum; Z79.899 Other long term (current) drug therapy
CPT/HCPCS: 36415; 80053; 85025

== ENCOUNTER → 2025-05-05 | Outpatient (CLI) | payer BC, OTHER, SELFPAY ==
--- OUTSIDE RECORDS SUMMARY | 2025-05-05 07:24 | XMS RPT_ITS | CCD ---
Author Organization [facility] Care Team Providers Care 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 Name Role Phone Janay ATKINSON, Dilma Newman Unavailable Unavailable Deysi Brito Unavailable Deysi Brito Unavailable Johann Bundy Primary Care Provider 1(3 [phone]) Christie Ugarte DO Unavailable Johann Bundy Primary Care Provider 1(3 30) Christie Ugarte DO Unavailable DALE ALBERT DO Primary Care Physician Johann Bundy Primary Care Provider 1(3 30) Christie Ugarte DO Dr. Johann Bundy Primary Care Provider Dr. Johann Bundy Referring Provider [phone] HUMAIRA Downs Attending Provider Johann Bundy Primary Care Provider 1(3 30) JOHANA FRIAS Referring Unavailable JOHANN BUNDY Primary Care Unavailab Johann Valentin Primary Care Provider 1(3 30) DALE ALBERT DO Attending Unavailable DALE ALBERT DO Primary Care Unavailable REGINA VALIENTE PA-C Attending Unavailab DALE Lynn DO Primary Care Unavailable Dr. Dale Albert DO Primary Care Provider [phone] Dr. Mariza Rios MD Attending Provider Dr. Mariza Rios MD Referring Provider Paars, Titus Attending Unavailable Albert, Dale Primary Care Unavailable Albert, Dale Referring Unavailable Paras, Titus Attending Unavailable Albert, Dale Primary Care Unavailable Vellanki, Mariza Attending Unavailable Vellanki, Mariza Referring Unavailable Albert, Dale Primary Care Unavailable Paras, Titus Attending Unavailable Paras, Titus Referring Unavailable Albert, Dale Primary Care Unavailable Vellanki, Mariza Referring Unavailable Albert, Dale Primary Care Unavailable Vellanki, Mariza Attending Unavailable Vellanki, Mariza Attending Unavailable Vellanki, Mariza Referring Unavailable Albert, Dale Primary Care Unavailable FROIMSON, JOHANA Attending Unavailable FROIMSON, JOHANA Referring Unavailable NAUMOFF, JOHANN BRANDON Primary Care Unavailab le FROIMSON, JOHANA Attending Unavailable FROIMSON, JOHANA Referring Unavailable NAUMOFF, JOHANN BRANDON Primary Care Unavailab SARA Kwon Attending Unavailable NAUMOFF, JOHANN MILFORD Primary Care Unavailab le FROIMSON, JOHANA Attending Unavailable FROIMSON, JOHANA Referring Unavailable NAUMOFF, JOHANN BRANDON Primary Care Unavailab keyla ALBERT DO, DALE Cunha Primary Care Unavailable CACHORRO LAU DO Attending Unavailable CHERELLE DO, DALE Cunha Attending Unavailable CHERELLE DO, DALE E Primary Care Unavailable Allergies Allergy Classification Reported Allergen(s) Allergy Type Date of Onset Reaction(s) Facility Tetracyclines (antibiotic) (1 source) Demeclocycline Drug Allergy 0 Other: See Comments [facility] (3 sources) demeclocycline Drug Allergy 2 [facility] Work Phone: (20 sources) Demeclocycline; Translations: [DEMECLOCYCLINE] Drug Allergy 0 Other: See Comments, Unknown [facility] (20 sources) Seasonal allergy; Translations: [SEASONAL ALLERGIES] Allergy to substance 0 Cough [facility] (1 source) Allergic rhinitis due to pollen Allergy to substance 2 Other [facility] Work Phone: (4 sources) Environmental Allergies: Uncoded; Translations: [Environmental Allergies: Uncoded] Allergy to substance 3 Other [facility] (1 source) Demeclocycline Drug Allergy 5 [facility] Repository Medications Current Medications Medication Drug Class(es) Dates Sig (Normalized) Sig (Original) [id number] 200 actuat albuterol 0.09 mg/actuat metered dose [...] breath, # 8.5 gram(s), 5 Refill(s), Pharmacy: [facility] #[id number], 175, cm, 05/13/24 13:19:00 EDT, Height, kg, 05/13/24 13:19:00 EDT, Dosing Weight Start Date: 05/13/24 Status: Ordered Medication Dispense Status: Completed Quantity: 8.5 Unit: g Total Allowed Fills: 6 Fills Dispensed: 0 Start: 05-27-2023 take 2 puff(s) by in [...] breath, # 8.5 gram(s), 5 Refill(s), Pharmacy: [facility] #[id number], 175, cm, 05/10/23 15:39:00 EDT, Height, kg, [...] breath, # 8.5 gram(s), 5 Refill(s), Pharmacy: [facility] #[id number], 175, cm, 05/08/22 8:26:00 EDT, Height, kg, [...] # 8.5 gram(s), 5 Refill(s), Pharmacy: [facility] 175, cm, 11/07/20 9:58:00 EST, Height, kg, 11/07/20 9:58:00 E... Start Date: 11/08/20 Status: Ordered Comment on above: inhale 2 puffs by mo uth every 4 hours if needed for wheezing cough or shortness of breath Nancy 24 Hour Allergy (5 sources) Start: 10-22-2019 take 1 mg by mouth once daily Nancy 24 Hour Allergy mg =, Oral, qDay, 0 Refill(s) Start Date: 10/22/19 Status: Ordered Medication Dispense Status: Completed Total Allowed Fills: 1 Fills Dispensed: 0 Start: 10-22-2019 take 1 mg by mouth once daily Nancy 24 Hour Allergy mg =, Oral, qDay, 0 Refill(s) Start Date: 10/22/19 Status: Ordered amoxicillin 500 mg oral capsule (4 sources) Penicillin-class Antibacterial Start: 01-03-2023 End: 01-13-2023 take 1 capsule by mouth twice daily [...] 5 days. [facility]. benzonatate 100 mg oral capsule (14 sources) Non-narcotic Antitussive Start: 05-19-2024 End: 07-01-2024 [...] 0 Refill(s), 05/29/24 2:00:00 PM EDT, Pharmacy: [facility]/pharmacy #[id number], Pneumonia due to COVID-19 virus AVA on CPAP, 175, cm, 05/13/24 13:19:00 EDT, Height, kg, 05/13/24 13:19:00 EDT, Dosing Weight Start Date: 05/19/24 Stop Date: 05/29/24 Status: Ordered Start: 07-05-2022 End: 03-27-2023 take 1 capsule by mouth three times daily as needed for cough Benzonatate 200 mg capsule Discontinued 200 mg PO THREE TIMES A DAY as needed for cough July 05, 2022 12:00am March 27, 2023 11:24am Start: 02-21-2022 End: 03-01-2022 take 2 capsules by mouth three times daily as needed benzonatate (TESSALON PERLE) 100 mg capsule Indications: URI, acute Take 2 capsules by mouth three times daily as needed. 30 capsule 0 02/21/2022 03/01/2022 Discontinued (Course of therapy completed) Comment on above: Take 2 capsules by m outh three times daily as needed. take 1 capsule by mo ut three times a day if needed for cough Breo Ellipta 100 mcg-25 mcg/inh inhalation powder (1 source) Start: take 1 dose by inhalation once daily Breo Ellipta 100 mcg-25 mcg/inh inhalation powder Dose = 1 puff(s), Inhalation, Daily, # 1 EA, 0 Refill(s), Pharmacy: [facility]/pharmacy #[id number], COVID-19 Diet-controlled hyperlipidemia, 175, cm, 05/13/24 13:19:00 EDT, Height, kg, 05/13/24 13:19:00 EDT, Dosing Weight Start Date: 05/13/24 Status: Ordered cefdinir 300 mg oral capsule (3 sources) Cephalosporin Antibacterial Start: End: cefdinir (OMNICEF) 300 mg capsule 05/19/2024 07/01/2024 Discontinued cholecalciferol 0.025 mg oral capsule (18 sources) Vitamin D Start: take 1 capsule by mouth once daily Cholecalciferol, Vitamin D3, (VITAMIN D) 25 mcg (1,000 unit) cap Take 1 capsule by mouth once daily. 01/21/2023 Active Comment on above: Take 1 capsule by mo ut once daily. CPAP/BIPAP/OTHER (20 sources) Start: End: [...] to see current settings/supplies/DME information. DME [facility] (4 sources) Start: 05-20-2024 DME [facility] See Instructions, dx J18.9. dispense one incentive spirometer, use every hour while awake, # 1 EA, 0 Refill(s), Pneumonia, 175, cm, 05/13/24 13:19:00 EDT, Height, 77.3, kg, 05/13/24 13:19:00 EDT, Dosing Weight Start Date: 05/20/24 Status: Ordered Medication Dispense Status: Completed Quantity: 1.0 Unit: EA Total Allowed Fills: 1 Fills Dispensed: 0 Indications: Pneumonia, unspecified organism; Start: 05-20-2024 DME MISCellane ous See Instructions, dx J18.9. dispense one flutter valve, use every hour while awake, # 1 EA, 0 Refill(s), Pneumonia, 175, cm, 05/13/24 13:19:00 EDT, Height, 77.3, kg, 05/13/24 13:19:00 EDT, Dosing Weight Start Date: 05/20/24 Status: Ordered Medication Dispense Status: Completed Quantity: 1.0 Unit: EA Total Allowed Fills: 1 Fills Dispensed: 0 Indications: Pneumonia, unspecified organism; Start: 05-20-2024 DME MISCellane ous See Instructions, dx J18.9. dispense one incentive spirometer, use every hour while awake, # 1 EA, 0 Refill(s), Pneumonia, 175, cm, 05/13/24 13:19:00 EDT, Height, 77.3, kg, 05/13/24 13:19:00 EDT, Dosing Weight Start Date: 05/20/24 Status: Ordered Start: 05-20-2024 JOVANNY magdaleno See Instructions, dx J18.9. dispense one flutter [...] Relief (Fexofenadine)) 180 mg tablet Active 180 mg PO DAILY October 16, 2021 1:00am Start: 07-06-2021 End: 10-16-2021 take 1 tablet by mouth once daily Fexofenadine (Nancy Allergy) 60 mg tablet Discontinued 60 mg PO DAILY July 06, 2021 8:06am October 16, 2021 10:03am Start: 12-20-2020 End: 07-06-2021 take 1 tablet by mouth twice daily Fexofenadine (Nancy Allergy) 60 mg tablet Discontinued 60 mg PO TWICE A DAY December 20, 2020 12:00am July 06, 2021 8:07am Start: 11-08-2011 End: 12-20-2020 take 1 tablet by mouth once daily Fexofenadine (Nancy Allergy) 180 mg tablet Discontinued 180 mg PO DAILY September 18, 2018 1:00am December 20, 2020 8:25am Comment on above: Take 180 mg by mouth once daily. gabapentin 300 mg oral capsule (20 sources) Anti-epileptic Agent Start: 09-10-2024 Gabapentin 100 mg capsule Active 900 mg PO DAILY September 10, 2024 4:51pm Start: 05-01-2024 End: 08-16-2025 gabapentin 300 mg oral capsu le Dose : 300 mg = 1 cap(s), TAKE 3 CAPSULES BY MOUTH DAILY AT BEDTIME Start Date: 05/01/24 Status: Ordered Medication Dispense Status: Completed Total Allowed Fills: 1 Fills Dispensed: 0 Start: 11-01-2023 End: 05-21-2024 take 3 capsules [...] Start Date: 05/10/23 Status: Ordered Start: 03-27-2023 End: 09-10-2024 Gabapentin 100 mg capsule Discontinued 600 mg PO DAILY March 27, 2023 11:23am September 10, 2024 4:52pm Start: 03-27-2023 take 600 mg by mouth [...] 10/03/2022 Active Start: 07-05-2022 End: 03-27-2023 take 1 capsule by mouth once daily Gabapentin 100 mg capsule Discontinued 100 mg PO DAILY July 05, 2022 12:00am March 27, 2023 11:24am Start: 05-15-2022 End: 11-04-2022 take 1 capsule [...] outh daily at bedtime for 180 days. 12 hr guaiFENesin 600 mg extended release [...] 0 Refill(s) Start Date: 05/10/23 Status: Ordered Medication Dispense Status: Completed Quantity: 180.0 Unit: tab(s) Total Allowed Fills: 1 Fills Dispensed: 0 Start: 07-06-2021 End: 03-27-2023 Hydroxychloroquine 200 mg ta blet Discontinued 300 mg PO DAILY July 06, 2021 12:00am March 27, 2023 11:24am Start: 07-06-2021 End: 03-27-2023 take 300 mg [...] twice daily. ibuprofen 200 mg oral capsule (15 sources) Nonsteroidal Anti-inflammatory Drug Start: 10-22-2019 take 1 mg by mouth every six hours ibuprofen 200 mg oral capsule mg = cap(s), Oral, q6hr, 0 Refill(s) Start Date: 10/22/19 Status: Ordered Medication Dispense Status: Completed Total Allowed Fills: 1 Fills Dispensed: 0 Start: 09-17-2019 take 2 tablets by mo ut twice daily as needed Ibuprofen 100 mg tablet Active 200 mg PO TWICE A DAY as needed September 17, 2019 9:46am Start: 09-17-2019 take 200 mg by mouth twice daily Ibuprofen Active 200 MG PO TWICE A DAY September 17, 2019 8:46am Start: 09-18-2018 End: 09-17-2019 take 4 tablets by mouth twice daily as needed Ibuprofen 100 mg tablet Discontinued 400 mg PO TWICE A DAY as needed September 18, 2018 1:00am September 17, 2019 9:46am Start: 09-18-2018 End: 09-17-2019 take 400 mg [...] in the MR contrast administration guidelines link 1 Each 0 [...] Active magnesium oxide 400 mg oral tablet (18 sources) Start: 01-21-2023 take 1 tablet by mouth once daily magnesium oxide (MAG-OX) 400 mg (241.3 mg magnesium) tablet Take 1 tablet by mouth once daily. 01/21/2023 Active Comment on above: Take 1 tablet by celia once daily. montelukast 10 mg oral tablet (20 sources) Leukotriene Receptor Antagonist Start: 04-20-2025 Singulair 10 mg oral tablet Dose : 10 mg = 1 tab(s), Oral, qDay, # 90 tab(s), 3 Refill(s), [id number], 179.3, cm, 04/20/25 8:34:00 EDT, Height, kg, 04/20/25 8:34:00 EDT, Dosing Weight Start Date: 04/20/25 Status: Ordered Medication Dispense Status: Completed Quantity: 90.0 Unit: tab(s) Total Allowed Fills: 4 Fills Dispensed: 0 Start: 12-20-2020 Singulair 10 m g oral tablet Dose : 10 mg = 1 tab(s), Oral, qDay, # 90 tab(s), 3 Refill(s), [facility]: [id number], 175, cm, 05/01/24 8:06:00 EDT, Height, kg, 05/01/24 8:06:00 EDT, Dosing Weight Start Date: 05/01/24 Status: Ordered montelukast sodi um (SINGULAIR ORAL) Take by mouth once daily. Active montelukast sodi um (SINGULAIR ORAL) Take by mouth once daily. 0 Active montelukast sodi um (SINGULAIR ORAL) Take by mouth. 0 Active Comment on above: Take by mouth. Take by mouth once d aily. polymyxin b [id number] unt/ml / trimethoprim 1 mg/ml ophthalmic solution [...] 7 days. predniSONE 10 mg oral tablet (16 sources) Start: 08-19-20 take 1 tablet by [...] 0 Refill(s), 05/24/24 2:00:00 PM EDT, Pharmacy: [facility]/pharmacy #[id number], Pneumonia due to COVID-19 virus AVA [...] 02/26/2022 Active Start: 07-06-2021 End: 03-27-2023 Prednisone 10 mg tablet Disc ontinued 10 mg PO .COMPLEX October 16, 2021 10:04am March 27, 2023 11:24am as directed for arthritis flare ups 10 mg PO; Comment on above: Take 2 tablets by mo [facility] once daily for 5 days. tiZANidine 4 mg oral tablet (2 sources) Central alpha-2 Adrenergic Agonist Start: 04-20-2025 tiZANidine 4 mg oral tablet 0 Refill(s) Start Date: 04/20/25 Status: Ordered Medication Dispense Status: Completed Total Allowed Fills: 1 Fills Dispensed: 0 Start: 03-15-2025 take 1 tablet by celia every eight hours as needed tiZANidine (ZANAFLEX) 4 mg tablet Indications: Cervicogenic headache , Imbalance , Neck pain Take 0.5-1 tablets by mouth every 8 hours as needed (neck pain, dizziness). 30 tablet 5 03/15/2025 Active vitamin b12 1 mg oral tablet (18 sources) Vitamin B12 Start: 01-21-2023 take 1 tablet by mouth once daily cyanocobalamin (VITAMIN B-12) 1,000 mcg tab Take 1 tablet by mouth once daily. 01/21/2023 Active Comment on above: Take 1 tablet by mouth once daily. Completed/Discontinued Medications Medication Drug Class(es) [...] sources) Corticosteroid Start: 02-14-2024 End: 02-14-2024 betamethasone acetate-betamethas one sodium phosphate 12 mg injection (CELESTONE) methocarbamol 500 mg oral tablet (20 sources) Muscle Relaxant Start: 11-27-2024 End: 03-15-2025 take 1 tablet by mouth three times daily as needed for pain methocarbamol (ROBAXIN) 500 mg tablet Indications: Neck pain Take 1 tablet by mouth three times a day as needed (neck pain, headache, back pain). 30 tablet 2 11/27/2024 03/15/2025 Discontinued Start: 11-01-2021 End: 01-21-2023 take 1 tablet by mouth every eight hours as needed methocarbamol (ROBAXIN) 500 mg tablet Take 1 tablet by mouth three times daily as needed (neck pain, headache, back pain). 30 tablet 2 11/01/2021 01/21/2023 Discontinued Comment on above: Take 1 tablet by celia th three times daily as needed (neck pain, headache, back pain). methylPREDNISolone (9 sources) Corticosteroid Start: 09-06-2023 End: 11-01-2023 methylPREDNISolone (MEDROL, CONSUELO,) 4 mg Dose-Pack As Instructed per package 21 tablet 0 09/06/2023 11/01/2023 Discontinued Start: 07-05-2022 End: 10-03-2022 methylPREDNISolone (MEDROL) 4 mg Take by mouth. 0 07/05/2022 10/03/2022 Discontinued Start: 07-05-2022 End: 03-27-2023 take 1 tablet by mouth once Methylprednisolone (Medrol (Consuelo)) 4 mg tablets,dose pack Discontinued 0 PO per package directions July 05, 2022 12:00am March 27, 2023 11:23am PO PER PKG DIR Start: 11-01-2021 End: 02-06-2022 methylPREDNISolone (MEDROL, CONSUELO,) 4 mg Dose-Pack As Instructed per package 21 tablet 0 11/01/2021 02/06/2022 Discontinued (Course of therapy completed) Comment on above: As Instructed per humaira martinez Take by mouth. metoprolol tartrate 25 mg oral tablet (20 sources) beta-Adrenergic Malka Start: 0 End: take 1 tablet by mouth twice daily as needed Metoprolol Tartrate 25 mg tablet Discontinued 25 mg PO TWICE A DAY as needed for palpitations September 19, 2019 2:35pm July 06, 2021 8:07am Start: 09-11-2017 End: 09-18-2018 take 1 tablet by mouth once daily Metoprolol Succinate 25 mg tablet extended release 24 hr Discontinued 25 mg PO daily September 11, 2017 1:00am September 18, 2018 5:15pm Start: 11-08-2011 take 1 tablet by celia th once daily as needed TOPROL XL 25 MG [id number] One tablet by mouth daily as needed METOPROLOL SUCCINATE [id number] Titus Crain MD naproxen sodium 220 mg oral tablet (3 sources) Nonsteroidal Anti-inflammatory Drug Start: 07-19-2016 ALEVE 220 MG TABS PRN NAPROXEN SODIUM [id number] Titus Crain MD 20 ml ropivacaine hydrochloride [...] Chronic Conditions associated with dizziness or vertigo (18 sources) Vertigo of central origin; Translations: [Vertigo of central origin] Episodic Disorders of lipid metabolism (20 sources) Hyperlipidemia; Translations: [Hyperlipidemia, unspecified] Onset: 11-08-2011 11-08-2011 Chronic Genitourinary symptoms and ill-defined conditions (7 sources) Nocturia; Translations: [Nocturia] Episodic Headache; including migraine (4 sources) Migraine 05-10-2023 Chronic Headache; including migraine (20 sources) Chronic daily headache; Translations: [Chronic daily headache] Onset: 07-20-2022 07-20-2022 Episodic Heart valve disorders (20 sources) Mitral valve prolapse; Translations: [Aortic valve disorder] Onset: 07-26-1998 11-08-2011 Chronic Comment on above: redundant mitral christine ve chordae Immunizations and screening for infectious disease (5 sources) Contact with and (suspected) exposure to [...] Onset: 04-10-2016 04-10-2016 Chronic Nonspecific chest pain (11 sources) Sternoclavicular joint pain; Translations: [Other chest pain] Onset: 11-08-2011 07-19-2016 Episodic Osteoarthritis (3 sources) Osteoarthritis of knee; Translations: [Osteoarthritis of knee, unspecified] Onset: 04-10-2016 04-10-2016 Chronic Other aftercare (2 sources) Long-term current use of drug therapy; Translations: [Other correction (current) drug therapy] 11-27-2024 Episodic Other aftercare (1 source) Other long term care pharmacist (current) drug therapy; Translations: [Encounter for long-term (current) use of medications] Onset: 03-15-2025 Episodic Other circulatory disease (20 sources) Raynaud's disease; Translations: [Raynaud's syndrome without gangrene] Onset: 07-20-2022 05-20-2020 Chronic Other connective tissue disease (2 sources) Recurrent falls ; Translations: [Repeated falls] Episodic Other connective tissue disease (5 sources) Lateral epicondylitis of right humerus; Translations: [Lateral epicondylitis, right elbow] 07-31-2021 Episodic Other disorders of stomach and duodenum (5 sources) Indigestion 05-08-2022 Episodic Other ear and [...] so stated] Chronic Other lower respiratory disease (8 sources) Dyspnea; Translations: [Shortness of breath] Onset: [...] elsewhere classified] Episodic Other nervous system disorders (5 sources) Inherited autonomic nervous system disorder; Translations: [Other disorders of autonomic nervous system] 07-31-2021 Chronic Other nervous system disorders (1 source) Unable to concentrate ; Translations: [Attention and concentration deficit] Chronic Other nervous system disorders (12 sources) Impairment of balance; Translations: [Other abnormalities of gait and mobility] Episodic Other nervous system disorders (1 source) Other symptoms and signs involving cognitive functions and awareness; Translations: [Memory loss] Episodic Other nervous system disorders (4 sources) Difficulty balancing 05-10-2023 Episodic Other nervous system disorders (2 sources) Other abnormalities of gait and mobility; Translations: [Imbalance] Onset: 11-23-2023 Episodic Other upper respiratory infections (4 sources) Sore throat symptom; Translations: [Acute pharyngitis, unspecified] Episodic Peripheral and visceral atherosclerosis (5 sources) Intermittent claudication; Translations: [Peripheral vascular disease, unspecified] 09-21-2020 Chronic Residual codes; unclassified (20 sources) Sleep apnea; Translations: [Sleep apnea, unspecified] Onset: 07-20-2022 Chronic Residual codes; unclassified (13 sources) Obstructive sleep apnea syndrome; Translations: [Obstructive sleep apnea (adult) (pediatric)] Chronic Comment on above: [facility]- CPAP; Residual codes; unclassified (1 source) Confusional arousal [...] Translations: [Inflammatory polyarthropathy] Onset: 03-01-2021 07-20-2022 Chronic Spondylosis; intervertebral disc disorders; other back problems (20 sources) Chronic thoracic back pain; Translations: [Pain in thoracic spine] Onset: 07-20-2022 Episodic Unclassified (2 sources) Vertigo of central origin; Translations: [Vertigo of central origin] Onset: 11-23-2023 Unclassified (2 sources) Face pain; Translations: [Face pain] Onset: 11-23-2023 Unclassified (2 sources) Long-term current use of drug therapy 11-27-2024 Unclassified (1 source) Patient encounter status 04-20-2025 Past or Other Problems Problem Classification Problem Date Documented Date Episodic/Chronic Cardiac dysrhythmias (20 sources) Palpitations; Translations: [Intermittent palpitations] Onset: 11-08-2011 11-08-2011 Episodic Other circulatory disease (20 sources) Orthostatic [...] Translations: [Clavicle pain] Onset: 04-10-2016 04-10-2016 Episodic Unclassified (3 sources) Abnormal result of cardiovascular function study, unspecified; Translations: [Abnormal result of cardiovascular function study, unspecified] Onset: 11-08-2011 11-08-2011 Episodic Unclassified (9 sources) Body mass index (BMI) 26.0-26.9, adult; Translations: [FH: Hypertension] Onset: 11-08-2011 08-11-2015 Episodic Unclassified (4 sources) turbuinate reduction 04-01-2022 Viral infection (5 sources) COVID-19; Translations: [Severe acute respiratory syndrome coronavirus 2 (SARS-CoV-2) detected] Onset: 08-09-2020 07-31-2021 Episodic Results Test Name Value Interpretation Reference Range Facility APOBon 04-24-2025 Apolipoprotein B [Mass/Vol] 89 mg/dL Normal <90 [facility] Comment on above: Result Comment: Sherin bullock < 90 Borderline High 90 - 99 High 100 - 130 Very High >130 ASCVD RISK THERAPEUTIC TARGET CATEGORY APO B (mg/dL) Very High Risk <80 (if extreme risk <70) High Risk <90 Moderate Risk <90 Performed At: [address] [id number] Grayson Cage MD Ph:[phone] Performed By: #### 1 , [id number], PSA, LIPID #### [place] [id number] [place] [id number] LIPOAon 04-21-2025 Lipoprotein a [Moles/Vol] 142.7 nmol/L High <75.0 [facility] Comment on above: Result Comment: This test was developed and its performance characteristics determined by [facility]. It has not been cleared or approved by the Food and Drug Administration. Note: Values greater than or equal to 75.0 nmol/L may indicate an independent risk factor for CHD, but must be evaluated with caution when applied to non- populations due to the influence of genetic factors on Lp(a) across ethnicities. Performed At: [facility] [id number] Nina Clay PhD Ph:[phone] Performed By: #### 1 , [id number], PSA, LIPID #### [place] [id number] LABORATORYOrdered By: Amanda Vale on 04-20-2025 Cholesterol [Mass/Vol] 188 mg/dL Normal 0 - 2 00 mg/dL AO ADM SS Comment on above: Interpretive Data: C holesterol Reference Interval: Less than 200 Desirable 200-239 Borderline high risk 240 and above High risk Cholesterol in HDL [Mass/Vol] 57 mg/dL Normal 40 - 60 mg/dL AO ADM SS Cholesterol in LDL [Mass/Vol] 117 mg/dL Normal 0 - 130 mg/dL AO ADM SS Triglyceride [Mass/Vol] 68 mg/dL Normal 0 - 150 mg/dL AO ADM SS Comment on above: Interpretive Data: T riglyceride Reference Interval: Less than 150 Normal 150-199 Borderline high risk 200-499 High risk 500 or higher Very high risk LABORATORYOrdered By: SYSTEM SYSTEM on 04-20-2025 Prostate specific Ag [Mass/Vol] 1.98 ng/mL Normal 0.00 - 4.00 ng/mL AO ADM SS LIPIDon 04-20-2025 Cholesterol [Mass/Vol] 188 mg/dL Normal 0-200 [facility] Comment on above: Result Comment: Chol esterol Reference Interval: Less than 200 Desirable 200-239 Borderline high risk 240 and above High risk Performed By: #### 1 , [id number], PSA, LIPID #### [place] [id number] [place], [place] [address] Cholesterol in HDL [Mass/Vol] 57 mg/dL Normal 40-60 [facility] Comment on above: Performed By: #### 1 , [id number], PSA, LIPID #### [id number] [place], [place] [address] Cholesterol in LDL [Mass/Vol] 117 mg/dL Normal 0-130 [facility] Comment on above: Performed By: #### 1 , [id number], PSA, LIPID #### [id number] [place], [place] [address] Triglyceride [Mass/Vol] 68 mg/dL Normal 0-150 [facility] Comment on above: Result Comment: Trig lyceride Reference Interval: Less than 150 Normal 150-199 Borderline high risk 200-499 High risk 500 or higher Very high risk Performed By: #### 1 , [id number], PSA, LIPID #### [id number] [place], [place] [address] PSAon 04-20-2025 Prostate Specific Antigen 1.98 ng/mL Normal 0.00-4.00 [facility] [place] Comment on above: Performed By: #### 1 , [id number], PSA, LIPID #### [address] [address] Absolute lymphocyte countOrd ered By: Mariza Rios on 02-05-2025 Lymphocytes Auto (Unsp spec) [#/Vol] 1.64 10*3/uL 0.83-4.51 [facility] Absolute neutrophil countOrd ered By: Mariza Rios on 02-05-2025 Neutrophils (Bld) [#/Vol] 3.0 10*3/uL 2.0-7.7 [facility] Anion gap in Serum or Plasma Ordered By: Mariza Rios on 02-05-2025 Anion gap [Moles/Vol] 12 mmol/L 5-15 [facility] Automated lymphocyte count a s percentage of total leukocytesOrdered By: Mariza Rios on 06-06-2025 Lymphocytes/100 WBC Auto (Unsp spec) 30.2 % 19-41 [facility] BUN/creatinine ratioOrdered By: Mariza Rios on 02-05-2025 Urea nitrogen/Creatinine [Mass ratio] 20.4 mg/mg High 10-20 [facility] Basophil percentageOrdered B y: Mariza Rios on 02-05-2025 Basophils/100 WBC (Bld) 1.5 % High 0-1 [facility] Bilirubin, totalOrdered By: Mariza Rios on 02-05-2025 Bilirubin [Mass/Vol] 1.23 mg/dL 0.00-1.30 [facility] CBC W/Diff, Automatedon Absolute Lymph 1.64 X10 3/uL Normal 0.83-4.51 [facility] Comment on above: Performed By: #### L 500.4050, L100.0100 #### [facility] [address] [place], [address] Absolute Neut 3.0 X10 3/uL Normal 2.0-7.7 [facility] Comment on above: Performed By: #### L 500.4050, L100.0100 #### [facility] [address] [place], [address] Basophils/100 WBC (Bld) 1.5 % High 0-1 [facility] Comment on above: Performed By: #### L 500.4050, L100.0100 #### [facility] [address] [place], [address] Eosinophils/100 WBC (Bld) 3.1 % Normal 0-5 [facility] Comment on above: Performed By: #### L 500.4050, L100.0100 #### [facility] [address] [place], [address] Erythrocyte distribution width (RBC) [Ratio] 11.4 % Low 11.6-14.6 [facility] Comment on above: Performed By: #### L 500.4050, L100.0100 #### [facility] [address] [place], [address] Hematocrit (Bld) [Volume fraction] 43.7 % Normal 40-54 [facility] Comment on above: Performed By: #### L 500.4050, L100.0100 #### [facility] [address] [place], [address] Hemoglobin (Bld) [Mass/Vol] 15.6 g/dL Normal 13.0-16.5 [facility] Comment on above: Performed By: #### L 500.4050, L100.0100 #### [facility] [address] [place], [address] IG% 0.200 Normal 0.0-0.9 [facility] Comment on above: Result Comment: IG% - Immature Granulocytes (promyelocytes, myelocytes and metamyelocytes) > 1% indicates that a LEFT SHIFT is Present. Performed By: #### L 500.4050, L100.0100 #### [facility] [address] [place], [address] Lymphocytes/100 WBC (Bld) 30.2 % Normal 19-41 [facility] Comment on above: Performed By: #### L 500.4050, L100.0100 #### [facility] [address] [place], [address] MCH (RBC) [Entitic mass] 32.8 pg High 27.0-32.0 [facility] Comment on above: Performed By: #### L 500.4050, L100.0100 #### [facility] [address] [place], [address] MCHC (RBC) [Mass/Vol] 35.7 g/dL Normal 32-36 [facility] Comment on above: Performed By: #### L 500.4050, L100.0100 #### [facility] [address] [place], [address] MCV (RBC) [Entitic vol] 92.0 fL Normal 80-94 [facility] Comment on above: Performed By: #### L 500.4050, L100.0100 #### [facility] [address] [place], [address] Monocytes/100 WBC (Bld) 10.3 % High 0-10 [facility] Comment on above: Performed By: #### L 500.4050, L100.0100 #### [facility] [address] [place], [address] Neutrophils/100 WBC (Bld) 54.7 % Normal 47-70 [facility] Comment on above: Performed By: #### L 500.4050, L100.0100 #### [facility] [address] [place], [address] Nucleated RBC (Bld) [#/Vol] 0 10*3/uL Normal 0-5 [facility] Comment on above: Performed By: #### L 500.4050, L100.0100 #### [facility] [address] [place], [address] Platelet mean volume (Bld) [Entitic vol] 9.6 fL Normal 6.2-12.0 [facility] Comment on above: Performed By: #### L 500.4050, L100.0100 #### [facility] [address] [place], [address] Platelets (Bld) [#/Vol] 197 10*3/uL Normal 150-450 [facility] Comment on above: Performed By: #### L 500.4050, L100.0100 #### [facility] [address] [place], [address] RBC (Bld) [#/Vol] 4.75 10*6/uL Normal 4.6-6.2 [facility] Comment on above: Performed By: #### L 500.4050, L100.0100 #### [facility] [address] [place], [address] RDW SD 39.1 fl Normal 35.1-43.9 [facility] Comment on above: Performed By: #### L 500.4050, L100.0100 #### [facility] [address] [place], [address] WBC (Bld) [#/Vol] 5.4 10*3/uL Normal 4.4-11.0 [facility] Comment on above: Performed By: #### L 500.4050, L100.0100 #### [facility] [address] [place], [address] Carbon dioxide, total [Moles /volume] in Central venous bloodOrdered By: Mariza Rios on 02-05-2025 CO2 [Moles/Vol] 24.0 mmol/L 21.0-32.0 [facility] Chloride assayOrdered By: Humaira Rios on 02-05-2025 Chloride [Moles/Vol] 102 mmol/L 98-108 [facility] Comprehensive Metabolic Prof ilon 02-05-2025 Albumin [Mass/Vol] 4.7 g/dL Normal 3.5-5.0 [facility] Comment on above: Performed By: #### L 500.4050, L100.0100 #### [facility] [address] [place], [address] Albumin/Globulin [Mass ratio] 1.9 {ratio} Normal 0.9-2.4 [facility] Comment on above: Performed By: #### L 500.4050, L100.0100 #### [facility] [address] [place], [address] ALK PHOS 78 U/L Normal 40-129 [facility] Comment on above: Performed By: #### L 500.4050, L100.0100 #### [facility] [address] [place], [address] ALT [Catalytic activity/Vol] 29 U/L Normal <=46 [facility] Comment on above: Performed By: #### L 500.4050, L100.0100 #### [facility] [address] [place], [address] AST [Catalytic activity/Vol] 36 U/L Normal <=37 [facility] Comment on above: Performed By: #### L 500.4050, L100.0100 #### [facility] [address] [place], [address] Bilirubin [Mass/Vol] 1.23 mg/dL Normal 0.00-1.30 [facility] Comment on above: Performed By: #### L 500.4050, L100.0100 #### [facility] [address] [place], [address] BUN/CRE 20.4 RATIO High 10-20 [facility] Comment on above: Performed By: #### L 500.4050, L100.0100 #### [facility] [address] [place], [address] Calcium [Mass/Vol] 9.5 mg/dL Normal 7.6-11.0 [facility] Comment on above: Performed By: #### L 500.4050, L100.0100 #### [facility] [address] [place], [address] Chloride [Moles/Vol] 102 mmol/L Normal 98-108 [facility] Comment on above: Performed By: #### L 500.4050, L100.0100 #### [facility] [address] [place], [address] CO2 [Moles/Vol] 24.0 mmol/L Normal 21.0-32.0 [facility] Comment on above: Performed By: #### L 500.4050, L100.0100 #### [facility] [address] [place], [address] Creatinine [Mass/Vol] 1.12 mg/dL Normal 0.70-1.20 [facility] Comment on above: Performed By: #### L 500.4050, L100.0100 #### [facility] [address] [place], [address] GAP 12 Normal 5-15 [facility] Comment on above: Performed By: #### L 500.4050, L100.0100 #### [facility] [address] [place], [address] GFR/1.73 sq M.predicted among non-blacks MDRD (S/P/Bld) [Vol rate/Area] 77 mL/min/{1.73_m2} Normal >60 [facility] Comment on above: Result Comment: mL/m in/1.73m2 CKD-EPI Creatinine Equation (2020) Performed By: #### L 500.4050, L100.0100 #### [facility] [address] [place], [address] Globulin (S) [Mass/Vol] 2.5 g/dL Normal 2.2-4.2 [facility] Comment on above: Performed By: #### L 500.4050, L100.0100 #### [facility] [address] [place], [address] Glucose [Mass/Vol] 85 mg/dL Normal 70-99 [facility] Comment on above: Performed By: #### L 500.4050, L100.0100 #### [facility] [address] [place], [address] Potassium [Moles/Vol] 4.1 mmol/L Normal 3.3-5.1 [facility] Comment on above: Performed By: #### L 500.4050, L100.0100 #### [facility] [address] [place], [address] Sodium [Moles/Vol] 138 mmol/L Normal 133-145 [facility] Comment on above: Performed By: #### L 500.4050, L100.0100 #### [facility] [address] [place], [address] T PROT 7.1 g/dL Normal 5.9-8.4 [facility] Comment on above: Performed By: #### L 500.4050, L100.0100 #### [facility] [address] [place], [address] Urea nitrogen [Mass/Vol] 23 mg/dL High 4-19 [facility] Comment on above: Performed By: #### L 500.4050, L100.0100 #### [facility] [address] [place], [address] Eosinophil percentageOrdered By: Mariza Rios on 02-05-2025 Eosinophils/100 WBC (Bld) 3.1 % 0-5 [facility] Erythrocyte distribution wid th ratioOrdered By: Mariza Rios on 02-05-2025 Erythrocyte distribution width (RBC) [Ratio] 11.4 % Low 11.6-14.6 [facility] Erythrocyte distribution wid th standard deviationOrdered By: Mariza Rios on 02-05-2025 Erythrocyte distribution width (RBC) [Ratio] 39.1 fl 35.1-43.9 [facility] Glomerular filtration rate ( GFR) estimation/1.73 sq m using serum, plasma, or whole bOrdered By: Mariza Rios on 02-05-2025 GFR/1.73 sq M.predicted among non-blacks MDRD (S/P/Bld) [Vol rate/Area] 77 mL/min/{1.73_m2} >60 [facility] Comment on above: mL/min/1.73m2 CKD-EP I Creatinine Equation (2020) Hematocrit Auto (Bld) [Volum e fraction]Ordered By: Mariza Rios on 02-05-2025 Hematocrit (Bld) [Volume fraction] 43.7 % 40-54 [facility] Hemoglobin measurementOrdere d By: Mariza Rios on 02-05-2025 Hemoglobin (Bld) [Mass/Vol] 15.6 g/dL 13.0-16.5 [facility] Immature granulocytes/100 WB C Auto (Bld)Ordered By: Mariza Rios on 02-05-2025 Immature granulocytes/100 WBC (Bld) 0.200 % 0.0-0.9 [facility] Comment on above: IG% - Immature Granu locytes (promyelocytes, myelocytes and metamyelocytes) > 1% indicates that a LEFT SHIFT is Present. Laboratory - Chemistry and C hemistry - challengeOrdered By: Mariza Rios on 02-05-2025 AST [Catalytic activity/Vol] 36 U/L <38 [facility] MCV (mean corpuscular volume ) determinationOrdered By: Mariza Rios on 02-05-2025 MCV (RBC) [Entitic vol] 92.0 fL 80-94 [facility] Mean corpuscular hemoglobin (MCH) determinationOrdered By: Mariza Rios 02-05-2025 MCH (RBC) [Entitic mass] 32.8 pg High 27.0-32.0 [facility] Mean corpuscular hemoglobin concentration (MCHC) determinationOrdered By: Mariza Rios 02-05-2025 MCHC (RBC) [Mass/Vol] 35.7 g/dL 32-36 [facility] Mean platelet volume determi nationOrdered By: Marizabar Rios on 02-05-2025 Platelet mean volume (Bld) [Entitic vol] 9.6 fL 6.2-12.0 [facility] Monocyte percentageOrdered B y: Mariza Rios on 02-05-2025 Monocytes/100 WBC (Bld) 10.3 % High 0-10 [facility] Neutrophil percentageOrdered By: Mariza Rios on 02-05-2025 Neutrophils/100 WBC (Bld) 54.7 % 47-70 [facility] Nucleated red blood cell per centageOrdered By: Mariza Rios on 02-05-2025 Nucleated RBC/100 WBC (Bld) [Ratio] 0 % 0-5 [facility] Platelet countOrdered By: Humaira Rios on 02-05-2025 Platelets (Bld) [#/Vol] 197 10*3/uL 150-450 [facility] Potassium measurement (mass/ volume)Ordered By: Mariza Rios on 02-05-2025 Potassium (Unsp spec) [Mass/Vol] 4.1 mmol/L 3.3-5.1 [facility] RBC Auto (Bld) [#/Vol]Ordere d By: Mariza Rios on 02-05-2025 RBC (Bld) [#/Vol] 4.75 10*6/uL 4.6-6.2 [facility] Serum creatinine measurement (mass/volume)Ordered By: Mariza Rios on 02-05-2025 Creatinine [Mass/Vol] 1.12 mg/dL 0.70-1.20 [facility] Serum globulin measurementOr dered By: Mariza Rios on 02-05-2025 Globulin (S) [Mass/Vol] 2.5 g/dL 2.2-4.2 [facility] Serum glucose measurement (m ass/volume)Ordered By: Mariza Rios on 02-05-2025 Glucose [Mass/Vol] 85 mg/dL 70-99 [facility] Serum or plasma alanine orosco otransferase (ALT) measurementOrdered By: Mariza Rios on 02-05-2025 ALT [Catalytic activity/Vol] 29 U/L <47 [facility] Serum or plasma albumin lela urement (mass/volume)Ordered By: Mariza Rios on 02-05-2025 Albumin [Mass/Vol] 4.7 g/dL 3.5-5.0 [facility] Serum or plasma albumin/glob ulin mass ratioOrdered By: Mariza Rios on 02-05-2025 Albumin/Globulin [Mass ratio] 1.9 {ratio} 0.9-2.4 [facility] Serum or plasma alkaline gely sphatase measurementOrdered By: Mariza Rios on 02-05-2025 ALP [Catalytic activity/Vol] 78 U/L 40-129 [facility] Serum or plasma calcium lela urement (mass/volume)Ordered By: Mariza Rios on 02-05-2025 Calcium [Mass/Vol] 9.5 mg/dL 7.6-11.0 [facility] Serum or plasma urea nitroge n measurement (mass/volume)Ordered By: Mariza Rios on 02-05-2025 Urea nitrogen [Mass/Vol] 23 mg/dL High 4-19 [facility] Sodium levelOrdered By: Juanito Rios on 02-05-2025 Sodium [Moles/Vol] 138 mmol/L 133-145 [facility] Total proteinOrdered By: Rodolfo Rios on 02-05-2025 Protein [Mass/Vol] 7.1 g/dL 5.9-8.4 [facility] White blood cell (WBC) count Ordered By: Mariza Rios on 02-05-2025 WBC (Bld) [#/Vol] 5.4 10*3/uL 4.4-11.0 [facility] Echo Completeon 10-02-2024 Echo Complete [facility] [address] [place] [address] Echo Complete 10/02/24 1311 MR#: [id number] Acct: [id number] Name: CHRISTIE CHANCE Rep #: [id number] : 1970 54 From: Titus Crain MD Attending Dr: Dr. Titus Crain MD Status: [facility] Ordering Dr: Titus Crain MD Date: 10/02/24 Location: [facility] Sex: M C Admitted: Reason For Study: ARRHTYHMIA Procedure This was a 2D Doppler, Color [...] Referring Physician: Titus Crain Performed By: Joseline Musatfa RCS 10/02/24 1541 Date Titus Crain MD CC: Dr. Titus Crain MD; Dr. Dale Albert DO Date Dictated: 10/02/24 1311 Date Transcribed: 10/02/24 1541 Holter Scanning Technician: Signed Normal [facility] Cardiology Visit Reporton Cardiology Visit Report [facility] [address] [place] [address] OFFICE VISIT Date of Service: 09/10/24 MR#: [id number] Acct: [id number] Name: CHRISTIE CHANCE Rep #: [id number] : 1970 Provider: Dr. Titus Crain MD Age/Sex: 54/M Location: [facility] Status: Signed HPI HPI History of Present Illness Details: CHRISTIE CHANCE, is a 54 M who presents to the office today for a follow-up visit. He is a gentleman with a history of palpitations and redundant mitral valve chords who returns for follow-up visit. He was seen at the [facility] and was tested for dysautonomia disorder he [...] Monitor Intake Visit Reasons: 1 Y FU Saturation Diver Required: No Accompanied by: Self Is patient [...] and n (more content not included)... Normal [facility] CBC W/Diff, Automatedon 12- Absolute Lymph 1.56 X10 3/uL Normal 0.83-4.51 [facility] Comment on above: Performed By: #### L 100.0100, L500.4050 #### [facility] [address] [place], [address] Absolute Neut 2.9 X10 3/uL Normal 2.0-7.7 [facility] Comment on above: Performed By: #### L 100.0100, L500.4050 #### [facility] [address] [place], [address] Basophils/100 WBC (Bld) 1.5 % High 0-1 [facility] Comment on above: Performed By: #### L 100.0100, L500.4050 #### [facility] [address] [place], [address] Eosinophils/100 WBC (Bld) 3.8 % Normal 0-5 [facility] Comment on above: Performed By: #### L 100.0100, L500.4050 #### [facility] [address] [place], [address] Erythrocyte distribution width (RBC) [Ratio] 11.9 % Normal 11.6-14.6 [facility] Comment on above: Performed By: #### L 100.0100, L500.4050 #### [facility] [address] [place], [address] Hematocrit (Bld) [Volume fraction] 43.0 % Normal 40-54 [facility] Comment on above: Performed By: #### L 100.0100, L500.4050 #### [facility] [address] [place], [address] Hemoglobin (Bld) [Mass/Vol] 15.1 g/dL Normal 13.0-16.5 [facility] Comment on above: Performed By: #### L 100.0100, L500.4050 #### [facility] [address] [place], [address] IG% 0.200 Normal 0.0-0.9 [facility] Comment on above: Result Comment: IG% - Immature Granulocytes (promyelocytes, myelocytes and metamyelocytes) > 1% indicates that a LEFT SHIFT is Present. Performed By: #### L 100.0100, L500.4050 #### [facility] [address] [place], [address] Lymphocytes/100 WBC (Bld) 29.3 % Normal 19-41 [facility] Comment on above: Performed By: #### L 100.0100, L500.4050 #### [facility] [address] [place], [address] MCH (RBC) [Entitic mass] 32.1 pg High 27.0-32.0 [facility] Comment on above: Performed By: #### L 100.0100, L500.4050 #### [facility] [address] [place], [address] MCHC (RBC) [Mass/Vol] 35.1 g/dL Normal 32-36 [facility] Comment on above: Performed By: #### L 100.0100, L500.4050 #### [facility] [address] [place], [address] MCV (RBC) [Entitic vol] 91.5 fL Normal 80-94 [facility] Comment on above: Performed By: #### L 100.0100, L500.4050 #### [facility] [address] [place], [address] Monocytes/100 WBC (Bld) 11.3 % High 0-10 [facility] Comment on above: Performed By: #### L 100.0100, L500.4050 #### [facility] [address] [place], [address] Neutrophils/100 WBC (Bld) 53.9 % Normal 47-70 [facility] Comment on above: Performed By: #### L 100.0100, L500.4050 #### [facility] [address] [place], [address] Nucleated RBC (Bld) [#/Vol] 0 10*3/uL Normal 0-5 [facility] Comment on above: Performed By: #### L 100.0100, L500.4050 #### [facility] [address] [place], [address] Platelet mean volume (Bld) [Entitic vol] 9.2 fL Normal 6.2-12.0 [facility] Comment on above: Performed By: #### L 100.0100, L500.4050 #### [facility] [address] [place], [address] Platelets (Bld) [#/Vol] 214 10*3/uL Normal 150-450 [facility] Comment on above: Performed By: #### L 100.0100, L500.4050 #### [facility] [address] [place], [address] RBC (Bld) [#/Vol] 4.70 10*6/uL Normal 4.6-6.2 [facility] Comment on above: Performed By: #### L 100.0100, L500.4050 #### [facility] [address] [place], [address] RDW SD 40.0 fl Normal 35.1-43.9 [facility] Comment on above: Performed By: #### L 100.0100, L500.4050 #### [facility] [address] [place], [address] WBC (Bld) [#/Vol] 5.3 10*3/uL Normal 4.4-11.0 [facility] Comment on above: Performed By: #### L 100.0100, L500.4050 #### [facility] [address] [place], [address] Comprehensive Metabolic Prof ilon 08-12-2024 Albumin [Mass/Vol] 3.9 g/dL Normal 3.2-5.0 [facility] Comment on above: Performed By: #### L 100.0100, L500.4050 #### [facility] [address] [place], [address] Albumin/Globulin [Mass ratio] 1.3 {ratio} Normal 0.9-2.4 [facility] Comment on above: Performed By: #### L 100.0100, L500.4050 #### [facility] [address] [place], [address] ALK P 91 U/L Normal 45-117 [facility] Comment on above: Performed By: #### L 100.0100, L500.4050 #### [facility] [address] [place], [address] ALT [Catalytic activity/Vol] 26 U/L Normal 16-61 [facility] Comment on above: Performed By: #### L 100.0100, L500.4050 #### [facility] [address] [place], [address] AST [Catalytic activity/Vol] 20 U/L Normal 15-37 [facility] Comment on above: Performed By: #### L 100.0100, L500.4050 #### [facility] [address] [place], [address] Bilirubin [Mass/Vol] 0.80 mg/dL Normal 0.20-1.00 [facility] Comment on above: Result Comment: For patients on eltrombopag therapy, use of Dimension Costa TBIL is not recommended. Performed By: #### L 100.0100, L500.4050 #### [facility] [address] [place], [address] BUN/CRE 19.5 RATIO Normal 10-20 [facility] Comment on above: Performed By: #### L 100.0100, L500.4050 #### [facility] [address] [place], [address] CA,Total 9.6 mg/dL Normal 8.5-10.1 [facility] Comment on above: Performed By: #### L 100.0100, L500.4050 #### [facility] [address] [place], [address] Chloride [Moles/Vol] 107 mmol/L Normal 98-107 [facility] Comment on above: Performed By: #### L 100.0100, L500.4050 #### [facility] [address] [place], [address] CO2 [Moles/Vol] 26.0 mmol/L Normal 21.0-32.0 [facility] Comment on above: Performed By: #### L 100.0100, L500.4050 #### [facility] [address] [place], [address] Creatinine [Mass/Vol] 1.13 mg/dL Normal 0.70-1.30 [facility] Comment on above: Result Comment: The validity of the calculated GFR GFRAA in patients over 70 years has not been determined. Clinical correlation is essential. Performed By: #### L 100.0100, L500.4050 #### [facility] [address] [place], [address] EST GFR - AA 86 mL/min Normal >60 [facility] Comment on above: Result Comment: Afri can [place] GFR Calc Performed By: #### L 100.0100, L500.4050 #### [facility] [address] [place], [address] GAP 6 Normal 5-15 [facility] Comment on above: Performed By: #### L 100.0100, L500.4050 #### [facility] [address] [place], [address] GFR/1.73 sq M.predicted among non-blacks MDRD (S/P/Bld) [Vol rate/Area] 71 mL/min/{1.73_m2} Normal >60 [facility] Comment on above: Result Comment: Non- GFR Calc Performed By: #### L 100.0100, L500.4050 #### [facility] [address] [place], [address] Globulin (S) [Mass/Vol] 3.0 g/dL Normal 2.2-4.2 [facility] Comment on above: Performed By: #### L 100.0100, L500.4050 #### [facility] [address] [place], [address] Glucose [Mass/Vol] 99 mg/dL Normal 74-106 [facility] Comment on above: Performed By: #### L 100.0100, L500.4050 #### [facility] [address] [place], [address] Potassium [Moles/Vol] 3.9 mmol/L Normal 3.5-5.1 [facility] Comment on above: Performed By: #### L 100.0100, L500.4050 #### [facility] [address] [place], [address] Sodium [Moles/Vol] 139 mmol/L Normal 136-145 [facility] Comment on above: Performed By: #### L 100.0100, L500.4050 #### [facility] [address] [place], [address] T PROT 6.9 g/dL Normal 6.4-8.2 [facility] Comment on above: Performed By: #### L 100.0100, L500.4050 #### [facility] [address] [place], [address] Urea nitrogen [Mass/Vol] 22 mg/dL High 7-18 [facility] Comment on above: Performed By: #### L 100.0100, L500.4050 #### [facility] [address] [place], [place], [address] CNOVon 07-01-2024 CNOV Office Visit ([facility]) ---- CHRISTIE CHANCE ([id number]) 1970 M Date Time Provider Department 07/01/24 7:30 AM SARA LEVINE [facility] During your visit today, we recorded the following information about you: Pulse Respiration Blood pressure Weight 63/minute 21/minute 116/73 76.6 kg Height 1.753 m Sara Levine APRN.SHIPPING ROOM HELPER 07/01/2024 7:54 AM Signed [facility] Follow Up/ [...] with GBPN on on board. No issues. [facility] keeping him supplied with PAP equipment. - Doing very well with PAP therapy. - Denies mask or pressure intolerance. - Compliant and benefiting from treatment. - Face to face examination completed June 12, 2023 - Will get PAP download from [facility]. - Christie Chance has fulfilled his insurance [...] regularly, as directed. Avoid use of ozone rod welder, SoClean devices, or UV cleaning devices Avoid using alcohol or alcohol-containing products on your mask, as this may compromise the integrity of the mask materials and contribute to leak issues You should be eligible for new supplies approximately every 3-6 months, depending on your insurance coverage. Contact your Durable Medical Equipment (DME) company for new supplies as needed. Order will be sent to [employer] for supplies: [facility] Insurance: Send script to [facility]. Face to face examination completed June 13, [...] Sleep Medicine Physician. Will send provider order. [employer] will reach out to you. If you have questions, feel free to send me a [employer] message. I spent a total of 29 minutes. This was a established patient to me on the date of the service which included preparing to see the patient, [id number] patient care, completing clinical documentation, counseling and educating the patient/family/day care worker and ordering medications, tests, or procedures. Sara Levine APRN.SHIPPING ROOM HELPER CURRENT VISIT: 07/01/2024 Interval history: Doing good. [...] use. ---- SLEEP HYGIENE QUESTIONS: Bedtime : [id number] Wake up Time : 0450 Time it takes to fall sleep : Quickly Taking GBPN 100 mg one capsule during the day and 300 mg two capsules one hour before bedtime. Prescribed for nerve pain, b (more content not included)... Normal [facility] .Auto Diffon 05-21-2024 Basophil, Absolute 0.1 10 3/mcL Normal 0.0-0.2 [facility] Comment on above: Performed By: #### A ALANNA, CBC, GFR, CMP, ADIFF #### [address] [address] Basophils/100 WBC (Bld) 0.5 % Normal 0.0-2.5 [facility] Comment on above: Performed By: #### A ALANNA, CBC, GFR, CMP, ADIFF #### [address] [address] Eosinophil, Absolute 0.1 10 3/mcL Normal 0.0-0.4 [facility] Comment on above: Performed By: #### A ALANNA, CBC, GFR, CMP, ADIFF #### [address] [address] Eosinophils/100 WBC (Bld) 1.0 % Normal 0.0-7.0 [facility] Comment on above: Performed By: #### A ALANNA, CBC, GFR, CMP, ADIFF #### [address] [address] Lymphocyte, Absolute 0.7 10 3/mcL Low 0.8-3.9 [facility] Comment on above: Performed By: #### A ALANNA, CBC, GFR, CMP, ADIFF #### [address] [address] Lymphocytes/100 WBC (Bld) 5.4 % Low 10.0-50.0 [facility] Comment on above: Performed By: #### A ALANNA, CBC, GFR, CMP, ADIFF #### [address] [address] Monocyte, Absolute 1.3 10 3/mcL High 0.2-1.[address] [facility] Comment on above: Performed By: #### A ALANNA, CBC, GFR, CMP, ADIFF #### [address] [address] Monocytes/100 WBC (Bld) 9.5 % Normal 1.7-13.0 [facility] Comment on above: Performed By: #### A ALANNA, CBC, GFR, CMP, ADIFF #### [address] [address] Neutrophils/100 WBC (Bld) 83.6 % High 37.0-80.0 [facility] Comment on above: Performed By: #### A ALANNA, CBC, GFR, CMP, ADIFF #### [address] [address] .GFRon 05-21-2024 GFR 77 ml/min/1.73sqm Normal [facility] Comment on above: Result Comment: GFR Population [...] 15 mL/min/1.73 square meters Performed By: #### A ALANNA, CBC, GFR, CMP, ADIFF #### [address] [address] GFR Non- 63 ml/min/1.73sqm Normal [facility] Comment on above: Result Comment: GFR Population [...] 15 mL/min/1.73 square meters Performed By: #### A ALANNA, CBC, GFR, CMP, ADIFF #### [address] [address] .NEUABSon 05-21-2024 Neutrophil, Absolute 11.5 10 3/mcL High 2.9-6.2 [facility] Comment on above: Performed By: #### A ALANNA, CBC, GFR, CMP, ADIFF #### [address] [address] CBCon 05-21-2024 Erythrocyte distribution width (RBC) [Ratio] 12.1 % Normal 11.5-14.5 [facility] Comment on above: Performed By: #### A ALANNA, CBC, GFR, CMP, ADIFF #### [place] [address] Hematocrit (Bld) [Volume fraction] 44.5 % Normal 42.0-52.0 [facility] Comment on above: Performed By: #### A ALANNA, CBC, GFR, CMP, ADIFF #### [place] [address] Hgb 15.6 G/dL Normal 14.0-18.0 [facility] Comment on above: Performed By: #### A ALANNA, CBC, GFR, CMP, ADIFF #### [place] [address] MCH (RBC) [Entitic mass] 33.3 pg High 27.0-31.2 [facility] Comment on above: Performed By: #### A ALANNA, CBC, GFR, CMP, ADIFF #### [place] [address] MCHC 35.2 G/dL Normal 31.8-35.4 [facility] Comment on above: Performed By: #### A ALANNA, CBC, GFR, CMP, ADIFF #### [place] [address] MCV (RBC) [Entitic vol] 94.7 fL High 80.0-94.0 [facility] Comment on above: Performed By: #### A ALNANA, CBC, GFR, CMP, ADIFF #### [address] [address] Platelet 235 10 3/mcL Normal 130-400 [facility] Comment on above: Performed By: #### A ALANNA, CBC, GFR, CMP, ADIFF #### [address] [address] Platelet mean volume (Bld) [Entitic vol] 6.3 fL Low 7.4-10.4 [facility] Comment on above: Performed By: #### A ALANNA, CBC, GFR, CMP, ADIFF #### [address] [address] RBC 4.69 10 6/mcL Normal 4.04-6.13 [facility] Comment on above: Performed By: #### A ALANNA, CBC, GFR, CMP, ADIFF #### [address] [address] WBC 13.7 10 3/mcL High 4.6-10.8 [facility] Comment on above: Performed By: #### A ALANNA, CBC, GFR, CMP, ADIFF #### [address] [address] CMPon 05-21-2024 Albumin Level 3.7 G/dL Normal 3.5-5.0 [facility] Comment on above: Performed By: #### A ALANNA, CBC, GFR, CMP, ADIFF #### [address] [address] Albumin/Globulin [Mass ratio] 1.1 {ratio} Normal 1.1-2.5 [facility] Comment on above: Performed By: #### A ALANNA, CBC, GFR, CMP, ADIFF #### [address] [address] ALP [Catalytic activity/Vol] 79 U/L Normal 40-135 [facility] Comment on above: Performed By: #### A ALANNA, CBC, GFR, CMP, ADIFF #### [address] [address] ALT [Catalytic activity/Vol] 30 U/L Normal 16-63 [facility] Comment on above: Performed By: #### A ALANNA, CBC, GFR, CMP, ADIFF #### [address] [address] AST [Catalytic activity/Vol] 22 U/L Normal 10-40 [facility] Comment on above: Performed By: #### A ALANNA, CBC, GFR, CMP, ADIFF #### [address] [address] [place] Total 0.8 mg/dL Normal 0.2-1.0 [facility] Comment on above: Result Comment: Use of this assay is not recommended for patients undergoing treatment with eltrombopag due to the potential for falsely elevated results. Performed By: #### A ALANNA, CBC, GFR, CMP, ADIFF #### [address] [address] BUN/Creatinine Ratio 19 ratio Normal 7-[address] [facility] Comment on above: Performed By: #### A ALANNA, CBC, GFR, CMP, ADIFF #### [address] [address] Calcium [Mass/Vol] 9.0 mg/dL Normal 8.4-10.2 [facility] Comment on above: Performed By: #### A ALANNA, CBC, GFR, CMP, ADIFF #### [address] [address] Chloride [Moles/Vol] 102 mmol/L Normal 98-[address] [facility] Comment on above: Performed By: #### A ALANNA, CBC, GFR, CMP, ADIFF #### [address] [address] CO2 [Moles/Vol] 28 mmol/L Normal 22-29 [facility] Comment on above: Performed By: #### A ALANNA, CBC, GFR, CMP, ADIFF #### [address] [address] Creatinine [Mass/Vol] 1.19 mg/dL Normal 0.70-1.30 [facility] Comment on above: Result Comment: Test ing performed on Siemens Dimension EXL analyzer using a modified kinetic Lm technique. Performed By: #### A ALANNA, CBC, GFR, CMP, ADIFF #### [address] [address] Electrolyte Balance 9.0 mEq/L Normal 4.0-15.0 [facility] Comment on above: Performed By: #### A ALANNA, CBC, GFR, CMP, ADIFF #### [address] [address] Globulin 3.5 G/dL Normal [facility] Comment on above: Performed By: #### A ALANNA, CBC, GFR, CMP, ADIFF #### [address] [address] Glucose [Mass/Vol] 115 mg/dL High 70-105 [facility] Comment on above: Performed By: #### A ALANNA, CBC, GFR, CMP, ADIFF #### [address] [address] Potassium [Moles/Vol] 4.5 mmol/L Normal 3.5-5.1 [facility] Comment on above: Performed By: #### A ALANNA, CBC, GFR, CMP, ADIFF #### [address] [address] Sodium [Moles/Vol] 139 mmol/L Normal 136-145 [facility] Comment on above: Performed By: #### A ALANNA, CBC, GFR, CMP, ADIFF #### [address] [address] Total Protein 7.2 G/dL Normal 6.4-8.2 [facility] Comment on above: Performed By: #### A ALANNA, CBC, GFR, CMP, ADIFF #### [address] [address] Urea nitrogen [Mass/Vol] 23 mg/dL High 7-18 [facility] Comment on above: Performed By: #### A ALANNA, CBC, GFR, CMP, ADIFF #### [address] [address] LABORATORYOrdered By: SYSTEM SYSTEM on 05-21-2024 Albumin [...] MCH (RBC) [Entitic mass] 33.3 pg High 27. 0 - 31.2 pg AO Workflow SS MCHC [...] [Mass/Vol] 23 mg/dL High 7 - 18 mg/d L AO ADM SS Urea nitrogen/Creatinine [Mass ratio] [...] Date: 05/21/2024 1:25:02 PM Ordering Provider: CACHORRO Boyle [facility] LIPIDon 05-02-2024 Cholesterol [Mass/Vol] 180 mg/dL Normal 0-200 [facility] ([place]) Comment on above: Result Comment: Chol esterol Reference Interval: Less than 200 Desirable 200-239 Borderline high risk 240 and above High risk Performed By: #### P SA, LIPID #### [address] [address] Cholesterol in HDL [Mass/Vol] 53 mg/dL Normal 40-60 [facility] ([place]) Comment on above: Performed By: #### P SA, LIPID #### [address] [address] Cholesterol in LDL [Mass/Vol] 112 mg/dL Normal 0-130 [facility] ([place]) Comment on above: Performed By: #### P SA, LIPID #### [address] [address] Triglyceride [Mass/Vol] 75 mg/dL Normal 0-150 [facility] ([place]) Comment on above: Result Comment: Trig lyceride Reference Interval: Less than 150 Normal 150-199 Borderline high risk 200-499 High risk 500 or higher Very high risk Performed By: #### P SA, LIPID #### [address] [address] PSAon 05-02-2024 Prostate Specific Antigen 1.88 ng/mL Normal 0.00-4.00 [facility] ([place]) Comment on above: Performed By: #### P SA, LIPID #### [place] [address] [place], [place] [address] CBC W/Diff, Automatedon 06- Absolute Lymph 2.29 X10 3/uL Normal 0.83-4.51 [facility] Comment on above: Performed By: #### L 500.4050, L100.0100 #### [facility] [address] [place], [address] Absolute Neut 3.5 X10 3/uL Normal 2.0-7.7 [facility] Comment on above: Performed By: #### L 500.4050, L100.0100 #### [facility] [address] [place], [address] Basophils/100 WBC (Bld) 1.4 % High 0-1 [facility] Comment on above: Performed By: #### L 500.4050, L100.0100 #### [facility] [address] [place], [address] Eosinophils/100 WBC (Bld) 3.2 % Normal 0-5 [facility] Comment on above: Performed By: #### L 500.4050, L100.0100 #### [facility] [address] [place], [address] Erythrocyte distribution width (RBC) [Ratio] 11.3 % Low 11.6-14.6 [facility] Comment on above: Performed By: #### L 500.4050, L100.0100 #### [facility] [address] [place], [address] Hematocrit (Bld) [Volume fraction] 44.3 % Normal 40-54 [facility] Comment on above: Performed By: #### L 500.4050, L100.0100 #### [facility] [address] [place], [address] Hemoglobin (Bld) [Mass/Vol] 15.4 g/dL Normal 13.0-16.5 [facility] Comment on above: Performed By: #### L 500.4050, L100.0100 #### [facility] [address] [place], [address] IG% 0.600 Normal 0.0-0.9 [facility] Comment on above: Result Comment: IG% - Immature Granulocytes (promyelocytes, myelocytes and metamyelocytes) > 1% indicates that a LEFT SHIFT is Present. Performed By: #### L 500.4050, L100.0100 #### [facility] [address] [place], [address] Lymphocytes/100 WBC (Bld) 32.9 % Normal 19-41 [facility] Comment on above: Performed By: #### L 500.4050, L100.0100 #### [facility] [address] [place], [address] MCH (RBC) [Entitic mass] 32.6 pg High 27.0-32.0 [facility] Comment on above: Performed By: #### L 500.4050, L100.0100 #### [facility] [address] [place], [address] MCHC (RBC) [Mass/Vol] 34.8 g/dL Normal 32-36 [facility] Comment on above: Performed By: #### L 500.4050, L100.0100 #### [facility] [address] [place], [address] MCV (RBC) [Entitic vol] 93.7 fL Normal 80-94 [facility] Comment on above: Performed By: #### L 500.4050, L100.0100 #### [facility] [address] [place], [address] Monocytes/100 WBC (Bld) 11.1 % High 0-10 [facility] Comment on above: Performed By: #### L 500.4050, L100.0100 #### [facility] [address] [place], [address] Neutrophils/100 WBC (Bld) 50.8 % Normal 47-70 [facility] Comment on above: Performed By: #### L 500.4050, L100.0100 #### [facility] [address] [place], [address] Nucleated RBC (Bld) [#/Vol] 0 10*3/uL Normal 0-5 [facility] Comment on above: Performed By: #### L 500.4050, L100.0100 #### [facility] [address] [place], [address] Platelet mean volume (Bld) [Entitic vol] 9.5 fL Normal 6.2-12.0 [facility] Comment on above: Performed By: #### L 500.4050, L100.0100 #### [facility] [address] [place], [address] Platelets (Bld) [#/Vol] 203 10*3/uL Normal 150-450 [facility] Comment on above: Performed By: #### L 500.4050, L100.0100 #### [facility] [address] [place], [address] RBC (Bld) [#/Vol] 4.73 10*6/uL Normal 4.6-6.2 [facility] Comment on above: Performed By: #### L 500.4050, L100.0100 #### [facility] [address] [place], [address] RDW SD 38.9 fl Normal 35.1-43.9 [facility] Comment on above: Performed By: #### L 500.4050, L100.0100 #### [facility] [address] [place], [address] WBC (Bld) [#/Vol] 7.0 10*3/uL Normal 4.4-11.0 [facility] Comment on above: Performed By: #### L 500.4050, L100.0100 #### [facility] [address] [place], [address] Comprehensive Metabolic Prof ilon 02-19-2024 Albumin [Mass/Vol] 4.1 g/dL Normal 3.2-5.0 [facility] Comment on above: Performed By: #### L 500.4050, L100.0100 #### [facility] [address] [place], [address] Albumin/Globulin [Mass ratio] 1.3 {ratio} Normal 0.9-2.4 [facility] Comment on above: Performed By: #### L 500.4050, L100.0100 #### [facility] [address] [place], [address] ALK P 69 U/L Normal 45-117 [facility] Comment on above: Performed By: #### L 500.4050, L100.0100 #### [facility] [address] [place], [address] ALT [Catalytic activity/Vol] 34 U/L Normal 16-61 [facility] Comment on above: Performed By: #### L 500.4050, L100.0100 #### [facility] [address] [place], [address] AST [Catalytic activity/Vol] 26 U/L Normal 15-37 [facility] Comment on above: Performed By: #### L 500.4050, L100.0100 #### [facility] [address] [place], [address] Bilirubin [Mass/Vol] 0.80 mg/dL Normal 0.20-1.00 [facility] Comment on above: Result Comment: For patients on eltrombopag therapy, use of Dimension Costa TBIL is not recommended. Performed By: #### L 500.4050, L100.0100 #### [facility] [address] [place], [address] BUN/CRE 24.0 RATIO High 10-20 [facility] Comment on above: Performed By: #### L 500.4050, L100.0100 #### [facility] [address] [place], [address] CA,Total 9.5 mg/dL Normal 8.5-10.1 [facility] Comment on above: Performed By: #### L 500.4050, L100.0100 #### [facility] [address] [place], [address] Chloride [Moles/Vol] 105 mmol/L Normal 98-107 [facility] Comment on above: Performed By: #### L 500.4050, L100.0100 #### [facility] [address] [place], [address] CO2 [Moles/Vol] 28.0 mmol/L Normal 21.0-32.0 [facility] Comment on above: Performed By: #### L 500.4050, L100.0100 #### [facility] [address] [place], [address] Creatinine [Mass/Vol] 1.04 mg/dL Normal 0.70-1.30 [facility] Comment on above: Result Comment: The validity of the calculated GFR GFRAA in patients over 70 years has not been determined. Clinical correlation is essential. Performed By: #### L 500.4050, L100.0100 #### [facility] [facility] [address] [place], [address] EST GFR - AA 95 mL/min Normal >60 [facility] Comment on above: Result Comment: Afri can [place] GFR Calc Performed By: #### L 500.4050, L100.0100 #### [facility] [address] [place], [address] GAP 8 Normal 5-15 [facility] Comment on above: Performed By: #### L 500.4050, L100.0100 #### [facility] [address] [place], [address] GFR/1.73 sq M.predicted among non-blacks MDRD (S/P/Bld) [Vol rate/Area] 79 mL/min/{1.73_m2} Normal >60 [facility] Comment on above: Result Comment: Non- GFR Calc Performed By: #### L 500.4050, L100.0100 #### [facility] [address] [place], [address] Globulin (S) [Mass/Vol] 3.1 g/dL Normal 2.2-4.2 [facility] Comment on above: Performed By: #### L 500.4050, L100.0100 #### [facility] [address] [place], [address] Glucose [Mass/Vol] 88 mg/dL Normal 74-106 [facility] Comment on above: Performed By: #### L [id number], L100.0100 #### [facility] [address] [place], [address] Potassium [Moles/Vol] 3.8 mmol/L Normal 3.5-5.1 [facility] Comment on above: Performed By: #### L [id number], L100.0100 #### [facility] [address] [place], [address] Sodium [Moles/Vol] 141 mmol/L Normal 136-145 [facility] Comment on above: Performed By: #### L 500.4050, L100.0100 #### [facility] [address] [place], [address] T PROT 7.2 g/dL Normal 6.4-8.2 [facility] Comment on above: Performed By: #### L [id number], L100.0100 #### [facility] [address] [place], [address] Urea nitrogen [Mass/Vol] 25 mg/dL High 7-18 [facility] Comment on above: Performed By: #### L 500.4050, L100.0100 #### [facility] [address] [place], [address] MRI BRAIN WO/W IVCONon 11-22 MRI BRAIN [...] mastoid fluid. Correlation with symptoms is recommended. Holter Scanning Technician: PSCB Transcribe Date/Time: Nov 26 2023 9:20A Dictated by : VELVET DEAN MD This examination was interpreted and the report reviewed and electronically signed by: VELVET DEAN MD on Nov 26 2023 9:51AM EST [id number] ACN Normal [facility] Absolute lymphocyte countOrd ered By: Mariza Rios on 08-28-2023 Lymphocytes Auto (Unsp spec) [#/Vol] 1.82 10*3/uL 0.83-4.51 [facility] Basophil percentageOrdered B y: Mariza Rios on 08-28-2023 Basophils/100 WBC (Bld) 1.2 % 0-1 [facility] Bilirubin [Mass/Vol] 0.90 mg/dL 0.20-1.00 [facility] Comment on above: For patients on eltr ombopag therapy, use of Dimension [place] TBIL is not recommended. Chloride [Moles/Vol] 105 mmol/L 98-107 [facility] Eosinophils/100 WBC (Bld) 2.4 % 0-5 [facility] Glucose [Mass/Vol] 88 mg/dL 74-106 [facility] Neutrophils (Bld) [#/Vol] 3.1 10*3/uL 2.0-7.7 [facility] Neutrophils/100 WBC (Bld) 53.8 % 47-70 [facility] Potassium [Moles/Vol] 3.9 mmol/L 3.5-5.1 [facility] Protein [Mass/Vol] 7.1 g/dL 6.4-8.2 [facility] Sodium [Moles/Vol] 138 mmol/L 136-145 [facility] WBC (Bld) [#/Vol] 5.7 10*3/uL 4.4-11.0 [facility] Blood erythrocytes count (nu mber/volume)Ordered By: Mariza Rios on 08-28-2023 RBC (Bld) [#/Vol] 4.71 10*6/uL 4.6-6.2 [facility] Blood hemoglobin measurement (mass/volume)Ordered By: Mariaz Rios on 08-28-2023 Hemoglobin (Bld) [Mass/Vol] 15.2 g/dL 13.0-16.5 [facility] Blood lymphocytes/100 leukoc ytesOrdered By: Mariza Rios on 08-28-2023 Lymphocytes/100 WBC (Bld) 31.8 % 19-41 [facility] Blood monocytes/100 leukocyt esOrdered By: Mariza Rios on 08-28-2023 Monocytes/100 WBC (Bld) 10.6 % 0-10 [facility] Blood platelet mean volumeOr dered By: Mariza Rios on 08-28-2023 Platelet mean volume (Bld) [Entitic vol] 9.2 fL 6.2-12.0 [facility] Determination of erythrocyte mean corpuscular volume (MCV)Ordered By: Mariza Rios on 08-28-2023 MCV (RBC) [Entitic vol] 92.6 fL 80-94 [facility] Hematocrit Auto (Bld) [Volum e fraction]Ordered By: Mariza Rios on 08-28-2023 Hematocrit (Bld) [Volume fraction] 43.6 % 40-54 [facility] - Chemistry and C hemistry - challengeOrdered By: Mariza Rios on 08-28-2023 ALP [Catalytic activity/Vol] 76 U/L 45-117 [facility] ALT [Catalytic activity/Vol] 33 U/L 16-61 [facility] CO2 [Moles/Vol] 27.0 mmol/L 21.0-32.0 [facility] Globulin (S) [Mass/Vol] 2.9 g/dL 2.2-4.2 [facility] Urea nitrogen/Creatinine [Mass ratio] 19.4 mg/mg 10-20 [facility] - Hematology and Cell countsOrdered By: Mariza Rios on 08-28-2023 Erythrocyte distribution width (RBC) [Entitic vol] 38.2 fL 35.1-43.9 [facility] Erythrocyte distribution width (RBC) [Ratio] 11.2 % 11.6-14.6 [facility] Immature granulocytes/100 WBC (Bld) 0.200 % 0.0-0.9 [facility] Comment on above: IG% - Immature Granu locytes (promyelocytes, myelocytes and metamyelocytes) > 1% indicates that a LEFT SHIFT is Present. MCH (RBC) [Entitic mass] 32.3 pg 27.0-32.0 [facility] Nucleated RBC/100 WBC (Bld) [Ratio] 0 % 0-5 [facility] MCHC Auto (RBC) [Mass/Vol]Or dered By: Mariza Rios on 08-28-2023 MCHC (RBC) [Mass/Vol] 34.9 g/dL 32-36 [facility] No Panel InformationOrdered By: Mariza Rios on 08-28-2023 Estimated GFR (MDRD) Amer 102 mL/min >60 [facility] Comment on above: GFR Calc Estimated GFR (MDRD) Non-Af Amer 85 mL/min >60 [facility] Comment on above: Non- GFR Calc Platelets bldOrdered By: Rodolfo Rios on 08-28-2023 Platelets (Bld) [#/Vol] 179 10*3/uL 150-450 [facility] Serum or plasma albumin lela urement (mass/volume)Ordered By: Mariza Rios on 08-28-2023 Albumin [Mass/Vol] 4.2 g/dL 3.2-5.0 [facility] Serum or plasma albumin/glob ulin mass ratioOrdered By: Mariza Rios on 08-28-2023 Albumin/Globulin [Mass ratio] 1.4 {ratio} 0.9-2.4 [facility] Serum or plasma calcium lela urement (mass/volume)Ordered By: Mariza Rios on 08-28-2023 Calcium [Mass/Vol] 8.6 mg/dL 8.5-10.1 [facility] Serum or plasma creatinine m easurement (mass/volume)Ordered By: Mariza Rios on 08-28-2023 Creatinine [Mass/Vol] 0.98 mg/dL 0.70-1.30 [facility] Comment on above: The validity of the calculated GFR & GFRAA in patients over 70 years has not been determined. Clinical correlation is essential. Serum or plasma urea nitroge n measurement (mass/volume)Ordered By: Mariza Rios on 08-28-2023 Urea nitrogen [Mass/Vol] 19 mg/dL 7-18 [facility] Thin prep Papanicolaou smear with manual screeningOrdered By: Mariza Rios on 08-28-2023 Thin prep Papanicolaou smear with manual screening 33 U/L 15-37 [facility] Thin prep Papanicolaou smear with manual screening 6 5-15 [facility] GLUon 05-14-2023 Glucose [Mass/Vol] 89 mg/dL Normal 70-105 [facility] ([place]) Comment on above: Performed By: #### G JOHN #### [place] [address] LABORATORYOrdered By: Denver Whatley on 05-11-2023 Cholesterol [...] 05-11-2023 Cholesterol [Mass/Vol] 192 mg/dL Normal 0-200 [facility] ([place]) Comment on above: Result Comment: Chol esterol Reference Interval: Less than 200 Desirable 200-239 Borderline high risk 240 and above High risk Performed By: #### P SA, LIPID, TSH #### [address] [address] Cholesterol in HDL [Mass/Vol] 49 mg/dL Normal 40-60 [facility] ([place]) Comment on above: Performed By: #### P SA, LIPID, TSH #### [address] [address] Cholesterol in LDL [Mass/Vol] 123 mg/dL Normal 0-130 [facility] ([place]) Comment on above: Performed By: #### P SA, LIPID, TSH #### [address] [address] Triglyceride [Mass/Vol] 99 mg/dL Normal 0-150 [facility] ([place]) Comment on above: Result Comment: Trig lyceride Reference Interval: Less than 150 Normal 150-199 Borderline high risk 200-499 High risk 500 or higher Very high risk Performed By: #### P SA, LIPID, TSH #### [address] [address] PSAon 05-11-2023 Prostate Specific Antigen 1.96 ng/mL Normal 0.00-4.00 [facility] ([place]) Comment on above: Performed By: #### P SA, LIPID, TSH #### [address] [address] TSHon 05-11-2023 TSH Qn 1.44 m[IU]/L Normal 0.36-3.74 [facility] ([place]) Comment on above: Order Comment: REFLE X FREE T4 IF ABNORMAL! (TSH < 0.36, or TSH > 3.64) Performed By: #### P SA, LIPID, TSH #### [address] [address] Absolute lymphocyte countOrd ered By: Mariza Rios on 03-01-2023 Lymphocytes Auto (Unsp spec) [#/Vol] 1.61 10*3/uL 0.83-4.51 [facility] Basophil percentageOrdered B y: Mariza Rios on 03-01-2023 Basophils/100 WBC (Bld) 1.7 % 0-1 [facility] Bilirubin [Mass/Vol] 1.30 mg/dL 0.20-1.00 [facility] Comment on above: For patients on eltr ombopag therapy, use of Dimension [place] TBIL is not recommended. Chloride [Moles/Vol] 106 mmol/L 98-107 [facility] Eosinophils/100 WBC (Bld) 5.2 % 0-5 [facility] Glucose [Mass/Vol] 83 mg/dL 74-106 [facility] Neutrophils (Bld) [#/Vol] 2.8 10*3/uL 2.0-7.7 [facility] Neutrophils/100 WBC (Bld) 51.6 % 47-70 [facility] Potassium [Moles/Vol] 4.2 mmol/L 3.5-5.1 [facility] Protein [Mass/Vol] 7.4 g/dL 6.4-8.2 [facility] Sodium [Moles/Vol] 139 mmol/L 136-145 [facility] WBC (Bld) [#/Vol] 5.4 10*3/uL 4.4-11.0 [facility] Blood erythrocytes count (nu mber/volume)Ordered By: Mariza Rios on 03-01-2023 RBC (Bld) [#/Vol] 4.88 10*6/uL 4.6-6.2 [facility] Blood hemoglobin measurement (mass/volume)Ordered By: Mariza Rios on 03-01-2023 Hemoglobin (Bld) [Mass/Vol] 16.1 g/dL 13.0-16.5 [facility] Blood lymphocytes/100 leukoc ytesOrdered By: Mariza Rios on 03-01-2023 Lymphocytes/100 WBC (Bld) 29.8 % 19-41 [facility] Blood monocytes/100 leukocyt esOrdered By: Mariza Rios on 03-01-2023 Monocytes/100 WBC (Bld) 11.5 % 0-10 [facility] Blood platelet mean volumeOr dered By: Mariza Rios on 03-01-2023 Platelet mean volume (Bld) [Entitic vol] 9.1 fL 6.2-12.0 [facility] Determination of erythrocyte mean corpuscular volume (MCV)Ordered By: Mariza Rios on 03-01-2023 MCV (RBC) [Entitic vol] 94.5 fL 80-94 [facility] Hematocrit Auto (Bld) [Volum e fraction]Ordered By: Mariza Rios on 03-01-2023 Hematocrit (Bld) [Volume fraction] 46.1 % 40-54 [facility] - Chemistry and C hemistry - challengeOrdered By: Marizabar Rios on 03-01-2023 ALP [Catalytic activity/Vol] 85 U/L 45-117 [facility] ALT [Catalytic activity/Vol] 30 U/L 16-61 [facility] CO2 [Moles/Vol] 30.0 mmol/L 21.0-32.0 [facility] Globulin (S) [Mass/Vol] 3.3 g/dL 2.2-4.2 [facility] Urea nitrogen/Creatinine [Mass ratio] 16.4 mg/mg 10-20 [facility] - Hematology and Cell countsOrdered By: Mariza Rios on 03-01-2023 Erythrocyte distribution width (RBC) [Entitic vol] 39.0 fL 35.1-43.9 [facility] Erythrocyte distribution width (RBC) [Ratio] 11.4 % 11.6-14.6 [facility] Immature granulocytes/100 WBC (Bld) 0.200 % 0.0-0.9 [facility] Comment on above: IG% - Immature Granu locytes (promyelocytes, myelocytes and metamyelocytes) > 1% indicates that a LEFT SHIFT is Present. MCH (RBC) [Entitic mass] 33.0 pg 27.0-32.0 [facility] Nucleated RBC/100 WBC (Bld) [Ratio] 0 % 0-5 [facility] MCHC Auto (RBC) [Mass/Vol]Or dered By: Mariza Rios on 03-01-2023 MCHC (RBC) [Mass/Vol] 34.9 g/dL 32-36 [facility] No Panel InformationOrdered By: Mariza Rios on 03-01-2023 Estimated GFR (MDRD) Amer 84 mL/min >60 [facility] Comment on above: GFR Calc Estimated GFR (MDRD) Non-Af Amer 70 mL/min >60 [facility] Comment on above: Non- GFR Calc Platelets bldOrdered By: Rodolfo Rios on 03-01-2023 Platelets (Bld) [#/Vol] 192 10*3/uL 150-450 [facility] Serum or plasma albumin lela urement (mass/volume)Ordered By: Mariza Rios on 03-01-2023 Albumin [Mass/Vol] 4.1 g/dL 3.2-5.0 [facility] Serum or plasma albumin/glob ulin mass ratioOrdered By: Mariza Rios on 03-01-2023 Albumin/Globulin [Mass ratio] 1.2 {ratio} 0.9-2.4 [facility] Serum or plasma calcium lela urement (mass/volume)Ordered By: Mariza Rios on 03-01-2023 Calcium [Mass/Vol] 9.6 mg/dL 8.5-10.1 [facility] Serum or plasma creatinine m easurement (mass/volume)Ordered By: Mariza Rios on 03-01-2023 Creatinine [Mass/Vol] 1.16 mg/dL 0.70-1.30 [facility] Comment on above: The validity of the calculated GFR & GFRAA in patients over 70 years has not been determined. Clinical correlation is essential. Serum or plasma urea nitroge n measurement (mass/volume)Ordered By: Mariza Rios on 03-01-2023 Urea nitrogen [Mass/Vol] 19 mg/dL 7-18 [facility] Thin prep Papanicolaou smear with manual screeningOrdered By: Mariza Rios on 03-01-2023 Thin prep Papanicolaou smear with manual screening 27 U/L 15-37 [facility] Thin prep Papanicolaou smear with manual screening 3 5-15 [facility] STREP A MOLECULAR (POC)on Procedural Control Valid [facility] Strep A (POCT) Positive Abnormal Negative [facility] Absolute lymphocyte counton 08-31-2022 Lymphocytes Auto (Unsp spec) [#/Vol] 1.40 10*3/uL 0.83-4.51 [facility] Work Phone: Basophil percentageon 2021 Basophils/100 WBC (Bld) 1.2 % 0-1 [facility] Work Phone: [phone] Bilirubin [Mass/Vol] 1.00 mg/dL 0.20-1.00 [facility] Work Phone: Comment on above: For patients on eltr ombopag therapy, use of Dimension [place] TBIL is not recommended. Chloride [Moles/Vol] 107 mmol/L 98-107 [facility] Work Phone: Eosinophils/100 WBC (Bld) 2.7 % 0-5 [facility] Work Phone: [phone] Glucose [Mass/Vol] 81 mg/dL 74-106 [facility] Work Phone: [phone] Neutrophils (Bld) [#/Vol] 3.5 10*3/uL 2.0-7.7 [facility] Work Phone: [phone] Neutrophils/100 WBC (Bld) 59.4 % 47-70 [facility] Work Phone: [phone] Potassium [Moles/Vol] 3.9 mmol/L 3.5-5.1 [facility] Work Phone: [phone] Protein [Mass/Vol] 7.1 g/dL 6.4-8.2 [facility] Work Phone: Sodium [Moles/Vol] 140 mmol/L 136-145 [facility] Work Phone: WBC (Bld) [#/Vol] 5.9 10*3/uL 4.4-11.0 [facility] Work Phone: Blood erythrocytes count (nu mber/volume)on 08-31-2022 RBC (Bld) [#/Vol] 4.71 10*6/uL 4.6-6.2 [facility] Work Phone: Blood hemoglobin measurement (mass/volume)on 08-31-2022 Hemoglobin (Bld) [Mass/Vol] 15.3 g/dL 13.0-16.5 [facility] Work Phone: Blood lymphocytes/100 leukoc yteson 08-31-2022 Lymphocytes/100 WBC (Bld) 23.8 % 19-41 [facility] Work Phone: Blood monocytes/100 leukocyt eson 08-31-2022 Monocytes/100 WBC (Bld) 12.6 % 0-10 [facility] Work Phone: Blood platelet mean volumeon 08-31-2022 Platelet mean volume (Bld) [Entitic vol] 9.7 fL 6.2-12.0 [facility] Work Phone: Determination of erythrocyte mean corpuscular volume (MCV)on 08-31-2022 MCV (RBC) [Entitic vol] 94.1 fL 80-94 [facility] Work Phone: Hematocrit Auto (Bld) [Volum e fraction]on 08-31-2022 Hematocrit (Bld) [Volume fraction] 44.3 % 40-54 [facility] Work Phone: Laboratory - Chemistry and C hemistry - challengeon 08-31-2022 ALP [Catalytic activity/Vol] 73 U/L 45-117 [facility] Work Phone: ALT [Catalytic activity/Vol] 30 U/L 16-61 [facility] Work Phone: CO2 [Moles/Vol] 28.0 mmol/L 21.0-32.0 [facility] Work Phone: Globulin (S) [Mass/Vol] 3.0 g/dL 2.2-4.2 [facility] Work Phone: Urea nitrogen/Creatinine [Mass ratio] 21.6 mg/mg 10-20 [facility] Work Phone: Laboratory - Hematology and Cell countson 12-30-2022 Erythrocyte distribution width (RBC) [Entitic vol] 40.1 fL 35.1-43.9 [facility] Work Phone: Erythrocyte distribution width (RBC) [Ratio] 11.5 % 11.6-14.6 [facility] Work Phone: Immature granulocytes/100 WBC (Bld) 0.300 % 0.0-0.9 [facility] Work Phone: Comment on above: IG% - Immature Granu locytes (promyelocytes, myelocytes and metamyelocytes) > 1% indicates that a LEFT SHIFT is Present. MCH (RBC) [Entitic mass] 32.5 pg 27.0-32.0 [facility] Work Phone: Nucleated RBC/100 WBC (Bld) [Ratio] 0 % 0-5 [facility] Work Phone: MCHC Auto (RBC) [Mass/Vol]on 08-31-2022 MCHC (RBC) [Mass/Vol] 34.5 g/dL 32-36 [facility] Work Phone: No Panel Informationon 08-31 Estimated GFR (MDRD) Amer 103 mL/min >60 [facility] Work Phone: Comment on above: GFR Calc Estimated GFR (MDRD) Non-Af Amer 85 mL/min >60 [facility] Work Phone: Comment on above: Non- GFR Calc Platelets bldon 08-31-2022 Platelets (Bld) [#/Vol] 197 10*3/uL 150-450 [facility] Work Phone: Serum or plasma albumin lela urement (mass/volume)on 08-31-2022 Albumin [Mass/Vol] 4.1 g/dL 3.2-5.0 [facility] Work Phone: Serum or plasma albumin/glob ulin mass ratioon 08-31-2022 Albumin/Globulin [Mass ratio] 1.4 {ratio} 0.9-2.4 [facility] Work Phone: Serum or plasma calcium lela urement (mass/volume)on 08-31-2022 Calcium [Mass/Vol] 8.9 mg/dL 8.5-10.1 [facility] Work Phone: Serum or plasma creatinine m easurement (mass/volume)on 08-31-2022 Creatinine [Mass/Vol] 0.97 mg/dL 0.70-1.30 [facility] Work Phone: Comment on above: The validity of the calculated GFR & GFRAA in patients over 70 years has not been determined. Clinical correlation is essential. Serum or plasma urea nitroge n measurement (mass/volume)on 08-31-2022 Urea nitrogen [Mass/Vol] 21 mg/dL 7-18 [facility] Work Phone: Thin prep Papanicolaou smear with manual screeningon 08-31-2022 Thin prep Papanicolaou smear with manual screening 24 U/L 15-37 [facility] Work Phone: Thin prep Papanicolaou smear with manual screening 5 5-15 [facility] Work Phone: Laboratory - Microbiology an d Antimicrobial susceptibilityon 07-05-2022 SARS-CoV-2 (COVID-19) RNA MERCEDES+probe Ql (Unsp spec) Not detected [facility] Work Phone: No Panel Informationon 07-05 Influenza Types A,B Rapid (Clinic) Not detected [facility] Work Phone: LABORATORYOrdered By: Yelena Tim on [...] Auto (Unsp spec) [#/Vol] 2.44 10*3/uL 0.83-4.51 [facility] Work Phone: Basophil percentageon 2021 Basophils/100 WBC (Bld) 1.2 % 0-1 [facility] Work Phone: [phone] Bilirubin [Mass/Vol] 0.50 mg/dL 0.20-1.00 [facility] Work Phone: Comment on above: For patients on eltr ombopag therapy, use of Dimension [place] TBIL is not recommended. Chloride [Moles/Vol] 108 mmol/L 98-107 [facility] Work Phone: [phone] Eosinophils/100 WBC (Bld) 2.5 % 0-5 [facility] Work Phone: [phone] Glucose [Mass/Vol] 97 mg/dL 74-106 [facility] Work Phone: [phone] Neutrophils (Bld) [#/Vol] 3.8 10*3/uL 2.0-7.7 [facility] Work Phone: [phone] Neutrophils/100 WBC (Bld) 51.1 % 47-70 [facility] Work Phone: [phone] Potassium [Moles/Vol] 4.0 mmol/L 3.5-5.1 [facility] Work Phone: [phone] Protein [Mass/Vol] 7.2 g/dL 6.4-8.2 [facility] Work Phone: [phone] Sodium [Moles/Vol] 139 mmol/L 136-145 [facility] Work Phone: WBC (Bld) [#/Vol] 7.5 10*3/uL 4.4-11.0 [facility] Work Phone: [phone] Blood erythrocytes count (nu mber/volume)on 03-03-2022 RBC (Bld) [#/Vol] 4.88 10*6/uL 4.6-6.2 [facility]: Blood hemoglobin measurement (mass/volume)on 03-03-2022 Hemoglobin (Bld) [Mass/Vol] 16.1 g/dL 13.0-16.5 [facility] Work Phone: Blood lymphocytes/100 leukoc yteson 03-03-2022 Lymphocytes/100 WBC (Bld) 32.4 % 19-41 [facility] Work Phone: Blood monocytes/100 leukocyt eson 03-03-2022 Monocytes/100 WBC (Bld) 11.3 % 0-10 [facility] Work Phone: Blood platelet mean volumeon 03-03-2022 Platelet mean volume (Bld) [Entitic vol] 8.7 fL 6.2-12.0 [facility] Work Phone: Determination of erythrocyte mean corpuscular volume (MCV)on 03-03-2022 MCV (RBC) [Entitic vol] 92.2 fL 80-94 [facility] Work Phone: Hematocrit Auto (Bld) [Volum e fraction]on 03-03-2022 Hematocrit (Bld) [Volume fraction] 45.0 % 40-54 [facility] Work Phone: Laboratory - Chemistry and C hemistry - challengeon 03-03-2022 ALP [Catalytic activity/Vol] 89 U/L 45-117 [facility] Work Phone: ALT [Catalytic activity/Vol] 29 U/L 16-61 [facility] Work Phone: CO2 [Moles/Vol] 24.0 mmol/L 21.0-32.0 [facility] Work Phone: Globulin (S) [Mass/Vol] 3.3 g/dL 2.2-4.2 [facility] Work Phone: Urea nitrogen/Creatinine [Mass ratio] 19.5 mg/mg 10-20 [facility] Work Phone: Laboratory - Hematology and Cell countson 03-03-2022 Erythrocyte distribution width (RBC) [Entitic vol] 37.8 fL 35.1-43.9 [facility] Work Phone: Erythrocyte distribution width (RBC) [Ratio] 11.1 % 11.6-14.6 [facility] Work Phone: Immature granulocytes/100 WBC (Bld) 1.500 % 0.0-0.9 [facility] Work Phone: Comment on above: IG% - Immature Granu locytes (promyelocytes, myelocytes and metamyelocytes) > 1% indicates that a LEFT SHIFT is Present. MCH (RBC) [Entitic mass] 33.0 pg 27.0-32.0 [facility] Work Phone: Nucleated RBC/100 WBC (Bld) [Ratio] 0 % 0-5 [facility] Work Phone: MCHC Auto (RBC) [Mass/Vol]on 03-03-2022 MCHC (RBC) [Mass/Vol] 35.8 g/dL 32-36 [facility] Work Phone: No Panel Informationon 03-03 Estimated GFR (MDRD) Amer 83 mL/min >60 [facility] Work Phone: Comment on above: GFR Calc Estimated GFR (MDRD) Non-Af Amer 68 mL/min >60 [facility] Work Phone: Comment on above: Non- GFR Calc Platelets bldon 03-03-2022 Platelets (Bld) [#/Vol] 216 10*3/uL 150-450 [facility] Work Phone: Serum or plasma albumin lela urement (mass/volume)on 03-03-2022 Albumin [Mass/Vol] 3.9 g/dL 3.2-5.0 [facility] Work Phone: Serum or plasma albumin/glob ulin mass ratioon 03-03-2022 Albumin/Globulin [Mass ratio] 1.2 {ratio} 0.9-2.4 [facility] Work Phone: Serum or plasma calcium lela urement (mass/volume)on 03-03-2022 Calcium [Mass/Vol] 9.0 mg/dL 8.5-10.1 [facility] Work Phone: Serum or plasma creatinine m easurement (mass/volume)on 03-03-2022 Creatinine [Mass/Vol] 1.18 mg/dL 0.70-1.30 [facility] Work Phone: Comment on above: The validity of the calculated GFR & GFRAA in patients over 70 years has not been determined. Clinical correlation is essential. Serum or plasma urea nitroge n measurement (mass/volume)on 03-03-2022 Urea nitrogen [Mass/Vol] 23 mg/dL 7-18 [facility] Work Phone: Thin prep Papanicolaou smear with manual screeningon 03-03-2022 Thin prep Papanicolaou smear with manual screening 24 U/L 15-37 [facility] Work Phone: Thin prep Papanicolaou smear with manual screening 7 5-15 [facility] Work Phone: No Panel Informationon 03-01 IMPRESSION: Mild wedging deformity of mid thoracic spine vertebral bodies. Degenerative changes. Holter Scanning Technician: PSCB Transcribe Date/Time: Mar 01 2022 9:30A Dictated by : NIA MORRELL MD This examination was interpreted and the report reviewed and electronically signed by: NIA MORRELL MD on Mar 01 2022 9:35AM EST ZZZ_DO_NOT_US E_DIVISION OF RADIOLOGY Radiology Study observation (narrative) Dinah black [facility] No Panel InformationOrdered By: Ccf Provider on 03-01-2022 [facility] XR Cervical spine AP and [...] visualized chest. No other significant abnormality. ------- KarynaZZ_DO_NOT_US E_DIVISION OF RADIOLOGY Provider, [facility] [place] - 03/01/2022 * * *Final Report* * * DATE OF EXAM: Mar 01 2022 9:16AM [facility] 5308 - XR CERVICAL 2V AP/LAT / [...] mid thoracic spine vertebral bodies. Degenerative changes. Holter Scanning Technician: PSCHeide Transcribe Date/Time: Mar 01 2022 9:30A Dictated by : NIA MORRELL MD This examination was interpreted and the report reviewed and electronically signed by: NIA MORRELL MD on Mar 01 2022 9:35AM EST [facility] XR Ribs - right 2 Viewson IMPRESSION: No rib fracture. Holter Scanning Technician: HECTOR Transcribe Date/Time: Mar 01 2022 9:33A Dictated [...] abnormality. ------- ZZZ_DO_NOT_US E_DIVISION OF RADIOLOGY Provider, [facility] - 03/01/2022 * * *Final Report* * [...] abnormality. ------- IMPRESSION IMPRESSION: No rib fracture. Holter Scanning Technician: HECTOR Transcribe Date/Time: Mar 01 2022 9:33A Dictated by : NIA MORRELL MD This examination was interpreted and the report reviewed and electronically signed by: NIA MORRELL MD on Mar 01 2022 9:34AM [facility] XR Thoracic spine AP and Lat [facility] 03-01-2022 * * *Final Report* [...] abnormality. ------- MAHESH_DO_NOT_US E_DIVISION OF RADIOLOGY Provider, [facility] [place] - 03/01/2022 * * *Final Report* * [...] mid thoracic spine vertebral bodies. Degenerative changes. Holter Scanning Technician: PSCHeide Transcribe Date/Time: Mar 01 2022 9:30A Dictated by : NIA MORRELL MD This examination was interpreted and the report reviewed and electronically signed by: NIA MORRELL MD on Mar 01 2022 9:35AM EST [facility] STREP A MOLECULAR (POC)on Procedural Control Valid [facility] Strep A (POCT) Negative Negative [facility] Office Visiton 07-19-2017 Documentation of current medications (procedure) Done Invalid Interpretation Code [facility] Work Phone: [phone] Fall risk assessment No Invalid Interpretation Code [facility] Work Phone: [phone] Office Visiton 10-18-2016 Tobacco use CPHS Never smoker Invalid Interpretation Code [facility] Work Phone: [phone] Clinical Lists Update: Pre it operations analyst 07-16-2016 Left ventricular Ejection fraction 65 % Invalid Interpretation Code [facility] Work Phone: [phone] Clinical Lists Update: Pre it operations analyst 07-05-2016 Cholesterol 218 mg/dL High [facility] Work Phone: [phone] Glucose mass conc 96 mg/dL Invalid Interpretation Code [facility] Work Phone: [phone] HDL Cholesterol 45 mg/dL Invalid Interpretation Code [facility] Work Phone: [phone] LDL Cholesterol 139 mg/dL High [facility] Work Phone: [phone] Triglyceride 172 mg/dL High [facility] Work Phone: [phone] Replaced Document: Gricelda E Observationson 08-11-2015 EKG QRS axis 50 deg Invalid Interpretation Code [facility] Work Phone: [phone] Interpretation Sinus Bradycardia -RSR(V1) -nondiagnostic. PROBABLY NORMAL Invalid Interpretation Code [facility] Work Phone: [phone] P [place] 30 deg Invalid Interpretation Code [facility] Work Phone: [phone] NV Interval 124 ms Invalid Interpretation Code [facility] Work Phone: [phone] Pulse (Heart Rate) 54 /min Invalid Interpretation Code [facility] Work Phone: [phone] QRS Duration 108 ms Invalid Interpretation Code [facility] Work Phone: [phone] QT Interval new path ms Invalid Interpretation Code [facility] Work Phone: [phone] QTc Sanders 396 ms Invalid Interpretation Code [facility] Work Phone: [phone] T [place] 37 deg Invalid Interpretation Code [facility] Work Phone: [phone] Office Visiton 02-11-2015 cardiac risk group B Invalid Interpretation Code [facility] Work Phone: [phone] General cardiovascular disease 10Y risk [#] Hitchcock.D'Agostradha Not enough information Invalid Interpretation Code [facility] Work Phone: [phone] Vital Signs Date Time Vital Sign Value Performing Clinician Facility 07-01-2024 07:24-0400 Body height 175.3 cm Sara Levine APRN.SHIPPING ROOM HELPER Work Phone: [facility] 07-01-2024 07:24-0400 Body mass index (BMI) [Ratio] 24.94 kg/m2 Sara Levine APRN.SHIPPING ROOM HELPER Work Phone: [facility] 07-01-2024 07:24-0400 Body weight 76.6 kg Sara Levine APRN.SHIPPING ROOM HELPER Work Phone: [facility] 07-01-2024 07:24-0400 Diastolic blood pressure 73 mm[Hg] Sara Levine APRN.SHIPPING ROOM HELPER Work Phone: [facility] 07-01-2024 07:24-0400 Heart rate 63 /min Sara Levine APRN.SHIPPING ROOM HELPER Work Phone: [facility] 07-01-2024 07:24-0400 Respiratory rate 21 /min Sara Levine PICK UP WORKER.SHIPPING ROOM HELPER Work Phone: [facility] 07-01-2024 07:24-0400 SaO2% (BldA) [Mass fraction] 98 % Sara Levine PICK UP WORKER.SHIPPING ROOM HELPER Work Phone: [facility] 07-01-2024 07:24-0400 Systolic blood pressure 116 mm[Hg] Sara Levine APRN.SHIPPING ROOM HELPER Work Phone: [facility] 02-14-2024 15:12-0400 Body height 175.3 cm Freedom GERARDO-C Work Phone: [facility] 02-14-2024 15:12-0400 Body mass index (BMI) [Ratio] 24.66 kg/m2 Freedom GERARDO-C Work Phone: [facility] 02-14-2024 15:12-0400 Body weight 75.75 kg Freedom Florez PA-C Work Phone: [facility] 02-14-2024 15:12-0400 Diastolic blood pressure 84 mm[Hg] Freedom Florez PA-C Work Phone: [facility] 02-14-2024 15:12-0400 Heart rate 50 /min Freedom Florez PA-C Work Phone: [facility] 02-14-2024 15:12-0400 Systolic blood pressure 140 mm[Hg] Freedom Florez PA-C Work Phone: [facility] 11-01-2023 13:30-0500 Diastolic blood pressure 82 mm[Hg] Johana Froisrael PICK UP WORKER.SHIPPING ROOM HELPER Work Phone: [facility] 11-01-2023 13:30-0500 Heart rate 65 /min Johana Frias PICK UP WORKER.SHIPPING ROOM HELPER Work Phone: [facility] 11-01-2023 13:30-0500 Systolic blood pressure 146 mm[Hg] Johana Froimson PICK UP WORKER.SHIPPING ROOM HELPER Work Phone: [facility] 01-03-2023 18:25-0400 Body temperature 98.1 [degF] Natividad Reeder PICK UP WORKER.SHIPPING ROOM HELPER Work Phone: [facility] 01-03-2023 18:25-0400 Body weight 77.11 kg Natividad Reeder PICK UP WORKER.SHIPPING ROOM HELPER Work Phone: [facility] 01-03-2023 18:25-0400 Diastolic blood pressure 80 mm[Hg] Natividad Reeedr PICK UP WORKER.SHIPPING ROOM HELPER Work Phone: [facility] 01-03-2023 18:25-0400 Heart rate 69 /min Natividad Reeder PICK UP WORKER.SHIPPING ROOM HELPER Work Phone: [facility] 01-03-2023 18:25-0400 Respiratory rate 21 /min Natividad Reeder PICK UP WORKER.SHIPPING ROOM HELPER Work Phone: [facility] 01-03-2023 18:25-0400 SaO2% (BldA) [Mass fraction] 98 % Natividad Reeder PICK UP WORKER.SHIPPING ROOM HELPER Work Phone: [facility] 01-03-2023 18:25-0400 Systolic blood pressure 150 mm[Hg] Natividad Reeder PICK UP WORKER.SHIPPING ROOM HELPER Work Phone: [facility] 07-20-2022 16:24-0500 Body height 175.3 cm Sara Levine PICK UP WORKER.SHIPPING ROOM HELPER Work Phone: [facility] 07-20-2022 16:24-0500 Body weight 78.93 kg Sarabrandon Contrerasman PICK UP WORKER.SHIPPING ROOM HELPER Work Phone: [facility] 07-20-2022 16:24-0500 Diastolic blood pressure 76 mm[Hg] Sara Levine PICK UP WORKER.SHIPPING ROOM HELPER Work Phone: [facility] 07-20-2022 16:24-0500 Heart rate 63 /min Sara Levine PICK UP WORKER.SHIPPING ROOM HELPER Work Phone: [facility] 07-20-2022 16:24-0500 SaO2% (BldA) [Mass fraction] 99 % Sara Levine PICK UP WORKER.SHIPPING ROOM HELPER Work Phone: [facility] 07-20-2022 16:24-0500 Systolic blood pressure 126 mm[Hg] Sara Levine APRN.SHIPPING ROOM HELPER Work Phone: [facility] 07-05-2022 17:25-0400 Body height 180.[address] Johann Bundy Work Phone: [facility] Work Phone: 07-05-2022 17:25-0400 Body mass index (BMI) [Ratio] 25 kg/m2 Dr. Johann Bundy Work Phone: [facility] Work Phone: 07-05-2022 17:25-0400 Body temperature 99.9 [degF] Dr. Johann Bundy Work Phone: [facility] Work Phone: 07-05-2022 17:25-0400 Body weight 81.[address] Johann Bundy Work Phone: [facility] Work Phone: 07-05-2022 17:25-0400 Diastolic blood pressure 88 mm[Hg] Dr. Johann Bundy Work Phone: [facility] Work Phone: 07-05-2022 17:25-0400 Heart rate 85 /min Dr. Johann Bundy Work Phone: [facility] Work Phone: 07-05-2022 17:25-0400 Respiratory rate 18 /min Dr. Johann Bundy Work Phone: [facility] Work Phone: 07-05-2022 17:25-0400 SaO2% (BldA) [Mass fraction] 99 % Dr. Johann Bundy Work Phone: [facility] Work Phone: 07-05-2022 17:25-0400 Systolic blood pressure 160 mm[Hg] Dr. Johann Bundy Work Phone: [facility] Work Phone: 05-15-2022 15:43-0400 Body height 175.3 cm Johana Froimson PICK UP WORKER.SHIPPING ROOM HELPER Work Phone: [facility] 05-15-2022 15:43-0400 Body weight 78.47 kg Johana Froimson PICK UP WORKER.SHIPPING ROOM HELPER Work Phone: [facility] 05-15-2022 15:43-0400 Diastolic blood pressure 80 mm[Hg] Johana Froimson PICK UP WORKER.SHIPPING ROOM HELPER Work Phone: [facility] 05-15-2022 15:43-0400 Heart rate 77 /min Johana Froimson PICK UP WORKER.SHIPPING ROOM HELPER Work Phone: [facility] 05-15-2022 15:43-0400 Respiratory rate 22 /min Johana Froimson PICK UP WORKER.SHIPPING ROOM HELPER Work Phone: [facility] 05-15-2022 15:43-0400 Systolic blood pressure 159 mm[Hg] Johana Froimson PICK UP WORKER.SHIPPING ROOM HELPER Work Phone: [facility] 04-27-2022 16:04-0400 Body height 175.3 cm Sara Levine PICK UP WORKER.SHIPPING ROOM HELPER Work Phone: [facility] 04-27-2022 16:04-0400 Body weight 78.7 kg Sara Levine PICK UP WORKER.SHIPPING ROOM HELPER Work Phone: [facility] 04-27-2022 16:04-0400 Diastolic blood pressure 80 mm[Hg] Sara Levine PICK UP WORKER.SHIPPING ROOM HELPER Work Phone: [facility] 04-27-2022 16:04-0400 Heart rate 63 /min Sara Levine PICK UP WORKER.SHIPPING ROOM HELPER Work Phone: [facility] 04-27-2022 16:04-0400 SaO2% (BldA) [Mass fraction] 98 % Sara Levine PICK UP WORKER.SHIPPING ROOM HELPER Work Phone: [facility] 04-27-2022 16:04-0400 Systolic blood pressure 136 mm[Hg] Sara Levine PICK UP WORKER.SHIPPING ROOM HELPER Work Phone: [facility] 03-01-2022 08:02-0400 Body temperature 97.9 [degF] Angi Inman MD Work Phone: [facility] 03-01-2022 08:02-0400 Body weight 78.93 kg Angi Inman MD Work Phone: [facility] 03-01-2022 08:02-0400 Diastolic blood pressure 88 mm[Hg] Angi Inman MD Work Phone: [facility] 03-01-2022 08:02-0400 Heart rate 72 /min Angi Inman MD Work Phone: [facility] 03-01-2022 08:02-0400 Respiratory rate 16 /min Angi Inman MD Work Phone: [facility] 03-01-2022 08:02-0400 SaO2% (BldA) [Mass fraction] 99 % Angi Inman MD Work Phone: [facility] 03-01-2022 08:02-0400 Systolic blood pressure 135 mm[Hg] Angi Inman MD Work Phone: [facility] 02-24-2022 12:05-0400 Body temperature 97.11 [degF] Keon Briggs MD Work Phone: [facility] 02-24-2022 12:05-0400 Body weight 79.2 kg Keon Briggs MD Work Phone: [facility] 02-24-2022 12:05-0400 Diastolic blood pressure 86 mm[Hg] Keon Briggs MD Work Phone: [facility] 02-24-2022 12:05-0400 Heart rate 70 /min Keon Briggs MD Work Phone: [facility] 02-24-2022 12:05-0400 Respiratory rate 16 /min Keon Briggs MD Work Phone: [facility] 02-24-2022 12:05-0400 SaO2% (BldA) [Mass fraction] 98 % Keon Briggs MD Work Phone: [facility] 02-24-2022 12:05-0400 Systolic blood pressure 144 mm[Hg] Keon Briggs MD Work Phone: [facility] 02-21-2022 19:08-0400 Body temperature 97.81 [degF] Cam Evans PICK UP WORKER.SHIPPING ROOM HELPER Work Phone: [facility] 02-21-2022 19:08-0400 Body weight 79.83 kg Cam Krueger PICK UP WORKER.SHIPPING ROOM HELPER Work Phone: [facility] 02-21-2022 19:08-0400 Diastolic blood pressure 76 mm[Hg] Cam Krueger PICK UP WORKER.SHIPPING ROOM HELPER Work Phone: [facility] 02-21-2022 19:08-0400 Heart rate 70 /min Cam Evans PICK UP WORKER.SHIPPING ROOM HELPER Work Phone: [facility] 02-21-2022 19:08-0400 Respiratory rate 16 /min Cam Evans PICK UP WORKER.SHIPPING ROOM HELPER Work Phone: [facility] 02-21-2022 19:08-0400 SaO2% (BldA) [Mass fraction] 97 % Cam Krueger PICK UP WORKER.SHIPPING ROOM HELPER Work Phone: [facility] 02-21-2022 19:08-0400 Systolic blood pressure 122 mm[Hg] Cam Krueger PICK UP WORKER.SHIPPING ROOM HELPER Work Phone: [facility] 07-19-2017 14:46-0500 BMI (Body Mass Index) 25.11 kg/m2 [facility] Work Phone: 07-19-2017 14:46-0500 BP Diastolic 62 mm[Hg] [facility] Work Phone: 07-19-2017 14:46-0500 BP Diastolic 70 mm[Hg] [facility] Work Phone: 07-19-2017 14:46-0500 BP [...] 07-19-2016 16:07-0500 BP Diastolic 70 mm[Hg] [facility] Work Phone: 07-19-2016 16:07-0500 BP Systolic 120 mm[Hg] [facility] Work Phone: 07-19-2016 16:07-0500 BSA (Body Surface Area) 1.95 m2 [facility] Work Phone: Encounters Encounter Date Encounter Type Care Provider Facility Start: 04-20-2025 End: 04-20-2025 ambulatory DALE ALBERT DO Facility:[facility] Start: 04-20-2025 End: 04-20-2025 Patient encounter procedure DALE ALBERT DO [facility] Start: 03-15-2025 End: 03-15-2025 Telemedicine consultation with patient Johana Frias APRN.SHIPPING ROOM HELPER Work Phone: Neurology Start: 03-15-2025 End: 03-15-2025 ambulatory Johana Frias APRN.SHIPPING ROOM HELPER Work Phone: Neurology Comment on above: Cervicogenic headach e; Imbalance; Vertigo of central origin; Neck pain; Bilateral occipital neuralgia; Encounter for long-term (current) use of medications Start: 02-05-2025 End: 02-05-[address] Dale Albert DO Work Phone: [facility] Work Phone: Start: 02-05-2025 End: 02-05-[address] Mariza Rios MD -Laboratory Work Phone: Start: 02-05-2025 End: 02-05-2025 ambulatory Mariza Rios Facility:[facility] Start: 12-06-2024 End: 12-08-2024 Refill Johana Frias APRN.SHIPPING ROOM HELPER Work Phone: Neurology Comment on above: Refill Request Start: 11-27-2024 End: 11-27-2024 ambulatory Johana Frias APRN.SHIPPING ROOM HELPER Work Phone: Neurology Comment on above: Cervicogenic headach e (Primary Dx); Imbalance; Vertigo of central origin; Neck pain; Bilateral occipital neuralgia; Encounter for long-term (current) use of medications Start: 11-27-2024 End: 11-27-2024 Telemedicine consultation with patient Johana Frias APRN.SHIPPING ROOM HELPER Work Phone: Neurology Start: 10-02-2024 [facility] Start: 10-02-2024 End: 10-02-2024 [facility] Start: 09-10-2024 End: 09-10-2024 [facility] Start: 09-03-2024 End: 09-04-2024 ambulatory Johana Froimsdima PICK UP WORKER.SHIPPING ROOM HELPER Work Phone: Neurology Comment on above: Pain in the back of the head leading to hedache. Start: 08-12-2024 End: 08-12-2024 ambulatory [facility] Facility:[facility] Start: 07-01-2024 End: 07-01-2024 ambulatory SARACAMI LEVINE Facility:[facility] Start: 07-01-2024 End: 07-01-2024 Patient encounter procedure Sara Levine PICK UP WORKER.SHIPPING ROOM HELPER Work Phone: NEUROLOGY Comment on above: AVA (obstructive sle ep apnea) (Primary Dx) Start: 05-21-2024 End: 05-21-2024 ambulatory DALE OAKLEYINS Facility:[facility] Start: 05-21-2024 End: 05-21-2024 Patient encounter procedure CACHORRO LAU DO [facility] Start: 05-21-2024 End: 05-21-2024 ambulatory Johana Frias PICK UP WORKER.SHIPPING ROOM HELPER Work Phone: Neurology Comment on above: Cervicogenic headach e; Imbalance; Vertigo of central origin; Neck pain; Bilateral occipital neuralgia Start: 05-21-2024 End: 05-21-2024 Telemedicine consultation with patient Johana Frias PICK UP WORKER.SHIPPING ROOM HELPER Work Phone: Neurology Start: 05-01-2024 End: 05-01-2024 ambulatory REGINA VALIENTE PA-C Facility:[facility] Start: 05-01-2024 End: 05-01-2024 Patient encounter procedure REGINA VALIENTE PA-C [facility] Start: 02-29-2024 ambulatory Johana Steven on PICK UP WORKER.SHIPPING ROOM HELPER Work Phone: Neurology Comment on above: Med timing change. O ccipital nerve block. Start: 02-19-2024 End: 02-19-2024 [facility]ulatory [facility] Facility:[facility] Start: 02-14-2024 End: 02-14-2024 Patient encounter procedure Freedom Florez PA-C Work Phone: Neurology Comment on above: Bilateral occipital neuralgia (Primary Dx) Start: 02-13-2024 End: 02-13-2024 ambulatory Johana Froimson PICK UP WORKER.SHIPPING ROOM HELPER Work Phone: Neurology Comment on above: Cervicogenic headach e (Primary Dx); Face pain; Imbalance; Vertigo of central origin; Neck pain; Bilateral occipital neuralgia Start: 02-13-2024 End: 02-13-2024 Telemedicine consultation with patient Johana Froimson PICK UP WORKER.SHIPPING ROOM HELPER Work Phone: Neurology Start: 12-03-2023 ambulatory Johana Froims on PICK UP WORKER.SHIPPING ROOM HELPER Work Phone: Neurology Comment on above: MRI Result. Response from Lupe Beckford. Start: 11-23-2023 ambulatory JOHANA FROIMSON Facili ty:[facility] Start: 11-23-2023 End: 11-23-2023 Subsequent hospital visit by physician [facility] [place] (1.5t) [facility] Comment on above: Cervicogenic headach e [G44.86] Start: 11-14-2023 ambulatory Johana Froims on PICK UP WORKER.SHIPPING ROOM HELPER Work Phone: Neurology Comment on above: Medication for upcom ing brain MRI. Start: 11-01-2023 End: 11-01-2023 Patient encounter procedure Johana Frias PICK UP WORKER.SHIPPING ROOM HELPER Work Phone: Neurology Comment on above: Cervicogenic headach e (Primary Dx); Cervicocranial syndrome; Vertigo of central origin; Imbalance; Face pain; Other headache syndrome; Neck pain Start: 08-28-2023 End: 08-28-2023 ambulatory [facility] Work Phone: Start: 08-28-2023 End: 08-28-2023 Patient encounter procedure [facility] Work Phone: Start: 08-07-2023 ambulatory Johana Froims on PICK UP WORKER.SHIPPING ROOM HELPER Work Phone: Neurology Comment on above: Headaches from neck movement. Start: 06-23-2023 Refill Johana Froims on PICK UP WORKER.SHIPPING ROOM HELPER Work Phone: Otolaryngology Comment on above: Refill Request Start: 06-13-2023 End: 06-13-2023 ambulatory Sara Levine PICK UP WORKER.SHIPPING ROOM HELPER Work Phone: Neurology Comment on above: AVA (obstructive sle ep apnea) (Primary Dx) Start: 06-13-2023 End: 06-13-2023 Telemedicine consultation with patient Sara Levine APRN.SHIPPING ROOM HELPER Work Phone: [facility] Start: 05-11-2023 End: 05-11-2023 ambulatory DALE ALBERT DO Facility:[facility] Start: 05-11-2023 End: 05-11-2023 Patient encounter procedure DALE ALBERT DO [facility] Start: 04-23-2023 End: 04-23-2023 ambulatory Johana Frias APRN.SHIPPING ROOM HELPER Work Phone: Neurology Comment on above: Imbalance (Primary D x); Cervicocranial syndrome; Cervicogenic headache Start: 04-23-2023 End: 04-23-2023 Telemedicine consultation with patient Johana Frias APRN.SHIPPING ROOM HELPER Work Phone: [facility] Start: 03-01-2023 End: 03-01-2023 ambulatory [facility] Work Phone: Start: 03-01-2023 End: 03-01-2023 Patient encounter procedure [facility]-Laboratory Work Phone: Start: 01-29-2023 ambulatory Jerel Cottrell MD Work Phone: [facility] Start: 01-29-2023 Patient encounter procedure Jerel Cottrell MD Work Phone: Neurology Comment on above: Referral for Cogniti ve Therapy from a Speech-Pathologist Start: 01-08-2023 End: 01-08-2023 Patient encounter procedure Martín Tamez PhD Work Phone: Neuropyschology Comment on above: Subjective memory co mplaints (Primary Dx); Obstructive sleep apnea; Anxiety Start: 01-03-2023 End: 01-03-2023 Patient encounter procedure Natividad Lilli PICK UP WORKER.SHIPPING ROOM HELPER Work Phone: [facility] Comment on above: Pharyngitis due to S treptococcus species (Primary Dx) Start: 10-03-2022 End: 10-03-2022 ambulatory Johana Frias PICK UP WORKER.SHIPPING ROOM HELPER Work Phone: Neurology Comment on above: Imbalance (Primary D x); Vertigo of central origin; Short-term memory loss; Cervicocranial syndrome; Cervicogenic headache; Tinnitus, bilateral Start: 10-03-2022 End: 10-03-2022 Telemedicine consultation with patient Johana Frias APRN.SHIPPING ROOM HELPER Work Phone: [facility] Start: 08-31-2022 End: 08-31-[address] Johann Bundy Work Phone: [facility] Work Phone: Start: 08-31-2022 End: 08-31-[address] Johann Bundy Work Phone: [facility] Start: 08-04-2022 Refill Johana ch PICK UP WORKER.SHIPPING ROOM HELPER Work Phone: Neurology Comment on above: Refill Request Start: 07-20-2022 End: 07-20-2022 Patient encounter procedure Sara Levine PICK UP WORKER.SHIPPING ROOM HELPER Work Phone: NEUROLOGY Comment on above: AVA (obstructive sle ep apnea) (Primary Dx) Start: 07-05-2022 End: 07-05-[address] Johann Bundy Work Phone: [facility] Start: 05-15-2022 End: 05-15-2022 Patient encounter procedure Johana Frias PICK UP WORKER.SHIPPING ROOM HELPER Work Phone: Neurology Comment on above: Vertigo of central o rigin (Primary Dx); Imbalance; Tinnitus, bilateral; Cervicocranial syndrome Start: 05-08-2022 End: 05-08-2022 Patient encounter procedure DALE ALBERT DO [facility] Start: 04-30-2022 Telephone encounter Sara Levine APRN.SHIPPING ROOM HELPER Work Phone: Neurology Comment on above: PAP Therapy Fax Forms ([facility] ) Start: 04-27-2022 End: 04-27-2022 Patient encounter procedure Sara Levine APRN.SHIPPING ROOM HELPER Work Phone: NEUROLOGY Comment on above: AVA (obstructive sle ep apnea) (Primary Dx); Abnormal breathing sounds; Gasping for breath; Witnessed episode of apnea; Frequent nocturnal awakening; Middle insomnia; Nocturia; Bladder pain; Confusional arousals; Unrefreshed by sleep; Excessive daytime sleepiness; Lack of concentration Start: 03-26-2022 Telephone encounter Johana suárez APRN.SHIPPING ROOM HELPER Work Phone: Neurology Comment on above: Results (HSAT ) Start: 03-07-2022 ambulatory Angi dupont MD Work Phone: [facility] Comment on above: Questions about thor acic spine x-rays. Start: 03-03-2022 End: 03-03-2022 Patient encounter procedure [facility] Start: 03-01-2022 End: 03-01-2022 Subsequent hospital visit by physician Chen [facility] Work Phone: Radiology Comment on above: Chronic bilateral th oracic back pain [M54.6, G89.29] Start: 03-01-2022 End: 03-01-2022 Patient encounter procedure Angi Inman MD Work Phone: [facility] Comment on above: Chronic bilateral th oracic back pain (Primary Dx); Rib pain on right side; Frequent falls; Dizziness and giddiness Start: 02-24-2022 End: 02-24-2022 Patient encounter procedure Keon Briggs MD Work Phone: [facility] Comment on above: Acute non-recurrent sinusitis, unspecified location (Primary Dx) Start: 02-21-2022 End: 02-21-2022 Patient encounter procedure Cam Krueger MOSHE.[facility] Work Phone: [facility] Comment on above: URI, acute (Primary Dx); Sore throat; History of reactive airway disease; Bacterial conjunctivitis Start: 02-06-2022 End: 02-06-2022 ambulatory Johana Frias PICK UP WORKER.[facility] Work Phone: Neurology Comment on above: Vertigo of central o rigin (Primary Dx); Imbalance; Tinnitus, bilateral; Chronic bilateral thoracic back pain; Observed sleep apnea Start: 02-06-2022 End: 02-06-2022 Telemedicine consultation with patient Johana Frias APRN.[facility] Procedures Date Procedure Procedure Detail Performing Clinician Start: 01-03-2023 STREP A MOLECULAR (POC) Natividad Reeder APRN.[facility] Work Phone: Start: 05-12-2022 Adult depression scr eening assessment Johana Frias PICK UP WORKER.SHIPPING ROOM HELPER Work Phone: Start: 04-22-2022 Adult depression scr eening assessment Sara Debbie PICK UP WORKER.[facility] Work Phone: Start: 03-01-2022 Radex spine cervical 2 or 3 views Angi Inman MD Work Phone: Start: 02-21-2022 STREP A MOLECULAR (POC) [facility] Provider Start: 02-03-2022 Adult depression scr eening assessment Johana Frias PICK UP WORKER.[facility] Work Phone: Start: 07-19-2017 End: 07-31-2017 24 hour holter monitor Titus Crain MD Start: 07-19-2016 End: 07-19-2016 Follow Up Appt 1 year Titus Crain MD Start: 07-19-2016 End: 07-19-2016 [facility] Titus Crain MD Start: 04-10-2016 End: 04-10-2016 Arthrocentesis aspir&/inj major jt/bursa w/o Tonia Tavares Work Phone: Start: 08-11-2015 End: 08-11-2015 SUPERVISOR COMPOUNDING AND FINISHING Shayna Alejandra PA-C Work Phone: Start: 08-11-2015 [...] months Leo Nguyen Start: 02-11-2015 End: 02-11-2015 MM Titus Crain MD Start: 01-22-2014 End: 01-22-2014 [...] above: Dr. Antonio Start: 09-02-1972 Tonsillectomy DALE DARCY PITER DO Neuraxial nerve block DALE ALBERT DO Plan of Treatment Date Care Activity Detail Author Start: 05-20-2030 Urine microalbumin profile [facility] Start: 01-03-2026 DIABETES SCREEN DIABETES SCREEN [facility] Start: 01-03-2026 Diabetes Screening Diabetes Screenin g [facility] Start: 07-01-2025 End: 07-01-2025 Patient encounter procedure NEUROLOGY Comment on above: 1 year follow up Start: 06-24-2025 End: 06-24-2025 Patient encounter procedure 06/24/2025 4:00 PM EDT Office Visit NEUROLOGY [address] [facility] [address] [place] [address] Sara Levine, PICK UP WORKER.SHIPPING ROOM HELPER [address] [facility] [address] [place] [address] 1 year follow up NEUROLOGY Comment on above: 1 year follow up Start: 06-21-2025 End: 06-21-2025 ambulatory 06/21/2025 8:[address] [facility] Neurology [address] [place] [address] Johana Frias, PICK UP WORKER.SHIPPING ROOM HELPER [address] [place] [address] Pain in back of head. Neurology Comment on above: Pain in back of head . Start: 05-23-2025 Screening for malign ant neoplasm of colon [facility] Start: 05-03-2025 Influenza vaccination Influenza Vacc ine (#1) [facility] Start: 03-15-2025 End: 03-15-2025 Follow-up encounter 03/15/2025 8:[address] [facility] Neurology [address] [place] [address] Johana Frias, PICK UP WORKER.SHIPPING ROOM HELPER [address] [place] [address] Follow up visit for neck and head pain. Neurology Comment on above: Follow up visit for neck and head pain. Start: 11-24-2024 End: 11-24-2024 Patient encounter procedure 11/24/2024 8:30 AM EDT Office Visit Neurology [address] [facility] [address] [place] [address] Johana Frias, PICK UP WORKER.SHIPPING ROOM HELPER [address] [place] [address] Pain in lower back of head. Neurology Comment on above: Pain in lower back o f head. Start: 07-01-2024 End: 07-01-2024 Patient encounter procedure 07/01/2024 7:30 AM EDT Office Visit NEUROLOGY [address] [facility] [address] [place] [address] Sara Levine, PICK UP WORKER.SHIPPING ROOM HELPER [address] [facility] [address] [place] [address] [facility] Comment on above: [facility] Start: 05-21-2024 End: 05-21-2024 ambulatory 05/21/2024 9:[address] [facility] Neurology [address] [place] [address] Johana Frias, PICK UP WORKER.SHIPPING ROOM HELPER [address] [place] [address] Pain in lower back of head and headaches from it. Neurology Comment on above: Pain in lower back o f head and headaches from it. Start: 05-03-2024 Covid-19 Vaccine ( season) Covid-19 Vaccine ( season) [facility] Start: 05-03-2024 Influenza vaccination [facility] Start: 02-14-2024 End: 02-14-2024 Patient encounter procedure 02/14/2024 3:30 PM EDT Office Visit Neurology [address] [place] [address] Freedom Florez PA-C [address] [place] [address] NERVE BLOCK Neurology Comment on above: NERVE BLOCK Start: 09-09-2023 DIABETES SCREEN DIABETES SCREEN [facility] Start: 09-02-2023 Depression Assessment Depression Ass essment [facility] Start: 2023 Prostate Cancer Scre ening Discussion Prostate Cancer Screening Discussion [facility] Start: 2023 Prostate specific an tigen measurement Prostate Cancer Screening Discussion [facility] Start: 05-12-2023 Adult depression scr eening assessment DEPRESSION SCREENING [facility] Start: 05-03-2023 Covid-19 Vaccine ( season) Covid-19 Vaccine () [facility] Start: 05-03-2023 Influenza vaccination [facility] Start: 04-22-2023 Adult depression scr eening assessment DEPRESSION SCREENING [facility] Start: 02-03-2023 Adult depression scr eening assessment DEPRESSION SCREENING [facility] Start: 09-02-2022 DEPRESSION ASSESSMENT DEPRESSION ASS ESSMENT [facility] Start: 07-24-2022 COVID-19 VACCINE (5 - Booster for Pfizer series) COVID-19 VACCINE (5 - Booster for Pfizer series) [facility] Start: 05-18-2022 COVID-19 VACCINE (5 - Booster for Pfizer series) COVID-19 VACCINE (5 - Booster for Pfizer series) [facility] Start: 05-03-2022 Influenza vaccination C [facility] Start: 11-02-2021 COVID-19 VACCINE (4 - Booster for Pfizer series) COVID-19 VACCINE (4 - Booster for Pfizer series) [facility] Start: 09-02-2021 DEPRESSION ASSESSMENT DEPRESSION ASS ESSMENT [facility] Start: 07-17-2018 End: 07-17-2018 Appointment Appointment [facility] Work Phone: Start: 2018 Pneumococcal Vaccine : 50+ (1 of 1 - PCV) Pneumococcal Vaccine: 50+ (1 of 1 - PCV) [facility] Start: 07-19-2017 End: 07-19-2017 Appointment Appointment [facility] Work Phone: Start: 07-19-2017 End: 07-19-2017 24 hour holter monitor 24 hour holter monitor [facility] Work Phone: Start: 07-19-2017 End: 07-19-2017 SUPERVISOR COMPOUNDING AND FINISHING SUPERVISOR COMPOUNDING AND FINISHING [facility] Work Phone: Start: 07-19-2017 End: 07-19-2017 Follow Up Appt 1 year Follow Up Appt 1 year [facility] Work Phone: Start: 07-25-2016 End: 07-25-2016 Physical Therapy General [facility], [address] [place] [address], [address] [facility] Work Phone: Start: 07-19-2016 End: 07-19-2016 Follow Up Appt 1 year Follow Up Appt 1 year [facility] Work Phone: Start: 07-19-2016 End: 07-19-2016 MMM MMM [facility] Work Phone: Start: 07-19-2016 End: 07-19-2016 Radex clavicle complete X-Ray, Clavicle [facility] Work Phone: Start: 08-11-2015 End: 08-11-2015 SUPERVISOR COMPOUNDING AND FINISHING SUPERVISOR COMPOUNDING AND FINISHING [facility] Work Phone: Start: 08-11-2015 End: 08-11-2015 Ecg routine ecg w/least 12 lds w/i&r EKG (In office) [facility] Work Phone: Start: 08-11-2015 End: 08-11-2015 Follow Up Appt 1 year Follow Up Appt 1 year [facility] Work Phone: Start: 02-11-2015 End: 02-11-2015 Echocardiography Echocardiogram (complete) [facility] Work Phone: Start: 02-11-2015 End: 02-11-2015 Follow Up Appt 6 months Follow Up Appt 6 months [facility] Work Phone: Start: 02-11-2015 End: 02-11-2015 MMM MMM [facility] Work Phone: Start: 01-22-2014 End: 01-22-2014 SUPERVISOR COMPOUNDING AND FINISHING SUPERVISOR COMPOUNDING AND FINISHING [facility] Work Phone: Start: 01-22-2014 End: 01-22-2014 Ecg routine ecg w/least 12 lds w/i&r EKG (In office) [facility] Work Phone: Start: 01-22-2014 End: 01-22-2014 Follow Up Appt 1 year Follow Up Appt 1 year [facility] Work Phone: Start: 2013 COLOGUARD (FIT-DNA) COLOGUARD (FIT-D NA) [facility] Start: 2013 Colonoscopy COLONOSCOPY [facility] Start: 2013 COLORECTAL CANCER SCREENING COLORECTAL CANCER SCREENING [facility] Start: [address] [facility] Start: 2013 FECAL OCCULT BLOOD FECAL OCCULT BLOO D [facility] Start: 2013 Prostate specific an tigen measurement Prostate Cancer Screening Discussion [facility] Start: 2013 Screening for malign ant neoplasm of colon [facility] Start: 2013 SIGMOIDOSCOPY SIGMOIDOSCOPY [facility] Start: 11-19-2012 End: 11-19-2012 SUPERVISOR COMPOUNDING AND FINISHING SUPERVISOR COMPOUNDING AND FINISHING [facility] Work Phone: Start: 11-19-2012 End: 11-19-2012 Follow Up Appt 1 year Follow Up Appt 1 year [facility] Work Phone: Start: 11-14-2011 End: 11-14-2011 Follow Up Appt 1 year Follow Up Appt 1 year [facility] Work Phone: Start: 2003 Lipid 1996 panel - S eloy or Plasma Lipid Screening [facility] Start: 2003 Lipid panel Lipid Screening [facility] Start: 2003 LIPID SCREEN LIPID SCREEN [facility] Start: 1987 Hepatitis B Vaccine (1 of 3 - 19+ 3-dose series) Hepatitis B Vaccine (1 of 3 - 19+ 3-dose series) [facility] Start: 1987 SHINGRIX VACCINE (1 of 2) KOROMA GRIX VACCINE (1 of 2) [facility] Start: 1987 Urine microalbumin profile DTAP,TDAP ,TD (1 - Tdap) [facility] Start: 1986 Anxiety Screening Anxiety Screening [facility] Start: 1986 Depression Screening Depression Scre [facility] Start: 1986 HEPATITIS C SCREENING HEPATITIS C [facility] Start: 1986 Hepatitis C screening Hepatitis C [facility] Start: 1986 HIV SCREENING HIV SCREENING [facility] Start: 1974 PNEUMOCOCCAL (1 - PCV) PNEUMOCOCCAL (1 - PCV) [facility] Start: 1968 HEPATITIS B (1 of 3 - 3-dose series) HEPATITIS B (1 of 3 - 3-dose series) [facility] Start: 1968 Hepatitis B Vaccine (1 of 3 - 3-dose series) Hepatitis B Vaccine (1 of 3 - 3-dose series) [facility] ALERE STREP A TEST (AG) ALERE ST REP A TEST (AG) Lab Routine Sore throat Ordered: 02/21/2022 [facility] Work Phone: Comment on above: Ordered: 02/21/2022 End: 02-06-2023 HOME SLEEP APNEA TEST (HSAT) HOME SLEEP APNEA TEST (HSAT) Procedures Routine Observed sleep apnea 1 Occurrences starting 02/06/2022 until 02/06/2023 [facility] Work Phone: Comment on above: 1 Occurrences starti ng 02/06/2022 until 02/06/2023 End: 11-30-2024 MR Brain WO and W contrast IV MRI BRAIN WO/W IVCON Radiology Routine Cervicogenic headache Vertigo of central origin Imbalance Face pain Other headache syndrome 1 Occurrences starting 11/01/2023 until 11/30/2024 [facility] Work Phone: Comment on above: 1 Occurrences starti ng 11/01/2023 until 11/30/2024 MR Brain WO and W co ntrast IV MRI BRAIN WO/W IVCON Radiology Routine Cervicogenic headache Vertigo of central origin Imbalance Face pain Other headache syndrome 11/23/2023 9:46 AM EDT [facility] Work Phone: SARS-CoV-2 (COVID-19 ) RNA [Presence] in Respiratory specimen by MERCEDES with probe detection 2019 CORONAVIRUS Microbiology Routine URI, acute Ordered: 02/21/2022 [facility] Work Phone: Comment on above: Ordered: 02/21/2022 [facility] Immunizations Immunization Date Immunization Notes Care Provider [facility] 07-26-2024 influenza virus vaccine, unspecified formulation Johana Frias APRN.CNP Work Phone: [facility] 08-29-2023 SARS-CoV-2 (COVID-19 ) [id number] REGINA VALIENTE PA-C [facility] 03-23-2022 SARS-CoV-2 mRNA (nxquebbcelt-nxlr-gdsc ose) vaccine DALE ABLERT DO [facility] 10-06-2021 zoster vaccine recombinant Angi Inman MD Work Phone: [facility] 08-04-2021 SARS-CoV-2 mRNA (tozinameran) vaccine DALE ALBERT DO [facility] 05-27-2021 zoster vaccine recombinant Angi Inman MD Work Phone: [facility] 01-07-2021 COVID-19 vaccine, ag e 12+ yr (PFIZER-BIONTECH - PURPLE TOP) Johana Frias PICK UP WORKER.SHIPPING ROOM HELPER Work Phone: [facility] Comment on above: Result Comment: 2021: [id number] 12-17-2020 COVID-19 vaccine, ag e 12+ yr (PFIZER-BIONTECH - PURPLE TOP) Johana Frias PICK UP WORKER.SHIPPING ROOM HELPER Work Phone: [facility] Comment on above: Result Comment: 2021: [id number] 07-21-2020 influenza nasal, unspecified formulation Sara Levine APRN.SHIPPING ROOM HELPER Work Phone: [facility] 07-21-2020 influenza virus vaccine, unspecified formulation Angi Inman MD Work Phone: [facility] 05-20-2020 tetanus toxoid, reduced diphtheria toxoid, and acellular pertussis vaccine, adsorbed; Translations: [Boostrix (Tdap)] Angi Inman MD Work Phone: [facility] 07-11-2018 influenza nasal, unspecified formulation Sara Levine APRN.SHIPPING ROOM HELPER Work Phone: [facility] 07-11-2018 influenza virus vaccine, unspecified formulation DALE ALBERT DO [facility] 07-11-2018 influenza, injectabl e, quadrivalent, preservative free Angi Inman MD Work Phone: [facility] 09-02-2016 influenza nasal, unspecified formulation Sara Levine APRN.SHIPPING ROOM HELPER Work Phone: [facility] 09-02-2016 influenza virus vaccine, unspecified formulation DALE ALBERT DO [facility] 09-02-2016 influenza, seasonal, injectable, preservative free Angi Inman MD Work Phone: [facility] 05-03-2016 influenza nasal, unspecified formulation Sara Levine APRN.SHIPPING ROOM HELPER Work Phone: [facility] 05-03-2016 influenza virus vaccine, unspecified formulation DALE ALBERT DO [facility] 05-03-2016 influenza, injectabl e, quadrivalent, preservative free Angi Inman MD Work Phone: [facility] 07-03-2015 influenza nasal, unspecified formulation Sara Levine PICK UP WORKER.SHIPPING ROOM HELPER Work Phone: [facility] 07-03-2015 influenza virus vaccine, unspecified formulation DALE ALBERT DO [facility] 07-03-2015 influenza, injectabl e, quadrivalent, preservative free Angi Inman MD Work Phone: [facility] Payers Date Payer Category Payer Self-pay [id number] 2021 Private Health Insurance MMO SUP ERMED PPO [id number] 2021 Unknown MMO MMO SU[employer] PLUS [id number] 2021-Present [phone] [address] [place] [address] PPO [id number] 2020 Blue Cross Blue Shield BLUE CARD PPO OOS [id number] 2020 Unknown AN[employer]M BLUE CARD PPO OOS [id number] 2020-Present [phone] [address] [place] [id number] PPO [id number] 2020 Unknown [id number] 2020 Unknown [id number] 2015 Unknown [id number] 1968 Unknown [id number] 1968 Unknown [id number] 1968 Unknown [id number] 627 1968 Unknown [id number] 627 Unknown [id number] Unknown [id number] 462 Unknown [id number] 462 Unknown [id number] 462 Unknown [id number] 462 Unknown [id number] 462 Social History Date Type Detail Facility Start: 05-20-2020 End: 08-01-2020 Tobacco smoking status NHIS Never smoked tobacco [facility] Start: 08-01-2020 End: 04-27-2022 Tobacco use and exposure Smokeless tobacco non-user [facility] Start: 02-06-2022 End: 03-15-2025 Alcohol intake Current drinker of alcohol (finding) [facility] Start: 08-01-2020 History SDOH Alcohol Comment Rarely [facility] Start: 1970 Sex Assigned At Male C [facility] Start: 02-11-2022 End: 07-20-2022 Exposure to SARS-CoV-2 (event) Not sure [facility] Start: 10-16-2021 End: 03-27-2023 Tobacco smoking status NHIS Unknown if ever smoked [facility] Start: 01-03-2023 End: 04-23-2023 History of Social function [facility] Start: 01-03-2023 End: 04-23-2023 Tobacco use panel [facility] Adult Depression Screening Assessment 0 [facility] Start: 07-26-2020 Gender identity Identifies as male gender (finding) [facility] Start: 07-26-2020 Sexual orientation Heterosexual (john jean) [facility] Sexual Orientation [facility] Start: 02-25-2019 Sex Male (finding) [facility] Clinical Notes 02-06-2022 to 04-20-2025 LaboratoryPatient InstructionsFrJohana suárez APRN.SHIPPING ROOM HELPER - 03/15/2025 8:30 AM EDTTelephone Encounter - Johana Frias APRN.CNP - 12/08/2024 11:08 AM EDTPatient InstructionsPatient Instructions Note Date & Type Note Facility 04-20-2025 Evaluation + Plan note Diagnostic Tests PendingLipoprotein (a) 04/20/25Apolipoprotein B 04/20/25 Future Scheduled TestsProstate Specific Antigen 04/20/26Lipid Profile 04/20/26 [facility] 03-15-2025 Instructions Johana Frias APRN.CNP - 03/15/2025 9:12 AM EDT - Continue gabapentin as prescribed (one mid-day dose and two at bedtime); you may take the mid-day dose a bit early if that helps you remember - Stop Robaxin (methocarbamol) - Start tizanidine (Zanaflex) as needed for neck muscle tightness or dizziness; begin with a quarter to half tablet to gauge tolerance and you may take up to three times a day on bad days - If tizanidine doesn t help after a few uses or causes side effects, let us know so we can try another muscle relaxer or discuss duloxetine (Cymbalta) - Keep duloxetine (Cymbalta) as an option if your symptoms worsen or your facial pain returns - Schedule a follow-up appointment in about three months (you can reach out sooner if needed) documented in this encounter [facility] 03-15-2025 History of Present illness Narrative Images from the original note were not included. [facility] - Virtual Visit Last Visit: 11/27/2024, Johana Frias APRN.CNP Accompanied by: Spouse This visit was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 contrast - increase gabapentin to 900 mg daily - consider Cymbalta or occipital nerve blocks as a next step - let us know via mychart if you need any anti-anxiety medication prior to MRI documented in this encounter [facility] 11-01-2023 History of Present illness Narrative Headache Center - Follow up Visit Last Visit: 09/06/2023, Johana Frias APRN.SHIPPING ROOM HELPER Accompanied by: Self Primary Problem List: ACTIVE [...] he turns to the right/left - severity: 1-3/10 - if he is stationary his neck [...] medication usage in the last month: 7 6 11 Patient impression of improvement since last visit: [...] which included preparing to see the patient, widc-vy-nisf patient care, completing clinical documentation, obtaining and/or reviewing separately obtained history, performing a medically appropriate examination, counseling and educating the patient/family/caregiver, and ordering medications, tests, or procedures. All questions answered. The patient has my contact information and my chart sign up information. Johana Frias APRN.CNP documented in this encounter [facility] 06-24-2023 Miscellaneous Notes PDMP website [...] Name: Figueroa Watson documented in this encounter [facility] 06-13-2023 Instructions Sara Levine APRN.TAURUS - 06/13/2023 6:29 PM EDT Patient Instructions: AVA: Continue Auto CPAP at current settings of 5-15 cmH2O. Remember to clean your mask and equipment regularly, as directed. Avoid use of ozone rod welder, SoClean devices, or UV cleaning devices Avoid using alcohol or alcohol-containing products on your mask, as this may compromise the integrity of the mask materials and contribute to leak issues You should be eligible for new supplies approximately every 3-6 months, depending on your insurance coverage. Contact your Durable Medical Equipment (DME) company for new supplies as needed. Order will be sent to [employer] for supplies: [employer] Insurance: We will send script to [employer]. Face to face examination completed June 13, 2023. Christie Raf Chance has fulfilled his insurance requirement with an annual visit for PAP therapy, average usage is 6 hours, 10 minutes and compliancy of >70 %. Please send PAP download. Please send patient PAP supplies as covered by insurance. Follow up in 12 months in person or virtually with [facility] or Sleep Medicine Physician. Will send provider order. [employer] will reach out to you. If you have questions, feel free to send me a [employer] message. Sara Levine APRN.SHIPPING ROOM HELPER PAP Supply Guidelines Below are the guidelines [...] 6 months *Self-Pay documented in this encounter [facility] 06-13-2023 History of Present illness Narrative [facility] Virtual Visit Follow Up/ Established Patient Visit PATIENT NAME: Christie Chance [facility] Rules (O.A.C. ): This visit was conducted as a Virtual Visit, with patient's permission, via Zoom. It required patient-provider interaction for the medical decision making as documented below. Patient stated first & last name: Christie Chance Patient stated : 1970 Patient stated current location: [place] [address] I have communicated my name, Sara Levine APRN.CNP, and active licensure Adult Certified Nurse Practitioner in the Sleep Medicine Center at [facility]. The patient's identity and physical location were verified at the time of this visit. Either the patient or their legal pharmaceutical specialty representative has been informed of the risks [...] 11 AutoSet [employer] AutoSet 5-15 cmH20. Usage /30 days (93%) >= 4 hours - 27 [...] questions, feel free to send me a [employer] message . I spent a total of 28 minutes as this was an established patient to me on the date of the service which included preparing to see the patient, oyxz-iw-redw patient care, completing clinical documentation, counseling and educating the patient/family/caregiver and ordering medications, tests, or procedures. Sara Levine APRN.SHIPPING ROOM HELPER <End Assessment/Plan from last visit> CURRENT VISIT: 06/13/2023 Interval history: Sleeping really good especially with GBPN on on board. No issues. [employer] keeping him supplied with PAP equipment. Follow [...] AutoPAP use. SLEEP HYGIENE QUESTIONS: Bedtime : 9703-6528 Wake up Time : 0450 Time it [...] or near accidents due to drowsy drivin [place] Sleepiness Scale 04/22/2022 06/09/2023 Score 14 (present [...] with GBPN on on board. No issues. [facility] keeping him supplied with PAP equipment. - Doing very well with PAP therapy. - Denies mask or pressure intolerance. - Compliant and benefiting from treatment. - Face to face examination completed June 12, 2023 - Will get PAP download from [facility]. - Christie Chance has fulfilled his insurance [...] regularly, as directed. Avoid use of ozone rod welder, SoClean devices, or UV cleaning devices Avoid using alcohol or alcohol-containing products on your mask, as this may compromise the integrity of the mask materials and contribute to leak issues You should be eligible for new supplies approximately every 3-6 months, depending on your insurance coverage. Contact your Durable Medical Equipment (DME) company for new supplies as needed. Order will be sent to [employer] [facility] for supplies: [employer] Insurance: Send script to [employer]. Face to face examination completed June 13, [...] Sleep Medicine Physician. Will send provider order. Text[employer] will reach out to you. If you have questions, feel free to send me a [employer] message. I spent a total of 29 minutes. This was a established patient to me on the date of the service which included preparing to see the patient, tdxs-bz-ckob patient care, completing clinical documentation, counseling and educating the patient/family/caregiver and ordering medications, tests, or procedures. Sara Levine APRN.TAURUS Activity Duration Current session 29 minutes Total time: 29 minutes* *Based only on time spent in the patient's chart documented in this encounter [facility] 04-23-2023 Instructions Johana Frias APRN.TAURUS - 04/23/2023 8:58 AM EDT - continue gabapentin 600 mg daily at bedtime (can consider increasing vs. Decreasing in the future) - restart HEP from PT documented in this encounter [facility] 04-23-2023 History of Present illness Narrative Headache Center - Virtual Visit Last Visit: 01/21/2023, Johana Frias APRN.SHIPPING ROOM HELPER Accompanied by: Self This visit was conducted as a virtual visit, with patient's permission, via zoom. It required patient-provider interaction for the medical decision making as documented below. Patient stated name and Patient location: [place], [place] I have communicated my name and active licensure. The patient's identity and physical location were verified at the time of this visit. Either the patient or their legal pharmaceutical specialty representative has been informed of the risks [...] remains a concern and he is seeing [email or web address] this week to discuss next steps. I [...] in 3 months. - follow up with [email or web address] Saturday in regards to word finding difficulty. [...] is clear, coherent, and relevant. Short and correction memory, cognition and general fund of knowledge [...] which included preparing to see the patient, lref-jr-asck patient care, completing clinical documentation, obtaining and/or reviewing separately obtained history, performing a medically appropriate examination, counseling and educating the patient/family/caregiver, and ordering medications, tests, or procedures. The patient has my contact information and my chart sign up information. Johana Frias APRN.TAURUS documented in this encounter [facility] 01-30-2023 Miscellaneous Notes ordered speech therapy, asked Admin to fax order Message routed to Sharlene. 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 The current evaluation was performed in the context of medical care and a clinical referral question and not for purposes of a forensic, disability, or workers' compensation evaluation. This assessment is part of a multidisciplinary evaluation conducted in the [facility]. The assessment consisted of a brief [...] difficulties. 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 Social History: The patient is and has [...] was average. Processing speed on a digit-symbol franchise development manager task was average. Performance on a measure [...] = 2 hours Neuropsychological test administration/scoring by nursery nurse = 3 hours, 57 minutes documented in this encounter [facility] 01-03-2023 History of Present illness Narrative This note was created using [employer]. Subjective Christie Chance is a 52 year [...] history is provided by the patient. No sign language translator was used. Sore Throat This is a [...] - STREP A MOLECULAR (POC) Natividad Reeder APRN.CNP documented in this encounter [facility] 10-03-2022 Instructions Johana Frias APRN.CNP - 10/03/2022 9:33 AM EST - ok to hold on further PT - increase gabapentin to 600 mg at bedtime when ready - consult to [facility] for cognition/concentration documented in this encounter [facility] 10-03-2022 History of Present illness Narrative Headache Center - Virtual Visit Last Visit: 05/15/2022, Johana Frias APRN.CNP Accompanied by: Self During this COVID-19 pandemic, patient's headache clinic evaluation was scheduled as a virtual visit using the following platform Zoom - Patient located in [place] Christie Chance was identified by name and [...] is clear, coherent, and relevant. Short and correction memory, cognition and general fund of knowledge [...] - but will refer him to [facility] for a formal evaluation. His prescription of [...] at bedtime when ready - consult to [facility] for cognition/concentration Headache education was done. Discussed [...] which included preparing to see the patient, xodn-pa-djry patient care, completing clinical documentation, obtaining and/or [...] Johana Frias APRN.CNP documented in this encounter [facility] 08-06-2022 Miscellaneous Notes The following [...] Name: Figueroa Watson documented in this encounter [facility] 07-20-2022 Instructions Sara Levine APRN.SHIPPING ROOM HELPER - 07/20/2022 3:39 PM EST PAP Supply [...] Saline flush your nose 7: See an Chief Analytics Officer 8: Use a full face mask during [...] the heated humidifier documented in this encounter [facility] 07-20-2022 History of Present illness Narrative Images from the original note were not included. [facility] Sleep Disorders [facility] Follow up/ [...] right to sleep. I wake up between 1495-1312 and may have difficulty falling back to [...] have a prescription sent to a DME ([employer]) company - [facility] who will be calling you in the next 1-2 weeks. Please call them directly or us if you do not hear from them in this time frame. DME Contact Information: [address] [place] [address] Toll Free: Hours Mon - Fri 9:00 [...] Insurance requirements: - Your insurance requires a [id number]-bj-[id number] follow up visit within a 31-90 day [...] questions, feel free to send me a [employer] message. I spent a total of 60 minutes as this was an new patient to me on the date of the service which included preparing to see the patient, lnnu-mo-gohr patient care, completing clinical documentation, counseling and educating the patient/family/caregiver and ordering medications, tests, or procedures. Sara Levine, PICK UP WORKER.SHIPPING ROOM HELPER Interval history : Rough start. Still waking [...] or near accidents due to drowsy drivin [place] Sleepiness Scale 04/22/2022 Score 14 (present daytime [...] 11 AutoSet [employer] AutoSet 5-15 cmH20. Usage / days (93%) >= 4 hours - 27 [...] questions, feel free to send me a [employer] message . I spent a total of 28 minutes as this was an established patient to me on the date of the service which included preparing to see the patient, ymwh-qz-benr patient care, completing clinical documentation, counseling and educating the patient/family/caregiver and ordering medications, tests, or procedures. Sara Levine APRN.TAURUS documented in this encounter [facility] 05-15-2022 Instructions Johana Frias APRN.CNP [...] show a benefit. documented in this encounter [facility] 05-15-2022 History of Present illness Narrative Headache Center - Follow up Visit Last Visit: 02/06/2022, Johana Frias APRN.SHIPPING ROOM HELPER Accompanied by: Self Primary Problem List: There [...] which included preparing to see the patient, nwdc-mh-omso patient care, completing clinical documentation, obtaining and/or reviewing separately obtained history, performing a medically appropriate examination, counseling and educating the patient/family/caregiver, and ordering medications, tests, or procedures. All questions answered. The patient has my contact information and my chart sign up information. Johana Frias APRN.TAURUS documented in this encounter [facility] 04-30-2022 Miscellaneous Notes [facility] confirmation for cpap/bipap order on desk for review documented in this encounter [facility] 04-30-2022 Miscellaneous Notes Faxed order, office notes, demographics and sleep study to: DME name: [facility] PETTY fax # [phone] DME Faxed info in patient's chart. documented in this encounter [facility] 04-29-2022 Instructions Sara Levine APRN.TAURUS - 04/29/2022 12:04 PM EDT Images from [...] sizes and styles as illustrated below. Your [facility] sleep specialist or technologist will [...] and refill with water recommended by the caustic strength inspector. Weekly: Wash hose with mild dish soap. [...] Is this covered by my insurance? At [facility], upon receiving your PAP order, we contact [...] your new supplies. documented in this encounter [facility] 04-27-2022 History of Present illness Narrative Images from the original note were not included. [facility] Sleep Disorders [facility] New Patient Evaluation PATIENT NAME: Christie Chance DATE OF SERVICE: April 22, 2022 CONSULTING PROVIDER: Johana Frisa [id number] [address] [facility] [id number] REASON FOR CONSULT: Johana Frias sends the [...] right to sleep. I wake up between 8621-2302 and may have difficulty falling back to [...] weekends, he tends to stay up until 6956-9798 and sleeps until 0600. Average total sleep [...] but is not a shift worker. Works 6182-3256. He does have difficulty with memory or [...] right to sleep. I wake up between 8163-0947 and may have difficulty falling back to [...] will have a prescription sent to a [facility] ([employer]) company - [employer] who will be calling you in the next 1-2 weeks. Please call them directly or us if you do not hear from them in this time frame. DME Contact Information: [address] [place] [address] Toll Free: Hours Mon - Fri 9:00 a.m.5:00 p.m. Sat & Sun - Please consider side sleeping or sleeping upright in a recliner until starting AutoPAP therapy. - You should be eligible for new supplies approximately every 3-6 months, depending on your insurance coverage. - If your mask doesn't fit well, call the [employer] company before 30 days are up to [...] Insurance requirements: - Your insurance requires a [id number]-uk-[id number] follow up visit within a 31-90 day [...] questions, feel free to send me a [employer] message. I spent a total of 60 minutes as this was an new patient to me on the date of the service which included preparing to see the patient, aokb-us-wsew patient care, completing clinical documentation, counseling and educating the patient/family/caregiver and ordering medications, tests, or procedures. Sara Levine APRN.CNP documented in this encounter [facility] 03-01-2022 History of Present illness [...] PERIPHERAL IV DATA: n/a SIGNED BY: RT Casey(R) March 01, 2022 9:16 AM documented in this encounter [facility] 03-01-2022 Instructions Angi Inman MD - 03/01/2022 8:43 AM EDT Images from the original note were not included. Chronic Neck Pain Overview: Neck pain is common. Approximately three out of four [place] adults will experience an episode of neck [...] or narcotic medications are not recommended for correction use. 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 Reviewed and verified medical director/head team physician/nurse's progress notes. No revisions. OBJECTIVE: PHYSICAL EXAM [...] 8:58 AM 10 documented in this encounter [facility] 02-24-2022 History of Present illness [...] Keon Briggs MD documented in this encounter [facility] 02-21-2022 History of Present illness [...] Cam Krueger APRN.CNP documented in this encounter [facility] 02-06-2022 Instructions Johana Frias APRN.CNP - 02/06/2022 5:07 PM EDT Consult to Spine (call [phone] to schedule) Home sleep study (you will be contacted) Continue physical therapy Try Robaxin at bedtime documented in this encounter [facility] 02-06-2022 History of Present illness [...] and clear, coherent, and relevant. Short and long term care pharmacist memory, cognition and general fund of knowledge [...] time Follow-up: 3 months Level of service: [facility] level 4 (30-39 min). Time spent 35 min on the day of service, which included preparing to see the patient, fmgo-uo-agyf patient care, completing clinical documentation, obtaining and/or [...] have interviewed the patient and updated the PICK UP WORKER's history and ROS as necessary. I have re-performed and re-documented and/or edited the HPI, EXAM, and ASSESSMENT and PLAN based on my personal assessment of the patient. My changes are noted in black in italics. Johana Frias APRN.CNP February 06, 2022 5:05 PM documented in this encounter [facility] Evaluation + Plan note No data available for this section [facility] Evaluation + Plan note Future Scheduled TestsProstate Specific Antigen 05/10/24Lipid Profile 05/10/24 [facility] Evaluation + Plan note Future Appointments Appointment Date:06/15/2024 02:30:00 PM Scheduled Provider:DALE ALBERT DO Location:[facility] Appointment Type:PC OV Diagnostic Tests PendingLipid Profile 05/01/24Prostate Specific Antigen 05/01/24 Future Scheduled TestsProstate Specific Antigen 05/10/24Lipid Profile 05/10/24 [facility] Evaluation + Plan note Future Appointments Appointment Date:06/15/2024 02:30:00 PM Scheduled Provider:DALE ALBERT DO Location:[facility] Appointment Type:PC OV Future Scheduled TestsProstate Specific Antigen 05/10/24Lipid Profile 05/10/24 [facility] Evaluation note Diagnosis Vertigo of central origin- Primary Imbalance Abnormality of gait Tinnitus, bilateral Unspecified tinnitus Chronic bilateral thoracic back pain Observed sleep apnea Unspecified sleep apnea [facility]* Diagnosis URI, acute- Primary Acute upper respiratory infections of unspecified site Sore throat Acute pharyngitis History of reactive airway disease Personal history of other diseases of respiratory system Bacterial conjunctivitis Other conjunctivitis Observed sleep apnea Unspecified sleep apnea [facility]* Diagnosis Acute non-recurrent sinusitis, unspecified location- Primary documented [facility]* Diagnosis Chronic bilateral thoracic back pain- Primary Rib pain on right side Chest pain, unspecified Frequent falls Personal history of fall Dizziness and giddiness documented [facility] noteNo assessment information availableWKettering Health Work Phone: Evaluation note* Diagnosis AVA (obstructive sleep apnea)- Primary Obstructive sleep apnea (adult) (pediatric) documented in this encounter [facility] note* Diagnosis AVA (obstructive sleep apnea)- Primary [...] or concentration deficit documented in this encounter [facility] note* Diagnosis Vertigo of central origin- Primary Imbalance Abnormality of gait Tinnitus, bilateral Unspecified tinnitus Cervicocranial syndrome documented [facility]* Diagnosis AVA (obstructive sleep apnea)- Primary Obstructive sleep apnea (adult) (pediatric) documented in this encounter [facility] note* Diagnosis Onset Date Resolution Status Contact with and (suspected) exposure to other viral communicable diseases [facility] Work Phone: Evaluation note* Diagnosis Imbalance- Primary Abnormality of gait Vertigo of central origin Short-term memory loss Memory loss Cervicocranial syndrome Cervicogenic headache Headache Tinnitus, bilateral Unspecified tinnitus documented in this encounter [facility] note* Diagnosis Pharyngitis due to Streptococcus species- Primary documented in this encounter [facility] note* Diagnosis Subjective memory complaints- Primary Memory loss Obstructive sleep apnea Obstructive sleep apnea (adult) (pediatric) Anxiety Anxiety state, unspecified documented in this encounter [facility] note* Diagnosis MCI (mild cognitive impairment)- Primary Mild cognitive impairment, so stated documented in this encounter [facility] note* Diagnosis Imbalance- Primary Abnormality of gait Cervicocranial syndrome Cervicogenic headache Headache documented [facility]* Diagnosis AVA (obstructive sleep apnea)- Primary Obstructive sleep apnea (adult) (pediatric) documented [facility]* Diagnosis Cervicogenic headache- Primary Headache Cervicocranial syndrome Vertigo of central origin Imbalance Abnormality of gait Face pain Headache Other headache syndrome Neck pain Cervicalgia documented in this encounter [facility] note* Diagnosis Other headache syndrome- Primary documented [facility] encounter [facility]* Diagnosis Cervicogenic headache Headache Vertigo of central origin Imbalance Abnormality of gait Face pain Headache Other headache syndrome documented [facility]* Diagnosis Disorder of middle ear or mastoid, unspecified laterality- Primary Hearing loss, unspecified hearing loss type, unspecified laterality documented [facility]* Diagnosis Cervicogenic headache- Primary Headache Face pain Headache Imbalance Abnormality of gait Vertigo of central origin Neck pain Cervicalgia Bilateral occipital neuralgia Other syndromes affecting cervical region documented [facility] this encounter [facility]* Diagnosis Bilateral occipital neuralgia- Primary Other syndromes affecting cervical region documented [facility]* Diagnosis Cervicogenic headache Headache Imbalance Abnormality of gait Vertigo of central origin Neck pain Cervicalgia Bilateral occipital neuralgia Other syndromes affecting cervical region documented [facility] this encounter [facility]* Diagnosis Chronic bilateral thoracic back pain Dizziness and giddiness Rib pain on right side Chest pain, unspecified Frequent falls Personal history of fall documented in this encounter [facility] note* Diagnosis AVA (obstructive sleep apnea)- Primary Obstructive sleep apnea (adult) (pediatric) documented in this encounter [facility] note* Diagnosis Cervicogenic headache- Primary Headache Imbalance Abnormality of gait Vertigo of central origin Neck pain Cervicalgia Bilateral occipital neuralgia Other syndromes affecting cervical region Encounter for long-term (current) use of medications Encounter for long-term (current) use of other medications documented in this encounter [facility] note* Diagnosis Cervicogenic headache Headache Imbalance Abnormality of gait Vertigo of central origin Neck pain Cervicalgia Bilateral occipital neuralgia Other syndromes affecting cervical region Encounter for long-term (current) use of medications Encounter for long-term (current) use of other medications documented in this encounter [facility] Discharge instructions No data available for this section [facility] Progress note No data available for this section [facility] Reason for referral (narrative)* Diagnostic Procedure Only (Routine) - Pending Review Specialty Diagnoses / Procedures Referred By Vitaly baires Referred To Contact [facility] Diagnoses Observed sleep apnea Procedures HOME SLEEP APNEA TEST (HSAT) SLEEP STD AIRFLOW HRT RATE&O2 SAT EFFORT UNATT Emelina Andrews APRN.CNP [address] [place] [address] [facility] [address] [place] [address] Referral ID Status Reason Start Date Expiration Date Visits Requested Visits Authorized [id number] Pending Review Auto-Generat ed Referral 02/06/2022 02/06/2023 1 1 * Consult, Test, Treat (Routine) - Authorized Specialty Diagnoses / Procedures Referred By Vitaly baires Referred To Contact Neurology Diagnoses Chronic bilateral thoracic back pain Procedures CONSULT TO NEUROLOGY OFFICE/OUTPATIENT [facility] 60-74 MINUTES Emelina Andrews APRN.CNP [address] [place] [address] Referral ID Status Reason Start Date Expiration Date Visits Requested Visits Authorized [id number] Authorized PCP Requested Referral 02/06/2022 02/06/2023 1 1 [facility] for referral (narrative)* Diagnostic Procedure Only (Routine) - Closed Specialty Diagnoses / Procedures Referred By Contac t Referred To Contact XR IMAGING Diagnoses Chronic bilateral thoracic back pain Rib pain on right side Frequent falls Procedures XR RIBS 2V AP/OBL RIGHT RADEX RIBS UNILATERAL 2 VIEWS Angi Inman MD [address] [place] [address] Xr Imaging Referral ID Status Reason Start Date Expiration Date V isits Requested Visits Authorized [id number] Closed Auto-Generate d Referral 03/01/2022 03/31/2023 1 1 * Diagnostic Procedure Only (Routine) - Closed Specialty Diagnoses / Procedures Referred By Contac t Referred To Contact XR IMAGING Diagnoses Chronic bilateral thoracic back pain Rib pain on right side Procedures XR THORACIC LIMITED 2V AP/LAT RADEX SPINE THORACIC 2 VIEWS Angi Inman MD [address] [place] [address] Xr Imaging Referral ID Status Reason Start Date Expiration Date V isits Requested Visits Authorized [id number] Closed Auto-Generate d Referral 03/01/2022 03/31/2023 1 1 * Diagnostic Procedure Only (Routine) - Closed Specialty Diagnoses / Procedures Referred By Contac t Referred To Contact XR IMAGING Diagnoses Chronic bilateral thoracic back pain Dizziness and giddiness Procedures XR CERV GENERAL 2V AP/LAT RADEX SPINE CERVICAL 2 OR 3 VIEWS Angi Inman MD [address] [place] [address] Xr Imaging Referral ID Status Reason Start Date Expiration Date V isits Requested Visits Authorized [id number] Closed Auto-Generate d Referral 03/01/2022 03/31/2023 1 1 [facility] for referral (narrative)* Diagnostic Procedure Only (Routine) - Closed Specialty Diagnoses / Procedures Referred By Contac t Referred To Contact XR IMAGING Diagnoses Chronic bilateral thoracic back pain Rib pain on right side Frequent falls Procedures XR RIBS 2V AP/OBL RIGHT RADEX RIBS UNILATERAL 2 VIEWS Angi Inman MD [address] [place] [id number] X[place] [facility] Referral ID Status Reason Start Date Expiration Date V isits Requested Visits Authorized [id number] Closed Auto-Generate d Referral 03/01/2022 03/31/2023 1 1 * Diagnostic Procedure Only (Routine) - Closed Specialty Diagnoses / Procedures Referred By Contac t Referred To Contact XR IMAGING Diagnoses Chronic bilateral thoracic back pain Rib pain on right side Procedures XR THORACIC LIMITED 2V AP/LAT RADEX SPINE THORACIC 2 VIEWS Angi Inman MD [address] [place] [id number] Xr Imaging [place] [address] Referral ID Status Reason Start Date Expiration Date V isits Requested Visits Authorized [id number] Closed Auto-Generate d Referral 03/01/2022 03/31/2023 1 1 * Diagnostic Procedure Only (Routine) - Closed Specialty Diagnoses / Procedures Referred By Contac t Referred To Contact XR IMAGING Diagnoses Chronic bilateral thoracic back pain Dizziness and giddiness Procedures XR CERV GENERAL 2V AP/LAT RADEX SPINE CERVICAL 2 OR 3 VIEWS Angi Inman MD [address] [place] [address] [place] [address] Referral ID Status Reason Start Date Expiration Date V isits Requested Visits Authorized [id number] Closed Auto-Generate d Referral 03/01/2022 03/31/2023 1 1 [facility])No reason for referral information availableWKettering Health Work Phone: Reason for visit Narrative* Diagnostic Procedure Only (Routine) - Closed Specialty Diagnoses / Procedures Referred By Contac t Referred To Contact XR IMAGING Diagnoses Chronic bilateral thoracic back pain Rib pain on right side Frequent falls Procedures XR RIBS 2V AP/OBL RIGHT RADEX RIBS UNILATERAL 2 VIEWS Angi Inman MD [address] [place] [id number] Xr Imaging [place] [address] Referral ID Status Reason Start Date Expiration Date V isits Requested Visits Authorized [id number] Closed Auto-Generate d Referral 03/01/2022 03/31/2023 1 1 [facility] Family History No Family History Records Found Relationship Condition Age at Onset Recorded Date/T [...] Referral Specialty Diagnoses / Procedures Referred By Contac t Referred To Contact Neurology Diagnoses AVA (obstructive sleep apnea) Procedures CONSULT TO NEUROLOGY OFFICE/OUTPATIENT [facility] 60-74 MINUTES Johana Frias, MOSHE.SHIPPING ROOM HELPER [address] [place] [phone] Referral ID Status Reason Start Date Expiration Date Visits Requested Visits Authorized [id number] Authorized PCP Requested Referral 03/26/2022 03/26/2023 1 1 Specialty Diagnoses / Procedures Referred By Contac t Referred To Contact Diagnoses Vertigo of central origin Imbalance Cervicocranial syndrome Cervicogenic headache Tinnitus, bilateral Procedures PROVIDER ORDERED FOLLOW UP OFFICE/OUTPATIENT [facility] MDM 60-74 MINUTES Johana Frias, PICK UP WORKER.SHIPPING ROOM HELPER [address] [place] [address] Referral ID Status Reason Start Date Expiration Date Visits Requested Visits Authorized [id number] Authorized PCP Requested Referral 12/31/2022 10/03/2023 1 1 Specialty Diagnoses / Procedures Referred By Contac t Referred To Contact Neurology Diagnoses Short-term memory loss Procedures CONSULT TO NEUROLOGY OFFICE/OUTPATIENT [facility] 60-74 MINUTES Johana Frias APRN.SHIPPING ROOM HELPER [address] [place] [phone] Referral ID Status Reason Start Date Expiration Date Visits Requested Visits Authorized [id number] Authorized PCP Requested Referral 10/03/2022 10/03/2023 1 1 Specialty Diagnoses / Procedures Referred By Contac t Referred To Contact [facility] Diagnoses MCI (mild cognitive impairment) Procedures CONSULT TO SPEECH THERAPY OFFICE/OUTPATIENT [facility] 60-74 MINUTES Jerel Cottrell MD [address] [place] [address] [facility] [address] [address] Referral ID Status Reason Start Date Expiration Date Visits Requested Visits Authorized [id number] Pending Review Auto-Generat ed Referral 01/30/2023 01/30/2024 1 1 Specialty Diagnoses / Procedures Referred By Contac t Referred To Contact Diagnoses Imbalance Cervicocranial syndrome Cervicogenic headache Procedures PROVIDER ORDERED FOLLOW UP OFFICE/OUTPATIENT [facility] 60-74 MINUTES Johana Frias APRN.SHIPPING ROOM HELPER [address] [place] [phone] Referral ID Status Reason Start Date Expiration Date Visits Requested Visits Authorized [id number] Authorized PCP Requested Referral 10/24/2023 04/22/2024 1 1 Specialty Diagnoses / Procedures Referred By Contac t Referred To Contact Diagnoses AVA (obstructive sleep apnea) Procedures PROVIDER ORDERED FOLLOW UP OFFICE/OUTPATIENT [facility] 60-74 MINUTES Sara Levine APRN.SHIPPING ROOM HELPER [address] [place] [address] Referral ID Status Reason Start Date Expiration Date Visits Requested Visits Authorized [id number] Authorized PCP Requested Referral 06/12/2024 1 1 Specialty Diagnoses / Procedures Referred By Contac t Referred To Contact Diagnoses Cervicogenic headache Cervicocranial syndrome Vertigo of central origin Imbalance Face pain Other headache syndrome Neck pain Procedures PROVIDER ORDERED FOLLOW UP OFFICE/OUTPATIENT NEW HIGH MDM 60 MINUTES Johana Frias APRN.SHIPPING ROOM HELPER [address] [place] [address] Referral ID Status Reason Start Date Expiration Date Visits Requested Visits Authorized [id number] Authorized PCP Requested Referral 02/01/2024 10/31/2024 1 1 Specialty Diagnoses / Procedures Referred By Contac t Referred To Contact MR IMAGING Diagnoses Cervicogenic headache Vertigo of central origin Imbalance Face pain Other headache syndrome Procedures MRI BRAIN WO/W IVCON MRI BRAIN BRAIN STEM W/O W/CONTRAST MATERIAL Johana Frias APRN.SHIPPING ROOM HELPER [address] [place] [address] [place] [address] Referral ID Status Reason Start Date Expiration Date Visits Requested Visits Authorized [id number] Pending Review Auto-Generat ed Referral 11/01/2023 11/30/2024 1 1 Specialty Diagnoses / Procedures Referred By Contac t Referred To Contact Ent - Otolaryngology Diagnoses Disorder of middle ear or mastoid, unspecified laterality Hearing loss, unspecified hearing loss type, unspecified laterality Procedures CONSULT TO ENT OFFICE/OUTPATIENT NEW HIGH MDM 60 MINUTES Lupe Beckford PA-C [address] [place] [address] Referral ID Status Reason Start Date Expiration Date Visits Requested Visits Authorized [id number] Authorized PCP Requested Referral 12/05/2023 12/04/2024 1 1 Specialty Diagnoses / Procedures Referred By Contac t Referred To Contact Diagnoses Cervicogenic headache Face pain Imbalance Vertigo of central origin Neck pain Bilateral occipital neuralgia Procedures PROVIDER ORDERED FOLLOW UP OFFICE/OUTPATIENT NEW HIGH MDM 60 MINUTES Johana Frias, MOSHE.SHIPPING ROOM HELPER [address] [place] [address] Referral ID Status Reason Start Date Expiration Date Visits Requested Visits Authorized [id number] Authorized PCP Requested Referral 05/15/2024 02/12/2025 1 1 Specialty Diagnoses / Procedures Referred By Contac t Referred To Contact Diagnoses Cervicogenic headache Imbalance Vertigo of central origin Neck pain Bilateral occipital neuralgia Procedures PROVIDER ORDERED FOLLOW UP OFFICE/OUTPATIENT NEW HIGH MDM 60 MINUTES Johana Frias APRN.SHIPPING ROOM HELPER [address] [place] [address] Referral ID Status Reason Start Date Expiration Date Visits Requested Visits Authorized [id number] Authorized PCP Requested Referral 11/18/2024 05/21/2025 1 [...] or prosecute any alcohol or drug abuse patient.[facility] SystemIn the event this information is protected by the Federal Confidentiality of Alcohol and Drug Abuse Patient Records regulations: The Federal rules restrict any use of the information to criminally investigate or prosecute any alcohol or drug abuse patient.[facility] SystemIn the event this information is protected by the Federal Confidentiality of Alcohol and Drug Abuse Patient Records regulations: The Federal rules restrict any use of the information to criminally investigate or prosecute any alcohol or drug abuse patient.[facility] SystemIn the event this information is protected by the Federal Confidentiality of Alcohol and Drug Abuse Patient Records regulations: The Federal rules restrict any use of the information to criminally investigate or prosecute any alcohol or drug abuse patient.[facility] SystemIn the event this information is protected by the Federal Confidentiality of Alcohol and Drug Abuse Patient Records regulations: The Federal rules restrict any use of the information to criminally investigate or prosecute any alcohol or drug abuse patient.[facility] SystemIn the event this information is protected by the Federal Confidentiality of Alcohol and Drug Abuse Patient Records regulations: The Federal rules restrict any use of the information to criminally investigate or prosecute any alcohol or drug abuse patient.[facility] SystemIn the event this information is protected by the Federal Confidentiality of Alcohol and Drug Abuse Patient Records regulations: The Federal rules restrict any use of the information to criminally investigate or prosecute any alcohol or drug abuse patient.[facility] SystemIn the event this information is protected by the Federal Confidentiality of Alcohol and Drug Abuse Patient Records regulations: The Federal rules restrict any use of the information to criminally investigate or prosecute any alcohol or drug abuse patient.[facility] SystemIn the event this information is protected by the Federal Confidentiality of Alcohol and Drug Abuse Patient Records regulations: The Federal rules restrict any use of the information to criminally investigate or prosecute any alcohol or drug abuse patient.[facility] SystemIn the event this information is protected by the Federal Confidentiality of Alcohol and Drug Abuse Patient Records regulations: The Federal rules restrict any use of the information to criminally investigate or prosecute any alcohol or drug abuse patient.[facility] SystemIn the event this information is protected by the Federal Confidentiality of Alcohol and Drug Abuse Patient Records regulations: The Federal rules restrict any use of the information to criminally investigate or prosecute any alcohol or drug abuse patient.[facility] SystemIn the event this information is protected by the Federal Confidentiality of Alcohol and Drug Abuse Patient Records regulations: The Federal rules restrict any use of the information to criminally investigate or prosecute any alcohol or drug abuse patient.[facility] SystemIn the event this information is protected by the Federal Confidentiality of Alcohol and Drug Abuse Patient Records regulations: The Federal rules restrict any use of the information to criminally investigate or prosecute any alcohol or drug abuse patient.[facility] SystemIn the event this information is protected by the Federal Confidentiality of Alcohol and Drug Abuse Patient Records regulations: The Federal rules restrict any use of the information to criminally investigate or prosecute any alcohol or drug abuse patient.[facility] SystemIn the event this information is protected by the Federal Confidentiality of Alcohol and Drug Abuse Patient Records regulations: The Federal rules restrict any use of the information to criminally investigate or prosecute any alcohol or drug abuse patient.[facility] SystemIn the event this information is protected by the Federal Confidentiality of Alcohol and Drug Abuse Patient Records regulations: The Federal rules restrict any use of the information to criminally investigate or prosecute any alcohol or drug abuse patient.[facility] SystemIn the event this information is protected by the Federal Confidentiality of Alcohol and Drug Abuse Patient Records regulations: The Federal rules restrict any use of the information to criminally investigate or prosecute any alcohol or drug abuse patient.[facility] SystemIn the event this information is protected by the Federal Confidentiality of Alcohol and Drug Abuse Patient Records regulations: The Federal rules restrict any use of the information to criminally investigate or prosecute any alcohol or drug abuse patient.[facility] SystemIn the event this information is protected by the Federal Confidentiality of Alcohol and Drug Abuse Patient Records regulations: The Federal rules restrict any use of the information to criminally investigate or prosecute any alcohol or drug abuse patient.[facility] SystemIn the event this information is protected by the Federal Confidentiality of Alcohol and Drug Abuse Patient Records regulations: The Federal rules restrict any use of the information to criminally investigate or prosecute any alcohol or drug abuse patient.[facility] SystemIn the event this information is protected by the Federal Confidentiality of Alcohol and Drug Abuse Patient Records regulations: The Federal rules restrict any use of the information to criminally investigate or prosecute any alcohol or drug abuse patient.[facility] SystemIn the event this information is protected by the Federal Confidentiality of Alcohol and Drug Abuse Patient Records regulations: The Federal rules restrict any use of the information to criminally investigate or prosecute any alcohol or drug abuse patient.[facility] SystemIn the event this information is protected by the Federal Confidentiality of Alcohol and Drug Abuse Patient Records regulations: The Federal rules restrict any use of the information to criminally investigate or prosecute any alcohol or drug abuse patient.[facility] SystemIn the event this information is protected by the Federal Confidentiality of Alcohol and Drug Abuse Patient Records regulations: The Federal rules restrict any use of the information to criminally investigate or prosecute any alcohol or drug abuse patient.[facility] SystemIn the event this information is protected by the Federal Confidentiality of Alcohol and Drug Abuse Patient Records regulations: The Federal rules restrict any use of the information to criminally investigate or prosecute any alcohol or drug abuse patient.[facility] SystemIn the event this information is protected by the Federal Confidentiality of Alcohol and Drug Abuse Patient Records regulations: The Federal rules restrict any use of the information to criminally investigate or prosecute any alcohol or drug abuse patient.[facility] SystemIn the event this information is protected by the Federal Confidentiality of Alcohol and Drug Abuse Patient Records regulations: The Federal rules restrict any use of the information to criminally investigate or prosecute any alcohol or drug abuse patient.[facility] SystemIn the event this information is protected by the Federal Confidentiality of Alcohol and Drug Abuse Patient Records regulations: The Federal rules restrict any use of the information to criminally investigate or prosecute any alcohol or drug abuse patient.[facility] SystemIn the event this information is protected by the Federal Confidentiality of Alcohol and Drug Abuse Patient Records regulations: The Federal rules restrict any use of the information to criminally investigate or prosecute any alcohol or drug abuse patient.[facility] SystemIn the event this information is protected by the Federal Confidentiality of Alcohol and Drug Abuse Patient Records regulations: The Federal rules restrict any use of the information to criminally investigate or prosecute any alcohol or drug abuse patient.[facility] SystemIn the event this information is protected by the Federal Confidentiality of Alcohol and Drug Abuse Patient Records regulations: The Federal rules restrict any use of the information to criminally investigate or prosecute any alcohol or drug abuse patient.[facility] SystemIn the event this information is protected by the Federal Confidentiality of Alcohol and Drug Abuse Patient Records regulations: The Federal rules restrict any use of the information to criminally investigate or prosecute any alcohol or drug abuse patient.[facility] SystemIn the event this information is protected by the Federal Confidentiality of Alcohol and Drug Abuse Patient Records regulations: The Federal rules restrict any use of the information to criminally investigate or prosecute any alcohol or drug abuse patient.[facility] SystemIn the event this information is protected by the Federal Confidentiality of Alcohol and Drug Abuse Patient Records regulations: The Federal rules restrict any use of the information to criminally investigate or prosecute any alcohol or drug abuse patient.[facility] Reason for Visit (unrecogniz ed section and content) Reason Comments Follow Up Specialty Diagnoses / Procedures Referred By Vitaly baires Referred To Contact Diagnoses Cervicogenic headache Cervicocranial syndrome Vertigo of central origin Imbalance Procedures PROVIDER ORDERED FOLLOW UP OFFICE/OUTPATIENT NEW HIGH MDM 60 MINUTES Johana Frias, MOSHE.SHIPPING ROOM HELPER [address] [place] [phone] Referral ID Status Reason Start Date Expiration Date V isits Requested Visits Authorized [id number] Closed PCP Requested Referral 02/05/2024 09/05/2024 1 [...] NEW HIGH MDM 60-74 MINUTES Emelina Andrews, PICK UP WORKER.SHIPPING ROOM HELPER [address] [place] [address] Referral ID Status Reason Start Date Expiration Date V isits Requested Visits Authorized [id number] Closed PCP Requested Referral 02/06/2022 02/06/2023 1 1 Reason Comments Results HSAT Reason Comments New Patient Evaluation Sleep Apnea Results - Sleep Study Home test complete d Specialty Diagnoses / Procedures Referred By Vitaly baires Referred To Contact Neurology Diagnoses AVA (obstructive sleep apnea) Procedures CONSULT TO NEUROLOGY OFFICE/OUTPATIENT NEW HIGH MDM 60-74 MINUTES Johana Frias, MOSHE.SHIPPING ROOM HELPER [address] [place] [address] Referral ID Status Reason Start Date Expiration Date V isits Requested Visits Authorized [id number] Closed PCP Requested Referral 03/26/2022 03/26/2023 1 [...] NEW HIGH MDM 60-74 MINUTES Johana Frias, PICK UP WORKER.SHIPPING ROOM HELPER [address] [place] [address] Referral ID Status Reason Start Date Expiration Date V isits Requested Visits Authorized [id number] Closed PCP Requested Referral 04/23/2023 01/21/2024 1 1 Reason Comments Sleep Apnea Reason Onset Date Comments Refill Request 06/23/2023 Reason Comments Headache Specialty Diagnoses / Procedures Referred By Contac t Referred To Contact MR IMAGING Diagnoses Cervicogenic headache Vertigo of central origin Imbalance Face pain Other headache syndrome Procedures MRI BRAIN WO/W IVCON MRI BRAIN BRAIN STEM W/O W/CONTRAST MATERIAL Johana Frias, PICK UP WORKER.SHIPPING ROOM HELPER [address] [place] [address] [place] [address] Referral ID Status Reason Start Date Expiration Date V isits Requested Visits Authorized [id number] Closed Auto-Generate d Referral 11/23/2023 11/23/2023 1 1 Reason Comments Established Patient Follow-Up Specialty Diagnoses / Procedures Referred By Contac t Referred To Contact Diagnoses Cervicogenic headache Face pain Imbalance Vertigo of central origin Neck pain Bilateral occipital neuralgia Procedures PROVIDER ORDERED FOLLOW UP OFFICE/OUTPATIENT NEW HIGH MDM 60 MINUTES Johana Frias, PICK UP WORKER.SHIPPING ROOM HELPER [address] [place] [address] Referral ID Status Reason Start Date Expiration Date V isits Requested Visits Authorized [id number] Closed PCP Requested Referral 05/15/2024 02/12/2025 1 1 Reason Comments Sleep Apnea Follow up Specialty Diagnoses / Procedures Referred By Contac t Referred To Contact Diagnoses Cervicogenic headache Imbalance Vertigo of central origin Neck pain Bilateral occipital neuralgia Procedures PROVIDER ORDERED FOLLOW UP OFFICE/OUTPATIENT NEW HIGH MDM 60 MINUTES Johana Frias, MOSHE.SHIPPING ROOM HELPER [address] [place] [address] Phone: tel: fax: Referral ID Status Reason Start Date Expiration Date V isits Requested Visits Authorized [id number] Closed PCP Requested Referral 11/18/2024 05/21/2025 1 1 Reason Onset Date Comments Refill Request 12/06/2024 Specialty Diagnoses / Procedures Referred By Contac dequan Referred To Contact Diagnoses Cervicogenic headache Imbalance Vertigo of central origin Neck pain Bilateral occipital neuralgia Encounter for long-term (current) use of medications Procedures PROVIDER ORDERED FOLLOW UP OFFICE/OUTPATIENT NEW HIGH MDM 60 MINUTES Johana Frias, PICK UP WORKER.SHIPPING ROOM HELPER [address] [place] [address] Phone: tel: fax: Referral ID Status Reason Start Date Expiration Date V isits Requested Visits Authorized [id number] Closed PCP Requested Referral 02/27/2025 11/27/2025 1 1 Care Teams (unrecognized sec tion and content) 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 Start Date End Date Johann Bundy [address] [place] [id number] PCP - General Family Practice 08/01/20 Christie Ugarte DO [address] [place] [address] Neurology 03/31/21 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 Start Date End Date Johann Bundy [address] [place] [id number] PCP - General Family Practice 08/01/20 Christie Ugarte DO [address] [place] [address] Neurology 03/31/21 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 Start Date End Date NaumoffJohann [address] [place] [address] PCP - General Family Practice 08/01/20 Christie Ugarte DO [address] [place] [address] Neurology 03/31/21 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 Start Date End Date NaumoffJohann [address] [place] [address] PCP - General Family Practice 08/01/20 Christie Ugarte DO [address] [place] [address] Neurology 03/31/21 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 Start Date End Date NaumoffJohann [address] [place] [address] PCP - General Family Practice 08/01/20 Christie Ugarte DO [address] [place] [address] Neurology 03/31/21 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 Start Date End Date NaumoffJohann [address] [place] [address] PCP - General Family Practice 08/01/20 Christie Ugarte DO [address] [place] [address] Neurology 03/31/21 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 Start Date End Date NaumoffJohann [address] [place] [address] PCP - General Family Practice 08/01/20 Christie Ugarte DO [address] [place] [address] Neurology 03/31/21 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 Start Date End Date NaumoffJohann [address] [place] [address] PCP - General Family Medicine 08/01/20 Christie Ugarte DO [address] [place] [address] Neurology 03/31/21 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 Start Date End Date NaumoffJohann [address] [place] [address] PCP - General Family Medicine 08/01/20 Christie Ugarte DO [address] [place] [address] Neurology 03/31/21 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 Start Date End Date NaumoffJohann [address] [place] [address] PCP - General Family Medicine 08/01/20 Christie Ugarte DO [address] [place] [address] Neurology 03/31/21 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 Start Date End Date NaumoffJohann [address] [place] [address] PCP - General Family Medicine 08/01/20 Christie Ugarte DO [address] [place] [address] Neurology 03/31/21 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 Johann Bundy MD Family Provider Active Dr. Dale Albert DO Primary Care Provider Active Team Status: Inactive Member Role Status Dates Dr. Dale Albert DO Primary Care Provider Active Dr. 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 Start Date End Date Johann Bundy [address] [place] [address] PCP - General Family Medicine 08/01/20 Christie Ugarte DO [address] [place] [address] Neurology 03/31/21 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 Start Date End Date Johann Bundy [address] [place] [id number] PCP - General Family Medicine 08/01/20 Christie Ugarte DO [address] [place] [address] Neurology 03/31/21 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 Start Date End Date Johann Bundy [address] [place] [id number] PCP - General Family Medicine 08/01/20 Christie Ugarte DO [address] [place] [address] Neurology 03/31/21 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 Start Date End Date Johann Bundy [address] [place] [id number] PCP - General Family Medicine 08/01/20 Christie Ugarte DO [address] [place] [address] Neurology 03/31/21 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 Start Date End Date Johann Bundy [address] [place] [address] PCP - General Family Medicine 08/01/20 Christie Ugarte DO [address] [place] [address] Neurology 03/31/21 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 Start Date End Date Johann Bundy [address] [place] [address] PCP - General Family Medicine 08/01/20 Christie Ugarte DO [address] [place] [address] Neurology 03/31/21 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 Start Date End Date JamarJohann [email or web address] [address] [place] [address] PCP - General Family Medicine 08/01/20 Christie Ugarte DO [address] [place] [address] Neurology 03/31/21 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 Start Date End Date YvetteJohann [email or web address] [address] [place] [address] PCP - General Family Medicine 08/01/20 Christie Ugarte DO [address] [place] [address] Neurology 03/31/21 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 Start Date End Date Jamarindia Johann Brandon [address] [place] [address] PCP - General Family Medicine 08/01/20 Christie Ugarte DO [address] [place] [address] Neurology 03/31/21 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 Start Date End Date Johann Bundy [address] [place] [address] PCP - General Family Medicine 08/01/20 Christie Ugarte DO [address] [place] [address] Neurology 03/31/21 Team Status: Active Member Role Status Dates Dr. Dale Albert DO Primary Care Provider Active Team Status: Inactive Member Role Status Dates Dr. Dale Albert DO Primary Care Provider Active Start: February 05, 2025 End: February 05, 2025 Dr. Mariza Rios MD Attending Provider Active Start: February 05, 2025 End: February 05, 2025 Dr. 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 Start Date End Date Johann Bundy [address] [place] [id number] PCP - General Family Medicine 08/01/20 Christie Ugarte DO [address] [place] [address] Neurology 03/31/21 Goals (unrecognized section and content) Goals may be documented in a n alternate section No data available for this sectionGoals may be documented in an alternate sectionGoals may be documented in an alternate section No data available for this sectionGoals may be documented in an alternate section No data available for this section No data available for this sectionGoals may be documented in an alternate section No data available for this section Care Team (unrecognized sect ion and content) Care Team Personnel Name: DALE ALBERT DO Position: P4 Physician - Primary Care Member Role: Primary Care Physician Address: Address: [address] [place] [address] Care Team Related Persons Name: LUH CHANCE Address: [address] [address] [id number] (unrecognized sect ion and content) No Status Records FoundNo Status Records FoundNo Status Records FoundNo Status Records FoundNo Status Records Found INFORMATION SOURCE (unrecogn ized section and content) DATE CREATED AUTHOR 11/27/2023 [facility] DATE CREATED AUTHOR AUTHOR'S ORGANIZ ATION 05/02/2024 [facility] DATE CREATED AUTHOR AUTHOR'S ORGANIZ ATION 02/12/2025 [facility] DATE CREATED AUTHOR AUTHOR'S ORGANIZ ATION 03/18/2025 [facility] DATE CREATED AUTHOR AUTHOR'S ORGANIZ ATION 04/26/2025 [facility] [place] FOR RECORDS PERTAINING TO PATIENTS WHO ARE [...] BE BASED ON THE PRIMARY CLINICAL RECORDS. [employer] provides no warranty or guarantee of the accuracy or completeness of information in this document.
[2025-05-05 10:10] LABS: Hematocrit 43.3 % (40-54); Hemoglobin 15.5 g/dL (13.0-16.5); Immature Granulocytes Count 0.020 X10^3/uL (0.0-0.0); Mean Corp Hgb Conc 35.8 g/dL (32-36); Mean Corpuscular Volume 92.1 fL (80-94); Mean Platelet Vol. 9.2 fl (6.2-12.0); NRBC Flagged by Analyzer 0 % (0-5); Platelet Count 188 K/mm3 (150-450); RBC Distribution Width CV 11.1 % (11.6-14.6); RBC Distribution Width SD 37.9 fl (35.1-43.9); Red Blood Count 4.70 M/mm3 (4.6-6.2); White Blood Count 5.2 K/mm3 (4.4-11.0)
[2025-05-05 10:31] LABS: AST(SGOT) 32 U/L (<=37); Alanine Aminotransfer ALT/SGPT 23 U/L (<=46); Albumin, Serum 4.6 g/dL (3.5-5.0); Alkaline Phosphatase 72 U/L (40-129); Anion Gap 11 (5-15); BUN 20 mg/dL (4-19); BUN/Creat Ratio 19.7 RATIO (10-20); Calcium,Total 9.5 mg/dL (7.6-11.0); Carbon Dioxide 25.4 mmol/L (21.0-32.0); Chloride 103 mmol/L (98-108); Globulin 2.5 g/dL (2.2-4.2); Glucose 86 mg/dL (70-99); Potassium 4.3 mmol/L (3.3-5.1)
== END | disposition home or self-care (01) ==
LOC: MTLAB 07:18
PROVIDERS: Referring Provider Internal Medicine Rheumatology; Visit Provider Internal Medicine Rheumatology
DX: M06.4 Inflammatory polyarthropathy (principal); R76.8 Other specified abnormal immunological findings in serum; Z79.899 Other long term (current) drug therapy
CPT/HCPCS: 36415; 80053; 85025